=== PATIENT | female | born 1960 | race Caucasian/White ===

== ENCOUNTER 2017-06-11 10:39 | Emergency (ER) | payer SELFPAY ==
[~2017-06-11] VITALS: Ht 160 cm; Wt 74.8 kg
[~2017-06-11 10:39] MED LIST: ALEVE220 M1 PO; ANAPROX DS550 MG PO; ATIVAN0.5 MG PO; CIPRO500 MG PO; CYCLOBENZAPRINE5 MG PO; DAYPRO600 M1 PO; FLAGYL500 MG PO; FLEXERIL10 MG PO; GUAIFENESIN600 MG PO; HYDROCODONE BIT1 T11 PO; LOMOTIL 0.025 M1 TA1 PO; MEDROL DOSEPAK4 MG PO; MOTRIN800 MG PO; NAPROSYN500 MG PO; NKHM; NORCO 325 MG-51 TAB PO; Orphenadrine C100 MG PO; PARAFON FORTE500 MG PO; PHENERGAN W/ DE30 ML PO; PREDNICOT10 MG PO; PREDNISONE50 MG PO; ROBAXIN750 MG PO; TRAMADOL HCL50 MG PO; VICODIN 500 MG-1 TAB PO; ZITHROMAX Z PA250 MG PO; ZOFRAN ODT4 MG SL; ZOFRAN4 MG PO
[2017-06-11 10:53] VITALS: BP 146/72
== END 2017-06-11 13:04 | disposition home or self-care (01) ==
LOC: ED 10:39
DX: S63.632A Sprain of interphalangeal joint of right middle finger, initial encounter (principal); F17.200 Nicotine dependence, unspecified, uncomplicated; F12.10 Cannabis abuse, uncomplicated; J44.9 Chronic obstructive pulmonary disease, unspecified; Z88.0 Allergy status to penicillin; Z88.5 Allergy status to narcotic agent; Z79.899 Other long term (current) drug therapy; Z90.710 Acquired absence of both cervix and uterus; Z90.49 Acquired absence of other specified parts of digestive tract; X58.XXXA Exposure to other specified factors, initial encounter; Y93.89 Activity, other specified; Y92.89 Other specified places as the place of occurrence of the external cause; Y99.9 Unspecified external cause status

== ENCOUNTER 2017-06-30 12:25 | Emergency (ER) | payer SELFPAY ==
[~2017-06-30] VITALS: Ht 167.6 cm; Wt 68.0 kg
[2017-06-30 12:29] VITALS: BP 137/82
[2017-06-30] MEDS ORDERED: PREDNISONE10 MG PO ×2 (12:40→14:01)
[2017-06-30] MEDS ORDERED: CLARITIN10 MG PO (12:40)
[2017-06-30] MEDS ORDERED: FLONASE ALLERG9.9 ML NAS (12:40)
[2017-06-30] MEDS ORDERED: ROBITUSSIN DM 105 ML PO (12:40)
[2017-06-30] MEDS ORDERED: TESSALON PERLE100 M1 PO (12:45)
== END 2017-06-30 14:09 | disposition home or self-care (01) ==
LOC: ED 12:25
DX: J44.1 Chronic obstructive pulmonary disease with (acute) exacerbation (principal); I10 Essential (primary) hypertension; F17.200 Nicotine dependence, unspecified, uncomplicated; Z88.5 Allergy status to narcotic agent; Z90.722 Acquired absence of ovaries, bilateral; Z90.49 Acquired absence of other specified parts of digestive tract; Z90.710 Acquired absence of both cervix and uterus; Z88.0 Allergy status to penicillin

== ENCOUNTER 2017-07-03 11:03 | Inpatient (IN) | payer SELFPAY ==
[~2017-07-03] VITALS: Ht 167.6 cm; Wt 73.2 kg
--- NOTE | ~2017-07-03 | PR ---
[place], [place] PROGRESS NOTE NAME: JULIANNE HERNANDEZ UNIT #: [id number] ROOM: 401 DOCTOR: KRISTEN SALAS MD,MIKEY BIRTHDATE: [birth year] DOS: 07/12/2017 SUBJECTIVE: The patient was independently seen and examined today with [id number] encounter. Physical examination performed. History was confirmed. The labs were reviewed. Assessment and management for this patient was personally made. She has been doing well at this time from the pulmonary standpoint without any symptoms of cough, wheezing, chest pain or shortness of breath acutely. OBJECTIVE: VITAL SIGNS: Normal temperature, respiratory rate 18, heart rate 73, blood pressure 98/56 recorded. Pulse oxygen saturation on room air 97% saturation. HEENT: Examination shows no acute change. NECK: Supple. CARDIOVASCULAR: S1, S2 audible. LUNGS: Without any wheeze or crackles. ABDOMEN: Soft, nontender. IMPRESSION: The patient was currently noted with findings of resolution of the acute hypoxic respiratory failure. The patient with exacerbation of COPD and other problems progressively. She could be considered for home discharge whenever is necessary from pulmonary standpoint to outpatient followup. The patient was suggested post-discharge. Abstinence of the tobacco use was recommended. MIKEY PETERSON MD CM:PNTRANS [phone] MIKEY SALAS MD 07/12/17 1025 interface
--- NOTE | ~2017-07-03 | PR ---
[place], [place] PROGRESS NOTE NAME: JULIANNE HERNANDEZ UNIT #: [id number] ROOM: 409 DOCTOR: MIKEY IZQUIERDO MD BIRTHDATE: [birth year] DOS: 07/13/2017 ADDENDUM SUBJECTIVE: The patient was independently seen and examined [id number]-jatr encounter. Physical examination performed. All the labs were reviewed. Assessment and management of the patient, which was done today was personally made. The note which was done by the medical director occupational health was approved. The patient has been currently managed for the anemia noted with hematoma, which was discovered with a CT scan of the abdomen and pelvis involving the rectus muscle in the retroperitoneal area. From the Pulmonary standpoint, the patient remained asymptomatic with symptoms of chest pain, coughing and sputum expectoration. PHYSICAL EXAMINATION: VITAL SIGNS: The patient reviewed was noted essentially normal at the present time. The pulse oxygen saturation on room air was noted 94% saturation. CHEST: Auscultation of the chest was noted. LUNGS: Clear without any wheezing or crackles. ABDOMEN: Soft, nontender. LABORATORY DATA: BMP, CO2 of 34, otherwise normal BMP noted. CBC showed WBC count 20.8, hemoglobin 7.6, hematocrit 24.3, platelet count was normal. IMPRESSION: 1. The patient with retroperitoneal hematoma. The patient was noted at this time with abnormal stress testing. 2. Resolving acute exacerbation of chronic obstructive pulmonary disease progressively with resolved acute hypoxic and hypercapnic respiratory failure. PLAN OF TREATMENT: No changes from the pulmonary standpoint. Continuation of the current plan and management as in progress for the retroperitoneal hematoma and continuation of other therapies. [place], [place] PROGRESS NOTE NAME: JULIANNE HERNANDEZ UNIT #: [id number] ROOM: 409 DOCTOR: MIKEY IZQUIERDO MD BIRTHDATE: [birth year] MIKEY PETERSON MD CM:PNTRANS [phone] MIKEY SALAS MD 07/13/17 1257 interface
--- NOTE | ~2017-07-03 | PR ---
[place], [place] PROGRESS NOTE NAME: JULIANNE HERNANDEZ [facility] #: [id number] UNIT #: [id number] ROOM: 401 DOCTOR: VANESSA WALTON MD BIRTHDATE: [birth year] DOS: 07/09/2017 SUBJECTIVE: The patient was seen at her bedside today, 07/09/2017, for followup of her chest pain, mildly elevated troponin and abnormal echocardiogram, which demonstrated mid and distal anterior wall and anterior septum hypokinesis. The patient feels dramatically better than when I saw her 3 days ago. She did have considerable abdominal pain and bruising over the weekend. She was evaluated by General Surgery who felt that she had a rectus sheath hematoma. He recommended withholding anticoagulation and antiplatelet agents and then applying conservative care. The patient states her pain is much better today, although she still has a tender area in her left lower quadrant. She states her breathing is a lot better. She denies any chest pain today. PHYSICAL EXAMINATION: VITAL SIGNS: Today, her pulse is 98 and regular, blood pressure is 112/51. She is afebrile. NECK: Supple. She has no jugular distention. Carotids are full. I heard no bruits. LUNGS: Respirations are unlabored. Her chest is clear to auscultation and percussion. She has no presacral edema or chest wall tenderness. HEART: Has a regular rhythm. She has a fourth heart sound, but no third heart sound. There is no murmur. The PMI is not displaced. ABDOMEN: Soft. She has a large ecchymotic area involving both right and left lower quadrants in the midline. ASSESSMENT AND PLAN: She does seem to be doing better from a cardiopulmonary standpoint. I will be planning on doing a pharmacologic myocardial perfusion study in the next 24 hours. If that looks good, then I think that she could be discharged to home after that. She asked me if she could go back to work or should she go on short term disability. She has 3 issues, her cardiac issues, pulmonary issues and the rectus sheath hematoma. I think that all 3 speciality groups will need to sign off on her before she returns to work. From a cardiac standpoint, we will have a better idea of her prognosis after her stress test. For now, we will continue her current management. I thank the hospitalist physicians for asking our advice regarding her care. [place], [place] PROGRESS NOTE NAME: JULIANNE HERNANDEZ UNIT #: [id number] ROOM: 401 DOCTOR: VANESSA WALTON MD BIRTHDATE: [birth year] VANESSA WALTON MD CM:PNTRANS [id number] VANESSA WALTON MD 07/09/17 1346 interface
--- NOTE | ~2017-07-03 | PR ---
[place], [place] PROGRESS NOTE [id number] UN[facility] #: [id number] ROOM: 401 DOCTOR: KRISTEN SALAS MD,MIKEY BIRTHDATE: [birth year] DOS: 07/08/2017 SUBJECTIVE: She has been complaining of some nonspecific pain in the right upper quadrant, respiratory nicole doing well with continued improvement and reduction of respiratory symptom. Denies symptoms of chest pain. OBJECTIVE: VITAL SIGNS: For the patient which has been recorded showed normal temperature, respiratory rate 18, heart rate of 86, blood pressure 146/78. The pulse oxygen saturation recorded on 2 liters nasal cannula 96% saturation. HEENT: No new change. NECK: Supple. CARDIOVASCULAR: S1, S2 audible. LUNGS: For this patient was noted without any wheezing or crackles. ABDOMEN: Noted soft. Bowel sounds are present. LABORATORY DATA: The patient has an x-ray of the KUB. KUB activity was done this morning by the primary care attending for assessment of abdominal pain, was described no bowel obstruction localizing ____ bowel loop for other abnormalities. Question of gallbladder calculi, the patient was suggested. Consider ultrasound of the right upper quadrant. IMPRESSION: Resolving acute exacerbation of chronic obstructive pulmonary disease, right upper quadrant abdominal pain, etiology currently being assessed by the primary care attending. PLAN OF TREATMENT: No changes in the therapy at this time. Continue current treatment plan and management per usual care, other supportive plan of treatment and therapies. MIKEY PETERSON MD CM:PNTRANS [phone] MIKEY SALAS MD 07/09/17 0524 interface
--- NOTE | ~2017-07-03 | PR ---
[place], [place] PROGRESS NOTE NAME: JULIANNE HERNANDEZ UNIT #: [id number] ROOM: 401 DOCTOR: MIKEY IZQUIERDO MD BIRTHDATE: [birth year] DOS: 07/09/2017 SUBJECTIVE: She has been noted resolution of abdominal pain, sitting comfortably on the bed without any distress. Respiratory symptoms continue to resolve progressively. OBJECTIVE: VITAL SIGNS: Blood pressure 112/51 this morning, respiratory rate 20, heart rate 98 with a normal temperature recorded. Pulse oxygen saturation noted on 2 liters nasal canula 94% saturation. HEENT: Examination shows no acute change. NECK: Supple. CARDIOVASCULAR: S1, S2 is audible. LUNGS: Noted without any wheezing or crackles. ABDOMEN: Soft, nontender. EXTREMITIES: Show no edema. LABORATORY DATA: CBC was done this morning shows a WBC count elevated 24.6, hemoglobin 8.4, hematocrit 25.7, platelet count 220,000. The differentials were noted with findings of 4%, myelocyte 3%, metamyelocytes 1%, atypical lymphocytes. The overall neutrophils were noted as normal. The BMP done this morning was normal. The patient had a CT scan of the abdomen and pelvis that was completed yesterday and was ordered by the primary care attending, described as left rectus abdominis and pelvic hematoma with advanced mass effect on the bladder wall. Small amount of right perihepatic fluid. The patient described the question of mild hemoperitoneum. Small pericardial effusion. IMPRESSION: The patient will be currently noted abdominal pain, etiology is unclear, but from the pulmonary standpoint, she has been noted gradual reduction, improvement and resolution of the acute hypoxic respiratory failure with exacerbation of chronic obstructive pulmonary disease. PLAN OF MANAGEMENT: The patient will be continued on the bronchodilators with oxygen supplementation. Solu-Medrol has already been given as 40 mg b.i.d., which will be decreased to once a day dosing. Current abdominal assessment per surgeon as well should be requested. [place], [place] PROGRESS NOTE NAME: JULIANNE HERNANDEZ UNIT #: [id number] ROOM: 401 DOCTOR: MIKEY IZQUIERDO MD BIRTHDATE: [birth year] MIKEY PETERSON MD CM:MARY [phone] MIKEY SALAS MD 07/09/17 2249 interface
--- NOTE | ~2017-07-03 | PR ---
[place], [place] PROGRESS NOTE [id number] #: [id number] ROOM: 409 DOCTOR: JALEN GAITAN MD BIRTHDATE: [birth year] DOS: SUBJECTIVE: The patient is sitting up in bed, does not appear in distress. Denies any cardiac complaints. OBJECTIVE: VITAL SIGNS: Blood pressure 100/48, heart rate 66, respiratory rate of 14, temperature 97.5. NECK: Good upstroke. No bruit. HEART: S1, S2 with no rub. LUNGS: Clear to auscultation. ABDOMEN: Soft, nontender, present bowel sounds. LOWER EXTREMITIES: No edema. LABORATORY DATA: White count 24,000, hemoglobin 9.5. ASSESSMENT AND PLAN: 1. Current presentation with shortness of breath and respiratory failure with elevated troponin. Subsequent stress test showing large fixed defect along with periinfarct ischemia. The patient was scheduled for cardiac catheterization, but her rectus sheath hematoma precludes current plans. The patient appears to be doing relatively well. Denies any specific cardiac complaint. The patient's vital signs preclude further titration of her medication. She will need to be discharged home on enteric-coated aspirin 81 mg and can be followed up in [address] scan on the hematoma. There is already a planned cardiac catheterization with Dr. Harris on July 27 should patient's bleeding status improves. The patient completely cautioned to call for any recurrent chest pain at any time. Early followup in our clinic within 2-4 weeks as an outpatient with Dr. Way. JALEN GAITAN MD CM:PNTRANS [phone] JALEN GAITAN MD 07/14/17 1524 interface
--- NOTE | ~2017-07-03 | PR ---
[place], [place] PROGRESS NOTE NAME: JULIANNE HERNANDEZ UNIT #: [id number] ROOM: 409 DOCTOR: KRISTEN SALAS MD,MIKEY BIRTHDATE: [birth year] DOS: 07/14/2017 SUBJECTIVE: She has been noted comfortable from the respiratory standpoint with minimal cough, but there are no symptoms of chest pain or hemoptysis. Denies any sputum expectoration. OBJECTIVE: VITAL SIGNS: Normal temperature, respiratory rate 18, heart rate 66, blood pressure 100/48. Pulse oxygen saturation recorded on room air 97% saturation. HEENT: No new change. NECK: Supple. CARDIOVASCULAR: S1, S2 audible. LUNGS: Noted without any wheezing or crackles. ABDOMEN: Soft, nontender. LABORATORY DATA: CBC: WBC count 24.3, hemoglobin 9.5, hematocrit 28.6, platelet count 291,000. IMPRESSION: Stable respiratory status with retroperitoneal hematoma status post blood transfusion, resolving acute hypoxic respiratory failure, exacerbation of chronic obstructive pulmonary disease. PLAN OF TREATMENT: No change in the plan or therapy at this time. Continue the patient on current therapy previously in progress without any changes, all supportive care and plan. MIKEY PETERSON MD CM:PNTRANS [phone] MIKEY SALAS MD 07/15/17 0150 interface
--- NOTE | ~2017-07-03 | PR ---
[place], [place] PROGRESS NOTE NAME: [id number] UNIT #: [id number] ROOM: 401 DOCTOR: KRISTEN SALAS MD,MIKEY BIRTHDATE: [birth year] DOS: 07/11/2017 SUBJECTIVE: She underwent cardiac stress test that has been noted with possibility of ischemia was suspected. She was planned for the cardiac catheterization to be done in the next day or 2 at [facility]. OBJECTIVE: VITAL SIGNS: For the patient which has been recorded shows normal temperature, respiratory rate 18, heart rate 77, blood pressure 150 to 96 over 66. HEENT: Showed no new change. NECK: Supple. CARDIOVASCULAR: S1, S2 audible. LUNGS: Noted without any wheezing or crackles at this time. Breath sounds noted mildly decreased bilaterally. ABDOMEN: Soft, nontender. EXTREMITIES: Showed no edema. IMPRESSION: The patient with resolving acute respiratory failure with exacerbation of chronic obstructive pulmonary disease and acute coronary artery disease was also noted requiring further assessment with cardiac catheterization. PLAN OF TREATMENT: No changes in the plan of therapy from the pulmonary standpoint for this patient except further reducing the dose of Solu-Medrol 20 mg daily for 3 days and then discontinue completely. Other supportive plan of management and care plan. MIKEY PETERSON MD CM:PNTRANS [phone] MIKEY SALAS MD 07/11/17 1106 interface
--- NOTE | ~2017-07-03 | PR ---
[place], [place] PROGRESS NOTE NAME: JULIANNE HERNANDEZ UNIT #: [id number] ROOM: 401 DOCTOR: KRISTEN SALAS MD,MIKEY BIRTHDATE: [birth year] DOS: 07/06/2017 PULMONARY PROGRESS NOTE SUBJECTIVE: She has been noted comfortable at this time, reduction of respiratory symptoms in last 24 hours with current medical management. Used the BiPAP for some time this morning, using oxygen supplementation with the nasal cannula. OBJECTIVE: VITAL SIGNS: For the patient, which has been recorded show a normal temperature, respiratory rate 22, heart rate 72, blood pressure 134/68. Pulse oxygen saturation was noted as 95% on 3 liters nasal cannula. HEENT: Examination showed no acute change. NECK: Supple. CARDIOVASCULAR: S1, S2 audible. LUNGS: Noted with mild expiratory wheezing, no crackles. ABDOMEN: Soft, nontender. LABORATORY DATA: CBC: WBC count 21,000. Culture of the sputum noted as predominant normal fina, final culture results pending. BMP noted as normal. IMPRESSION: The patient who has been currently noted with progressive and gradual resolution of the acute on chronic hypoxic and hypercapnic respiratory failure; acute bronchitis and exacerbation of chronic obstructive pulmonary disease; leukocytosis, most likely induced by the corticosteroids. PLAN OF TREATMENT: Reduction of the corticosteroids. Transfer the patient from the intensive care unit to medical floor. Switching the patient's antibiotic intravenously to oral use as well. Ambulation as tolerated. Usual care. All other supportive therapy, plan and management and treatment. Continue medical management of cough with Mucinex, flutter valve and other medical management. MIKEY PETERSON MD CM:PNTRANS [phone] MIKEY SALAS MD 07/06/172026 interface
--- NOTE | ~2017-07-03 | PR ---
[place], [place] PROGRESS NOTE NAME: JULIANNE HERNANDEZ UNIT #: [id number] ROOM: 409 DOCTOR: JUAN FRANCISCO MAGANA DO BIRTHDATE: [birth year] DOS: 07/12/2017 ADDENDUM SUBJECTIVE: The patient was evaluated and states she is feeling better and excited about the possibility of going home. She did have a stress test during her stay and she was planned to have a cardiac catheterization on July 27 due to cardiology wanting to make sure there is no recurrence of her hematoma or bleeding prior to catheterization. Respiratory nicole, she denies any cough, shortness of breath, chest pain, pleuritic pain, fevers, nausea, vomiting or any other symptoms. OBJECTIVE: VITAL SIGNS: Temperature is 98.1, pulse is 73, respiratory rate 18, blood pressure 98/56 and pulse ox is 97% on room air. HEENT: No lesions. No ulcerations. No drainage. No masses. NECK: Trachea is midline. CARDIOVASCULAR: S1, S2 audible. LUNGS: No wheezing, no crackles, no rhonchi at this time, somewhat decreased breath sounds bilaterally. ABDOMEN: Soft and nontender. EXTREMITIES: No edema, no erythema. IMPRESSION: Chronic obstructive pulmonary disease exacerbation, continues to resolve. PLAN: The patient can be discharged at discretion of primary care team, but from my ____ standpoint, she is to go home and follow up with cardiology and pulmonology and PCP as directed. Please attach this dictation to Dr. Peterson's progress note. JUAN FRANCISCO MAGANA DO [place], [place] PROGRESS NOTE NAME: JULIANNE HERNANDEZ UNIT #: [id number] ROOM: 409 DOCTOR: JUAN FRANCISCO MAGANA DO BIRTHDATE: [birth year] MIKEY PETERSON MD CM:PNTRANS [phone] JUAN FRANCISCO MAGANA DO 07/13/17 0845 interface
--- NOTE | ~2017-07-03 | PR ---
[place], [place] PROGRESS NOTE NAME: JULIANNE HERNANDEZ [facility] #: [id number] UNIT #: [id number] ROOM: [facility] DOCTOR: KRISTEN SALAS MD,MIKEY BIRTHDATE: [birth year] DOS: 07/05/2017 SUBJECTIVE: She has been noted comfortable at this time. The cough has been noted currently without any sputum expectoration. Denies symptoms of chest pain or hemoptysis. The patient denies any symptoms of edema or pain of the lower extremities. OBJECTIVE: VITAL SIGNS: For the patient which were recorded for the patient showed the temperature of the patient noted as normal. The respiratory rate of the patient recorded as 21-14. Heart rate of 88, blood pressure 130/62-120/60. The pulse oxygen saturation of the patient recorded on 40% oxygen 97% saturation. HEENT: No acute change. NECK: Supple. CARDIOVASCULAR: S1, S2 audible. LUNGS: Exam of the lungs were noted with bilaterally decreased breath sounds with expiratory wheezing which are noted decreased from previous examination. ABDOMEN: Soft, nontender, bowel sounds present. CENTRAL NERVOUS SYSTEM: No focal deficit. LABORATORY DATA: The patient's CBC today: WBC count 18.8 with 85% segmented neutrophils, remaining CBC normal. BMP of the patient was noted with glucose of 163, BUN and creatinine was normal. The phosphorus 1.9. Chest x-ray of the patient that was done for the patient this morning was personally reviewed and shows changes of severe emphysema. The patient noted with hyperinflation of the lungs. IMPRESSION: 1. The patient has been currently treated in the hospital for further medical management of severe acute hypercapnic and hypoxic respiratory failure, currently responding to treatment, use of the BiPAP. 2. History of chronic nicotine abuse. There was no evidence of pneumonia. Acute bronchitis for this was noted. PLAN OF MANAGEMENT: Continue the BiPAP for the patient as ordered at nighttime and during the day, the patient has been getting intravenous Solu-Medrol with bronchodilators. The dose of Solu-Medrol will be decreased today. Continued abstinence from tobacco use. Supportive therapy, plan of management, other care, plan of treatment. The patient could be transferred from the intensive care unit to medical floor for further continued medical management. No change in antibiotics will be necessary. Additional treatment changes for the patient will be made based on the progression of the illness. The Solu-Medrol has been decreased from 60 mg q. 8h to 40 mg q.8h. [place], [place] PROGRESS NOTE NAME: JULIANNE HERNANDEZ UNIT #: [id number] ROOM: [facility] DOCTOR: KRISTEN SALAS MD,MIKEY BIRTHDATE: [birth year] MIKEY PETERSON MD CM:PNTRANS [phone] MIKEY SALAS MD 07/06/17 0054 interface
--- NOTE | ~2017-07-03 | PR ---
[place], [place] PROGRESS NOTE NAME: [id number] UNIT #: [id number] ROOM: 401 DOCTOR: KRISTEN SALAS MD,MIKEY BIRTHDATE: [birth year] DOS: 07/07/2017 SUBJECTIVE: The patient has been showing reduction and improvement in the respiratory symptoms, oxygen requirement has been decreased, currently treated on the telemetry floor from and transferred from the intensive care unit yesterday. She denies symptoms of hemoptysis. OBJECTIVE: VITAL SIGNS: Normal temperature, respirations 18, heart rate 76, blood pressure 136/80. Pulse oxygen saturation recorded on 3 liters nasal canula 99% saturation. HEENT: No new change. NECK: Supple. CARDIOVASCULAR: S1, S2 audible. LUNGS: Noted with moderate decreased breath sounds, mild expiratory wheezing, no crackles. ABDOMEN: Soft, nontender. LABORATORY DATA: CBC: WBC count 15.6, hemoglobin 11.5, hematocrit 35.5, platelet count 240,000. Culture of the sputum for patient no bacterial growth, normal fina recorded from the . IMPRESSION: Progressive and gradual resolution of the acute respiratory failure with exacerbation of chronic obstructive pulmonary disease and tracheobronchitis, progressive improvement. PLAN OF TREATMENT: Ambulation, the patient was encouraged. Possible discharge of the patient from the pulmonary standpoint might be considered for tomorrow. In the meantime, continue current dose of steroids. No changes need to be made. MIKEY PETERSON MD CM:PNTRANS [phone] MIKEY SALAS MD 07/07/171944 interface
--- NOTE | ~2017-07-03 | PR ---
[place], [place] PROGRESS NOTE NAME: JULIANNE HERNANDEZ UNIT #: [id number] ROOM: [facility] DOCTOR: VANESSA WALTON MD BIRTHDATE: [birth year] DOS: SUBJECTIVE: The patient was seen at her bedside in the intensive care unit today for followup of her dyspnea and elevated troponin levels. The patient is breathing more easily, although she is still working to breathe. She states that she still has tightness in her chest, but she states that she is "tight everywhere." She had a nonproductive cough. PHYSICAL EXAMINATION: VITAL SIGNS: Today, her pulse is 100 and regular, blood pressure is 102/84. NECK: Supple. She has no jugular distention. Carotids are full. LUNGS: Respirations are unlabored at rest. She has markedly decreased breath sounds bilaterally but no wheezes or rales. There is no presacral edema. HEART: Has a regular rhythm with an S4 gallop. Heart tones are distant. ABDOMEN: Benign. EXTREMITIES: Showed no edema. LABORATORY DATA: She did have an echocardiogram today. It shows that left ventricular function is mildly impaired and that she does have wall motion abnormality involving the distal septum and apex. Most likely, she does therefore have significant coronary artery disease in addition to her pulmonary processes. IMPRESSION: 1. Acute exacerbation of chronic lung disease. 2. Probable coronary artery disease. 3. Abnormal echocardiogram demonstrating hypokinesis in the mid and distal anterior wall and anterior septum. Ejection fraction is 45-50% with grade 2 diastolic relaxation abnormalities. PLAN: The patient will continue to receive aggressive pulmonary therapies. Once she has stabilized from a pulmonary standpoint, we will do a risk stratifying stress test in order to determine how aggressively we should be managing her cardiac problems going forward. The patient told me today that she will never smoke again and this is a big step toward improving her health long-term. [place], [place] PROGRESS NOTE NAME: JULIANNE HERNANDEZ UNIT #: [id number] ROOM: [facility] DOCTOR: VANESSA WALTON MD BIRTHDATE: [birth year] VANESSA WALTON MD CM:PNTRANS [id number] VANESSA WALTON MD 07/06/174 interface
--- NOTE | ~2017-07-03 | PR ---
[place], [place] PROGRESS NOTE NAME: [id number] UNIT #: [id number] ROOM: 401 DOCTOR: VANESSA WALTON MD BIRTHDATE: [birth year] DOS: HISTORY OF PRESENT ILLNESS: The patient was seen in the Cardiology Department prior to her stress test. She states that she still is breathing well, but she is in considerable pain today. She denies chest pain or excessive dyspnea at this time. PHYSICAL EXAMINATION: VITAL SIGNS: Today, her pulse is 90 and regular, blood pressure is 110/90. She is afebrile. She weighs 73.2 kilograms. NECK: Supple. She has no jugular venous distention. CHEST: Clear. HEART: Has a regular rhythm with an S4 gallop. ABDOMEN: Soft. She does have a large ecchymotic area on the lower abdomen. EXTREMITIES: Showed no edema. IMPRESSION: 1. Acute exacerbation of chronic lung disease. 2. Atypical chest discomfort. 3. Elevated troponin with abnormal echo demonstrating apical wall motion abnormalities. 4. Rectus sheath hematoma. 5. Ongoing tobacco abuse. PLAN: We will proceed with a pharmacologic stress test. I have reviewed the records from General Surgery, Dr. Grimaldo. As of yesterday, he was saying that we needed to withhold her anticoagulants 72 more hours and then they could be resumed if she is stable. For now, we will proceed with a pharmacologic stress test and further recommendations made about her coronary artery disease status and prognosis based on the results of the stress test. I thank the hospitalist physicians for asking our advice regarding her care. VANESSA WALTON MD CM:PNTRANS [id number] VANESSA WALTON MD 07/10/17 1459 interface
--- NOTE | ~2017-07-03 | CON ---
[place], [place] REPORT OF CONSULTATION NAME[id number] UNIT #: [id number] [facility]: [facility] DOCTOR: MIKEY IZQUIERDO MD BIRTHDATE: [birth year] DOS: 07/04/2017 PULMONARY CONSULTATION CONSULTATION REQUESTED BY: Hospitalist Services. Dr. Yanique Cisneros. REASON FOR CONSULTATION: To assess the patient for acute respiratory failure. HISTORY OF PRESENT ILLNESS: A 57-year-old white female who has been admitted to the hospital on 07/03/2017. The patient presented to the Emergency Room as she has noted with increased symptoms of shortness of breath, which has been associated with cough. The cough has been noted intermittently with moderate amount of mywvexwet-ys-lzcttwdp sputum expectoration. The symptoms of wheezing was also noted. She was seen in the Emergency Room on the of this month for the similar symptoms, diagnosed with exacerbation of COPD, given oral antibiotics. The patient tapering prednisone, Tessalon Perles, Claritin, and other medications. The patient has not been noted with improvement in the respiratory symptoms. The patient denies any symptoms of chest pain. The symptoms have been noted significantly worsened for the past 24 hours prior to the hospitalization. She denies symptoms of chest trauma. Denies any chest pain or hemoptysis. The wheezing was also noted significantly. REVIEW OF SYSTEMS: CONSTITUTIONAL: Per patient, she does have symptoms of fatigue and tiredness. Denies any chills, but complained of a possibility of fever at home. EYES: Denied any tried, redness, discharge, or redness. EAR, NOSE, THROAT: No sore throat, hoarseness, otalgia, postnasal drainage or epistaxis. CARDIOVASCULAR: Denies anginal pain, edema or pain of the lower extremities. GASTROINTESTINAL: Dysphagia, nausea, vomiting, diarrhea, abdominal pain, hematemesis, melena, or hematochezia. SKIN: Denies any lesions or rashes. MUSCULOSKELETAL: No acute joint pain, redness, or tenderness. CENTRAL NERVOUS SYSTEM: Denies dizziness, headache, diplopia or syncopal episodes. Remaining systems were reviewed with the patient, they were noted all negative. The patient has been admitted in this hospital. The patient at this time in the Intensive Care Unit. She has been ordered the BiPAP for the medical management of respiratory failure, which has been used by the patient alternating with a Venturi mask from admission and continued in the rest of the consultation. The past medical record review for the patient noted with hospitalization in July 2016. At that time, the patient was managed for acute exacerbation of chronic obstructive pulmonary disease and acute bronchitis. She was also known with history of nicotine dependence. PAST MEDICAL HISTORY: Noted with, 1. History of centrilobular emphysema. 2. COPD. [place], [place] REPORT OF CONSULTATION NAME: JULIANNE HERNANDEZ UNIT #: [id number] ROOM: [facility] DOCTOR: KRISTEN SALAS MD,[facility] BIRTHDATE: 60 3. History of cancer of the cervix. 4. History of nicotine dependence. 3. History of marijuana use. SOCIAL HISTORY: The patient is . She lives at her own home. She has 2 children. Smoking noted since the age of [age] years old. She has been noted smoking of 2 packs of cigarettes per day. Denied any history of alcohol use or illicit drug use. FAMILY HISTORY: Father at 70 years with complication of colon cancer. Mother at 50 years with complication related to liver cirrhosis. PAST SURGICAL HISTORY: Noted. 1. Complete hysterectomy. 2. Cholecystectomy. 3. Cardiac catheterization without any acute intervention necessary. MEDICATIONS: For the patient, which has been recorded on the patient's medication reconciliation from home were noted as a use of Flonase, Tessalon Perles, loratadine, and tapering prednisone; all prescribed during the last ER visit. PHYSICAL EXAMINATION: GENERAL: A 57-year-old female who has been noted mild tachypnea, using the oxygen supplementation Venturi mask VITAL SIGNS: Height of 5 feet 6 inches, weight of 161 pounds, BMI 26. This morning in Intensive Care Unit, the temperature of the patient noted as normal since admission. Respiratory rate range between 23-14, heart rate of 84 to 112, with sinus tachycardia, blood pressure 134/86-109/77. The pulse oxygen saturation recorded on with the 50% Venturi mask 97% saturation, previously with the use of the BiPAP 40% to 98% saturation on room air, earlier was 89% saturation. HEENT: Examination shows head was atraumatic. Eyes nonicterus. NECK: Supple. Oral mucosa was dry. CARDIOVASCULAR: S1, S2 audible. LUNGS: General reduction of breath sound, diffuse expiratory wheezing with basilar crackles in the right lower lung. ABDOMEN: Soft, nontender. EXTREMITIES: Noted without any edema. SKIN: No lesions or rashes. MUSCULOSKELETAL: No acute deformities. CENTRAL NERVOUS SYSTEM: Cranial nerves 2-12 intact. No focal deficits. LABORATORY DATA: PCR for influenza A and B, nasal washing on the in the Emergency Room noted negative. CMP of the patient that were done this morning shows a BUN and creatinine were normal, glucose 121, potassium 3.3, otherwise normal. CBC of the patient on 07/03/2017, WBC count 20.2, hemoglobin 15.7, hematocrit 47.7, and platelet count was normal. Arterial blood gas pH of 7.30, pCO2 of 52, pO2 of 119, 100% oxygen supplementation. Arterial blood gas of the patient that were done on the BiPAP, 40% oxygen, pH of 7.35, pCO2 46, pO2 122 [place], [place] REPORT OF CONSULTATION NAME: JULIANNE HERNANDEZ UNIT #: [id number] ROOM: [facility] DOCTOR: KRISTEN SALAS MD,[facility] BIRTHDATE: 60 after 3 hours later. The blood gases were done yesterday. BMP on admission was repeated again noted potassium 3.4. ABG this morning, the patient's pH of 7.35, pCO2 of 47, pO2 84 with a 50% oxygen. CMP this morning noted normal. BUN, creatinine, and potassium noted as normal. CBC this morning, WBC count 17.6. Hemoglobin, hematocrit and platelet count were normal. Review of the radiology data: One view chest x-ray of the patient that were done in the emergency room on 07/03/2017 shows changes of COPD, hyperinflation, and emphysema. IMPRESSION: 1. The patient who has been currently admitted to the hospital. The patient noted with severe acute hypoxic respiratory failure with hypercapnia as a result of acute exacerbation of chronic obstructive pulmonary disease related to the acute bacterial bronchitis. There was no evidence of pneumonia noted with the current chest x-ray 1 view: 2. History of chronic nicotine dependence, heavy nicotine abuse and the patient has not been noted any use of regular respiratory medications. Other medical illnesses as reported mild hyperkalemia for this patient most likely medication induced, seemed to be resolved with supplementation of the potassium. PLAN OF MANAGEMENT: The patient has been started on bronchodilator and will be given. Continue rather at this time. The BiPAP will be continued. The Solu-Medrol has been continued at this time 60 mg q. 8 hours without any changes need to be done. Continue with antibiotics. The patient's medical management of acute bronchitis. The antibiotics as Levaquin has been continued. Bronchodilators every 4 hours. Tobacco cessation for this patient would be advised. Nicotine replacement patches for this patient. The patient would like to use them to overcome any nicotine withdrawal. Other supportive therapy, plan of management care. Decreased the oxygen supplementation based on the improvement oxygen saturation, obtain a PA and lateral chest x-ray tomorrow morning to exclude any interval development of pneumonia with area of atelectasis. Other plan of management and care. Additional treatment changes need to be made based on progression of the illness. Also ordered the sputum for Gram stain and culture as well. Usual medical management, other therapy. Steroids dose will be decreased further adjustment in medication be done based on the progression of the illness. Thanks for allowing me to participate in the care of this patient. MIKEY PETERSON MD CM:CONSTR:REPORT OF CONSULTATION 1338 07/05/17 0618 interface
--- NOTE | ~2017-07-03 | PR ---
[place], [place] PROGRESS NOTE NAME: JULIANNE HERNANDEZ UNIT #: [id number] ROOM: 409 DOCTOR: JUAN FRANCISCO MAGANA DO BIRTHDATE: [birth year] DOS: 07/13/2017 SUBJECTIVE: The patient is denying any complaints. Denies any shortness of breath. She is awake, alert, responsive, has no nausea or vomiting and has had no diarrhea or chest pain. Denies fevers or chills. OBJECTIVE: GENERAL: The patient does not appear to be in any acute distress. VITAL SIGNS: Temperature is 97.7, pulse rate 74, respiratory rate 18, blood pressure is 102/44 and heart rate 97% on room air. HEENT: Shows no acute changes. NECK: Supple. CARDIOVASCULAR: S1, S2 are audible. LUNGS: Without any wheezes or crackles. ABDOMEN: Soft, nontender. IMPRESSION AND PLAN: Her acute hypoxic respiratory failure seems to be improving. The patient has had further improvement of her chronic obstructive pulmonary disease exacerbation. She could be considered for discharge at discretion of primary care and the business operations analyst. She is to continue to follow up with Cardiology for her catheterization and with Dr. Peterson for her chronic obstructive pulmonary disease and chronic respiratory failure. The patient has kept overnight due to concerns of her hemoglobin falling. Please see the plan of care for the primary care team and the Cardiology team in regards to cardiovascular treatment. JUAN FRANCISCO MAGANA DO MIKEY PETERSON MD CM:PNTRANS [id number] JUAN FRANCISCO MAGANA DO 07/13/17 1157 interface
--- NOTE | ~2017-07-03 | PR ---
[place], [place] PROGRESS NOTE NAME: JULIANNE HERNANDEZ [facility] #: [id number] UNIT #: [id number] ROOM: 401 DOCTOR: VANESSA WALTON MD BIRTHDATE: [birth year] DOS: SUBJECTIVE: The patient was seen at her bedside today for followup of her atherosclerotic heart disease. She tells me that she had a restless night, but mostly because of abdominal discomfort. She denies any trouble breathing and denies any chest pain. PHYSICAL EXAMINATION: VITAL SIGNS: Today, her pulse is 73 and regular, blood pressure is 98/56. She was afebrile. She weighed 73.2 kg and had a body mass index of 26.1. NECK: Supple. She had no jugular distention. LUNGS: Her respirations were unlabored. Her chest was clear to auscultation and percussion. There were no wheezes or rales. She had no presacral edema or chest wall tenderness. HEART: Had a regular rhythm with an S4 gallop. She had no S3 or murmurs. ABDOMEN: Soft and normoactive. She does have a large ecchymosis over both lower quadrants, extending on to her left flank. The area is somewhat tender to touch. EXTREMITIES: Showed no edema. LABORATORY DATA: Her monitor shows she is remaining in sinus rhythm. IMPRESSION: 1. Admission with acute exacerbation of lung disease, improving. 2. Elevated cardiac biomarkers, consistent with non-ST elevation myocardial infarction. 3. Abnormal echocardiogram, demonstrating anterior wall motion abnormality. 4. Abnormal stress test, demonstrating an anterior wall myocardial infarction with moisés-infarction ischemia. In addition, she does have transient left ventricular cavity dilation post-stress, consistent with multivessel coronary artery disease. 5. Rectus sheath hematoma with extension into the retroperitoneum. PLAN: As noted yesterday, the patient has high risk for future cardiac events and a strong indication for cardiac catheterization, but she has significant risk for complications from the catheterization given her recent rectus sheath hemorrhage and retroperitoneal hemorrhage. We are therefore delaying catheterization and treating her medically. She can restart antiplatelet therapy as of tomorrow per her general surgeon, Dr. Grimaldo. I would put her on an aspirin only and withhold Plavix on the assumption that she may require cardiac surgery. We will treat her medically for the next [address] of the abdomen should be done about a week from now as an outpatient. She is on the schedule for catheterization on 07/27/2017 at 7:30 in the morning. I thank the hospitalist group for asking our advice regarding her care. [place], [place] PROGRESS NOTE NAME: JULIANNE HERNANDEZ UNIT #: [id number] ROOM: [facility] DOCTOR: VANESSA WALTON MD BIRTHDATE: [birth year] VANESSA WALTON MD CM:PNTRANS 4 6 VANESSA WALTON MD 07/12/1735 interface
--- NOTE | ~2017-07-03 | PR ---
[place], [place] PROGRESS NOTE NAME[id number] UNIT #: [id number] ROOM: 401 DOCTOR: KRISTEN SALAS MD,MIKEY BIRTHDATE: [birth year] DOS: 07/10/2017 SUBJECTIVE: She was scheduled for the stress test to be done today. She denies symptoms of chest pain. Denies symptoms of hemoptysis. The coughing and shortness of breath continued to resolve previously. OBJECTIVE: VITAL SIGNS: For the patient which has been recorded shows a normal temperature, respiratory rate 18, heart rate of 90, blood pressure 110/90. Pulse oxygen saturation on room air was 94% saturation. HEENT: Showed no new change. NECK: Supple. CARDIOVASCULAR: S1, S2 is audible. LUNGS: Clear. ABDOMEN: Soft. Moderate obesity. Bowel sound present. LABORATORY DATA: CBC: WBC count was elevated at 24.6, hemoglobin 8.4, hematocrit 25.7, platelet count was normal. BMP was noted as normal. IMPRESSION: 1. Leukocytosis, etiology unclear, may be related to corticosteroids. There were no signs of active sepsis noted with current physical examination and clinical assessment. 2. Chronic obesity. PLAN OF TREATMENT: The patient does have diarrhea, certainly stool for C. diff toxin could be sent. Otherwise, no changes in the medical management will be necessary. Dose of Solu-Medrol currently noted as 40 mg daily. The patient was planned for cardiac stress test to be done today. MIKEY PETERSON MD CM:PNTRANS [id number] MIKEY SALAS MD 07/10/17 1457 interface
[~2017-07-03 11:03] MED LIST changes: +CLARITIN10 MG PO; +FLONASE ALLERG9.9 ML NAS; +PREDNISONE10 MG PO; +ROBITUSSIN DM 105 ML PO; +TESSALON PERLE100 M1 PO
[2017-07-03 11:12] VITALS: BP 134/86
[2017-07-03 11:29] LABS: HEMATOCRIT 47.7 % (37.0-47.0); HEMOGLOBIN 15.7 g/dl (12.0-16.0); MEAN CELL VOLUME 93.9 fl (81.0-99.0); MEAN CORPUSCULAR HGB 30.9 pg (27.0-31.0); MEAN CORPUSCULAR HGB CONC 32.9 g/dl (33.0-37.0); MEAN PLATELET VOLUME 11.3 fl (9.6-12.3); PLATELET COUNT AUTOMATED 266 10*3/uL (130-400); RED BLOOD COUNT 5.08 10*6/uL (4.10-5.10); RED CELL DISTRI WIDTH 12.9 % (0-14.5); WHITE BLOOD COUNT 20.2 10*3/uL (4.8-10.8)
[2017-07-03 11:37] LABS: ACT PARTIAL THROMBO TIME 25.2 SECONDS (20.8-31.5)
[2017-07-03 11:46] LABS: ALBUMIN 3.6 gm/dl (3.1-4.5); ALKALINE PHOSPHATASE 159 U/L (45-117); BUN 9 mg/dl (7-24); CHLORIDE 97 mmol/L (98-107); CREATININE 0.96 mg/dL (0.55-1.02); POTASSIUM 3.3 mmol/L (3.5-5.1); SGOT/AST 15 IU/L (3-35); SGPT/ALT 19 U/L (12-78); SODIUM 136 mmol/L (136-145); TOTAL PROTEIN 8.2 gm/dL (6.4-8.2)
[2017-07-03 11:47] LABS: TROPONIN I < 0.015 ng/ml (<0.045)
[2017-07-03 11:48] LABS: PLATELET SUFFICIENCY NORMAL (NORMAL); TOTAL CELLS COUNTED 100 #CELLS
[2017-07-03 12:06] VITALS: BP 134/64
--- NOTE | 2017-07-03 12:49 | NUR ---
PT IS RESTING,OCCAISONAL CONGESTED SOUNDING COUGH IS NOTED. IV FLUID AND LEVAQUIN ARE INFUSING. PT WILL BE ADMITTED,REPORT TO BE CALLED. COLETTE RODRIGES
[2017-07-03 12:54] VITALS: BP 129/67
[2017-07-03 13:25] VITALS: BP 148/78
--- NOTE | 2017-07-03 13:25 | NUR ---
A 57, admitted to , under the services of BHARATI Hurley DO with a diagnosis of CHEST PAIN, SEPSIS AND PNEUMONITIS. Chief complaint is CHEST PAIN. Patient arrived via bed from ER. Monitor applied. Initial assessment completed. Vital signs taken and recorded. BHARATI HURLEY DO notified of admission to the unit. Orders received. See assessment for past medical history, medications and allergies. Patient and/or family oriented to unit. [facility] visitation policy reviewed. Clothing/patient valuable form completed. CHUCK SCHMITT
[2017-07-03] MEDS ORDERED: FLONASE ALLERG9.9 ML NAS (14:02)
--- NOTE | 2017-07-03 14:03 | NUR ---
MED REC UPDATED BY CALLING [facility] AND VERIFYING WITH PATIENT.
--- NOTE | 2017-07-03 15:30 | NUR ---
ENTERED ROOM TO GIVE PATIENT HER MEDS. PT SAT UP AND STARTED GASPING AND SAYING SHE CAN'T BREATHE. SHE TOOK OFF HER OXYGEN AND SAID SHE CAN'T WEAR IT. I ATTEMPTED TO PUT IT BACK ON HER AND SHE RIPPED IT OFF AGAIN. AT THAT POINT HER LIPS APPEARED TO START TURNING BLUE AND I CALLED A RAPID RESPONSE. PULSE OX WAS 80 ON RA A NONREBREATHER WAS PLACED ON HER AND IT CAME UP TO 95% HR WAS 160'S. PATIENT TRANSFERRED TO ICU AND REPORT WAS GIVEN TO SARITHA.
--- NOTE | 2017-07-03 15:40 | NUR ---
PATIENT RECEIVED FROM 4E TO BED 3. PATIENT ON 100% NON-REBREATHER. POX 99%. RESPIRATORY AT BEDSIDE. ABG OBTAINED. PATIENT PLACED ON BIPAP / ON 40% FIO2. SINUS TACH PER CM-RATE LOW 100'S. I&E WHEEZING NOTED. BLOOD PRESSURE 142/92. WILL CONTINUE TO MONITOR.
[2017-07-03 15:50] VITALS: BP 142/92
[2017-07-03 15:58] LABS: ABG BASE EXCESS -1.5 mmol/L (-2.0-2.0); ABG HCO3 25.2 mmol/l (22-26); ABG O2 SATURATION 99.8 % (95-97); ARTERIAL BLOOD GAS PCO2 52.6 mmHg (35-45); ARTERIAL BLOOD GAS PH 7.301 (7.35-7.45)
[2017-07-03 16:10] LABS: HEMATOCRIT 42.2 % (37.0-47.0); HEMOGLOBIN 13.7 g/dl (12.0-16.0); MEAN CELL VOLUME 95.9 fl (81.0-99.0); MEAN CORPUSCULAR HGB 31.1 pg (27.0-31.0); MEAN CORPUSCULAR HGB CONC 32.5 g/dl (33.0-37.0); MEAN PLATELET VOLUME 11.2 fl (9.6-12.3); PLATELET COUNT AUTOMATED 223 10*3/uL (130-400); RED CELL DISTRI WIDTH 12.9 % (0-14.5); WHITE BLOOD COUNT 17.4 10*3/uL (4.8-10.8)
--- NOTE | 2017-07-03 16:25 | NUR ---
NOTIFIED OF NEW CONSULT ORDER. ORDER RECEIVED TO REPEAT ABG AT 1800.
[2017-07-03 16:32] LABS: TOTAL CELLS COUNTED 100 #CELLS
[2017-07-03 16:33] LABS: PLATELET SUFFICIENCY NORMAL (NORMAL)
[2017-07-03 16:41] LABS: BUN 8 mg/dl (7-24); CHLORIDE 104 mmol/L (98-107); CREATININE 0.58 mg/dL (0.55-1.02); POTASSIUM 3.4 mmol/L (3.5-5.1); SODIUM 138 mmol/L (136-145)
[2017-07-03 18:48] LABS: ABG BASE EXCESS 0.3 mmol/L (-2.0-2.0); ABG HCO3 25.7 mmol/l (22-26); ABG O2 SATURATION 98.6 % (95-97); ARTERIAL BLOOD GAS PCO2 46.8 mmHg (35-45); ARTERIAL BLOOD GAS PH 7.359 (7.35-7.45)
--- NOTE | 2017-07-03 19:01 | NUR ---
CALLED WITH ABG RESULTS. NEW ORDERS RECEIVED FOR BIPAP CHANGES.
[2017-07-03 20:00] VITALS: BP 133/85
--- NOTE | 2017-07-03 20:36 | NUR ---
CONSULT CALLED TO DOCTOR JOHNSON ANSWERING SERVICE VASHTI IS ADVANCED REGISTERED NURSE SHE SEND SHE WOULD SEND THE MESSAGE.
--- NOTE | 2017-07-03 20:40 | NUR ---
PATIENT OFF BIPAP ON 3 LITERS NC SAT 95% CURRENTLY WILL CONTINUE TO MONITOR.
[2017-07-03 22:28] LABS: ABG HCO3 25.6 mmol/l (22-26); ABG O2 SATURATION 98.2 % (95-97); ARTERIAL BLOOD GAS PCO2 51.4 mmHg (35-45); ARTERIAL BLOOD GAS PH 7.314 (7.35-7.45)
--- NOTE | 2017-07-03 22:31 | NUR ---
DOCTOR SARAH CALLED AFTER I CALLED ANSWERING SERVICE ABOUT [employer] [employer] TROPONIN ASKED FOR EKG'S TO BE FAXED TO HIM WHICH IS DONE. AND SAID HE WOULD PUT IN NEW ORDRES AND GO FROM THERE.
--- NOTE | 2017-07-03 22:38 | NUR ---
PATIENT COUGHING FOR OVER AN HOUR CALLED DOCTOR GLADYS AYON TO THE FLOOR TO SEE PATIENT GASES WERE DRAWN DUE TO COUGHING AND PATIENT IS DROWSY PATIENT WILL OPEN HER EYES WHEN YOU CALL HER NAME BUT QUICKLY NODS BACK OFF.
--- NOTE | 2017-07-03 22:56 | NUR ---
CALLED DOCTOR SMITH WITH PATIENT D DIMER RESULTS ORDERS FOR TROPONIN WITH MORNING LABS AND KEEP PATIENT ON HIGHER DOSE OF LOVENOX. HE DID STATE THAT HE RECIEVED PATIENTS EKG AND NOT REALLY ANY CHANGE FROM THE ONE LAST YEAR.
[2017-07-04] VITALS: BP 106/59
--- NOTE | 2017-07-04 00:24 | NUR ---
EVRY TIME RESPIRATORY APPLIED BIPAP TO PATIENT PATIENT STARTS HAVING COUGHING FIT AND PULLS MASK OFF PATIENT IT COUGHING UP GREEN/YELLOW THICK MUCUS. PATIET SUCTIONS SELF WITH NIXON AND IS WEARING 50% VENTURI MASK. PATIENTS PULSE OX IS CURRENTLY 97% ON THE VENTURI. PATIENT IS SWEATING FAN PLACED IN PATIENTS ROOM FOR COMFORT.
[2017-07-04 04:00] VITALS: BP 109/77
--- NOTE | 2017-07-04 05:35 | NUR ---
PATIENT HAS BEEN AWAKE AND COUGHING SINCE AROUND 0400.
[2017-07-04 05:53] LABS: ALBUMIN 2.7 gm/dl (3.1-4.5); ALKALINE PHOSPHATASE 128 U/L (45-117); BUN 8 mg/dl (7-24); CHLORIDE 105 mmol/L (98-107); CHOLESTEROL 141 mg/dL (<200); CREATININE 0.71 mg/dL (0.55-1.02); HDL CHOLESTEROL 50 mg/dl (40-60); LDL CHOLESTEROL 59 mg/dL (9-159); PHOSPHOROUS 2.2 mg/dL (2.5-4.9); SGOT/AST 15 IU/L (3-35); SGPT/ALT 17 U/L (12-78); SODIUM 140 mmol/L (136-145); TOTAL PROTEIN 6.7 gm/dL (6.4-8.2); TRIGLYCERIDES 160 mg/dl (<150); VLDL CHOLESTEROL 32 mg/dL (6-40)
[2017-07-04 05:57] LABS: BASO % 0.2 % (0.0-1.0); HEMOGLOBIN 13.2 g/dl (12.0-16.0); LYMPH # 1.7 10*3/uL (1.3-4.4); LYMPH % 9.8 % (27.0-41.0); MEAN CORPUSCULAR HGB 30.9 pg (27.0-31.0); MEAN CORPUSCULAR HGB CONC 32.2 g/dl (33.0-37.0); MEAN PLATELET VOLUME 11.7 fl (9.6-12.3); MONO # 0.3 10*3/uL (0.1-1.0); MONO % 1.8 % (3.0-9.0); NEUT # 15.3 10*3/uL (2.3-7.9); NEUT % 87.2 % (47.0-73.0); PLATELET COUNT AUTOMATED 239 10*3/uL (130-400); RED BLOOD COUNT 4.27 10*6/uL (4.10-5.10); RED CELL DISTRI WIDTH 12.8 % (0-14.5); WHITE BLOOD COUNT 17.6 10*3/uL (4.8-10.8)
--- NOTE | 2017-07-04 06:14 | NUR ---
PATIENT DOES QUITS COUGHING WHEN YOU WALK INTO THE ROOM. AND PATIENT HAS BEEN ON THE [JORGE FOR A FEW AND CONTINUES NOT TO COUGH.
[2017-07-04 06:20] LABS: ABG BASE EXCESS 0.5 mmol/L (-2.0-2.0); ABG O2 SATURATION 96.5 % (95-97); ARTERIAL BLOOD GAS PCO2 47.2 mmHg (35-45); ARTERIAL BLOOD GAS PH 7.359 (7.35-7.45); ARTERIAL BLOOD GAS PO2 84.1 mmHg (80-90)
--- NOTE | 2017-07-04 06:28 | NUR ---
PATIENT SITTING UP TALKING ON THE PHONE. PATIENT SHOWS NO SIGNS OF RESP DISTRESS AT THIS TIME.
--- NOTE | 2017-07-04 06:48 | NUR ---
INFORMED DOCTOR SARAH OF PATIENT TROPONIN THIS MORNING OF 0.880 HE SAID OK THATS BETTER. NO NEW ORDERS AT THIS TIME.
[2017-07-04 07:15] LABS: VITAMIN D, 25-HYDROXY 8.3 ng/mL (30-100)
[2017-07-04 07:57] VITALS: BP 109/70
--- NOTE | 2017-07-04 08:30 | NUR ---
Supervisor Drawing in to talk to patient. Patient states lives at HOME with A ROOM MATE. There are 3 steps in the home. Physician: NO PCP [facility]acy: [facility] Home health services: NONE Patient's level of ADLs: INDEPENDENT Patient has working utilities: YES DME: NONE Follow-up physician's appointment after d/c: WILL BE MADE PRIOR TO DC Does patient want to access PORTAL?: Discharge plan HOME. RUEL COLEY
--- NOTE | 2017-07-04 10:33 | NUR ---
Dr. Brunilda tsai [facility].
[2017-07-04 12:00] VITALS: BP 107/70
--- NOTE | 2017-07-04 12:44 | NUR ---
Pt. loudly requests that all medical discussions be with dtr.
--- NOTE | 2017-07-04 14:38 | NUR ---
Requested antianxiety . Dr. Molina was notified and orders were recieved.
[2017-07-04 16:00] VITALS: BP 118/67
--- NOTE | 2017-07-04 16:08 | NUR ---
Antianxiety was given . Pt. reportsminimalrelief,states is still jittery.
--- NOTE | 2017-07-04 19:47 | NUR ---
PT C/O A VERY DRY, "HACKY" COUGH NOW. DENIES SPUTUM PRODUCTION AT PRESENT. MUCINEX DUE AT 2200. DR. CROWELL CALLED - WILL PUT IN AN ORDER FOR SOMETHING FOR COUGH. PT INCONTINENT OF VERY LARGE AMOUNT URINE. ADULT DIAPER CHANGED AND GERI CARE DONE. PULSE OX 96% ON 2L 02 VIA NC. IV FLUIDS CONT. PT IS VERY RAY. STATES " I FEEL MUCH BETTER TODAY. I AM BREATHING MUCH BETTER." WILL CONT TO MONITOR. WILL HAVE BIPAP APPLIED AT HS.
--- NOTE | 2017-07-04 19:57 | NUR ---
BATH OFFERED - PT REFUSED AT PRESENT.
[2017-07-04 20:00] VITALS: BP 107/50
--- NOTE | 2017-07-04 20:40 | NUR ---
2024 TESSALON PERLES 2 PO GIVEN FOR COUGH. WILL MONITOR.
--- NOTE | 2017-07-04 21:18 | NUR ---
TYELNOL 2 PO FOR C/O'S PAIN FROM COUGHING AND RESTORIL FOR SLEEP. WILL MONITOR. COUGHING HAS LESSENSED AFTER EARLIER MARTY BRYAN.
--- NOTE | 2017-07-04 22:12 | NUR ---
EARLIER MEDS EFFECTIVE. RESTING IN BED WITH EYES CLOSED. APPEARS TO BE SLEEPING.
[2017-07-05] VITALS: BP 108/49
--- NOTE | 2017-07-05 | NUR ---
PT IS COUGHING A LOT. PT WILL NOT TOLERATE BIPAP. NURSE AWARE. WILL LET ME KNOW IF ANYTHING CHANGES.
--- NOTE | 2017-07-05 00:16 | NUR ---
RESTING IN BED WITH EYES CLOSED. REMAINS SLEEPING WITHOUT DISTRESS.
[2017-07-05 04:00] VITALS: BP 120/60
[2017-07-05 04:40] LABS: HEMATOCRIT 37.4 % (37.0-47.0); HEMOGLOBIN 12.1 g/dl (12.0-16.0); MEAN CELL VOLUME 96.1 fl (81.0-99.0); MEAN CORPUSCULAR HGB 31.1 pg (27.0-31.0); MEAN CORPUSCULAR HGB CONC 32.4 g/dl (33.0-37.0); MEAN PLATELET VOLUME 11.4 fl (9.6-12.3); PLATELET COUNT AUTOMATED 230 10*3/uL (130-400); RED BLOOD COUNT 3.89 10*6/uL (4.10-5.10); RED CELL DISTRI WIDTH 12.8 % (0-14.5); WHITE BLOOD COUNT 18.8 10*3/uL (4.8-10.8)
[2017-07-05 05:00] LABS: ATYPICAL LYMPHS 1 % (0-0); PLATELET SUFFICIENCY NORMAL (NORMAL); TOTAL CELLS COUNTED 100 #CELLS
[2017-07-05 05:09] LABS: BUN 12 mg/dl (7-24); CHLORIDE 106 mmol/L (98-107); CREATININE 0.71 mg/dL (0.55-1.02); FREE T4 1.07 ng/dl (0.76-1.46); PHOSPHOROUS 1.9 mg/dL (2.5-4.9); POTASSIUM 3.7 mmol/L (3.5-5.1); SODIUM 141 mmol/L (136-145)
--- NOTE | 2017-07-05 06:15 | NUR ---
0600 UP TO BSC WITH 1 ASSIST TO VOID. WEAK. RAY. ALSO INCONTINENT LARGE AMOUNT URINE IN ADULT BRIEF. 0610 TESSALON PERLS FOR COUGH AND VISTARIL FOR ANXIETY PER REQUEST. WILL MONITOR. DRY HACKING COUGH RETURNS. IV FLUIDS CONT. 02 APPLIED VIA VENTURI MASK AT 40% PER PT REQUEST. PULSE OX 100% AFTER THIS. RESTING IN BED WITH HOB ELEVATED. CALL LIGHT IN REACH. ADULT DIAPER REAPPLIED PER PT REQUEST. CONDITION GUARDED.
--- NOTE | 2017-07-05 06:34 | NUR ---
EARLIER MEDS APPEAR EFFECTIVE. RESTING IN BED WITH EYES CLOSED.
[2017-07-05 08:00] VITALS: BP 130/62
--- NOTE | 2017-07-05 08:37 | NUR ---
PT REFUSED TO GO DOWN TO RADIOLOGY FOR 2 VIEW X-RAY AT THIS TIME. STATES SHE JUST DOESNT FEEL LIKE SHE CAN DO IT. STATED SHE WILL LET US KNOW WHEN SHE IS READY.
[2017-07-05 12:00] VITALS: BP 127/63
--- NOTE | 2017-07-05 12:00 | NUR ---
PT MEDICATED WITH VISTARIL PO FOR ANXIETY AT HER REQUEST.
[2017-07-05 16:00] VITALS: BP 102/84
--- NOTE | 2017-07-05 18:27 | NUR ---
DR WALTON IN TO SEE PT.
[2017-07-05 20:00] VITALS: BP 132/61
--- NOTE | 2017-07-05 20:12 | NUR ---
1999 UP TO BS WITH 1 ASSIST TO VOID. RAY. INCONTINENT OF URINE. ADULT BRIEF CHANGED. C/O COUGH, WHICH IS PRODUCTIVE TODAY. JAMA AT BEDSIDE. IV FLUIDS CONT. PULSE OX 95% ON 3L 02 VIA NC.VISTARIL PO FOR ANXIETY AND TESSALON PERLS FOR COUGH. WILL MONITOR. 2009 BACK TO BED. HOB ELEVATED. SIDE RAILS UP X'S 2. CALL LIGHT IN REACH.
--- NOTE | 2017-07-05 21:28 | NUR ---
EARLIER MEDS APPEAR EFFECTIVE.RESTORIL PO FOR SLEEP. WILL MONITOR.
--- NOTE | 2017-07-05 21:54 | NUR ---
EARLIER RESTORIL EFFECITIVE. RESTING IN BED WITH EYES CLOSED.
[2017-07-06] VITALS: BP 142/52
--- NOTE | 2017-07-06 02:04 | NUR ---
0000 -0200 RESTING IN BED WITH EYES CLOSED. REMAINS SLEEPING WITHOUT DISTRESS.
[2017-07-06 04:00] VITALS: BP 130/50
[2017-07-06 04:45] LABS: HEMATOCRIT 37.1 % (37.0-47.0); HEMOGLOBIN 11.8 g/dl (12.0-16.0); MEAN CELL VOLUME 97.6 fl (81.0-99.0); MEAN CORPUSCULAR HGB 31.1 pg (27.0-31.0); MEAN CORPUSCULAR HGB CONC 31.8 g/dl (33.0-37.0); PLATELET COUNT AUTOMATED 263 10*3/uL (130-400); RED CELL DISTRI WIDTH 13.2 % (0-14.5); WHITE BLOOD COUNT 21.4 10*3/uL (4.8-10.8)
[2017-07-06 05:00] LABS: BUN 10 mg/dl (7-24); CHLORIDE 102 mmol/L (98-107); POTASSIUM 3.7 mmol/L (3.5-5.1); SODIUM 141 mmol/L (136-145)
[2017-07-06 05:17] LABS: PLATELET SUFFICIENCY NORMAL (NORMAL); TOTAL CELLS COUNTED 100 #CELLS
--- NOTE | 2017-07-06 06:07 | NUR ---
SLEPT WELL THIS SHIFT. 02 INTACT. NO DISTRESS NOTED. IV FLUIDS CONT. CONDITION GUARDED.
--- NOTE | 2017-07-06 07:24 | NUR ---
ON ASSESSMENT PATIENT IS ALERT AND ORIENTED. ASSISTED TO BSC TO VOID. DYSPNEIC WITH COUGH WITH MINIMAL EXERTION. SPUTUM YELLOW/WHITE. PT ALTERNATES BETWEEN NASAL CANNULA AND VENTURI MASK. WHEEZE/RHOCHI. SAYS SHE'S FEELING "MUCH BETTER" THAN ADMISSION. IV FLUIDS CONTINUE.
--- NOTE | 2017-07-06 07:29 | NUR ---
Shift chart check completed.24 HR chart check completed.
--- NOTE | 2017-07-06 07:54 | NUR ---
TYLENOL FOR HEADACHE "FROM COUGHING". VISTARIL FOR ANXIETY.
[2017-07-06 08:00] VITALS: BP 134/68
--- NOTE | 2017-07-06 09:42 | NUR ---
SHEILA GEORGE, KRISTEN AND ISABELLE HAVE ALL VISITED. PATIENT NOW TELEMETRY PATIENT.
--- NOTE | 2017-07-06 09:56 | NUR ---
LESS COUGH AND ANXIETY SINCE EARLIER MEDS.
--- NOTE | 2017-07-06 11:44 | NUR ---
SLEPT SOME THIS MORNING. UP TO [facility] [place] TO VOID, ALSO HAS STRESS INCONTINENCE IN BRIEF. NOW UP IN RECLINER CHAIR. PREPARING FOR TRANSFER TO [facility]. SHE DECLINES LUNCH AT THIS TIME.
[2017-07-06 11:49] VITALS: BP 135/61
--- NOTE | 2017-07-06 12:56 | NUR ---
TRANSFERRED IN STABLE CONDITION TO [facility].
--- NOTE | 2017-07-06 13:24 | NUR ---
PT MEDICATED WITH PRN VISTARIL FOR C/O INCREASED ANXIETY. PT YELLING OUT AND ACTING INAPPROPRIATELY WITH STAFF.
[2017-07-06 16:00] VITALS: BP 133/66
--- NOTE | 2017-07-06 16:45 | NUR ---
ESCOBAR, DIRECTOR OF GRANTS TO THE FLOOR TO SPEAK WITH PATIENT AFTER PATIENT CONTINUES TO CURSE AT STAFF.
--- NOTE | 2017-07-06 19:44 | NUR ---
MEDICATED WITH VISTARIL PER ORDER AND REQUEST.
[2017-07-06 20:00] VITALS: BP 140/72
--- NOTE | 2017-07-06 21:42 | NUR ---
MEDICATED WITH PRN TESELON PEARLS AND RESTORIL PER REQUEST AND ORDERS.
[2017-07-07] VITALS: BP 121/67
--- NOTE | 2017-07-07 00:15 | NUR ---
PEARLS AND RESTORIL EFFECTIVE.
--- NOTE | 2017-07-07 01:00 | NUR ---
pt refused to wear bipap
[2017-07-07 06:22] LABS: HEMATOCRIT 35.5 % (37.0-47.0); HEMOGLOBIN 11.5 g/dl (12.0-16.0); MEAN CELL VOLUME 95.2 fl (81.0-99.0); MEAN CORPUSCULAR HGB 30.8 pg (27.0-31.0); MEAN CORPUSCULAR HGB CONC 32.4 g/dl (33.0-37.0); MEAN PLATELET VOLUME 10.8 fl (9.6-12.3); PLATELET COUNT AUTOMATED 240 10*3/uL (130-400); RED BLOOD COUNT 3.73 10*6/uL (4.10-5.10); WHITE BLOOD COUNT 15.6 10*3/uL (4.8-10.8)
--- NOTE | 2017-07-07 06:37 | NUR ---
MEDICATED WITH PRN TYLENOL AND VISTARIL.
[2017-07-07 06:47] LABS: BUN 9 mg/dl (7-24); CHLORIDE 101 mmol/L (98-107); CREATININE 0.67 mg/dL (0.55-1.02); POTASSIUM 3.2 mmol/L (3.5-5.1); SODIUM 143 mmol/L (136-145)
[2017-07-07 07:02] LABS: TOTAL CELLS COUNTED 100 #CELLS
[2017-07-07 07:03] LABS: PLATELET SUFFICIENCY NORMAL (NORMAL); TOXIC GRANULATION MODERATE
[2017-07-07 08:00] VITALS: BP 136/80
--- NOTE | 2017-07-07 08:00 | NUR ---
RESTING WITH NO COMPLAINTS.
--- NOTE | 2017-07-07 10:00 | NUR ---
AM MEDS TAKEN.
--- NOTE | 2017-07-07 11:01 | NUR ---
MEDICATED WITH MOM FOR CONSTIPATION.
[2017-07-07 12:00] VITALS: BP 128/76
--- NOTE | 2017-07-07 15:24 | NUR ---
PATIENT MEDICATED WITH TYLENOL 2 PO FOR HEADACHE SHE RATES AN 9 ON THE PAIN SCALE. MEDICATED WITH VISTARIL FOR ANXIETY.
[2017-07-07 16:00] VITALS: BP 150/72
--- NOTE | 2017-07-07 18:19 | NUR ---
NO FURTHER COMPLAINTS.
[2017-07-07 20:00] VITALS: BP 138/72
--- NOTE | 2017-07-07 20:00 | NUR ---
RESTING IN BED. 02 INTACT AT 2LPM VIA NASAL CANNULA. LUNGS DIMINISHED WITH AN OCCASIONAL COUGH NOTED. PULSE OX 97% ON 2LPM VIA NASAL CANNULA. NO DISTRESS NOTED. CALL LIGHT WITHIN REACH.
--- NOTE | 2017-07-07 21:21 | NUR ---
MEDICATED WITH VISTARIL FOR ANXIETY & RESTORIL FOR C/O INSOMNIA.
--- NOTE | 2017-07-07 21:25 | NUR ---
MEDICATED WITH TYLENOL FOR C/O GENERALIZED DISCOMFORT.
--- NOTE | 2017-07-07 21:26 | NUR ---
PT REFUSING BIPAP.
[2017-07-08] VITALS: BP 153/79
--- NOTE | 2017-07-08 01:00 | NUR ---
RESTING IN BED WITH EYES CLOSED; MEDICATIONS GIVEN EARLIER APPARENTLY EFFECTIVE.
--- NOTE | 2017-07-08 03:18 | NUR ---
MEDICATED WITH TORADOL FOR C/O LEFT LOWER ABDOMINAL PAIN.
--- NOTE | 2017-07-08 05:45 | NUR ---
PT. VERY RUDE TO STAFF & SWEARING. ASKED PATIENT IF SHE WOULD LIKE TO SPEAK TO THE NURSING SWINE NUTRITIONIST. PATIENT DECLINED.
--- NOTE | 2017-07-08 06:00 | NUR ---
PT. STATES THAT TORADOL GIVEN EARLIER EFFECTIVE FOR RELIEF OF PAIN.
[2017-07-08 06:03] LABS: HEMATOCRIT 32.3 % (37.0-47.0); HEMOGLOBIN 10.3 g/dl (12.0-16.0); MEAN CELL VOLUME 93.4 fl (81.0-99.0); MEAN CORPUSCULAR HGB 29.8 pg (27.0-31.0); MEAN CORPUSCULAR HGB CONC 31.9 g/dl (33.0-37.0); MEAN PLATELET VOLUME 11.1 fl (9.6-12.3); NUCLEATED RED BLOOD CELL 0.1 % (0.0-0.0); PLATELET COUNT AUTOMATED 243 10*3/uL (130-400); RED BLOOD COUNT 3.46 10*6/uL (4.10-5.10); WHITE BLOOD COUNT 17.5 10*3/uL (4.8-10.8)
[2017-07-08 06:29] LABS: ALBUMIN 2.6 gm/dl (3.1-4.5); BUN 8 mg/dl (7-24); CHLORIDE 102 mmol/L (98-107); CREATININE 0.52 mg/dL (0.55-1.02); POTASSIUM 3.4 mmol/L (3.5-5.1); SGOT/AST 18 IU/L (3-35); SGPT/ALT 34 U/L (12-78); SODIUM 142 mmol/L (136-145)
[2017-07-08 06:30] LABS: ALKALINE PHOSPHATASE 66 U/L (45-117); TOTAL PROTEIN 5.4 gm/dL (6.4-8.2)
[2017-07-08 07:11] LABS: PLATELET SUFFICIENCY NORMAL (NORMAL); TOTAL CELLS COUNTED 100 #CELLS; TOXIC GRANULATION MODERATE
[2017-07-08 07:30] VITALS: BP 153/93
--- NOTE | 2017-07-08 07:30 | NUR ---
PATIENT COMPLAINING OF L GROIN PAIN. LEG WARM TO TOUCH, GOOD PEDAL PULSE L FOOT PALPATED. DR. DEL VALLE NOTIFIED.
--- NOTE | 2017-07-08 07:40 | NUR ---
DR. DEL VALLE IN TO SEE PATIENT.
--- NOTE | 2017-07-08 07:58 | NUR ---
PT C/O LEFT LEG/GROIN AREA PAIN, ASKED TO RATE PAIN 0-10, PT STATES ITS A 20. MEDICATED WITH MORPHINE IV PER PRN ORDER, SEE EMAR. CALL LIGHT IN REACH.
[2017-07-08 08:00] VITALS: BP 150/92
--- NOTE | 2017-07-08 08:10 | NUR ---
TO MARY FOR KUB.
--- NOTE | 2017-07-08 08:21 | NUR ---
RETURNED FROM [employer].
--- NOTE | 2017-07-08 10:00 | NUR ---
AM MEDS TAKEN. NO MOANING OR CRYING OUT IN PAIN AT PRESENT.
--- NOTE | 2017-07-08 10:45 | NUR ---
ASSISTED UP TO [facility].
--- NOTE | 2017-07-08 11:13 | NUR ---
PT. OFFERED TOWELS AND WASHCLOTHS TO GET WASHED UP THIS MORNING. PT. STATED SHE WASNT GOING TO DO SH*T TODAY. CONTINUES TO YELL OUT WITH CURSE WORDS.
--- NOTE | 2017-07-08 11:45 | NUR ---
PATIENT APPEARS TO BE SLEEPING.
[2017-07-08 12:00] VITALS: BP 146/78
--- NOTE | 2017-07-08 12:05 | NUR ---
TO CT VIA WHEELCHAIR.
--- NOTE | 2017-07-08 12:49 | NUR ---
RETURNED FROM CT. MEDICATED WITH MORPHINE FOR LEFT SIDE PAIN SHE RATES A NINE ON THE PAIN SCALE.
--- NOTE | 2017-07-08 14:40 | NUR ---
DR. POOLE NOTIFIED OF CONSULT.
--- NOTE | 2017-07-08 15:00 | NUR ---
DR. OPOLE IN TO SEE PATIENT.
[2017-07-08 16:00] VITALS: BP 104/70
--- NOTE | 2017-07-08 16:55 | NUR ---
MEDICATED WITH MORPHINE IV FOR LEFT LOWER QUAD PAIN SHE RATES A 9 ON THE PAIN SCALE.
--- NOTE | 2017-07-08 18:18 | NUR ---
NO COMPLAINTS AT PRESENT.
[2017-07-08 20:00] VITALS: BP 100/63
[2017-07-08 20:55] LABS: BILIRUBIN NEGATIVE (NEGATIVE); BLOOD NEGATIVE (NEGATIVE); CLARITY CLEAR (CLEAR); COLOR YELLOW (YELLOW); GLUCOSE NEGATIVE (NEGATIVE); KETONE NEGATIVE (NEGATIVE); LEUKO ESTERASE NEGATIVE (NEGATIVE); NITRITE NEGATIVE (NEGATIVE); UROBILINOGEN 0.2 E.U./dl (0.2-1.0)
[2017-07-08 21:01] LABS: BACTERIA TRACE
--- NOTE | 2017-07-08 22:00 | NUR ---
PT STATES THAT PRN MORPHINE WAS EFFECTIVE FOR PAIN RELIEF. RESTING QUIETLY IN BED AT THIS TIME. PLEASANT AND COOPERATIVE WITH STAFF.
[2017-07-09] VITALS: BP 112/73
--- NOTE | 2017-07-09 03:30 | NUR ---
24 HR chart check completed.
--- NOTE | 2017-07-09 04:00 | NUR ---
PT RESTING QUIETLY IN BED AT THIS TIME. NO FURTHER C/O VOICED.
[2017-07-09 06:46] LABS: BUN 12 mg/dl (7-24); CHLORIDE 103 mmol/L (98-107); CREATININE 0.65 mg/dL (0.55-1.02); POTASSIUM 4.2 mmol/L (3.5-5.1); SODIUM 140 mmol/L (136-145)
[2017-07-09 06:55] LABS: HEMATOCRIT 25.7 % (37.0-47.0); HEMOGLOBIN 8.4 g/dl (12.0-16.0); MEAN CELL VOLUME 95.2 fl (81.0-99.0); MEAN CORPUSCULAR HGB 31.1 pg (27.0-31.0); MEAN CORPUSCULAR HGB CONC 32.7 g/dl (33.0-37.0); MEAN PLATELET VOLUME 11.3 fl (9.6-12.3); NUCLEATED RED BLOOD CELL 0.2 % (0.0-0.0); PLATELET COUNT AUTOMATED 220 10*3/uL (130-400); RED CELL DISTRI WIDTH 13.2 % (0-14.5); WHITE BLOOD COUNT 24.6 10*3/uL (4.8-10.8)
[2017-07-09 07:58] LABS: ATYPICAL LYMPHS 1 % (0-0); PLATELET SUFFICIENCY NORMAL (NORMAL); TOTAL CELLS COUNTED 100 #CELLS; TOXIC GRANULATION MODERATE
[2017-07-09 08:00] VITALS: BP 112/51
--- NOTE | 2017-07-09 10:48 | NUR ---
MORPHINE EFFECTIVE PER PT.
[2017-07-09 12:00] VITALS: BP 117/55
--- NOTE | 2017-07-09 12:12 | NUR ---
MORPHINE GIVEN FOR PAIN.
--- NOTE | 2017-07-09 13:10 | NUR ---
PRN IV MORPHINE WAS EFFECTIVE, PER PATIENT.
[2017-07-09 16:00] VITALS: BP 117/58
--- NOTE | 2017-07-09 17:05 | NUR ---
MORPHINE IV GIVEN. FOR ABDOMINAL PAIN PT RATES 7.
--- NOTE | 2017-07-09 18:46 | NUR ---
PRN IV MORPHINE WAS EFFECTIVE, PER PATIENT.
--- NOTE | 2017-07-09 19:20 | NUR ---
PT AWAKE IN BED. CONT TO C/O LEFT GROIN PAIN. PT ADVISED THAT SHE WAS PREVIOUSLY MEDICATED WITH MORPHINE AT 1700 AND IS NOT DUE FOR PAIN MED AT THIS TIME. PT UNDERSTANDABLE. ALL NEEDS MET AT THIS TIME.
[2017-07-09 20:00] VITALS: BP 100/59
--- NOTE | 2017-07-09 22:00 | NUR ---
PHARMACY NOTIFIED OF PT MEDS NOT IN [facility] PROFILE. PHARMACIST TO RETURN CALL.
--- NOTE | 2017-07-09 23:00 | NUR ---
PT STATES THAT MORPHINE WAS EFFECTIVE FOR PAIN RELIEF.
[2017-07-10] VITALS: BP 112/69
--- NOTE | 2017-07-10 03:58 | NUR ---
24 HR chart check completed.
[2017-07-10 08:00] VITALS: BP 110/90
[2017-07-10 08:52] LABS: HEMATOCRIT 25.2 % (37.0-47.0); HEMOGLOBIN 8.2 g/dl (12.0-16.0); MEAN CELL VOLUME 94.7 fl (81.0-99.0); MEAN CORPUSCULAR HGB 30.8 pg (27.0-31.0); MEAN CORPUSCULAR HGB CONC 32.5 g/dl (33.0-37.0); MEAN PLATELET VOLUME 10.6 fl (9.6-12.3); NUCLEATED RED BLOOD CELL 0.1 10*3/uL (0.0-0.0); NUCLEATED RED BLOOD CELL 0.2 % (0.0-0.0); PLATELET COUNT AUTOMATED 202 10*3/uL (130-400); RED BLOOD COUNT 2.66 10*6/uL (4.10-5.10); RED CELL DISTRI WIDTH 13.5 % (0-14.5); WHITE BLOOD COUNT 27.5 10*3/uL (4.8-10.8)
--- NOTE | 2017-07-10 10:14 | NUR ---
PATIENT TO STRESS TEST BY WHEELCHAIR.
[2017-07-10 10:31] LABS: PLATELET SUFFICIENCY NORMAL (NORMAL); POLYCHROMASIA SLIGHT; TOTAL CELLS COUNTED 100 #CELLS; TOXIC GRANULATION MODERATE
--- NOTE | 2017-07-10 11:15 | NUR ---
INFORMED CONSENT OBTAINED FOR LEXISCAN NUCLEAR STRESS TEST. RESTING EKG NSR WITH A RESTING HR OF 98 WITH BP OF 124/72. LUNGS DIMINISHED BILATERALLY WITH SPO2 OF 97% ON ROOM AIR. PT HAS C/O CONSTANT LOWER ABDOMINAL DISCOMFORT. PT COMPLETED A 1:00 LEXISCAN PROTOCOL RECEIVING LEXISCAN 0.4 MG IV OVER 10 SECONDS. HAD NO CHEST PAIN OR ANY EKG CHANGES. HAS C/O NAUSEA THAT SUBSIDED IN RECOVERY AND HAS CONTINUOUS ABDOMINAL DISCOMFORT. HAD A PEAK HR OF 118 WITH BP OF 152/64. LAST RECOVERY HR OF 110 WITH BP OF 128/72. AFTER STRESS TEST PT RETURNED TO NURSING UNIT AND REPORT GIVEN THAT PT MAY EAT AND RECEIVE PAIN MEDICATIONS. PT WILL RETURN IN APPROXIMATELY AN HOUR FOR STRESS IMAGING.
[2017-07-10 12:00] VITALS: BP 133/72
--- NOTE | 2017-07-10 13:15 | NUR ---
PATIENT BACK FROM STRESS TEST, RESUMING MEDS AND DIET.
--- NOTE | 2017-07-10 13:42 | NUR ---
MEDICATED WITH PRN PO NORCO FOR LOWER LEFT ABDOMINAL/GROIN PAIN.
--- NOTE | 2017-07-10 14:13 | NUR ---
PRN PO NORCO EFFECTIVE, PER PATIENT.
[2017-07-10 16:00] VITALS: BP 90/51
--- NOTE | 2017-07-10 16:24 | NUR ---
NORCO INEFFECTIVE, MORPHINE GIVEN PER PT REQUEST.
[2017-07-10 20:00] VITALS: BP 126/58
--- NOTE | 2017-07-10 22:00 | NUR ---
PT STATES THAT PRN NORCO WAS EFFECTIVE FOR PAIN RELIEF. C/O DYSURIA. URINE HAS NO FOUL ODOR AND COLOR IS CLEAR LIGHT YELLOW. WILL CONT. TO MONITOR. PT OFFERED AND ACCEPTED CRANBERRY JUICE.
[2017-07-11] VITALS: BP 97/66
--- NOTE | 2017-07-11 00:49 | NUR ---
24 HR chart check completed.
--- NOTE | 2017-07-11 01:48 | NUR ---
pt given prn norco for pain.
--- NOTE | 2017-07-11 06:41 | NUR ---
PT AWAKE IN BED TALKING TO DAUGHTER ON PHONE. MEDICATED WITH PRN NORCO PER PT REQUEST.
[2017-07-11 08:00] VITALS: BP 100/50
--- NOTE | 2017-07-11 08:00 | NUR ---
SITTING UP IN BED EATING BREAKFAST. O C/O NO DISTRESS NOTED. LOWER ABDOMINAL AND PELVIC AREA ECCHYMOTIC. DENIES PAIN AT THIS TIME. WILL CONTINUE TO MONITOR.
[2017-07-11 12:00] VITALS: BP 102/55
--- NOTE | 2017-07-11 12:16 | NUR ---
MEDICATED PO NORCO FOR C/O PAIN. RATES PAIN 6/10
--- NOTE | 2017-07-11 13:30 | NUR ---
NO FURTHER C/O OFFERED.
[2017-07-11 16:00] VITALS: BP 113/55; BP 138/58
--- NOTE | 2017-07-11 16:00 | NUR ---
RESTING QUIETLY IN BED. DR WALTON VISITED AND DISCUSSED PLAN OF CARE WITH PT. HEART CATH IS SCEDULULED FOR 07/27 AT [facility]. WILL CONTINUE TO MONITOR.
--- NOTE | 2017-07-11 16:13 | NUR ---
MEDICATED PO VISTARIL FOR C/O ANXIETY.
--- NOTE | 2017-07-11 17:46 | NUR ---
MEDICATED PO NORCO FOR C/O PAIN.
--- NOTE | 2017-07-11 19:46 | NUR ---
RN REVIEWED LABS AND ORDERS
[2017-07-11 20:00] VITALS: BP 103/47
[2017-07-11 23:14] VITALS: BP 112/66
--- NOTE | 2017-07-11 23:20 | NUR ---
PT COMPLAINS OF ABD PAIN 04/19. MEDICATED WITH GOOD EFFECT SEE EMAR.
[2017-07-12 08:00] VITALS: BP 98/56
--- NOTE | 2017-07-12 08:00 | NUR ---
RESTING QUIETLY NO C/O NO DISTRESS NOTED. ABDOMEN AND PELVIC AREA REMAIN ECCHYMOTIC. PT STATES HAVING A LITTLE DISCOMFORT BUT NOT BAD PREVIOUSLY. WILL CONTINUE TO MONITOR. SEE SHIFT ASSESSMENT.
--- NOTE | 2017-07-12 10:57 | NUR ---
PT MOVED DUE ROOM 509 DUE TO PROBLEM WITH SAMPLER RADIOACTIVE WASTE LINE IN ROOM 401.
[2017-07-12 12:00] VITALS: BP 109/57
[2017-07-12 12:06] LABS: HEMATOCRIT 24.1 % (37.0-47.0); HEMOGLOBIN 7.7 g/dl (12.0-16.0); MEAN CELL VOLUME 96.4 fl (81.0-99.0); MEAN CORPUSCULAR HGB 30.8 pg (27.0-31.0); MEAN PLATELET VOLUME 10.3 fl (9.6-12.3); NUCLEATED RED BLOOD CELL 0.1 % (0.0-0.0); PLATELET COUNT AUTOMATED 249 10*3/uL (130-400); RED CELL DISTRI WIDTH 13.8 % (0-14.5); WHITE BLOOD COUNT 23.6 10*3/uL (4.8-10.8)
[2017-07-12 12:15] LABS: ACT PARTIAL THROMBO TIME 21.9 SECONDS (20.8-31.5)
[2017-07-12 12:36] LABS: PLATELET SUFFICIENCY NORMAL (NORMAL); POLYCHROMASIA SLIGHT; TOTAL CELLS COUNTED 100 #CELLS; TOXIC GRANULATION MODERATE
--- NOTE | 2017-07-12 14:26 | NUR ---
DR SALINAS CALLED PER PT REQUEST TO SEE IF SHE WAS GOING TO BE DISCHARGED TODAY. PER DR SALINAS THEY WANT PT TO STAY FOR ONE MORE DAY TO SEE IF HEMAGLOBIN STABLELIZES. INFORMED PT, PT VERY UPSET AND STATES I AM LEAVING TODAY, I CAN'T STAY HERE ANOTHER DAY. DR SALINAS NOTIFIED.
--- NOTE | 2017-07-12 14:35 | NUR ---
MEDICATED PO VISTRIL FOR C/O ANXIETY.
--- NOTE | 2017-07-12 15:18 | NUR ---
PA WENT TO ROOM TO TAKE VS AND RESPITORY IN ROOM TO DO AERESOL TREATMENT. PT BECAME IRRATE AND KICK BOTH OUT OF ROOM. REFUSES BOTH. STATES THAT IS WHY I SHUT MY DOOR SO NO ONE BOTHERS ME.
[2017-07-12 16:00] VITALS: BP 99/57
[2017-07-12 17:01] VITALS: BP 99/57
--- NOTE | 2017-07-12 19:59 | NUR ---
RN REVIEWED LAB RESULTS AND ORDERS
[2017-07-12 20:00] VITALS: BP 111/79
--- NOTE | 2017-07-12 21:19 | NUR ---
PT IV ACCESS BECAME DISLODGED. RN REMOVED DRESSING AND IV FROM [facility] AND INSERTED 22 GA TO LEFT HAND AFTER A FAILED ATTEMPT TO LAC. IV FLUSHED WITHOUT DIFFICULTY WITH BRISK BLOOD RETURN PT TOLERATED PROCEDURE WELL
--- NOTE | 2017-07-12 23:15 | NUR ---
PT REQUEST A Decisyon SUCTION TO USE.
[2017-07-13] VITALS (10 sets, daily range): BP systolic 94–106; BP diastolic 44–65
--- NOTE | 2017-07-13 00:30 | NUR ---
PT COMPLAINS OF INSOMNIA. MEDICATED SEE EMAR.
--- NOTE | 2017-07-13 01:03 | NUR ---
COMPLAINS OF BACK PAIN 04/19. MEDICATED WITH GOOD EFFECT SEE EMAR
[2017-07-13 06:33] LABS: HEMATOCRIT 24.3 % (37.0-47.0); HEMOGLOBIN 7.6 g/dl (12.0-16.0); MEAN CELL VOLUME 97.2 fl (81.0-99.0); MEAN CORPUSCULAR HGB 30.4 pg (27.0-31.0); MEAN CORPUSCULAR HGB CONC 31.3 g/dl (33.0-37.0); MEAN PLATELET VOLUME 11.4 fl (9.6-12.3); NUCLEATED RED BLOOD CELL 0.2 % (0.0-0.0); PLATELET COUNT AUTOMATED 272 10*3/uL (130-400); RED CELL DISTRI WIDTH 13.8 % (0-14.5); WHITE BLOOD COUNT 20.8 10*3/uL (4.8-10.8)
[2017-07-13 06:56] LABS: TOTAL CELLS COUNTED 100 #CELLS
[2017-07-13 06:57] LABS: PLATELET SUFFICIENCY NORMAL (NORMAL)
[2017-07-13 06:58] LABS: BUN 24 mg/dl (7-24); CHLORIDE 99 mmol/L (98-107); CREATININE 0.77 mg/dL (0.55-1.02); POTASSIUM 4.2 mmol/L (3.5-5.1); SODIUM 139 mmol/L (136-145)
[2017-07-13 13:34] LABS: HEMATOCRIT 25.9 % (37.0-47.0); HEMOGLOBIN 8.4 g/dl (12.0-16.0)
--- NOTE | 2017-07-13 14:23 | NUR ---
PT GIVEN NORCO FOR PAIN RATED 8/10
--- NOTE | 2017-07-13 17:01 | NUR ---
INITIATED BLOOD TRANSFUSION
--- NOTE | 2017-07-13 20:00 | NUR ---
LAB RESULTS AND ORDERS REVIEWED
--- NOTE | 2017-07-13 20:25 | NUR ---
PT TRANSFUSION COMPLETE AT 2024. PT TOLERATED TANSFUSION WELL. NO REACTION NOTED AT THIS TIME. SEE DOCUMENTATION.
[2017-07-13 22:27] LABS: HEMATOCRIT 30.1 % (37.0-47.0); HEMOGLOBIN 9.8 g/dl (12.0-16.0); MEAN CORPUSCULAR HGB 30.2 pg (27.0-31.0); MEAN CORPUSCULAR HGB CONC 32.6 g/dl (33.0-37.0); MEAN PLATELET VOLUME 10.8 fl (9.6-12.3); NUCLEATED RED BLOOD CELL 0.1 % (0.0-0.0); PLATELET COUNT AUTOMATED 300 10*3/uL (130-400); RED BLOOD COUNT 3.24 10*6/uL (4.10-5.10); RED CELL DISTRI WIDTH 14.6 % (0-14.5); WHITE BLOOD COUNT 24.6 10*3/uL (4.8-10.8)
[2017-07-13 22:29] LABS: MEAN CELL VOLUME 92.9 fl (81.0-99.0)
[2017-07-13 23:06] LABS: PLATELET SUFFICIENCY NORMAL (NORMAL); TOTAL CELLS COUNTED 100 #CELLS
[2017-07-13 23:07] LABS: POLYCHROMASIA SLIGHT
--- NOTE | 2017-07-13 23:20 | NUR ---
PT COMPLAINS OF INSOMNIA. MEDICATED WITH GOOD EFFECT. SEE EMAR.
--- NOTE | 2017-07-13 23:20 | NUR ---
PT COMPLAINS OF ABD PAIN 04/19. MEDICATED WITH GOOD EFFECT. SEE EMAR.
[2017-07-14] VITALS: BP 108/63
--- NOTE | 2017-07-14 03:30 | NUR ---
PT COMPLAINS OF ABD PAIN 8/10 AND ANXIETY. MEDICATED WITH GOOD EFFECT. SEE EMAR
[2017-07-14 06:05] LABS: HEMATOCRIT 28.6 % (37.0-47.0); HEMOGLOBIN 9.5 g/dl (12.0-16.0); MEAN CELL VOLUME 92.6 fl (81.0-99.0); MEAN CORPUSCULAR HGB 30.7 pg (27.0-31.0); MEAN CORPUSCULAR HGB CONC 33.2 g/dl (33.0-37.0); MEAN PLATELET VOLUME 10.9 fl (9.6-12.3); NUCLEATED RED BLOOD CELL 0.1 % (0.0-0.0); PLATELET COUNT AUTOMATED 291 10*3/uL (130-400); RED BLOOD COUNT 3.09 10*6/uL (4.10-5.10); WHITE BLOOD COUNT 24.3 10*3/uL (4.8-10.8)
[2017-07-14 06:36] LABS: TOTAL CELLS COUNTED 100 #CELLS
[2017-07-14 06:37] LABS: PLATELET SUFFICIENCY NORMAL (NORMAL); POLYCHROMASIA SLIGHT; TOXIC GRANULATION MODERATE
[2017-07-14 08:00] VITALS: BP 100/48
--- NOTE | 2017-07-14 11:58 | NUR ---
VISTARIL GIVEN FOR C/O ANXIETY. WILL MONITOR.
[2017-07-14 12:00] VITALS: BP 99/61
[2017-07-14] MEDS ORDERED: HYDROXYZINE PAM25 M1 PO (12:45)
[2017-07-14] MEDS ORDERED: ATORVASTATIN CA80 M1 PO (12:45)
[2017-07-14] MEDS ORDERED: VITAMIN D22000 UNIT PO (12:45)
[2017-07-14] MEDS ORDERED: FEROSUL325 MG PO (12:45)
[2017-07-14] MEDS ORDERED: METOPROLOL SUCC25 M2 PO (12:45)
[2017-07-14] MEDS ORDERED: IMDUR SA30 MG PO (12:45)
[2017-07-14] MEDS ORDERED: DOXYCYCLINE100 M3 PO (12:45)
--- NOTE | 2017-07-14 13:25 | NUR ---
[facility] Discharge instructions reviewed with patient/family. Patient receptive and verbalizes understanding. Follow-up care arranged. Written instructions given to patient/family. TORSTEN AYON
== END 2017-07-14 13:06 | disposition home or self-care (01) | DRG 871 ==
LOC: ED 11:03 → EDHOLD 12:48 → 4E 12:48 → ICCU 12:48 → 4E 12:54 → ICCU 15:37 → 4E 07-06 12:04
PROVIDERS: Family Medicine; Hospitalist; Internal Medicine; Internal Medicine Cardiovascular Disease; Internal Medicine Critical Care Medicine; Internal Medicine Nephrology; Student in an Organized Health Care Education/Training Program; ADMIT Internal Medicine
PROC: 5A09357 Assistance with Respiratory Ventilation, Less than 24 Consecutive Hours, Continuous Positive Airway Pressure (ICD-10-PCS; 2017-07-03)
PROC: 5A09357 Assistance with Respiratory Ventilation, Less than 24 Consecutive Hours, Continuous Positive Airway Pressure (ICD-10-PCS; 2017-07-05)
PROC: 30233N1 Transfusion of Nonautologous Red Blood Cells into Peripheral Vein, Percutaneous Approach (ICD-10-PCS; principal; 2017-07-13)
DX: A41.9 Sepsis, unspecified organism (principal); J18.9 Pneumonia, unspecified organism; I21.09 ST elevation (STEMI) myocardial infarction involving other coronary artery of anterior wall; J96.21 Acute and chronic respiratory failure with hypoxia; K66.1 Hemoperitoneum; J96.22 Acute and chronic respiratory failure with hypercapnia; J44.0 Chronic obstructive pulmonary disease with (acute) lower respiratory infection; J44.1 Chronic obstructive pulmonary disease with (acute) exacerbation; E66.9 Obesity, unspecified; I25.10 Atherosclerotic heart disease of native coronary artery without angina pectoris; J20.9 Acute bronchitis, unspecified; E87.8 Other disorders of electrolyte and fluid balance, not elsewhere classified; R73.9 Hyperglycemia, unspecified; E83.41 Hypermagnesemia; E87.6 Hypokalemia; F17.210 Nicotine dependence, cigarettes, uncomplicated; Z71.6 Tobacco abuse counseling; Z88.0 Allergy status to penicillin; Z88.6 Allergy status to analgesic agent; Z90.49 Acquired absence of other specified parts of digestive tract; Z90.710 Acquired absence of both cervix and uterus; Z90.722 Acquired absence of ovaries, bilateral; Z90.79 Acquired absence of other genital organ(s); Z80.0 Family history of malignant neoplasm of digestive organs; Z68.26 Body mass index [BMI] 26.0-26.9, adult

== ENCOUNTER 2017-07-16 13:55 | Inpatient (IN) | payer SELFPAY ==
[~2017-07-16] VITALS: Ht 167.6 cm; Wt 70.4 kg
[2017-07-16] VITALS (7 sets, daily range): BP systolic 115–134; BP diastolic 55–80
[2017-07-16 14:46] LABS: HEMATOCRIT 36.1 % (37.0-47.0); HEMOGLOBIN 11.9 g/dl (12.0-16.0); MEAN CELL VOLUME 93.5 fl (81.0-99.0); MEAN CORPUSCULAR HGB 30.8 pg (27.0-31.0); MEAN PLATELET VOLUME 10.2 fl (9.6-12.3); PLATELET COUNT AUTOMATED 384 10*3/uL (130-400); RED BLOOD COUNT 3.86 10*6/uL (4.10-5.10); RED CELL DISTRI WIDTH 14.5 % (0-14.5); WHITE BLOOD COUNT 22.1 10*3/uL (4.8-10.8)
[2017-07-16 15:01] LABS: ACT PARTIAL THROMBO TIME 22.3 SECONDS (20.8-31.5)
[2017-07-16 15:03] LABS: ALBUMIN 3.6 gm/dl (3.1-4.5); BUN 26 mg/dl (7-24); CHLORIDE 100 mmol/L (98-107); CREATININE 0.92 mg/dL (0.55-1.02); POTASSIUM 3.8 mmol/L (3.5-5.1); SGOT/AST 21 IU/L (3-35); SGPT/ALT 33 U/L (12-78); SODIUM 138 mmol/L (136-145); TOTAL PROTEIN 7.4 gm/dL (6.4-8.2)
[2017-07-16 15:06] LABS: ALKALINE PHOSPHATASE 90 U/L (45-117)
[2017-07-16 15:07] LABS: TROPONIN I < 0.015 ng/ml (<0.045)
[2017-07-16 15:08] LABS: ATYPICAL LYMPHS 2 % (0-0); BASOPHILS 1 % (0-1); TOTAL CELLS COUNTED 100 #CELLS
[2017-07-16 15:09] LABS: POLYCHROMASIA SLIGHT; TOXIC GRANULATION SLIGHT
[2017-07-16 15:10] LABS: PLATELET SUFFICIENCY NORMAL (NORMAL)
[2017-07-16 15:25] LABS: BILIRUBIN NEGATIVE (NEGATIVE); BLOOD 2+ (NEGATIVE); CLARITY CLEAR (CLEAR); COLOR YELLOW (YELLOW); GLUCOSE NEGATIVE (NEGATIVE); KETONE NEGATIVE (NEGATIVE); LEUKO ESTERASE NEGATIVE (NEGATIVE); NITRITE NEGATIVE (NEGATIVE); SPECIFIC GRAVITY 1.025 (1.005-1.030); UROBILINOGEN 0.2 E.U./dl (0.2-1.0)
[2017-07-16 15:39] LABS: BACTERIA 1+
--- NOTE | 2017-07-16 16:43 | NUR ---
ADMISSION CANCELLED, TRANSFER PENDING TO [facility]. WE ARE AWAITING A RETURN CALL FROM [facility] TRANSFER LINE FOR ACCEPTANCE THERE. NO CHANGE IN PT CONDITION.
--- NOTE | 2017-07-16 17:06 | NUR ---
CHEST CT NOW RETURNS. DR KING INDICATES HE MAY SWITCH BACK TO HAVING PT BE ADMITTED HERE INSTEAD OF TRANSFERRING. DECISION PENDING. PT UP INDEPENDENTLY TO RESTROOM. VITALS STABLE.
--- NOTE | 2017-07-16 17:28 | NUR ---
ROOM ASSIGNED TO 525/2. AWAITING OPPORTUNITY TO PROVIDE NURSE REPORT.
--- NOTE | 2017-07-16 18:26 | NUR ---
DR WALTON NOTIFIED OF CONSULT AND RETURNED CALL.
--- NOTE | 2017-07-16 18:41 | NUR ---
Time: 1800 A 57 year old female admitted to 5E under services of ROMAINE BROWNING DO. Pt. arrived via stretcher from ER. Chief complaint:dizziness, anemia, sinus tachycardia, leukocytosis and weakness. Patient awake, alert and oriented, ambulaory. . TAARH FERGUSON
--- NOTE | 2017-07-16 20:29 | NUR ---
PATIENT RESTING IN BED AT THIS TIME. REQUESTING SLEEPING PILL TONIGHT. WILL MONITOR. BED IN LOWEST POSTIION, CALL LIGHT IN REACH
--- NOTE | 2017-07-16 23:57 | NUR ---
24 HR chart check completed.
[2017-07-17] VITALS: BP 119/82
--- NOTE | 2017-07-17 01:03 | NUR ---
PATIENT RESTING IN BED WITH NO S/S OF DISTRESS. RESPS EASY AND REGULAR. BED IN LOWEST POSITOIN, CALL LIGHT IN REACH
--- NOTE | 2017-07-17 02:46 | NUR ---
PATIENT RESTING IN BED WITH NO S/S OF DISTRESS. BED IN LOWEST POSITION, CALL LIGHT IN REACH
--- NOTE | 2017-07-17 05:18 | NUR ---
MED REC UPDATED WITH PATIENT AND LIST.
[2017-07-17 06:39] LABS: HEMATOCRIT 33.7 % (37.0-47.0); HEMOGLOBIN 10.8 g/dl (12.0-16.0); MEAN CELL VOLUME 93.9 fl (81.0-99.0); MEAN CORPUSCULAR HGB 30.1 pg (27.0-31.0); MEAN PLATELET VOLUME 10.7 fl (9.6-12.3); PLATELET COUNT AUTOMATED 392 10*3/uL (130-400); RED BLOOD COUNT 3.59 10*6/uL (4.10-5.10); RED CELL DISTRI WIDTH 14.3 % (0-14.5); WHITE BLOOD COUNT 19.8 10*3/uL (4.8-10.8)
[2017-07-17 07:12] LABS: POLYCHROMASIA SLIGHT; TOTAL CELLS COUNTED 100 #CELLS
[2017-07-17 07:13] LABS: PLATELET SUFFICIENCY NORMAL (NORMAL)
--- NOTE | 2017-07-17 07:50 | NUR ---
Shift chart check completed.
[2017-07-17 08:00] VITALS: BP 124/82
--- NOTE | 2017-07-17 08:00 | NUR ---
Engineering Assistant in to talk to patient. Patient states lives at HOME with A ROOM MATE. There are 3 steps in the home. Physician: DR DEL VALLE [facility] Pharmacy: [facility] Home health services: NONE Patient's level of ADLs: INDEPENDENT Patient has working utilities: YES DME: NONE Follow-up physician's appointment after d/c: WILL BE MADE PRIOR TO DC Does patient want to access PORTAL?: Discharge plan HOME. RUEL COLEY PT'S DAUGHTER HAS STARTED PROCESS FOR MEDICAID
[2017-07-17 09:48] LABS: BUN 18 mg/dl (7-24); CHLORIDE 100 mmol/L (98-107); CREATININE 0.86 mg/dL (0.55-1.02); PHOSPHOROUS 3.9 mg/dL (2.5-4.9); POTASSIUM 3.8 mmol/L (3.5-5.1); SODIUM 137 mmol/L (136-145)
--- NOTE | 2017-07-17 10:44 | NUR ---
notified dr. mckenzie that prednison on patients home medicaion list needed clarified
[2017-07-17 12:00] VITALS: BP 113/56
[2017-07-17 16:00] VITALS: BP 104/67
--- NOTE | 2017-07-17 16:44 | NUR ---
PT COMPLAINS OF HEADACHE, TYLENOL GIVEN. SEE MAR. WILL MONITOR FOR EFFECTIVNENESS
--- NOTE | 2017-07-17 17:45 | NUR ---
Discharge instructions reviewed with patient. Patient receptive and verbalizes understanding. Follow-up care understand. Written instructions given to patient. returned pt medicaions from pharmacy. tele removed. iv removed, dressing applied. pt understands discharge instructions. no questions at this time. BRITTNI LAZCANO
== END 2017-07-17 17:45 | disposition home or self-care (01) | DRG 302 ==
LOC: ED 13:55 → EDHOLD 16:08 → ED 16:08 → 5E 17:27 → EDHOLD 17:27 → 5E 17:30
PROVIDERS: Emergency Medicine; ADMIT Internal Medicine
DX: I25.119 Atherosclerotic heart disease of native coronary artery with unspecified angina pectoris (principal); J18.9 Pneumonia, unspecified organism; G93.41 Metabolic encephalopathy; K66.1 Hemoperitoneum; E43 Unspecified severe protein-calorie malnutrition; J44.0 Chronic obstructive pulmonary disease with (acute) lower respiratory infection; K21.9 Gastro-esophageal reflux disease without esophagitis; F41.9 Anxiety disorder, unspecified; D64.9 Anemia, unspecified; R07.89 Other chest pain; F17.210 Nicotine dependence, cigarettes, uncomplicated; J44.9 Chronic obstructive pulmonary disease, unspecified; R91.1 Solitary pulmonary nodule; R07.9 Chest pain, unspecified; S30.1XXS Contusion of abdominal wall, sequela; Z85.41 Personal history of malignant neoplasm of cervix uteri; Z71.6 Tobacco abuse counseling; I25.2 Old myocardial infarction; Z68.25 Body mass index [BMI] 25.0-25.9, adult

== ENCOUNTER → 2017-07-16 | Outpatient (CLI) | payer SELFPAY ==
[~2017-07-16] MED LIST changes: +ATORVASTATIN CA80 M1 PO; +DOXYCYCLINE100 M3 PO; +FEROSUL325 MG PO; +HYDROXYZINE PAM25 M1 PO; +IMDUR SA30 MG PO; +METOPROLOL SUCC25 M2 PO; +VITAMIN D22000 UNIT PO
[2017-07-16 13:48] LABS: HEMATOCRIT 38.8 % (37.0-47.0); HEMOGLOBIN 12.8 g/dl (12.0-16.0)
== END | disposition home or self-care (01) ==
LOC: RESCLI 11:10 → LAB 11:10
PROVIDERS: Internal Medicine
DX: S36.62XA Contusion of rectum, initial encounter (principal); X58.XXXA Exposure to other specified factors, initial encounter; Y93.89 Activity, other specified; Y92.89 Other specified places as the place of occurrence of the external cause; Y99.8 Other external cause status

== ENCOUNTER → 2017-07-18 | Outpatient (CLI) | payer SELFPAY | END | disposition home or self-care (01) | LOC: CT 03:55 | DX: S36.62XA Contusion of rectum, initial encounter (principal); Z90.710 Acquired absence of both cervix and uterus; X58.XXXA Exposure to other specified factors, initial encounter ==

== ENCOUNTER 2017-09-24 13:27 | Inpatient (IN) | payer OTHER ==
[~2017-09-24] VITALS: Ht 167.6 cm; Wt 71.9 kg
--- NOTE | ~2017-09-24 | CON ---
[place], [place] REPORT OF CONSULTATION NAME: JULIANNE HERNANDEZ UNIT #: [id number] ROOM: [facility] DOCTOR: KRISTEN SALAS MD,MIKEY BIRTHDATE: [birth year] DOS: 09/26/2017 The patient asked the consultation to be assessed with transfer prior to my assessment. MIKEY PETERSON MD CM:CONSTR:REPORT OF CONSULTATION [id number] 09/27/17 1634 interface
--- NOTE | ~2017-09-24 | PR ---
[place], [place] PROGRESS NOTE NAME: JULIANNE HERNANDEZ UNIT #: [id number] ROOM: [facility] DOCTOR: RUBEN MATIAS DO BIRTHDATE: [birth year] DOS: Rapid response and intubation note. Angy traylor was initially called for a patient that was in the CAT scanner. When we arrived, the patient had appropriate pulses and circulation. The patient was satting in the low 60s, tube was advanced, bagging was restarted, sats came up to the mid to low 90s. There was obvious abdominal distention. Decision was made to move her to the ER for reintubation. Respiratory therapist states that these tube may have slid out and may have been re-inserted inappropriately. The patient was moved into [facility]. The patient did vomit once. There was vomit in the intubation tube, tube was removed. The patient was bagged, sats came up to the low 90s. Intubation was performed using 20 of etomidate 7.5 ET tube under GlideScope. Fogging was seen in the tube. Breath sounds are heard bilaterally. No sounds over the epigastrium. Sats improved to the upper 90s. Chest x-ray confirmed tube placement. RUBEN MATIAS DO CM:PNBRENDON [id number] RUBEN MATIAS DO [id number]/25/[id number] interface
[2017-09-24 13:30] VITALS: BP 120/85
[2017-09-24 14:11] LABS: BASO # 0.1 10*3/uL (0.0-0.1); BASO % 0.9 % (0.0-1.0); EOS # 0.2 10*3/uL (0.0-0.4); EOS % 2.9 % (1.0-4.0); HEMATOCRIT 45.1 % (37.0-47.0); HEMOGLOBIN 14.7 g/dl (12.0-16.0); LYMPH # 1.9 10*3/uL (1.3-4.4); LYMPH % 27.6 % (27.0-41.0); MEAN CELL VOLUME 90.4 fl (81.0-99.0); MEAN CORPUSCULAR HGB 29.5 pg (27.0-31.0); MEAN CORPUSCULAR HGB CONC 32.6 g/dl (33.0-37.0); MEAN PLATELET VOLUME 11.1 fl (9.6-12.3); MONO # 0.8 10*3/uL (0.1-1.0); MONO % 11.3 % (3.0-9.0); NEUT # 3.9 10*3/uL (2.3-7.9); PLATELET COUNT AUTOMATED 214 10*3/uL (130-400); RED BLOOD COUNT 4.99 10*6/uL (4.10-5.10); RED CELL DISTRI WIDTH 13.8 % (0-14.5); WHITE BLOOD COUNT 6.9 10*3/uL (4.8-10.8)
[2017-09-24 14:20] VITALS: BP 117/71
[2017-09-24 14:20] LABS: ACT PARTIAL THROMBO TIME 28.5 SECONDS (20.8-31.5)
[2017-09-24 14:33] LABS: ALBUMIN 3.6 gm/dl (3.1-4.5); ALKALINE PHOSPHATASE 121 U/L (45-117); BUN 7 mg/dl (7-24); CHLORIDE 106 mmol/L (98-107); CREATININE 0.77 mg/dL (0.55-1.02); POTASSIUM 3.4 mmol/L (3.5-5.1); SGOT/AST 19 IU/L (3-35); SGPT/ALT 22 U/L (12-78); SODIUM 139 mmol/L (136-145); TOTAL PROTEIN 7.5 gm/dL (6.4-8.2)
[2017-09-24 14:34] LABS: TROPONIN I < 0.015 ng/ml (<0.045)
[2017-09-24 15:20] VITALS: BP 167/112
[2017-09-24 16:35] VITALS: BP 109/92
[2017-09-24 16:41] VITALS: BP 109/71
[2017-09-24 20:45] VITALS: BP 131/66
[2017-09-25] VITALS (9 sets, daily range): BP systolic 129–173; BP diastolic 58–93
[2017-09-25 08:13] LABS: HEMOGLOBIN 14.8 g/dl (12.0-16.0); LYMPH % 15.3 % (27.0-41.0); MEAN CELL VOLUME 90.2 fl (81.0-99.0); MEAN CORPUSCULAR HGB CONC 32.2 g/dl (33.0-37.0); MEAN PLATELET VOLUME 11.1 fl (9.6-12.3); MONO # 0.2 10*3/uL (0.1-1.0); MONO % 2.4 % (3.0-9.0); NEUT % 80.8 % (47.0-73.0); PLATELET COUNT AUTOMATED 227 10*3/uL (130-400); RED CELL DISTRI WIDTH 13.4 % (0-14.5); WHITE BLOOD COUNT 6.2 10*3/uL (4.8-10.8)
[2017-09-25 08:25] LABS: ALBUMIN 3.8 gm/dl (3.1-4.5); BUN 9 mg/dl (7-24); CHLORIDE 104 mmol/L (98-107); POTASSIUM 4.2 mmol/L (3.5-5.1); SGOT/AST 19 IU/L (3-35); SGPT/ALT 28 U/L (12-78); SODIUM 137 mmol/L (136-145)
[2017-09-25 08:34] LABS: ALKALINE PHOSPHATASE 123 U/L (45-117); CHOLESTEROL 191 mg/dL (<200); CREATININE 0.74 mg/dL (0.55-1.02); FREE T4 0.92 ng/dl (0.76-1.46); HDL CHOLESTEROL 58 mg/dl (40-60); LDL CHOLESTEROL 109 mg/dL (9-159); PHOSPHOROUS 2.2 mg/dL (2.5-4.9); THYROID STIM HORMONE (HS) 0.434 uIU/ml (0.358-4.75); TOTAL PROTEIN 8.3 gm/dL (6.4-8.2); TRIGLYCERIDES 119 mg/dl (<150); VLDL CHOLESTEROL 24 mg/dL (6-40)
[2017-09-25 08:51] LABS: ACT PARTIAL THROMBO TIME 27.1 SECONDS (20.8-31.5)
[2017-09-25 09:13] LABS: VITAMIN D, 25-HYDROXY 12.4 ng/mL (30-100)
[2017-09-25 17:45] LABS: ABG BASE EXCESS -4.4 mmol/L (-2.0-2.0); ABG O2 SATURATION 91.1 % (95-97); ARTERIAL BLOOD GAS PCO2 56.4 mmHg (35-45); ARTERIAL BLOOD GAS PH 7.246 (7.35-7.45); ARTERIAL BLOOD GAS PO2 66.8 mmHg (80-90)
[2017-09-25 19:22] LABS: ABG BASE EXCESS -2.9 mmol/L (-2.0-2.0); ABG HCO3 25.1 mmol/l (22-26); ABG O2 SATURATION 97.7 % (95-97); ARTERIAL BLOOD GAS PCO2 58.9 mmHg (35-45); ARTERIAL BLOOD GAS PH 7.253 (7.35-7.45)
[2017-09-26] VITALS: BP 140/86
== END 2017-09-26 01:37 | disposition short-term general hospital (02) | DRG 208 ==
LOC: ED 13:27 → 5E 15:35 → EDHOLD 15:35 → 5E 15:57 → ICCU 09-25 17:41
PROVIDERS: Family Medicine; Student in an Organized Health Care Education/Training Program
PROC: 0BH18EZ Insertion of Endotracheal Airway into Trachea, Via Natural or Artificial Opening Endoscopic (ICD-10-PCS; principal; 2017-09-25)
PROC: 5A1935Z Respiratory Ventilation, Less than 24 Consecutive Hours (ICD-10-PCS; 2017-09-25)
PROC: 5A09357 Assistance with Respiratory Ventilation, Less than 24 Consecutive Hours, Continuous Positive Airway Pressure (ICD-10-PCS; 2017-09-25)
PROC: 0BH18EZ Insertion of Endotracheal Airway into Trachea, Via Natural or Artificial Opening Endoscopic (ICD-10-PCS; 2017-09-25)
DX: J96.01 Acute respiratory failure with hypoxia (principal); J18.9 Pneumonia, unspecified organism; J44.0 Chronic obstructive pulmonary disease with (acute) lower respiratory infection; J44.1 Chronic obstructive pulmonary disease with (acute) exacerbation; R73.9 Hyperglycemia, unspecified; F17.210 Nicotine dependence, cigarettes, uncomplicated; F12.90 Cannabis use, unspecified, uncomplicated; J30.2 Other seasonal allergic rhinitis; E55.9 Vitamin D deficiency, unspecified; R00.0 Tachycardia, unspecified; E87.6 Hypokalemia; I25.118 Atherosclerotic heart disease of native coronary artery with other forms of angina pectoris; Z88.5 Allergy status to narcotic agent; Z71.6 Tobacco abuse counseling; Z88.0 Allergy status to penicillin; Z90.49 Acquired absence of other specified parts of digestive tract; Z90.710 Acquired absence of both cervix and uterus; Z80.0 Family history of malignant neoplasm of digestive organs; Z83.79 Family history of other diseases of the digestive system; Z82.49 Family history of ischemic heart disease and other diseases of the circulatory system; Z83.6 Family history of other diseases of the respiratory system; Z90.79 Acquired absence of other genital organ(s); Z90.722 Acquired absence of ovaries, bilateral; Z85.41 Personal history of malignant neoplasm of cervix uteri; Z79.899 Other long term (current) drug therapy

== ENCOUNTER 2017-10-09 17:26 | Inpatient (IN) | payer OTHER ==
[~2017-10-09] VITALS: Ht 167.6 cm; Wt 65.5 kg
[2017-10-09] VITALS (9 sets, daily range): BP systolic 75–103; BP diastolic 34–52
--- NOTE | ~2017-10-09 | O ---
[place], [place] OPERATIVE NOTE NAME: JULIANNE HERNANDEZ UNIT #: [id number] ROOM: 501 DOCTOR: WILL MATHUR MD BIRTHDATE: [birth year] DOS: 10/12/2017 INDICATION FOR PROCEDURE: A 57-year-old patient who has presented with chief complaint of tiredness, has had drop in hemoglobin and hematocrit as low as hemoglobin of 6.5 and hematocrit of 17 status post multiple transfusions and stabilization. The patient has received multi-transfusion and today's H and H has improved to 8.7 and 27. Her white blood cell is 284. Her lactic acid was normal. CT scan of the abdomen and pelvis had been reviewed and hematoma along the left pelvic side wall, although significantly decreased from the prior studies. Small foci of intraluminal air within the bladder is known. PAST MEDICAL HISTORY: COPD, coronary artery disease, non-STEMI, and seasonal allergy. PAST SURGICAL HISTORY: Salpingo-oophorectomy, cholecystectomy, and hysterectomy. SOCIAL HISTORY: Marijuana user, smoker. FAMILY HISTORY: Noncontributory. ALLERGIES: PENICILLIN AND CODEINE. HOME MEDICATIONS: Medication list at home reviewed including metoprolol as well as nicotine. PROCEDURE: Today's procedure part of investigation is panendoscopy and colonoscopy. PREMEDICATION: Versed and Diprivan. SCOPE: Olympus forward-viewing gastroscope Q10 video. REPORT: After putting the patient in left lateral position and application of lubricant to the scope, the scope was introduced. Thereafter, under direct visualization, advanced through the length of esophagus without difficulty. Esophagus free of ulceration, lesion. Gastric pouch was entered. Mild gastritis seen. Duodenal bulb, second and third part within normal limits. The patient extubated and tolerated the procedure well. Antral biopsy obtained for H. pylori. IMPRESSION: Mild gastritis, status post biopsy since we do not have gross findings regarding contribution to such a degree of anemia, we are going to proceed with colonoscopy. COLONOSCOPY: REPORT: After putting the patient in left lateral position, the patient underwent anemia workup. [place], [place] OPERATIVE NOTE NAME: JULIANNE HERNANDEZ UNIT #: [id number] ROOM: [facility] DOCTOR: WILL MATHUR MD BIRTHDATE: [birth year] PROCEDURE: Today's procedure part of investigation is colonoscopy and polypectomy. PREMEDICATION: Versed and Diprivan. SCOPE: Olympus forward-viewing colonoscope 10L video. REPORT: After putting the patient in left lateral position and application of lubricant to rectal pouch and digital examination, a scope was introduced. Thereafter, under direct visualization, advanced through the length of colon without difficulty. Mild diverticulosis of sigmoid colon was identified and photographed. Sessile polypoid lesion approximately 6 mm at proximal sigmoid colon with snare was polypectomized. Base of cecum explored. No other pathology identified. Air was suctioned out. The patient was extubated, tolerated the procedure well. IMPRESSION: Diverticulosis of the sigmoid colon, colonic polyp, status post snare polypectomy from sigmoid anatomy proximally. PLAN AND DISCUSSION: I am not convinced if she has been bleeding from her GI tract. This patient has had hematoma of flank and most likely the blood has been scraped and compartmentalized and that is where the source of anemia is. At the present time, this is the etiology in this admission; however, it is worthwhile to have followup on her H and H and things that we are going to study on her is going to be in plan and discussion. We are going to have B12, folate and iron levels studied. We are going to assure that we have a reticulocyte count in this admission on her and in future followup, so we have a reference for correction of the pathology. WILL MATHUR MD CM:OPRECORD:OPERATIVE NOTE [id number] WILL MATHUR MD 10/12/17 185 interface
[~2017-10-09 17:26] MED LIST changes: -NICODERM CQ1 EACH TD; -PROTONIX40 MG PO; -VITAMIN D-32000 UNIT PO
[2017-10-09] MEDS ORDERED: METOPROLOL SUCC25 M2 PO (17:44)
[2017-10-09] MEDS ORDERED: NICODERM CQ1 EACH TD (17:45)
[2017-10-09 18:34] LABS: BASO % 0.2 % (0.0-1.0); EOS # 0.3 10*3/uL (0.0-0.4); EOS % 1.8 % (1.0-4.0); HEMATOCRIT 19.2 % (37.0-47.0); HEMOGLOBIN 6.2 g/dl (12.0-16.0); LYMPH # 4.3 10*3/uL (1.3-4.4); MEAN CELL VOLUME 94.1 fl (81.0-99.0); MEAN CORPUSCULAR HGB 30.4 pg (27.0-31.0); MEAN CORPUSCULAR HGB CONC 32.3 g/dl (33.0-37.0); MONO # 1.3 10*3/uL (0.1-1.0); MONO % 7.7 % (3.0-9.0); NEUT # 10.3 10*3/uL (2.3-7.9); NEUT % 62.9 % (47.0-73.0); NUCLEATED RED BLOOD CELL 0.1 % (0.0-0.0); PLATELET COUNT AUTOMATED 301 10*3/uL (130-400); RED BLOOD COUNT 2.04 10*6/uL (4.10-5.10); WHITE BLOOD COUNT 16.4 10*3/uL (4.8-10.8)
[2017-10-09 18:45] LABS: BILIRUBIN NEGATIVE (NEGATIVE); BLOOD TRACE-INTACT (NEGATIVE); CLARITY SL CLOUDY (CLEAR); COLOR YELLOW (YELLOW); GLUCOSE NEGATIVE (NEGATIVE); KETONE NEGATIVE (NEGATIVE); LEUKO ESTERASE NEGATIVE (NEGATIVE); NITRITE NEGATIVE (NEGATIVE); PH 5.5 (5.0-9.0); SPECIFIC GRAVITY >= 1.030 (1.005-1.030); UROBILINOGEN 0.2 E.U./dl (0.2-1.0)
[2017-10-09 18:49] LABS: ALBUMIN 2.8 gm/dl (3.1-4.5); ALKALINE PHOSPHATASE 74 U/L (45-117); BUN 10 mg/dl (7-24); CHLORIDE 102 mmol/L (98-107); CREATININE 0.78 mg/dL (0.55-1.02); LIPASE 334 U/L (73-393); POTASSIUM 3.3 mmol/L (3.5-5.1); SGOT/AST 13 IU/L (3-35); SGPT/ALT 20 U/L (12-78); SODIUM 139 mmol/L (136-145); TOTAL PROTEIN 6.2 gm/dL (6.4-8.2)
[2017-10-09 18:55] LABS: TROPONIN I < 0.015 ng/ml (<0.045)
[2017-10-09 18:58] LABS: BACTERIA 3+; EPITHELIAL CELLS TNTC; MUCOUS 1+
[2017-10-09 19:06] LABS: ACT PARTIAL THROMBO TIME 24.7 SECONDS (20.8-31.5)
[2017-10-10] VITALS (13 sets, daily range): BP systolic 80–108; BP diastolic 45–67
[2017-10-10 01:13] LABS: BASO % 0.1 % (0.0-1.0); EOS # 0.3 10*3/uL (0.0-0.4); EOS % 2.2 % (1.0-4.0); HEMATOCRIT 22.5 % (37.0-47.0); HEMOGLOBIN 7.3 g/dl (12.0-16.0); LYMPH # 4.2 10*3/uL (1.3-4.4); LYMPH % 27.4 % (27.0-41.0); MEAN CELL VOLUME 91.1 fl (81.0-99.0); MEAN CORPUSCULAR HGB 29.6 pg (27.0-31.0); MEAN CORPUSCULAR HGB CONC 32.4 g/dl (33.0-37.0); MEAN PLATELET VOLUME 10.8 fl (9.6-12.3); MONO # 1.2 10*3/uL (0.1-1.0); MONO % 7.9 % (3.0-9.0); NEUT # 9.3 10*3/uL (2.3-7.9); NEUT % 61.3 % (47.0-73.0); NUCLEATED RED BLOOD CELL 0.1 % (0.0-0.0); PLATELET COUNT AUTOMATED 272 10*3/uL (130-400); RED BLOOD COUNT 2.47 10*6/uL (4.10-5.10); RED CELL DISTRI WIDTH 15.1 % (0-14.5); WHITE BLOOD COUNT 15.2 10*3/uL (4.8-10.8)
[2017-10-10 04:11] LABS: BILIRUBIN NEGATIVE (NEGATIVE); BLOOD TRACE-INTACT (NEGATIVE); CLARITY CLEAR (CLEAR); COLOR YELLOW (YELLOW); GLUCOSE NEGATIVE (NEGATIVE); KETONE NEGATIVE (NEGATIVE); LEUKO ESTERASE NEGATIVE (NEGATIVE); NITRITE NEGATIVE (NEGATIVE); PH 5.5 (5.0-9.0); UROBILINOGEN 0.2 E.U./dl (0.2-1.0)
[2017-10-10 04:24] LABS: BACTERIA 1+
[2017-10-10 07:02] LABS: BASO % 0.2 % (0.0-1.0); EOS # 0.3 10*3/uL (0.0-0.4); EOS % 2.6 % (1.0-4.0); HEMATOCRIT 20.6 % (37.0-47.0); HEMOGLOBIN 6.7 g/dl (12.0-16.0); LYMPH # 2.9 10*3/uL (1.3-4.4); LYMPH % 24.4 % (27.0-41.0); MEAN CELL VOLUME 90.4 fl (81.0-99.0); MEAN CORPUSCULAR HGB 29.4 pg (27.0-31.0); MEAN CORPUSCULAR HGB CONC 32.5 g/dl (33.0-37.0); MEAN PLATELET VOLUME 11.1 fl (9.6-12.3); MONO # 1.1 10*3/uL (0.1-1.0); MONO % 8.9 % (3.0-9.0); NEUT # 7.4 10*3/uL (2.3-7.9); NEUT % 63.2 % (47.0-73.0); PLATELET COUNT AUTOMATED 250 10*3/uL (130-400); RED BLOOD COUNT 2.28 10*6/uL (4.10-5.10); RED CELL DISTRI WIDTH 15.2 % (0-14.5); WHITE BLOOD COUNT 11.7 10*3/uL (4.8-10.8)
[2017-10-10 07:31] LABS: ALBUMIN 2.4 gm/dl (3.1-4.5); BUN 11 mg/dl (7-24); CHLORIDE 106 mmol/L (98-107); POTASSIUM 3.4 mmol/L (3.5-5.1); SODIUM 142 mmol/L (136-145)
[2017-10-10 07:41] LABS: ALKALINE PHOSPHATASE 66 U/L (45-117); CHOLESTEROL 91 mg/dL (<200); CREATININE 0.54 mg/dL (0.55-1.02); HDL CHOLESTEROL 34 mg/dl (40-60); LDL CHOLESTEROL 23 mg/dL (9-159); PHOSPHOROUS 3.6 mg/dL (2.5-4.9); SGOT/AST 11 IU/L (3-35); SGPT/ALT 16 U/L (12-78); TOTAL PROTEIN 5.4 gm/dL (6.4-8.2); TRIGLYCERIDES 169 mg/dl (<150); VLDL CHOLESTEROL 34 mg/dL (6-40)
[2017-10-10 10:14] LABS: VITAMIN D, 25-HYDROXY 12.7 ng/mL (30-100)
[2017-10-11] VITALS: BP 106/58
[2017-10-11 06:28] LABS: BUN 9 mg/dl (7-24); CHLORIDE 105 mmol/L (98-107); POTASSIUM 3.7 mmol/L (3.5-5.1); SODIUM 140 mmol/L (136-145)
[2017-10-11 06:37] LABS: BASO % 0.2 % (0.0-1.0); EOS # 0.3 10*3/uL (0.0-0.4); EOS % 2.8 % (1.0-4.0); HEMOGLOBIN 8.7 g/dl (12.0-16.0); LYMPH # 2.8 10*3/uL (1.3-4.4); LYMPH % 26.2 % (27.0-41.0); MEAN CELL VOLUME 91.6 fl (81.0-99.0); MEAN CORPUSCULAR HGB 29.3 pg (27.0-31.0); MEAN PLATELET VOLUME 11.6 fl (9.6-12.3); MONO # 1.2 10*3/uL (0.1-1.0); MONO % 10.9 % (3.0-9.0); NEUT # 6.3 10*3/uL (2.3-7.9); NEUT % 59.2 % (47.0-73.0); PLATELET COUNT AUTOMATED 284 10*3/uL (130-400); RED BLOOD COUNT 2.97 10*6/uL (4.10-5.10); WHITE BLOOD COUNT 10.6 10*3/uL (4.8-10.8)
[2017-10-11 06:58] LABS: HEMATOCRIT 27.2 % (37.0-47.0)
[2017-10-11 07:45] VITALS: BP 104/52
[2017-10-11 08:40] VITALS: BP 98/56
[2017-10-11 12:33] VITALS: BP 98/54
[2017-10-11 16:00] VITALS: BP 105/49
[2017-10-11 20:00] VITALS: BP 117/63
[2017-10-12] VITALS (7 sets, daily range): BP systolic 89–111; BP diastolic 43–64
[2017-10-12 06:20] LABS: BASO % 0.4 % (0.0-1.0); EOS # 0.3 10*3/uL (0.0-0.4); EOS % 2.8 % (1.0-4.0); HEMATOCRIT 27.9 % (37.0-47.0); LYMPH % 29.1 % (27.0-41.0); MEAN CELL VOLUME 91.5 fl (81.0-99.0); MEAN CORPUSCULAR HGB 29.5 pg (27.0-31.0); MEAN CORPUSCULAR HGB CONC 32.3 g/dl (33.0-37.0); MONO # 0.8 10*3/uL (0.1-1.0); MONO % 8.2 % (3.0-9.0); NEUT # 6.1 10*3/uL (2.3-7.9); NEUT % 59.1 % (47.0-73.0); PLATELET COUNT AUTOMATED 307 10*3/uL (130-400); RED BLOOD COUNT 3.05 10*6/uL (4.10-5.10); RED CELL DISTRI WIDTH 14.3 % (0-14.5); WHITE BLOOD COUNT 10.3 10*3/uL (4.8-10.8)
[2017-10-12] MEDS ORDERED: VITAMIN D-32000 UNIT PO (16:26)
[2017-10-12] MEDS ORDERED: PROTONIX40 MG PO (16:26)
== END 2017-10-12 17:05 | disposition home or self-care (01) | DRG 314 ==
LOC: ED 17:26 → EDHOLD 21:09 → 5E 21:09
PROVIDERS: Family Medicine; Hospitalist; Internal Medicine; Nurse Practitioner Family
PROC: 30233N1 Transfusion of Nonautologous Red Blood Cells into Peripheral Vein, Percutaneous Approach (ICD-10-PCS; 2017-10-09)
PROC: 0DB68ZX Excision of Stomach, Via Natural or Artificial Opening Endoscopic, Diagnostic (ICD-10-PCS; principal; 2017-10-12)
PROC: 0DBN8ZZ Excision of Sigmoid Colon, Via Natural or Artificial Opening Endoscopic (ICD-10-PCS; 2017-10-12)
DX: I95.9 Hypotension, unspecified (principal); E43 Unspecified severe protein-calorie malnutrition; K66.1 Hemoperitoneum; D64.9 Anemia, unspecified; E87.6 Hypokalemia; M79.81 Nontraumatic hematoma of soft tissue; J41.8 Mixed simple and mucopurulent chronic bronchitis; I25.10 Atherosclerotic heart disease of native coronary artery without angina pectoris; K29.70 Gastritis, unspecified, without bleeding; K57.30 Diverticulosis of large intestine without perforation or abscess without bleeding; K63.5 Polyp of colon; H40.9 Unspecified glaucoma; Z90.49 Acquired absence of other specified parts of digestive tract; Z90.710 Acquired absence of both cervix and uterus; I25.2 Old myocardial infarction; Z90.722 Acquired absence of ovaries, bilateral; Z71.6 Tobacco abuse counseling; Z88.5 Allergy status to narcotic agent; Z88.0 Allergy status to penicillin; Z80.0 Family history of malignant neoplasm of digestive organs; Z83.1 Family history of other infectious and parasitic diseases; Z85.41 Personal history of malignant neoplasm of cervix uteri; Z86.73 Personal history of transient ischemic attack (TIA), and cerebral infarction without residual deficits; Z68.25 Body mass index [BMI] 25.0-25.9, adult

== ENCOUNTER → 2017-10-09 | Outpatient (CLI) | payer OTHER ==
[~2017-10-09] MED LIST changes: +NICODERM CQ1 EACH TD; +PROTONIX40 MG PO; +VITAMIN D-32000 UNIT PO
[2017-10-09 15:02] LABS: BASO % 0.3 % (0.0-1.0); EOS # 0.3 10*3/uL (0.0-0.4); HEMATOCRIT 20.2 % (37.0-47.0); HEMOGLOBIN 6.5 g/dl (12.0-16.0); LYMPH # 3.9 10*3/uL (1.3-4.4); LYMPH % 25.5 % (27.0-41.0); MEAN CELL VOLUME 92.7 fl (81.0-99.0); MEAN CORPUSCULAR HGB 29.8 pg (27.0-31.0); MEAN CORPUSCULAR HGB CONC 32.2 g/dl (33.0-37.0); MEAN PLATELET VOLUME 10.7 fl (9.6-12.3); MONO # 1.2 10*3/uL (0.1-1.0); NEUT # 9.6 10*3/uL (2.3-7.9); NEUT % 62.9 % (47.0-73.0); NUCLEATED RED BLOOD CELL 0.1 % (0.0-0.0); PLATELET COUNT AUTOMATED 323 10*3/uL (130-400); RED BLOOD COUNT 2.18 10*6/uL (4.10-5.10); RED CELL DISTRI WIDTH 15.2 % (0-14.5); WHITE BLOOD COUNT 15.2 10*3/uL (4.8-10.8)
== END | disposition home or self-care (01) ==
LOC: LAB 14:39
PROVIDERS: Internal Medicine Cardiovascular Disease
DX: I49.9 Cardiac arrhythmia, unspecified (principal)

== ENCOUNTER → 2017-10-23 | Outpatient (CLI) | payer SELFPAY ==
[~2017-10-23] MED LIST changes: +NICODERM CQ1 EACH TD; +PROTONIX40 MG PO; +VITAMIN D-32000 UNIT PO
== END | disposition home or self-care (01) ==
LOC: RESCLI 03:16
DX: I10 Essential (primary) hypertension (principal); F41.9 Anxiety disorder, unspecified; F17.200 Nicotine dependence, unspecified, uncomplicated; R51 Headache; E55.9 Vitamin D deficiency, unspecified; S30.1XXD Contusion of abdominal wall, subsequent encounter; I25.10 Atherosclerotic heart disease of native coronary artery without angina pectoris; H40.10X0 Unspecified open-angle glaucoma, stage unspecified; R91.1 Solitary pulmonary nodule; I25.2 Old myocardial infarction; J44.9 Chronic obstructive pulmonary disease, unspecified; E44.0 Moderate protein-calorie malnutrition; X58.XXXD Exposure to other specified factors, subsequent encounter

== ENCOUNTER → 2017-11-20 | Outpatient (CLI) | payer OTHER | END | disposition home or self-care (01) | LOC: RESCLI 02:53 | DX: I10 Essential (primary) hypertension (principal); E44.0 Moderate protein-calorie malnutrition; F41.9 Anxiety disorder, unspecified; F17.200 Nicotine dependence, unspecified, uncomplicated; R51 Headache; E55.9 Vitamin D deficiency, unspecified; I25.10 Atherosclerotic heart disease of native coronary artery without angina pectoris; H40.10X0 Unspecified open-angle glaucoma, stage unspecified; R91.1 Solitary pulmonary nodule; I25.2 Old myocardial infarction; J44.9 Chronic obstructive pulmonary disease, unspecified; N30.00 Acute cystitis without hematuria ==

== ENCOUNTER → 2018-01-04 | Outpatient (CLI) | payer OTHER ==
[2018-01-04 11:30] LABS: BILIRUBIN NEGATIVE (NEGATIVE); BLOOD 1+ (NEGATIVE); CLARITY SL CLOUDY (CLEAR); COLOR YELLOW (YELLOW); GLUCOSE NEGATIVE (NEGATIVE); KETONE NEGATIVE (NEGATIVE); LEUKO ESTERASE NEGATIVE (NEGATIVE); NITRITE NEGATIVE (NEGATIVE); PH 5.5 (5.0-9.0); SPECIFIC GRAVITY 1.025 (1.005-1.030); UROBILINOGEN 0.2 E.U./dl (0.2-1.0)
[2018-01-04 11:31] LABS: BASO # 0.1 10*3/uL (0.0-0.1); BASO % 1.6 % (0.0-1.0); EOS # 0.4 10*3/uL (0.0-0.4); EOS % 4.4 % (1.0-4.0); HEMATOCRIT 47.1 % (37.0-47.0); HEMOGLOBIN 15.1 g/dl (12.0-16.0); LYMPH # 3.9 10*3/uL (1.3-4.4); LYMPH % 45.7 % (27.0-41.0); MEAN CELL VOLUME 89.4 fl (81.0-99.0); MEAN CORPUSCULAR HGB 28.7 pg (27.0-31.0); MEAN CORPUSCULAR HGB CONC 32.1 g/dl (33.0-37.0); MONO # 0.7 10*3/uL (0.1-1.0); MONO % 8.2 % (3.0-9.0); NEUT # 3.4 10*3/uL (2.3-7.9); PLATELET COUNT AUTOMATED 262 10*3/uL (130-400); RED BLOOD COUNT 5.27 10*6/uL (4.10-5.10); RED CELL DISTRI WIDTH 13.1 % (0-14.5); WHITE BLOOD COUNT 8.6 10*3/uL (4.8-10.8)
[2018-01-04 11:43] LABS: BACTERIA 1+
[2018-01-04 11:55] LABS: ALBUMIN 3.9 gm/dl (3.1-4.5); ALKALINE PHOSPHATASE 126 U/L (45-117); BUN 16 mg/dl (7-24); CHLORIDE 103 mmol/L (98-107); CREATININE 0.89 mg/dL (0.55-1.02); POTASSIUM 4.1 mmol/L (3.5-5.1); SGOT/AST 14 IU/L (3-35); SGPT/ALT 17 U/L (12-78); SODIUM 138 mmol/L (136-145)
[2018-01-04 13:55] LABS: VITAMIN D, 25-HYDROXY 27.4 ng/mL (30-100)
== END | disposition home or self-care (01) ==
LOC: LAB 10:26
PROVIDERS: Internal Medicine
DX: I10 Essential (primary) hypertension (principal); M30.0 Polyarteritis nodosa

== ENCOUNTER 2018-01-19 11:06 | Inpatient (IN) | payer OTHER ==
[~2018-01-19] VITALS: Ht 167.6 cm; Wt 79.4 kg
[2018-01-19 11:08] VITALS: BP 170/98
[2018-01-19 11:36] LABS: BASO # 0.2 10*3/uL (0.0-0.1); BASO % 1.5 % (0.0-1.0); EOS # 0.6 10*3/uL (0.0-0.4); EOS % 5.6 % (1.0-4.0); HEMATOCRIT 45.1 % (37.0-47.0); HEMOGLOBIN 14.7 g/dl (12.0-16.0); LYMPH % 29.3 % (27.0-41.0); MEAN CELL VOLUME 87.9 fl (81.0-99.0); MEAN CORPUSCULAR HGB 28.7 pg (27.0-31.0); MEAN CORPUSCULAR HGB CONC 32.6 g/dl (33.0-37.0); MEAN PLATELET VOLUME 9.8 fl (9.6-12.3); MONO # 0.6 10*3/uL (0.1-1.0); MONO % 5.8 % (3.0-9.0); NEUT # 5.9 10*3/uL (2.3-7.9); NEUT % 57.6 % (47.0-73.0); PLATELET COUNT AUTOMATED 242 10*3/uL (130-400); RED BLOOD COUNT 5.13 10*6/uL (4.10-5.10); WHITE BLOOD COUNT 10.2 10*3/uL (4.8-10.8)
[2018-01-19 11:47] LABS: BUN 13 mg/dl (7-24); CHLORIDE 102 mmol/L (98-107); CREATININE 0.89 mg/dL (0.55-1.02); POTASSIUM 4.2 mmol/L (3.5-5.1); SODIUM 139 mmol/L (136-145)
[2018-01-19 12:28] LABS: ALBUMIN 3.9 gm/dl (3.1-4.5); ALKALINE PHOSPHATASE 123 U/L (45-117); BILIRUBIN, DIRECT 0.1 mg/dL (0.0-0.2); SGOT/AST 12 IU/L (3-35); SGPT/ALT 15 U/L (12-78); TOTAL PROTEIN 7.9 gm/dL (6.4-8.2); TROPONIN I < 0.015 ng/ml (<0.045)
[2018-01-19] MEDS ORDERED: SPIRIVA18 MCG PO (14:51)
[2018-01-19] MEDS ORDERED: HEARTBURN RELIE20 MG PO (14:52)
[2018-01-19] MEDS ORDERED: GOOD NEIGHBOR P10 M1 PO (14:53)
[2018-01-19] MEDS ORDERED: FERROUSAL325 MG PO (14:53)
[2018-01-19] MEDS ORDERED: METOPROLOL SUCC50 M1 PO (14:54)
[2018-01-19] MEDS ORDERED: HYDROXYZINE PAM25 M1 PO (14:54)
[2018-01-19] MEDS ORDERED: DUONEB 3 MG/3 ML3 M1 INH (14:55)
[2018-01-19 15:05] VITALS: BP 160/84
[2018-01-19 16:54] VITALS: BP 153/78
[2018-01-19 20:00] VITALS: BP 136/80
[2018-01-20] VITALS: BP 152/83
[2018-01-20 06:19] LABS: BASO % 0.1 % (0.0-1.0); HEMATOCRIT 44.9 % (37.0-47.0); HEMOGLOBIN 14.5 g/dl (12.0-16.0); LYMPH # 1.8 10*3/uL (1.3-4.4); LYMPH % 13.8 % (27.0-41.0); MEAN CELL VOLUME 88.2 fl (81.0-99.0); MEAN CORPUSCULAR HGB 28.5 pg (27.0-31.0); MEAN CORPUSCULAR HGB CONC 32.3 g/dl (33.0-37.0); MEAN PLATELET VOLUME 10.8 fl (9.6-12.3); MONO # 0.3 10*3/uL (0.1-1.0); MONO % 2.2 % (3.0-9.0); NEUT # 10.7 10*3/uL (2.3-7.9); PLATELET COUNT AUTOMATED 267 10*3/uL (130-400); RED BLOOD COUNT 5.09 10*6/uL (4.10-5.10); RED CELL DISTRI WIDTH 13.3 % (0-14.5); WHITE BLOOD COUNT 12.9 10*3/uL (4.8-10.8)
[2018-01-20 06:49] LABS: BUN 17 mg/dl (7-24); CHLORIDE 103 mmol/L (98-107); CREATININE 0.95 mg/dL (0.55-1.02); PHOSPHOROUS 3.3 mg/dL (2.5-4.9); SODIUM 138 mmol/L (136-145)
[2018-01-20 08:00] VITALS: BP 146/78
[2018-01-20 12:00] VITALS: BP 118/80
[2018-01-20 16:00] VITALS: BP 157/79
[2018-01-20 20:00] VITALS: BP 143/68
[2018-01-21] VITALS: BP 141/77
[2018-01-21 07:34] LABS: BASO % 0.1 % (0.0-1.0); HEMATOCRIT 42.6 % (37.0-47.0); HEMOGLOBIN 13.5 g/dl (12.0-16.0); LYMPH # 1.9 10*3/uL (1.3-4.4); LYMPH % 8.9 % (27.0-41.0); MEAN CELL VOLUME 90.3 fl (81.0-99.0); MEAN CORPUSCULAR HGB 28.6 pg (27.0-31.0); MEAN CORPUSCULAR HGB CONC 31.7 g/dl (33.0-37.0); MEAN PLATELET VOLUME 10.7 fl (9.6-12.3); MONO # 0.9 10*3/uL (0.1-1.0); MONO % 4.3 % (3.0-9.0); NEUT # 17.8 10*3/uL (2.3-7.9); NEUT % 85.7 % (47.0-73.0); PLATELET COUNT AUTOMATED 263 10*3/uL (130-400); RED BLOOD COUNT 4.72 10*6/uL (4.10-5.10); RED CELL DISTRI WIDTH 13.5 % (0-14.5); WHITE BLOOD COUNT 20.8 10*3/uL (4.8-10.8)
[2018-01-21 07:50] LABS: ALBUMIN 3.9 gm/dl (3.1-4.5); ALKALINE PHOSPHATASE 93 U/L (45-117); BUN 20 mg/dl (7-24); CHLORIDE 100 mmol/L (98-107); CREATININE 0.82 mg/dL (0.55-1.02); POTASSIUM 4.4 mmol/L (3.5-5.1); SGOT/AST 10 IU/L (3-35); SGPT/ALT 16 U/L (12-78); SODIUM 138 mmol/L (136-145); TOTAL PROTEIN 7.7 gm/dL (6.4-8.2)
[2018-01-21 08:00] VITALS: BP 131/60
[2018-01-21 12:00] VITALS: BP 139/70
[2018-01-21] MEDS ORDERED: NEBULIZER NEB (14:40)
[2018-01-21 16:00] VITALS: BP 148/84
[2018-01-21 20:00] VITALS: BP 147/80
[2018-01-22] VITALS: BP 147/73
[2018-01-22 08:00] VITALS: BP 136/66
[2018-01-22] MEDS ORDERED: ALBUTEROL S5 MG/1 ML INH (11:19)
[2018-01-22] MEDS ORDERED: LEVAQUIN500 M2 PO (11:19)
[2018-01-22] MEDS ORDERED: PREDNISONE10 MG PO (11:19)
[2018-01-22 12:00] VITALS: BP 139/89
== END 2018-01-22 12:20 | disposition home or self-care (01) | DRG 189 ==
LOC: ED 11:06 → 5E 13:58 → EDHOLD 13:58 → 5E 14:31
PROVIDERS: Emergency Medicine; Student in an Organized Health Care Education/Training Program
DX: J96.01 Acute respiratory failure with hypoxia (principal); I50.42 Chronic combined systolic (congestive) and diastolic (congestive) heart failure; J44.1 Chronic obstructive pulmonary disease with (acute) exacerbation; E55.9 Vitamin D deficiency, unspecified; I25.10 Atherosclerotic heart disease of native coronary artery without angina pectoris; F12.10 Cannabis abuse, uncomplicated; H40.9 Unspecified glaucoma; R73.9 Hyperglycemia, unspecified; J30.2 Other seasonal allergic rhinitis; K21.9 Gastro-esophageal reflux disease without esophagitis; E78.5 Hyperlipidemia, unspecified; I25.2 Old myocardial infarction; Z90.49 Acquired absence of other specified parts of digestive tract; Z90.710 Acquired absence of both cervix and uterus; Z85.41 Personal history of malignant neoplasm of cervix uteri; Z87.19 Personal history of other diseases of the digestive system; Z72.0 Tobacco use; Z71.6 Tobacco abuse counseling; Z80.0 Family history of malignant neoplasm of digestive organs; Z84.89 Family history of other specified conditions; Z88.0 Allergy status to penicillin; Z88.8 Allergy status to other drugs, medicaments and biological substances; Z79.899 Other long term (current) drug therapy; Z82.49 Family history of ischemic heart disease and other diseases of the circulatory system

== ENCOUNTER → 2018-01-29 | Outpatient (CLI) | payer OTHER ==
[~2018-01-29] MED LIST changes: +ALBUTEROL S5 MG/1 ML INH; +DUONEB 3 MG/3 ML3 M1 INH; +FERROUSAL325 MG PO; +GOOD NEIGHBOR P10 M1 PO; +HEARTBURN RELIE20 MG PO; +LEVAQUIN500 M2 PO; +METOPROLOL SUCC50 M1 PO; +NEBULIZER NEB; +SPIRIVA18 MCG PO
== END | disposition home or self-care (01) ==
LOC: RESCLI 01:23
DX: I10 Essential (primary) hypertension (principal); M54.5 Low back pain; Z90.49 Acquired absence of other specified parts of digestive tract; Z88.0 Allergy status to penicillin; Z72.0 Tobacco use; Z71.6 Tobacco abuse counseling

== ENCOUNTER 2018-02-19 09:38 | Inpatient (IN) | payer OTHER ==
[~2018-02-19] VITALS: Ht 167.6 cm; Wt 75.7 kg
--- NOTE | ~2018-02-19 | CON ---
[place], [place] REPORT OF CONSULTATION NAME: JULIANNE HERNANDEZ UNIT #: [id number] ROOM: [facility] DOCTOR: KRISTEN SALAS MD,MIKEY BIRTHDATE: [birth year] DOS: 02/20/2018 PULMONARY CONSULTATION, EVALUATION, AND MANAGEMENT REASON FOR CONSULTATION: For assessment of COPD exacerbation. HISTORY OF PRESENT ILLNESS: A 57-year-old white female with known history of chronic obstructive pulmonary disease. The patient has been admitted in the hospital in 01/2018. The patient remains in the hospital from 01/19/2018 until 01/22/2018, treated for acute exacerbation of COPD, discharged home on tapering prednisone and the antibiotics. The patient was seen for followup visit at resident clinic and was noted with increased shortness of breath. Shortness of breath has been ongoing for the patient progressively and not resolving. She does have symptoms of chest congestion and cough. The patient denies symptoms of hemoptysis. The wheezing was also reported intermittently. The patient denies any symptoms of pleuritic pain. REVIEW OF SYSTEMS: Remaining systems were reviewed. They were noted all negative. PAST MEDICAL HISTORY: 1. Known history of chronic obstructive pulmonary disease. 2. History of cervical cancer. 3. Coronary artery disease. 4. Pulmonary nodule. 5. Allergic rhinitis. 6. Tobacco dependence. 7. Vitamin D deficiency. 8. Diverticulosis. PAST SURGICAL HISTORY: 1. Complete hysterectomy. 2. Cardiac catheterization. 3. Cholecystectomy. 4. Complete hysterectomy. SOCIAL HISTORY: The patient lives at home. She was noted to be a heavy tobacco use patient from teenager, 2 packs of cigarettes per day, stating she only smoking 2-3 cigarettes a day at this time. Denies history of alcohol use or any illicit drugs. FAMILY HISTORY: The patient's father from complication of liver cirrhosis and history of tuberculosis. Mother 69 years old with a history of colon cancer. MEDICATIONS: Medications from home were listed for the patient on admission as use of albuterol sulfate via nebulizer, aspirin, vitamin D, Pepcid, iron sulfate, hydroxyzine, loratadine, metoprolol succinate, Nicoderm CQ patches, Protonix, and Spiriva. [place], [place] REPORT OF CONSULTATION NAME: CUATEGERRADOJULIANNE UNIT #: [id number] ROOM: [facility] DOCTOR: KRISTEN SALAS MD,MIKEY BIRTHDATE: [birth year] DRUG ALLERGIES: 1. PENICILLIN. 2. CODEINE PHOSPHATE. PHYSICAL EXAMINATION: GENERAL: A 57-year-old female who has been currently noted to be awake and alert without acute distress. Height of 5 feet 6 inches, weight 267 pounds, BMI 26.9. VITAL SIGNS: Noted normal temperature since admission, respiratory rate range between 26-20, heart rate of 117-84, blood pressure 147/84-138/82. Pulse oxygen saturation noted on 3.5 liter nasal cannula was 95% saturation. HEENT: Examination shows head was atraumatic. Eyes nonicterus. NECK: Supple. CARDIOVASCULAR: S1, S2 audible. LUNGS: Noted with moderate reduction in the breath sounds bilaterally. Expiratory wheezing. There were no crackles. ABDOMEN: Soft and nontender. EXTREMITIES: Without any acute edema. MUSCULOSKELETAL: Without acute deformities. SKIN: Visible skin, no lesions or rashes. CENTRAL NERVOUS SYSTEM: Cranial nerves 2-12 were intact. No focal deficit. LABORATORY DATA: For this consultation: CBC for the patient that was done on 02/19/2018 for the patient. Eosinophils 5.8%. Normal WBC count. Hemoglobin and hematocrit were normal. BMP is 12 patient. Glucose 130. BUN normal, creatinine was normal. The arterial blood gas, pH of 7.42, pCO2 of 35, pO2 of 70 on 3.5 liters nasal cannula. CBC on 02/20/2018, WBC count 14.6. Remaining CBC was normal. CMP is 613, glucose 167, BUN normal, creatinine 1.13. Remaining LFTs were normal. Two-view chest x-ray of the patient was noted with changes of hyperinflation without any acute pulmonary infiltration. IMPRESSION: 1. The patient who has history of still noted low-grade nicotine abuse. The patient is admitted to the hospital with recurrence of acute exacerbation of chronic obstructive pulmonary disease and possibility of acute bronchitis. 2. Eosinophilia noted, possibility of eosinophilic disorder such as bronchial asthma would be very likely. The patient has not been assessed in the office in the past. PLAN OF MANAGEMENT: The patient is currently getting the bronchodilators and oxygen supplementation and corticosteroids. The wheezing was still noted as moderately at this time. The steroids for the patient would be a continued every 8 hours for the patient at 40 mg. Bronchodilators will be continued every 4 hours. Oxygen supplementation if necessary to maintain a pulse ox saturation 92% or greater. Complete abstinence of tobacco use was recommended for this patient. Other plan of management and care plan to be continued. Additional treatment changes will be recommended based on progression of the illness. Sputum for Gram stain culture was ordered. Thanks for allowing me to participate in the care of this patient. [place], [place] REPORT OF CONSULTATION NAME: JULIANNE HERNANDEZ UNIT #: [id number] ROOM: [facility] DOCTOR: MIKEY IZQUIERDO MD BIRTHDATE: [birth year] MIKEY PETERSON MD CM:CONSTR:REPORT OF CONSULTATION 1210 02/20/18 1559 interface
--- NOTE | ~2018-02-19 | PR ---
[place], [place] PROGRESS NOTE NAME: [facility]DEZ [id number] UNIT #: [id number] ROOM: 515 DOCTOR: KRISTEN SALAS MD,MIKEY BIRTHDATE: [birth year] DOS: 02/21/2018 PULMONARY PROGRESS NOTE SUBJECTIVE: She has been ambulating with reduction of the respiratory symptoms noted. Denies symptoms of chest pain, coughing or sputum expectoration. The patient denies symptoms of hemoptysis. OBJECTIVE: VITAL SIGNS: For the patient which were recorded shows a normal temperature, respiratory rate 18, heart rate 83, blood pressure 103/60. The pulse ox saturation on room air was 95% saturation. HEENT: Head was atraumatic, eyes nonicterus. NECK: Supple. CARDIOVASCULAR: S1, S2 audible. LUNGS: Without any wheeze or crackles. The breaths are noted [id number] diminished bilaterally. ABDOMEN: Soft, nontender. EXTREMITIES: Without any acute edema. LABORATORY DATA: CBC: WBC count 23.8, otherwise normal CBC. CMP of the patient, glucose 154, BUN 19, creatinine 1.04, remaining CMP normal. IMPRESSION: The patient with significant improvement noted with acute exacerbation of chronic obstructive pulmonary disease, acute bronchitis, and leukocytosis induced by the corticosteroids, not consistent with clinical assessment, consistent with severe infection. PLAN OF MANAGEMENT: Consider home discharge on tapering prednisone, antibiotic and followup CBC to be done for the patient possibly in the next few days to reassess. Continuation of other therapy, plan of management, and care plan. MIKEY PETERSON MD CM:PNTRANS [id number] MIKEY SALAS MD 02/21/18 1037 interface
[2018-02-19 09:41] VITALS: BP 128/79
[2018-02-19 10:09] LABS: BASO # 0.1 10*3/uL (0.0-0.1); BASO % 1.3 % (0.0-1.0); EOS # 0.6 10*3/uL (0.0-0.4); EOS % 5.8 % (1.0-4.0); HEMATOCRIT 46.7 % (37.0-47.0); HEMOGLOBIN 15.2 g/dl (12.0-16.0); LYMPH % 39.8 % (27.0-41.0); MEAN CELL VOLUME 87.8 fl (81.0-99.0); MEAN CORPUSCULAR HGB 28.6 pg (27.0-31.0); MEAN CORPUSCULAR HGB CONC 32.5 g/dl (33.0-37.0); MEAN PLATELET VOLUME 10.8 fl (9.6-12.3); MONO # 0.8 10*3/uL (0.1-1.0); MONO % 7.5 % (3.0-9.0); NEUT # 4.5 10*3/uL (2.3-7.9); NEUT % 45.3 % (47.0-73.0); PLATELET COUNT AUTOMATED 264 10*3/uL (130-400); RED BLOOD COUNT 5.32 10*6/uL (4.10-5.10); RED CELL DISTRI WIDTH 12.9 % (0-14.5); WHITE BLOOD COUNT 9.9 10*3/uL (4.8-10.8)
[2018-02-19 10:16] VITALS: BP 147/84
[2018-02-19 10:22] LABS: BUN 15 mg/dl (7-24); CHLORIDE 104 mmol/L (98-107); CREATININE 1.01 mg/dL (0.55-1.02); POTASSIUM 3.9 mmol/L (3.5-5.1); SODIUM 138 mmol/L (136-145)
[2018-02-19 11:11] VITALS: BP 134/72
[2018-02-19] MEDS ORDERED: ASPIRIN81 MG PO (14:59)
[2018-02-19 15:59] LABS: ABG BASE EXCESS -0.6 mmol/L (-2.0-2.0); ABG HCO3 22.8 mmol/l (22-26); ABG O2 SATURATION 95.6 % (95-97); ARTERIAL BLOOD GAS PCO2 35.4 mmHg (35-45); ARTERIAL BLOOD GAS PH 7.425 (7.35-7.45); ARTERIAL BLOOD GAS PO2 73.2 mmHg (80-90)
[2018-02-19 16:00] VITALS: BP 115/71
[2018-02-19 20:11] VITALS: BP 133/76
[2018-02-20] VITALS: BP 138/82
[2018-02-20 07:00] LABS: BASO % 0.1 % (0.0-1.0); HEMATOCRIT 43.6 % (37.0-47.0); HEMOGLOBIN 14.1 g/dl (12.0-16.0); LYMPH # 1.9 10*3/uL (1.3-4.4); LYMPH % 12.9 % (27.0-41.0); MEAN CELL VOLUME 88.3 fl (81.0-99.0); MEAN CORPUSCULAR HGB 28.5 pg (27.0-31.0); MEAN CORPUSCULAR HGB CONC 32.3 g/dl (33.0-37.0); MONO # 0.3 10*3/uL (0.1-1.0); MONO % 2.4 % (3.0-9.0); NEUT # 12.1 10*3/uL (2.3-7.9); NEUT % 83.7 % (47.0-73.0); PLATELET COUNT AUTOMATED 261 10*3/uL (130-400); RED BLOOD COUNT 4.94 10*6/uL (4.10-5.10); RED CELL DISTRI WIDTH 13.1 % (0-14.5); WHITE BLOOD COUNT 14.4 10*3/uL (4.8-10.8)
[2018-02-20 07:21] LABS: ALBUMIN 3.9 gm/dl (3.1-4.5); ALKALINE PHOSPHATASE 113 U/L (45-117); BUN 16 mg/dl (7-24); CHLORIDE 102 mmol/L (98-107); CHOLESTEROL 278 mg/dL (<200); CREATININE 1.13 mg/dL (0.55-1.02); FREE T4 0.88 ng/dl (0.76-1.46); HDL CHOLESTEROL 57 mg/dl (40-60); LDL CHOLESTEROL 188 mg/dL (9-159); SGOT/AST 10 IU/L (3-35); SGPT/ALT 22 U/L (12-78); SODIUM 137 mmol/L (136-145); TOTAL PROTEIN 7.9 gm/dL (6.4-8.2); TRIGLYCERIDES 163 mg/dl (<150); VLDL CHOLESTEROL 33 mg/dL (6-40)
[2018-02-20 07:26] LABS: THYROID STIM HORMONE (HS) 0.293 uIU/ml (0.358-4.75)
[2018-02-20 07:52] LABS: VITAMIN D, 25-HYDROXY 29.7 ng/mL (30-100)
[2018-02-20 08:00] VITALS: BP 114/63
[2018-02-20 12:00] VITALS: BP 127/66
[2018-02-20 16:00] VITALS: BP 109/66
[2018-02-20 20:00] VITALS: BP 136/69
[2018-02-21] VITALS: BP 144/69
[2018-02-21 07:07] LABS: HEMATOCRIT 41.2 % (37.0-47.0); HEMOGLOBIN 13.1 g/dl (12.0-16.0); MEAN CELL VOLUME 90.7 fl (81.0-99.0); MEAN CORPUSCULAR HGB 28.9 pg (27.0-31.0); MEAN CORPUSCULAR HGB CONC 31.8 g/dl (33.0-37.0); MEAN PLATELET VOLUME 11.1 fl (9.6-12.3); PLATELET COUNT AUTOMATED 258 10*3/uL (130-400); RED BLOOD COUNT 4.54 10*6/uL (4.10-5.10); RED CELL DISTRI WIDTH 13.4 % (0-14.5); WHITE BLOOD COUNT 23.8 10*3/uL (4.8-10.8)
[2018-02-21 07:22] LABS: ALBUMIN 3.7 gm/dl (3.1-4.5); ALKALINE PHOSPHATASE 93 U/L (45-117); BUN 19 mg/dl (7-24); CHLORIDE 102 mmol/L (98-107); CREATININE 1.04 mg/dL (0.55-1.02); POTASSIUM 4.1 mmol/L (3.5-5.1); SGOT/AST 14 IU/L (3-35); SGPT/ALT 24 U/L (12-78); SODIUM 137 mmol/L (136-145); TOTAL PROTEIN 7.2 gm/dL (6.4-8.2)
[2018-02-21 07:31] LABS: PLATELET SUFFICIENCY NORMAL (NORMAL); TOTAL CELLS COUNTED 100 #CELLS
[2018-02-21 08:00] VITALS: BP 103/60
[2018-02-21] MEDS ORDERED: LEVOFLOXACIN500 MG PO (11:48)
[2018-02-21] MEDS ORDERED: PREDNISONE10 MG PO (11:49)
[2018-02-21] MEDS ORDERED: DUONEB 3 MG/3 ML3 M1 NEB (11:59)
[2018-02-21] MEDS ORDERED: NICORETTE GUM4 MG PO (11:59)
[2018-02-21 12:00] VITALS: BP 133/87
== END 2018-02-21 12:49 | disposition home or self-care (01) | DRG 190 ==
LOC: ED 09:38 → EDHOLD 13:29 → 5E 13:29
PROVIDERS: Emergency Medicine; Internal Medicine; Registered Nurse
DX: J44.1 Chronic obstructive pulmonary disease with (acute) exacerbation (principal); N17.0 Acute kidney failure with tubular necrosis; R65.10 Systemic inflammatory response syndrome (SIRS) of non-infectious origin without acute organ dysfunction; R00.0 Tachycardia, unspecified; F12.10 Cannabis abuse, uncomplicated; E55.9 Vitamin D deficiency, unspecified; I10 Essential (primary) hypertension; K21.9 Gastro-esophageal reflux disease without esophagitis; I25.10 Atherosclerotic heart disease of native coronary artery without angina pectoris; H40.9 Unspecified glaucoma; K57.90 Diverticulosis of intestine, part unspecified, without perforation or abscess without bleeding; F17.210 Nicotine dependence, cigarettes, uncomplicated; M94.0 Chondrocostal junction syndrome [Tietze]; J20.9 Acute bronchitis, unspecified; J44.0 Chronic obstructive pulmonary disease with (acute) lower respiratory infection; T38.0X5A Adverse effect of glucocorticoids and synthetic analogues, initial encounter; R73.03 Prediabetes; D72.1 Eosinophilia; Z88.6 Allergy status to analgesic agent; Z88.0 Allergy status to penicillin; Z79.899 Other long term (current) drug therapy; Z85.41 Personal history of malignant neoplasm of cervix uteri; I25.2 Old myocardial infarction; Z90.710 Acquired absence of both cervix and uterus; Z90.49 Acquired absence of other specified parts of digestive tract; Z80.0 Family history of malignant neoplasm of digestive organs; Z83.6 Family history of other diseases of the respiratory system; Z84.89 Family history of other specified conditions; Z82.49 Family history of ischemic heart disease and other diseases of the circulatory system; Z79.82 Long term (current) use of aspirin; Z71.6 Tobacco abuse counseling; Y92.89 Other specified places as the place of occurrence of the external cause

== ENCOUNTER → 2018-02-25 | Outpatient (CLI) | payer OTHER ==
[~2018-02-25] MED LIST changes: +ASPIRIN81 MG PO; +DUONEB 3 MG/3 ML3 M1 NEB; +LEVOFLOXACIN500 MG PO; +NICORETTE GUM4 MG PO
[2018-02-25 12:12] LABS: HEMATOCRIT 43.8 % (37.0-47.0); HEMOGLOBIN 14.2 g/dl (12.0-16.0); MEAN CELL VOLUME 87.3 fl (81.0-99.0); MEAN CORPUSCULAR HGB 28.3 pg (27.0-31.0); MEAN CORPUSCULAR HGB CONC 32.4 g/dl (33.0-37.0); MEAN PLATELET VOLUME 10.8 fl (9.6-12.3); PLATELET COUNT AUTOMATED 290 10*3/uL (130-400); RED BLOOD COUNT 5.02 10*6/uL (4.10-5.10); RED CELL DISTRI WIDTH 13.2 % (0-14.5); WHITE BLOOD COUNT 16.1 10*3/uL (4.8-10.8)
[2018-02-25 12:35] LABS: TOTAL CELLS COUNTED 100 #CELLS
[2018-02-25 12:36] LABS: PLATELET SUFFICIENCY NORMAL (NORMAL)
== END | disposition home or self-care (01) ==
LOC: LAB 11:42
PROVIDERS: Registered Nurse
DX: D72.829 Elevated white blood cell count, unspecified (principal)

== ENCOUNTER 2018-02-27 11:14 | Inpatient (IN) | payer OTHER ==
[~2018-02-27] VITALS: Ht 167.6 cm; Wt 78.0 kg
--- NOTE | ~2018-02-27 | PR ---
[place], [place] PROGRESS NOTE NAME: JULIANNE HERNANDEZ UNIT #: [id number] ROOM: 510 DOCTOR: KRISTEN SALAS MD,MIKEY BIRTHDATE: [birth year] DOS: 03/03/2018 PULMONARY PROGRESS NOTE SUBJECTIVE: She is noted with severe congestion of the chest, nonproductive cough with intermittent wheezing. She has been transferred to telemetry floor yesterday from Intensive Care Unit. The patient has not been noted with symptoms of chest pain or hemoptysis. Denies symptoms of nausea or vomiting. Denies symptoms of abdominal pain, hematemesis, melena, or hematochezia. Denies symptoms of headache or diplopia. General weakness and fatigue was reported. OBJECTIVE: VITAL SIGNS: Which were recorded showed temperature noted normal, respiratory rate 20, heart rate 90, blood pressure 138/72. The pulse ox saturation on 3 liters nasal cannula 97% saturation this morning. HEENT: Examination shows head was atraumatic. Eyes nonicterus. NECK: Supple. CARDIOVASCULAR: S1, S2 is audible. LUNGS: Noted with moderate degree breath sounds, expiratory wheezing bilaterally. There were no crackles. ABDOMEN: Soft, flat, nontender. Bowel sounds present. EXTREMITIES: Without acute edema. VISIBLE SKIN: No lesions or rashes. CENTRAL NERVOUS SYSTEM: Cranial nerves 2-12 intact. MUSCULOSKELETAL: Without any acute deformities. LABORATORY DATA: CMP today: BUN 28, creatinine is normal, CO2 of 34. CBC that was done this morning: WBC count 14.4, hemoglobin and hematocrit normal, and 75% segmented neutrophils, 18% lymphocytes, 2% monocytes, 2% metamyelocytes, and 3% myelocytes were also noted. IMPRESSION: 1. The patient with left shift noted on current CBC with ongoing acute exacerbation of severe chronic obstructive pulmonary disease. 2. Persistent symptoms of nonproductive cough, which has not been improving. 3. History of nicotine dependence and possible use of illicit drugs including marijuana and cocaine. PLAN OF MANAGEMENT: She was planned for bronchoscopy to be done tomorrow morning. Continuation of current dose of bronchodilators with oxygen supplementation. Continue nicotine replacement patches. Solu-Medrol will be continued, same dose 40 mg b.i.d. No change in antibiotic will be needed. Any additional change in treatment will be ordered after the bronchoscopy. [place], [place] PROGRESS NOTE NAME: JULIANNE HERNANDEZ UNIT #: [id number] ROOM: 510 DOCTOR: MIKEY IZQUIERDO MD BIRTHDATE: [birth year] MIKEY PETERSON MD CM:MARY [id number] MIKEY SALAS MD 03/03/18 1358 interface
--- NOTE | ~2018-02-27 | PR ---
[place], [place] PROGRESS NOTE NAME: JULIANNE HERNANDEZ UNIT #: [id number] ROOM: 510 DOCTOR: KRISTEN SALAS MD,MIKEY BIRTHDATE: [birth year] DOS: 03/06/2018 SUBJECTIVE: The patient noted comfortable without any acute distress. She still noted dyspnea with exertion, not at rest. Used the BiPAP last night. Using oxygen supplementation this morning. OBJECTIVE: VITAL SIGNS: Normal temperature, respiratory rate 20, heart rate 76, blood pressure 140/70 to 142/72. Pulse ox saturation on 1-1/2 liters nasal cannula 96% saturation. HEENT: Neck examination noted without any acute abnormal finding. Neck was supple. CARDIOVASCULAR: S1, S2 is audible. LUNGS: The patient was noted without any wheezing or crackles. ABDOMEN: Soft, nontender. EXTREMITIES: The patient was noted without any acute deformities. LABORATORY DATA: The culture of the bronchial washing was noted as normal fina from the 03/04/2018. IMPRESSION: 1. The patient with severe debility, still persisted with symptomatic shortness of breath. The patient with mild exertion. 2. Resolving acute exacerbation of chronic obstructive pulmonary disease, slowly. 3. Resolving acute tracheobronchitis. PLAN OF MANAGEMENT: Continuation of bronchodilators, oxygen supplementation. Keep the same dose of Solu-Medrol at the present time. The patient truly will benefit from assessment and possible placement in nursing home facility as well. Additional treatment changes to be done for the patient based on the progression of the illness. MIKEY PETERSON MD CM:PNTRANS [id number] MIKEY SALAS MD 05/07/18 0807 interface
--- NOTE | ~2018-02-27 | PR ---
[place], [place] PROGRESS NOTE NAME: JULIANNE HERNANDEZ UNIT #: [id number] ROOM: 510 DOCTOR: MIKEY IZQUIERDO MD BIRTHDATE: [birth year] DOS: 03/04/2018 SUBJECTIVE: The patient noted comfortable at this time without any distress, still noted symptoms of shortness breath with coughing and wheezing. The cough remains severe and nonproductive. She has been using the BiPAP at nighttime and other times intermittently. She has been using the oxygen supplementation nasal cannula. Denies any symptoms of chest pain. Denies any smoking of cigarettes. Denies abdominal pain, nausea, vomiting, diarrhea, abdominal pain, hematemesis, melena, or hematochezia. Remaining systems were reviewed, they were noted all negative. OBJECTIVE: VITAL SIGNS: For the patient, which have been recorded shows normal temperature, respiratory rate 24, heart rate of 98, blood pressure 149/86 and 145/88. Pulse oxygen saturation on 4 liters nasal cannula 97% saturation. HEENT: Head was atraumatic. Eyes nonicterus. NECK: Supple. CARDIOVASCULAR: S1, S2 audible. LUNGS: Noted bilateral reduction in breath sounds bilaterally with expiratory wheezing. There were no crackles. ABDOMEN: Soft, nontender. Bowel sounds present. EXTREMITIES: The patient noted without any acute edema. MUSCULOSKELETAL: Noted without any deformities. SKIN: Noted without lesions or rashes. LABORATORY DATA: CBC today: WBC count noted elevated at 19.7, hemoglobin and hematocrit normal. Platelet count normal. CMP this morning, BUN 27, creatinine is normal, glucose 141. CO2 36. IMPRESSION: 1. The patient with ongoing severe exacerbation of chronic obstructive pulmonary disease. 2. Ycfgr-pi-[id number] hypercapnic and hypoxic respiratory failure. 3. Leukocytosis. 4. Acute exacerbation of chronic obstructive pulmonary disease. PLAN OF TREATMENT: Continuation of the current plan of management. The patient is on bronchodilators, oxygen supplementation, and corticosteroids. Proceed with the bronchoscopy. Any changes in treatment if necessary patient will be done after the bronchoscopy. Other supportive therapy, plan of management. [place], [place] PROGRESS NOTE NAME: JULIANNE HERNANDEZ UNIT #: [id number] ROOM: 510 DOCTOR: MIKEY IZQUIERDO MD BIRTHDATE: [birth year] MIKEY PETERSON MD CM:MARY [phone] MIKEY SALAS MD 03/05/18 0044 interface
--- NOTE | ~2018-02-27 | EKG ---
[place], [place] ELECTROCARDIOGRAM REPORT NAME: JULIANNE HERNANDEZ UNIT #: [id number] ROOM: [place] [address] DOCTOR: KRISTEN SALAS MD,MIKEY BIRTHDATE: [birth year] DOS: 02/27/2018 ELECTROCARDIOGRAM Electrocardiogram done 02/27/2018 at 12:08 a.m. Normal sinus rhythm noted. Heart rate 88 beats per minute. Normal electrocardiogram. MIKEY PETERSON MD CM:EKGRPT:ELECTROCARDIOGRAM REPORT 1426 1446 MIKEY SALAS MD
--- NOTE | ~2018-02-27 | PROC NOTE ---
[place], [place] PROCEDURE NOTE NAME: JULIANNE HERNANDEZ UNIT #: [id number] ROOM: 510 DOCTOR: KRISTEN SALAS MD,MIKEY BIRTHDATE: [birth year] DOS: 03/04/2018 BRONCHOSCOPY NOTE PREOPERATIVE DIAGNOSES: The patient with persistent severe cough, wheezing and shortness of breath, on maximum medical therapy. POSTOPERATIVE DIAGNOSES: Removal of multiple plugs of mucus from the endobronchial tree bilaterally with finding of acute tracheobronchitis noted. PROCEDURE DESCRIPTION: Informed consent obtained from the patient. The patient was brought to the OR and placed in supine position. Conscious sedation administered by the Anesthesia Department. After achieving proper sedation, airway introduced into the mouth. Bronchoscope was advanced through the airway into laryngeal area. Epiglottis and vocal cords were seen. Bronchoscope advanced through the vocal cords into tracheal lumen. Tracheal lumen was noted with a small to moderate amount of thick mucus secretion mixed with purulent secretion suctioned out to the argelia level. The right upper, right middle, right lower, left upper, lingula, lower lobe bronchi were all examined. The endobronchial secretion and mucus impaction cleared from the endobronchial tree bilaterally without any difficulty. Postoperative finding will be discussed with the patient in the recovery room. She was noted with some respiratory distress and wheezing and coughing. She was given additional treatment of DuoNeb and Solu-Medrol 60 mg IV 1 dose. The BiPAP will be placed for this patient after that. No other change in treatment otherwise will be necessary. MIKEY PETERSON MD CM:PROCNOTE:PROCEDURE NOTE 1026 0045 MIKEY SALAS MD
--- NOTE | ~2018-02-27 | PR ---
[place], [place] PROGRESS NOTE NAME: [id number] UNIT #: [id number] ROOM: 510 DOCTOR: KRISTEN SALAS MDMIKEY BIRTHDATE: [birth year] DOS: 03/01/2018 SUBJECTIVE: The patient was admitted to the hospital on 02/27/2018. The patient reported increased respiratory symptoms, has been treated for acute exacerbation of COPD and acute bronchitis. This morning the patient noted significant severe respiratory distress with change in mental status as well. She has not been noted any symptoms of hemoptysis. The patient has been noted with severe shortness of breath as well and also noted with difficulty oxygenation. She was transferred to Intensive Care Unit. The patient was noted without any hypertension. The patient was noted essentially hypertensive response to the patient's tachycardia and significant tachypnea because of that. She was started on the BiPAP setting of 12/6 initially by the medical staff. The settings of the BiPAP change after review of the arterial blood gas at 220/10. The patient was noted comfortable after a few minutes. She was also given 1 dose of Solu-Medrol 125 mg, breathing treatment was also administered. OBJECTIVE: VITAL SIGNS: For the patient shows the temperature noted normal, respiratory rate 24-17, heart rate 109, at the time of the distress. Blood pressure 191/94. Later the patient's blood pressure noted 162/103. Pulse oxygen saturation of the patient noted on 6 liter nasal cannula was 94% saturation with the BiPAP 50% oxygen was 98% saturation. HEENT: Head was atraumatic. Eyes nonicterus. NECK: Supple. CARDIOVASCULAR: S1, S2 audible. LUNGS: The patient was noted with general reduction in breath sound, diffuse expiratory wheezing with decreased air entry. ABDOMEN: Soft, flat, nontender. Bowel sounds present. EXTREMITIES: No acute edema. MUSCULOSKELETAL: No deformity. SKIN: Visible skin, no lesions or rashes. CENTRAL NERVOUS SYSTEM: Changes in mental status. LABORATORY DATA: The patient's arterial blood gas, pH of 7.28, pCO2 of 67, pO2 of 66 on 6 L nasal cannula earlier. The chest x-ray was also done yesterday does not show any acute abnormalities. IMPRESSION: 1. The patient who had been currently noted with severe acute respiratory distress. The patient was found to have the tobacco cigarettes in her room. The patient may be smoking cigarettes. Possibility of illicit drug use cannot be excluded. 2. Mental status, multifactorial. 3. Acute exacerbation of chronic obstructive pulmonary disease. The patient in respiratory distress. 4. Tachycardia. The patient had uncontrolled hypertension related to the current respiratory distress. 5. The patient with acute bronchitis as well. 6. History of recent hospitalization as well, which has been treated. There was no evidence of pneumonia. [place], [place] PROGRESS NOTE NAME: JULIANNE HERNANDEZ UNIT #: [id number] ROOM: 510 DOCTOR: KRISTEN SALAS MD,MIKEY BIRTHDATE: [birth year] PLAN OF MANAGEMENT: Continue Solu-Medrol, bronchodilators, and oxygen supplementation. Obtain the lab for this patient as well as a portable chest x-ray. Order the urine drug screen for the patient as well based on progression of the illness, DVT prophylaxis. Continue nicotine placement patches. Other supportive therapy, plan of management. The patient and care to be changed for this patient based on progression of illness. If the patient does poorly with the BiPAP certainly she will require the intubation and mechanical ventilation at that time. At this time, the patient is just to be monitored in the Intensive Care Unit for the patient just for the use of the BiPAP for the next few hours. The arterial blood gases will be done. The patient was stabilized, the patient's respiratory status in a couple of hours to assess the response to the treatment with use of the BiPAP. Nicotine replacement patches for the patient as well. Other additional treatment changes to be made for this patient based on the progression of the illness. Usual care with other treatment. The patient to be continued as previously. Supportive therapy, plan of management and care plan. Close monitoring of the patient would be continued. Avoid use of the benzodiazepine for this patient as well. Additional treatment changes to be done for the patient based on the progression of the illness. Total time pulmonary and critical evaluation and management is 38 minutes. MIKEY PETERSON MD CM:PNTRANS [id number] MIKEY SALAS MD 03/04/18 0927 interface
--- NOTE | ~2018-02-27 | PR ---
[place], [place] PROGRESS NOTE NAME: JULIANNE HERNANDEZ UNIT #: [id number] ROOM: 510 DOCTOR: KRISTEN SALAS MD,MIKEY BIRTHDATE: [birth year] DOS: 03/07/2018 SUBJECTIVE: The patient noted comfortable at this time without acute distress. She has not been noted any symptoms of chest pain, coughing or shortness of breath. She stated she has ambulated yesterday in the medel couple of times. Did not require the oxygen supplementation. OBJECTIVE: VITAL SIGNS: For the patient which has been recorded showed normal temperature, respiratory rate of 20, heart rate 80, blood pressure 148/82 this morning. Pulse ox saturation on room air was noted as 92% saturation. HEENT: Examination shows head was atraumatic. Eyes nonicterus. NECK: Supple. CARDIOVASCULAR: S1, S2 audible. LUNGS: The patient was noted without any wheeze or crackle at the present time. ABDOMEN: Soft, nontender. EXTREMITIES: Without any acute edema. IMPRESSION: Progressive resolution of the patient for the severe acute hypercapnic hypoxic respiratory failure, exacerbation of chronic obstructive pulmonary disease. PLAN OF MANAGEMENT: No changes in the plan of care for the patient except the plan for discharge could be made for this patient. Other supportive therapy, plan of management. Continue the patient with usual care, other supportive plan of management and treatments. MIKEY PETERSON MD CM:PNTRANS [id number] MIKEY SALAS MD 03/07/18 1331 interface
--- NOTE | ~2018-02-27 | EKG ---
[place], [place] ELECTROCARDIOGRAM REPORT NAME: JULIANNE HERNANDEZ UNIT #: [id number] ROOM: [place] [address] DOCTOR: KRISTEN SALAS MD,MIKEY BIRTHDATE: [birth year] DOS: 03/02/2018 The electrocardiogram done for patient on 02/27/2018 at 12:35 a.m. Normal sinus rhythm noted. Heart rate 86 beats per minute. MIKEY PETERSON MD CM:EKGRPT:ELECTROCARDIOGRAM REPORT 1425 1434 MIKEY SALAS MD
--- NOTE | ~2018-02-27 | PR ---
[place], [place] PROGRESS NOTE NAME: [id number] UNIT #: [id number] ROOM: 510 DOCTOR: KRISTEN SALAS MD,MIKEY BIRTHDATE: [birth year] DOS: 03/02/2018 PULMONARY PROGRESS NOTE SUBJECTIVE: The patient has been noted comfortable at this time, resting in the Intensive Care Unit noted marked improvement and resolution of the respiratory distress. The patient has not been noted symptoms of chest pain, hemoptysis, shortness of breath is improving. Remains adherent with the BiPAP use continuously that has been ordered. Arterial blood gas this morning shows resolution of the acute reduction in the pH. The patient denies any symptoms of hemoptysis. Denies symptoms of abdominal pain, nausea, vomiting. Denies any pain of the lower extremity, dizziness or headache at this time. OBJECTIVE: VITAL SIGNS: For the patient, which has been recorded showed normal temperature, respirations 16, heart rate 67, blood pressure 127/83. Pulse ox saturation 40% oxygen 99% saturation. HEENT: Examination shows head was atraumatic. Eyes nonicterus. NECK: Supple. CARDIOVASCULAR: S1, S2 audible. LUNGS: The patient was noted without any wheeze or crackles at the present time. Breaths are noted generally diminished bilaterally. ABDOMEN: Soft without any tenderness. Bowel sounds present. EXTREMITIES: The patient noted without any acute edema, clubbing, cyanosis. CENTRAL NERVOUS SYSTEM: Cranial nerves 2-12 intact. MUSCULOSKELETAL: Noted without any acute deformities. NEURO: Mental status noted normal mental status today. LABORATORY DATA: The patient's arterial blood gas today, pH of 7.40, pCO2 of 55, pO2 of 110. The CBC of the patient, WBC count today 16.5. Remaining CBC normal. The CMP this morning, glucose 137. The CO2 of 35. The chest x-ray of the patient that was done this morning was also reviewed, does not show any acute pulmonary infiltration. The urine drug screen that was done yesterday noted positive for THC and cocaine. IMPRESSION: 1. The patient with illicit drug use, use of marijuana and cocaine. 2. Acute on chronic severe hypercapnic hypoxic respiratory failure, currently improving. 3. Acute tracheobronchitis. 4. History of nicotine dependence as well. PLAN OF TREATMENT: The patient will be continued on current dose of corticosteroids, bronchodilators, oxygen supplementation, nicotine replacement patches. The dose of Solu-Medrol will remain the same 40 mg Solu-Medrol b.i.d. The patient could be transferred from the Intensive Care Unit to the other regular floor. A detailed discussion was done with the patient about the illicit drug use, smoking and adverse effects to the body, lungs and others. [place], [place] PROGRESS NOTE NAME: JULIANNE HERNANDEZ UNIT #: [id number] ROOM: [facility] DOCTOR: KRISTEN SALAS MD,MIKEY BIRTHDATE: [birth year] MIKEY PETERSON MD CM:MARY [phone] MIKEY SALAS MD 03/02/18 2252 interface
--- NOTE | ~2018-02-27 | CON ---
[place], [place] REPORT OF CONSULTATION NAME: JULIANNE HERNANDEZ UNIT #: [id number] ROOM: 503 DOCTOR: KRISTEN SALAS MDMIKEY BIRTHDATE: [birth year] DOS: 02/28/2018 REASON FOR CONSULTATION: To assess the patient for COPD. HISTORY OF PRESENT ILLNESS: This is a 57-year-old white female with history of COPD and past tobacco use. She has been admitted to the hospital recently and discharged home on 02/21/2018. She went home on tapering dose of prednisone and the antibiotics and to continue on other home medications. The patient presented back to the hospital on 02/27/2018 with symptoms of having increased shortness of breath occurring from humidity. She has been experiencing increased shortness of breath with that which occurs later and rest. She was noted with symptoms of wheezing as well. Cough is noted only mild without any sputum expectoration. The patient denies symptoms of chest pain. She stated she has been taking the breathing treatments to help her shortness of breath, but it was not working. REVIEW OF SYSTEMS: CONSTITUTIONAL: Fatigue and tiredness noted without any symptoms of fever or chills. EYES: Denies burning, redness, or tenderness. EARS, NOSE, THROAT SYMPTOMS: Denies sore throat, hoarseness, otalgia. CARDIOVASCULAR: No anginal pain, edema, pain in the lower extremities. GASTROINTESTINAL: Dysphagia, nausea, vomiting, diarrhea, abdominal pain, hematemesis, melena, or hematochezia. SKIN: Denies abnormal lesions or rashes. MUSCULOSKELETAL: The patient denies any symptoms of joint pain, redness, or tenderness. CENTRAL NERVOUS SYSTEM: Denies any symptoms of headache or diplopia. Noted symptoms of dizziness, lightheadedness upon standing, which is currently resolved. PAST MEDICAL HISTORY: 1. The patient was noted with COPD. 2. Cervical cancer. 3. Coronary artery disease. 4. Pulmonary nodule. 5. Allergic rhinitis. 6. Nicotine dependent. 7. Vitamin D deficiency and diverticulosis. PAST SURGICAL HISTORY: 1. Complete hysterectomy. 2. Cardiac catheterization. 3. Acute cholecystectomy. 4. Complete hysterectomy. SOCIAL HISTORY: The patient lives in her own home. She has been noted tobacco use, started at teenage, 2 packs of cigarettes per day and stated that she has not smoked any cigarette for the past few days since discharge from the hospital. Denies history of alcohol use or illicit drugs. [place], [place] REPORT OF CONSULTATION NAME: JULIANNE HERNANDEZ UNIT #: [id number] ROOM: [facility] DOCTOR: MIKEY IZQUIERDO MD BIRTHDATE: [birth year] FAMILY HISTORY: Father from complication related to liver cirrhosis and tuberculosis. Mother at 69 years of colon cancer. MEDICATIONS: The current medications administered were noted use of famotidine, aspirin, metoprolol succinate, ferrous sulfate, loratadine, vitamin D, Lovenox, Protonix, ipratropium bromide, nicotine gum, hydroxyzine, Solu-Medrol 40 mg b.i.d., DuoNeb q.4 hours, Rocephin and Zithromax and other p.r.n. medications administration. Home medications for the patient, which were noted related to the pulmonary disease were noted use of Spiriva and the nebulized bronchodilators. DRUG ALLERGIES: Noted allergy to CODEINE, PHOSPHATE, AND PENICILLINS. PHYSICAL EXAMINATION: GENERAL: A 57-year-old female who has been noted awake, alert, without distress. VITAL SIGNS: Height of 5 feet 6 inches, weight 172 pounds, BMI 27. Vital signs noted normal temperature, respiratory rate 18-20, heart rate of 77-80, blood pressure 122/65 to 124/69. Pulse oxygen saturation was noted 94% at the present time on 2 L nasal canula. The room air on admission was noted 97% saturation of oxygen. HEENT: Examination shows head was atraumatic. Eyes nonicterus. NECK: Supple. CARDIOVASCULAR: S1, S2 audible. LUNGS: The patient was noted without any crackles. Decreased breath sounds are noted in the lungs bilaterally. Expiratory wheezing was present. ABDOMEN: Soft, nontender. EXTREMITIES: Without any edema. SKIN: No lesions or rashes. MUSCULOSKELETAL: No deformities. CENTRAL NERVOUS SYSTEM: Cranial nerves 2-12 intact. No focal deficit. LABORATORY DATA: CBC that was done this morning, WBC count 16.8, remaining CBC normal. BMP of 621, BUN 13, creatinine was normal. Lactic acid elevated from 4.2 to 3.5. The troponins were noted as normal. The chest x-ray that was done, 2-view on 02/27/2018 were noted changes of COPD without any acute pulmonary infiltrates. IMPRESSION: 1. The patient will be currently admitted to the hospital with recurrence of acute exacerbation of chronic obstructive pulmonary disease and was taken the tapering prednisone and other medication with exacerbation occurring most likely to the environmental factor exposure to a lot of humidity and elevation in temperature, but possibly inadequate. Air condition access at home. 2. History of nicotine use, the patient previously denying any tobacco use at the present time. There was no evidence of acute pneumonia. PLAN OF TREATMENT: Continue current plan of management. The patient uses bronchodilators, intravenous steroids and the current antibiotics. No changes [place], [place] REPORT OF CONSULTATION NAME: JULIANNE HERNANDEZ UNIT #: [id number] ROOM: [facility] DOCTOR: KRISTEN SALAS MD,MIKEY BIRTHDATE: [birth year] immediately in the treatment will be necessary. Monitor respiratory status closely. Other supportive therapy, plan of management to be continued as well. Usual treatment, other therapies and plan of care. In addition, treatment changes recommendations would be made based on the further assessment. MIKEY PETERSON MD CM:CONSTR:REPORT OF CONSULTATION 1202 02/28/18 1522 interface
--- NOTE | ~2018-02-27 | PR ---
[place], [place] PROGRESS NOTE NAME: JULIANNE HERNANDEZ UNIT #: [id number] ROOM: 510 DOCTOR: KRISTEN SALAS MD,MIKEY BIRTHDATE: [birth year] DOS: 03/05/2018 SUBJECTIVE: She has been noted significant reduction, improvement in the coughing as well as reduction in shortness breath and wheezing less than 12% with the bronchoscopy. This morning, sitting on the bed with improvement in the overall respiratory status. Denies symptoms of chest pain. The coughing has improved significantly. OBJECTIVE: VITAL SIGNS: Normal temperature, respiratory rate 18, heart rate 83, blood pressure 134/69. Pulse oxygen saturation of the patient 2 liters nasal cannula 94% saturation. HEENT: Head was atraumatic. Eyes nonicterus. NECK: Supple. CARDIOVASCULAR: S1, S2 is audible. LUNGS: The patient was noted without any crackles. The expiratory wheezing was noted mild at this time with significant improvement in air entry yesterday. ABDOMEN: Soft, flat, nontender, bowel sounds present. EXTREMITIES: Without acute edema. LABORATORY DATA: CBC this morning, WBC count 19.5, otherwise normal CBC. The BMP noted normal BUN and creatinine. IMPRESSION: The patient who has been currently noted with progressive and gradual resolution of the acute hypercapnic hypoxic respiratory failure, exacerbation of chronic obstructive pulmonary disease, significant reduction and improvement noted upon post-bronchoscopy. The cultures of the bronchial washing noted as normal fina. PLAN OF TREATMENT: No changes in the plan of care at this time. Continue the patient with current therapy, plan of management, other care. Usual treatment, other supportive plan of therapy and care. MIKEY PETERSON MD CM:PNTRANS [id number] MIKEY SALAS MD 05/07/18 0806 interface
[2018-02-27 11:14] VITALS: BP 123/74
[2018-02-27 12:28] VITALS: BP 104/57
[2018-02-27 12:36] LABS: HEMATOCRIT 40.4 % (37.0-47.0); HEMOGLOBIN 12.8 g/dl (12.0-16.0); MEAN CELL VOLUME 89.2 fl (81.0-99.0); MEAN CORPUSCULAR HGB 28.3 pg (27.0-31.0); MEAN CORPUSCULAR HGB CONC 31.7 g/dl (33.0-37.0); MEAN PLATELET VOLUME 10.6 fl (9.6-12.3); PLATELET COUNT AUTOMATED 253 10*3/uL (130-400); RED BLOOD COUNT 4.53 10*6/uL (4.10-5.10); WHITE BLOOD COUNT 15.7 10*3/uL (4.8-10.8)
[2018-02-27 12:57] LABS: BASOPHILS 1 % (0-1); PLATELET SUFFICIENCY NORMAL (NORMAL); TOTAL CELLS COUNTED 100 #CELLS
[2018-02-27 13:05] LABS: ALBUMIN 3.4 gm/dl (3.1-4.5); ALKALINE PHOSPHATASE 83 U/L (45-117); BUN 23 mg/dl (7-24); CHLORIDE 101 mmol/L (98-107); CREATININE 1.02 mg/dL (0.55-1.02); POTASSIUM 3.6 mmol/L (3.5-5.1); SGOT/AST 16 IU/L (3-35); SGPT/ALT 21 U/L (12-78); SODIUM 139 mmol/L (136-145); TOTAL PROTEIN 6.9 gm/dL (6.4-8.2)
[2018-02-27 13:18] LABS: TROPONIN I < 0.015 ng/ml (<0.045)
[2018-02-27 13:48] LABS: BILIRUBIN NEGATIVE (NEGATIVE); BLOOD TRACE-LYSED (NEGATIVE); CLARITY CLEAR (CLEAR); COLOR YELLOW (YELLOW); GLUCOSE NEGATIVE (NEGATIVE); KETONE NEGATIVE (NEGATIVE); LEUKO ESTERASE NEGATIVE (NEGATIVE); NITRITE NEGATIVE (NEGATIVE); UROBILINOGEN 0.2 E.U./dl (0.2-1.0)
[2018-02-27 14:01] VITALS: BP 112/68
[2018-02-27 14:20] LABS: BACTERIA TRACE
[2018-02-27 20:00] VITALS: BP 131/71
[2018-02-28] VITALS: BP 122/65
[2018-02-28 07:01] LABS: HEMATOCRIT 41.9 % (37.0-47.0); MEAN CELL VOLUME 91.3 fl (81.0-99.0); MEAN CORPUSCULAR HGB 28.3 pg (27.0-31.0); MEAN PLATELET VOLUME 10.9 fl (9.6-12.3); PLATELET COUNT AUTOMATED 270 10*3/uL (130-400); RED BLOOD COUNT 4.59 10*6/uL (4.10-5.10); WHITE BLOOD COUNT 16.8 10*3/uL (4.8-10.8)
[2018-02-28 07:12] LABS: CHLORIDE 102 mmol/L (98-107); CREATININE 0.92 mg/dL (0.55-1.02); PHOSPHOROUS 3.3 mg/dL (2.5-4.9); SODIUM 141 mmol/L (136-145)
[2018-02-28 07:15] LABS: BUN 13 mg/dl (7-24)
[2018-02-28 08:00] VITALS: BP 124/63
[2018-02-28 08:16] LABS: PLATELET SUFFICIENCY NORMAL (NORMAL); TOTAL CELLS COUNTED 100 #CELLS; TOXIC GRANULATION SLIGHT
[2018-02-28 12:00] VITALS: BP 138/82
[2018-02-28 16:00] VITALS: BP 178/88
[2018-02-28 20:00] VITALS: BP 176/90
[2018-03-01] VITALS: BP 122/84; BP 162/100
[2018-03-01 08:00] VITALS: BP 155/86; BP 191/94
[2018-03-01 08:37] LABS: ABG BASE EXCESS 2.8 mmol/L (-2.0-2.0); ABG HCO3 31.4 mmol/l (22-26); ABG O2 SATURATION 92.3 % (95-97); ARTERIAL BLOOD GAS PCO2 67.2 mmHg (35-45); ARTERIAL BLOOD GAS PH 7.288 (7.35-7.45); ARTERIAL BLOOD GAS PO2 66.1 mmHg (80-90)
[2018-03-01 08:45] VITALS: BP 162/103
[2018-03-01 10:52] VITALS: BP 117/72
[2018-03-01 12:07] LABS: ABG BASE EXCESS 3.2 mmol/L (-2.0-2.0); ABG HCO3 31.2 mmol/l (22-26); ABG O2 SATURATION 98.6 % (95-97); ARTERIAL BLOOD GAS PCO2 63.3 mmHg (35-45); ARTERIAL BLOOD GAS PH 7.309 (7.35-7.45)
[2018-03-01 12:55] LABS: URINE AMPHETAMINES < 1000 (1000ng/ml); URINE BARBITURATES < 200 (200ng/ml); URINE BENZODIAZEPINES < 200 (200ng/ml); URINE CANNABINOIDS (THC) > 50 (50ng/ml); URINE COCAINE > 300 (300ng/ml); URINE METHADONE < 300 (300ng/ml); URINE OPIATES < 300 (300ng/ml)
[2018-03-01 12:58] LABS: URINE PHENCYCLIDINE < 25 (25ng/ml)
[2018-03-01 13:37] LABS: HEMATOCRIT 43.7 % (37.0-47.0); HEMOGLOBIN 13.7 g/dl (12.0-16.0); MEAN CORPUSCULAR HGB 28.8 pg (27.0-31.0); MEAN CORPUSCULAR HGB CONC 31.4 g/dl (33.0-37.0); MEAN PLATELET VOLUME 10.3 fl (9.6-12.3); PLATELET COUNT AUTOMATED 268 10*3/uL (130-400); RED BLOOD COUNT 4.75 10*6/uL (4.10-5.10); RED CELL DISTRI WIDTH 14.1 % (0-14.5); WHITE BLOOD COUNT 23.5 10*3/uL (4.8-10.8)
[2018-03-01 13:54] LABS: TOTAL CELLS COUNTED 100 #CELLS
[2018-03-01 13:55] LABS: PLATELET SUFFICIENCY NORMAL (NORMAL)
[2018-03-01 14:06] LABS: ALBUMIN 3.7 gm/dl (3.1-4.5); ALKALINE PHOSPHATASE 84 U/L (45-117); BUN 21 mg/dl (7-24); CHLORIDE 100 mmol/L (98-107); CREATININE 0.98 mg/dL (0.55-1.02); POTASSIUM 4.2 mmol/L (3.5-5.1); SGOT/AST 11 IU/L (3-35); SGPT/ALT 22 U/L (12-78); SODIUM 140 mmol/L (136-145); TOTAL PROTEIN 7.7 gm/dL (6.4-8.2)
[2018-03-01 16:05] VITALS: BP 147/84
[2018-03-01 20:00] VITALS: BP 130/88
[2018-03-02] VITALS (7 sets, daily range): BP systolic 120–139; BP diastolic 76–89
[2018-03-02 06:06] LABS: HEMOGLOBIN 13.2 g/dl (12.0-16.0); MEAN CELL VOLUME 92.5 fl (81.0-99.0); MEAN CORPUSCULAR HGB 28.4 pg (27.0-31.0); MEAN CORPUSCULAR HGB CONC 30.7 g/dl (33.0-37.0); MEAN PLATELET VOLUME 10.7 fl (9.6-12.3); PLATELET COUNT AUTOMATED 232 10*3/uL (130-400); RED BLOOD COUNT 4.65 10*6/uL (4.10-5.10); RED CELL DISTRI WIDTH 14.2 % (0-14.5); WHITE BLOOD COUNT 16.5 10*3/uL (4.8-10.8)
[2018-03-02 06:12] LABS: ALBUMIN 3.2 gm/dl (3.1-4.5); ALKALINE PHOSPHATASE 69 U/L (45-117); BUN 21 mg/dl (7-24); CHLORIDE 99 mmol/L (98-107); CREATININE 0.83 mg/dL (0.55-1.02); SGOT/AST 11 IU/L (3-35); SGPT/ALT 16 U/L (12-78); SODIUM 137 mmol/L (136-145); TOTAL PROTEIN 6.6 gm/dL (6.4-8.2)
[2018-03-02 07:15] LABS: PLATELET SUFFICIENCY NORMAL (NORMAL); TOTAL CELLS COUNTED 100 #CELLS
[2018-03-02 08:18] LABS: ABG BASE EXCESS 8.1 mmol/L (-2.0-2.0); ABG HCO3 34.4 mmol/l (22-26); ABG O2 SATURATION 98.4 % (95-97); ARTERIAL BLOOD GAS PCO2 55.4 mmHg (35-45); ARTERIAL BLOOD GAS PH 7.407 (7.35-7.45)
[2018-03-02 17:24] LABS: HEMATOCRIT 46.5 % (37.0-47.0); HEMOGLOBIN 14.8 g/dl (12.0-16.0); MEAN CORPUSCULAR HGB CONC 31.8 g/dl (33.0-37.0); MEAN PLATELET VOLUME 10.5 fl (9.6-12.3); PLATELET COUNT AUTOMATED 266 10*3/uL (130-400); RED BLOOD COUNT 5.11 10*6/uL (4.10-5.10); RED CELL DISTRI WIDTH 13.9 % (0-14.5); WHITE BLOOD COUNT 18.1 10*3/uL (4.8-10.8)
[2018-03-02 17:35] LABS: ALBUMIN 3.4 gm/dl (3.1-4.5); ALKALINE PHOSPHATASE 81 U/L (45-117); BUN 28 mg/dl (7-24); CHLORIDE 98 mmol/L (98-107); CREATININE 1.09 mg/dL (0.55-1.02); POTASSIUM 4.2 mmol/L (3.5-5.1); SGOT/AST 17 IU/L (3-35); SGPT/ALT 25 U/L (12-78); SODIUM 139 mmol/L (136-145); TOTAL PROTEIN 7.5 gm/dL (6.4-8.2)
[2018-03-02 17:38] LABS: ACT PARTIAL THROMBO TIME 21.7 SECONDS (20.8-31.5)
[2018-03-02 17:44] LABS: TROPONIN I < 0.015 ng/ml (<0.045)
[2018-03-02 18:02] LABS: TOTAL CELLS COUNTED 100 #CELLS; TOXIC GRANULATION SLIGHT
[2018-03-02 18:03] LABS: PLATELET SUFFICIENCY NORMAL (NORMAL); POLYCHROMASIA SLIGHT
[2018-03-03] VITALS: BP 135/66
[2018-03-03 06:14] LABS: HEMOGLOBIN 13.5 g/dl (12.0-16.0); MEAN CELL VOLUME 90.5 fl (81.0-99.0); MEAN CORPUSCULAR HGB 28.4 pg (27.0-31.0); MEAN CORPUSCULAR HGB CONC 31.4 g/dl (33.0-37.0); MEAN PLATELET VOLUME 10.6 fl (9.6-12.3); PLATELET COUNT AUTOMATED 228 10*3/uL (130-400); RED BLOOD COUNT 4.75 10*6/uL (4.10-5.10); RED CELL DISTRI WIDTH 13.9 % (0-14.5); WHITE BLOOD COUNT 14.4 10*3/uL (4.8-10.8)
[2018-03-03 06:38] LABS: ALBUMIN 3.4 gm/dl (3.1-4.5); BUN 28 mg/dl (7-24); CHLORIDE 99 mmol/L (98-107); CREATININE 0.78 mg/dL (0.55-1.02); PHOSPHOROUS 3.4 mg/dL (2.5-4.9); POTASSIUM 4.1 mmol/L (3.5-5.1); SGOT/AST 10 IU/L (3-35); SGPT/ALT 20 U/L (12-78); SODIUM 140 mmol/L (136-145)
[2018-03-03 06:39] LABS: ALKALINE PHOSPHATASE 71 U/L (45-117)
[2018-03-03 07:05] LABS: PLATELET SUFFICIENCY NORMAL (NORMAL); TOTAL CELLS COUNTED 100 #CELLS
[2018-03-03 08:00] VITALS: BP 138/72
[2018-03-03 12:00] VITALS: BP 122/68
[2018-03-03 16:00] VITALS: BP 127/76
[2018-03-03 20:00] VITALS: BP 143/83
[2018-03-04] VITALS (10 sets, daily range): BP systolic 126–156; BP diastolic 63–100
[2018-03-04 07:32] LABS: HEMATOCRIT 44.3 % (37.0-47.0); MEAN CELL VOLUME 91.2 fl (81.0-99.0); MEAN CORPUSCULAR HGB 28.8 pg (27.0-31.0); MEAN CORPUSCULAR HGB CONC 31.6 g/dl (33.0-37.0); MEAN PLATELET VOLUME 10.3 fl (9.6-12.3); PLATELET COUNT AUTOMATED 242 10*3/uL (130-400); RED BLOOD COUNT 4.86 10*6/uL (4.10-5.10); RED CELL DISTRI WIDTH 13.9 % (0-14.5); WHITE BLOOD COUNT 19.7 10*3/uL (4.8-10.8)
[2018-03-04 07:42] LABS: ALBUMIN 3.5 gm/dl (3.1-4.5); ALKALINE PHOSPHATASE 68 U/L (45-117); BUN 27 mg/dl (7-24); CHLORIDE 99 mmol/L (98-107); CREATININE 0.88 mg/dL (0.55-1.02); POTASSIUM 4.4 mmol/L (3.5-5.1); SGOT/AST 9 IU/L (3-35); SGPT/ALT 19 U/L (12-78); SODIUM 140 mmol/L (136-145); TOTAL PROTEIN 7.2 gm/dL (6.4-8.2)
[2018-03-04 08:03] LABS: TOTAL CELLS COUNTED 100 #CELLS
[2018-03-04 08:04] LABS: PLATELET SUFFICIENCY NORMAL (NORMAL)
[2018-03-05] VITALS: BP 143/76
[2018-03-05 07:30] LABS: HEMATOCRIT 41.9 % (37.0-47.0); HEMOGLOBIN 13.4 g/dl (12.0-16.0); MEAN CORPUSCULAR HGB 28.5 pg (27.0-31.0); MEAN PLATELET VOLUME 10.6 fl (9.6-12.3); PLATELET COUNT AUTOMATED 236 10*3/uL (130-400); RED BLOOD COUNT 4.71 10*6/uL (4.10-5.10); RED CELL DISTRI WIDTH 13.7 % (0-14.5); WHITE BLOOD COUNT 19.5 10*3/uL (4.8-10.8)
[2018-03-05 07:50] LABS: BUN 24 mg/dl (7-24); CHLORIDE 98 mmol/L (98-107); CREATININE 0.81 mg/dL (0.55-1.02); PHOSPHOROUS 3.3 mg/dL (2.5-4.9); POTASSIUM 4.3 mmol/L (3.5-5.1); SODIUM 137 mmol/L (136-145)
[2018-03-05 08:00] VITALS: BP 134/69
[2018-03-05 08:03] LABS: PLATELET SUFFICIENCY NORMAL (NORMAL); TOTAL CELLS COUNTED 100 #CELLS
[2018-03-05 12:00] VITALS: BP 141/62
[2018-03-05 16:00] VITALS: BP 134/81
[2018-03-05 17:04] LABS: ACID FAST SPEC PROCESSING Concentration (.)
[2018-03-05 19:55] VITALS: BP 156/88
[2018-03-06] VITALS: BP 149/67
[2018-03-06 08:33] VITALS: BP 143/72
[2018-03-06 12:00] VITALS: BP 148/70
[2018-03-06 16:00] VITALS: BP 146/77
[2018-03-06 20:00] VITALS: BP 146/80
[2018-03-07] VITALS: BP 120/48
[2018-03-07 08:00] VITALS: BP 148/82
[2018-03-07 12:00] VITALS: BP 145/80
[2018-03-07] MEDS ORDERED: PREDNISONE10 MG PO (12:18)
[2018-04-18 12:05] LABS: ACID FAST CULTURE Negative (.)
== END 2018-03-07 13:26 | disposition home health service (06) | DRG 871 ==
LOC: ED 11:14 → 5E 13:57 → ICCU 13:57 → EDHOLD 13:57 → 5E 14:23 → ICCU 03-01 08:43 → 5E 03-02 18:08
PROVIDERS: Emergency Medicine; Family Medicine; Internal Medicine; Internal Medicine Critical Care Medicine; Registered Nurse
PROC: 5A09357 Assistance with Respiratory Ventilation, Less than 24 Consecutive Hours, Continuous Positive Airway Pressure (ICD-10-PCS; 2018-03-01)
PROC: 5A09357 Assistance with Respiratory Ventilation, Less than 24 Consecutive Hours, Continuous Positive Airway Pressure (ICD-10-PCS; 2018-03-02)
PROC: 0BC98ZZ Extirpation of Matter from Lingula Bronchus, Via Natural or Artificial Opening Endoscopic (ICD-10-PCS; principal; 2018-03-04)
PROC: 0BC48ZZ Extirpation of Matter from Right Upper Lobe Bronchus, Via Natural or Artificial Opening Endoscopic (ICD-10-PCS; 2018-03-04)
PROC: 0BC88ZZ Extirpation of Matter from Left Upper Lobe Bronchus, Via Natural or Artificial Opening Endoscopic (ICD-10-PCS; 2018-03-04)
PROC: 0BC58ZZ Extirpation of Matter from Right Middle Lobe Bronchus, Via Natural or Artificial Opening Endoscopic (ICD-10-PCS; 2018-03-04)
PROC: 0BC38ZZ Extirpation of Matter from Right Main Bronchus, Via Natural or Artificial Opening Endoscopic (ICD-10-PCS; 2018-03-04)
PROC: 0BC78ZZ Extirpation of Matter from Left Main Bronchus, Via Natural or Artificial Opening Endoscopic (ICD-10-PCS; 2018-03-04)
PROC: 0BC68ZZ Extirpation of Matter from Right Lower Lobe Bronchus, Via Natural or Artificial Opening Endoscopic (ICD-10-PCS; 2018-03-04)
PROC: 0BCB8ZZ Extirpation of Matter from Left Lower Lobe Bronchus, Via Natural or Artificial Opening Endoscopic (ICD-10-PCS; 2018-03-04)
PROC: 0BC18ZZ Extirpation of Matter from Trachea, Via Natural or Artificial Opening Endoscopic (ICD-10-PCS; 2018-03-04)
DX: A41.9 Sepsis, unspecified organism (principal); J18.9 Pneumonia, unspecified organism; J96.21 Acute and chronic respiratory failure with hypoxia; J96.22 Acute and chronic respiratory failure with hypercapnia; T17.590A Other foreign object in bronchus causing asphyxiation, initial encounter; J44.1 Chronic obstructive pulmonary disease with (acute) exacerbation; J44.0 Chronic obstructive pulmonary disease with (acute) lower respiratory infection; R65.20 Severe sepsis without septic shock; J30.2 Other seasonal allergic rhinitis; E55.9 Vitamin D deficiency, unspecified; I25.10 Atherosclerotic heart disease of native coronary artery without angina pectoris; Z71.6 Tobacco abuse counseling; F12.10 Cannabis abuse, uncomplicated; F17.210 Nicotine dependence, cigarettes, uncomplicated; R73.9 Hyperglycemia, unspecified; K21.9 Gastro-esophageal reflux disease without esophagitis; I10 Essential (primary) hypertension; R73.03 Prediabetes; H40.9 Unspecified glaucoma; J20.9 Acute bronchitis, unspecified; F14.10 Cocaine abuse, uncomplicated; X58.XXXA Exposure to other specified factors, initial encounter; Z88.0 Allergy status to penicillin; Z88.5 Allergy status to narcotic agent; Z79.84 Long term (current) use of oral hypoglycemic drugs; Z79.899 Other long term (current) drug therapy; I25.2 Old myocardial infarction; Z85.41 Personal history of malignant neoplasm of cervix uteri; Z90.722 Acquired absence of ovaries, bilateral; Z90.710 Acquired absence of both cervix and uterus; Z90.49 Acquired absence of other specified parts of digestive tract; Z82.49 Family history of ischemic heart disease and other diseases of the circulatory system; Z83.6 Family history of other diseases of the respiratory system; Z80.0 Family history of malignant neoplasm of digestive organs; Y93.89 Activity, other specified; Y92.89 Other specified places as the place of occurrence of the external cause; Y99.8 Other external cause status

== ENCOUNTER 2018-03-10 10:11 | Inpatient (IN) | payer OTHER ==
[~2018-03-10] VITALS: Ht 170.2 cm; Wt 75.3 kg
[2018-03-10 10:11] VITALS: BP 132/108
[2018-03-10 10:33] LABS: HEMATOCRIT 46.1 % (37.0-47.0); HEMOGLOBIN 14.9 g/dl (12.0-16.0); MEAN CELL VOLUME 88.3 fl (81.0-99.0); MEAN CORPUSCULAR HGB 28.5 pg (27.0-31.0); MEAN CORPUSCULAR HGB CONC 32.3 g/dl (33.0-37.0); MEAN PLATELET VOLUME 10.6 fl (9.6-12.3); PLATELET COUNT AUTOMATED 262 10*3/uL (130-400); RED BLOOD COUNT 5.22 10*6/uL (4.10-5.10); RED CELL DISTRI WIDTH 13.7 % (0-14.5); WHITE BLOOD COUNT 23.7 10*3/uL (4.8-10.8)
[2018-03-10 10:46] LABS: ACT PARTIAL THROMBO TIME 20.4 SECONDS (20.8-31.5); INTERNATIONAL NORM RATIO 0.9 (2.0-3.5)
[2018-03-10 10:52] LABS: TOTAL CELLS COUNTED 100 #CELLS
[2018-03-10 10:53] LABS: PLATELET SUFFICIENCY NORMAL (NORMAL); TOXIC GRANULATION MODERATE
[2018-03-10 10:56] LABS: ALBUMIN 3.5 gm/dl (3.1-4.5); ALKALINE PHOSPHATASE 72 U/L (45-117); BUN 34 mg/dl (7-24); CHLORIDE 99 mmol/L (98-107); CREATININE 1.12 mg/dL (0.55-1.02); POTASSIUM 4.7 mmol/L (3.5-5.1); SGOT/AST 18 IU/L (3-35); SGPT/ALT 38 U/L (12-78); SODIUM 138 mmol/L (136-145); TOTAL PROTEIN 6.9 gm/dL (6.4-8.2)
[2018-03-10 10:58] LABS: TROPONIN I < 0.015 ng/ml (<0.045)
[2018-03-10 11:06] VITALS: BP 128/74
[2018-03-10 11:25] VITALS: BP 131/90
[2018-03-10 11:49] VITALS: BP 131/90
[2018-03-10 13:05] LABS: URINE AMPHETAMINES < 1000 (1000ng/ml); URINE BARBITURATES < 200 (200ng/ml); URINE BENZODIAZEPINES < 200 (200ng/ml); URINE CANNABINOIDS (THC) > 50 (50ng/ml); URINE COCAINE > 300 (300ng/ml); URINE METHADONE < 300 (300ng/ml); URINE OPIATES < 300 (300ng/ml); URINE PHENCYCLIDINE < 25 (25ng/ml)
[2018-03-10 15:57] VITALS: BP 146/73
== END 2018-03-10 18:44 | disposition home health service (06) | DRG 682 ==
LOC: ED 10:11 → EDHOLD 10:36 → 5E 10:52
PROVIDERS: Emergency Medicine; Internal Medicine
DX: N17.0 Acute kidney failure with tubular necrosis (principal); J18.9 Pneumonia, unspecified organism; I24.9 Acute ischemic heart disease, unspecified; E83.41 Hypermagnesemia; J44.9 Chronic obstructive pulmonary disease, unspecified; K21.9 Gastro-esophageal reflux disease without esophagitis; F41.9 Anxiety disorder, unspecified; R07.89 Other chest pain; F17.210 Nicotine dependence, cigarettes, uncomplicated; H40.9 Unspecified glaucoma; I10 Essential (primary) hypertension; K57.90 Diverticulosis of intestine, part unspecified, without perforation or abscess without bleeding; R73.9 Hyperglycemia, unspecified; R00.0 Tachycardia, unspecified; F14.10 Cocaine abuse, uncomplicated; D72.825 Bandemia; F12.10 Cannabis abuse, uncomplicated; I25.119 Atherosclerotic heart disease of native coronary artery with unspecified angina pectoris; I25.2 Old myocardial infarction; Z88.0 Allergy status to penicillin; Z88.6 Allergy status to analgesic agent; Z79.899 Other long term (current) drug therapy; Z79.82 Long term (current) use of aspirin; Z85.41 Personal history of malignant neoplasm of cervix uteri; Z87.01 Personal history of pneumonia (recurrent); Z90.710 Acquired absence of both cervix and uterus; Z90.49 Acquired absence of other specified parts of digestive tract; Z82.49 Family history of ischemic heart disease and other diseases of the circulatory system; Z80.8 Family history of malignant neoplasm of other organs or systems; Z83.6 Family history of other diseases of the respiratory system; Z80.0 Family history of malignant neoplasm of digestive organs; Z84.89 Family history of other specified conditions

== ENCOUNTER → 2018-03-21 | Outpatient (CLI) | payer OTHER | END | disposition home or self-care (01) | LOC: RESCLI 01:41 | DX: Z00.01 Encounter for general adult medical examination with abnormal findings (principal); J44.9 Chronic obstructive pulmonary disease, unspecified; M54.5 Low back pain; G89.29 Other chronic pain; Z88.0 Allergy status to penicillin; Z88.8 Allergy status to other drugs, medicaments and biological substances; F17.210 Nicotine dependence, cigarettes, uncomplicated ==

== ENCOUNTER → 2018-03-25 | Outpatient (CLI) | payer OTHER | END | disposition home or self-care (01) | LOC: RAD 11:34 | DX: Z00.01 Encounter for general adult medical examination with abnormal findings (principal); M54.5 Low back pain ==

== ENCOUNTER → 2018-04-02 | Outpatient (CLI) | payer OTHER ==
[2018-04-02 09:15] LABS: BASO # 0.1 10*3/uL (0.0-0.1); BASO % 0.7 % (0.0-1.0); EOS # 0.1 10*3/uL (0.0-0.4); EOS % 1.3 % (1.0-4.0); HEMOGLOBIN 12.2 g/dl (12.0-16.0); LYMPH # 4.7 10*3/uL (1.3-4.4); LYMPH % 46.6 % (27.0-41.0); MEAN CELL VOLUME 92.4 fl (81.0-99.0); MEAN CORPUSCULAR HGB 28.9 pg (27.0-31.0); MEAN CORPUSCULAR HGB CONC 31.3 g/dl (33.0-37.0); MEAN PLATELET VOLUME 10.1 fl (9.6-12.3); MONO # 0.7 10*3/uL (0.1-1.0); MONO % 6.8 % (3.0-9.0); NEUT # 4.4 10*3/uL (2.3-7.9); NEUT % 43.6 % (47.0-73.0); PLATELET COUNT AUTOMATED 289 10*3/uL (130-400); RED BLOOD COUNT 4.22 10*6/uL (4.10-5.10); RED CELL DISTRI WIDTH 14.5 % (0-14.5)
[2018-04-02 09:38] LABS: ALBUMIN 3.3 gm/dl (3.1-4.5); ALKALINE PHOSPHATASE 86 U/L (45-117); BUN 16 mg/dl (7-24); CHLORIDE 106 mmol/L (98-107); CHOLESTEROL 278 mg/dL (<200); CREATININE 0.92 mg/dL (0.55-1.02); HDL CHOLESTEROL 47 mg/dl (40-60); POTASSIUM 4.1 mmol/L (3.5-5.1); SGOT/AST 10 IU/L (3-35); SGPT/ALT 24 U/L (12-78); SODIUM 141 mmol/L (136-145); TRIGLYCERIDES 466 mg/dl (<150)
[2018-04-02 10:32] LABS: VITAMIN D, 25-HYDROXY 17.2 ng/mL (30-100)
== END | disposition home or self-care (01) ==
LOC: LAB 02:58
PROVIDERS: Internal Medicine
DX: Z00.01 Encounter for general adult medical examination with abnormal findings (principal); M54.5 Low back pain; Z88.0 Allergy status to penicillin; Z88.8 Allergy status to other drugs, medicaments and biological substances; Z87.891 Personal history of nicotine dependence

== ENCOUNTER → 2018-04-18 | Outpatient (CLI) | payer OTHER | END | disposition home or self-care (01) | LOC: RESCLI 04:31 | DX: I10 Essential (primary) hypertension (principal); I25.10 Atherosclerotic heart disease of native coronary artery without angina pectoris; E78.2 Mixed hyperlipidemia; J44.9 Chronic obstructive pulmonary disease, unspecified; N63.0 Unspecified lump in unspecified breast; J30.9 Allergic rhinitis, unspecified; F41.9 Anxiety disorder, unspecified; E55.9 Vitamin D deficiency, unspecified; F19.90 Other psychoactive substance use, unspecified, uncomplicated; M85.851 Other specified disorders of bone density and structure, right thigh; M54.5 Low back pain; G89.29 Other chronic pain; R73.03 Prediabetes; Z72.0 Tobacco use; Z90.710 Acquired absence of both cervix and uterus; Z90.49 Acquired absence of other specified parts of digestive tract; Z88.0 Allergy status to penicillin ==

== ENCOUNTER 2018-05-16 12:55 | Emergency (ER) | payer OTHER ==
[~2018-05-16] VITALS: Ht 167.6 cm; Wt 77.1 kg
[2018-05-16] MEDS ORDERED: VIBRAMYCIN100 MG PO (15:24)
[2018-05-16] MEDS ORDERED: PREDNISONE20 M1 PO (15:24)
[2018-05-16 15:44] VITALS: BP 131/77
== END 2018-05-16 15:40 | disposition home or self-care (01) ==
LOC: ED 12:55
DX: J44.1 Chronic obstructive pulmonary disease with (acute) exacerbation (principal); K21.9 Gastro-esophageal reflux disease without esophagitis; I10 Essential (primary) hypertension; F17.200 Nicotine dependence, unspecified, uncomplicated; Z88.0 Allergy status to penicillin; Z88.6 Allergy status to analgesic agent; Z79.899 Other long term (current) drug therapy; Z79.82 Long term (current) use of aspirin

== ENCOUNTER → 2018-05-22 | Outpatient (CLI) | payer OTHER ==
[~2018-05-22] MED LIST changes: +PREDNISONE20 M1 PO; +VIBRAMYCIN100 MG PO
== END | disposition home or self-care (01) ==
LOC: RESCLI 04:15
DX: J44.9 Chronic obstructive pulmonary disease, unspecified (principal); R73.03 Prediabetes; E78.2 Mixed hyperlipidemia; J30.9 Allergic rhinitis, unspecified; F41.9 Anxiety disorder, unspecified; E55.9 Vitamin D deficiency, unspecified; I10 Essential (primary) hypertension; M54.5 Low back pain; G89.29 Other chronic pain; I25.10 Atherosclerotic heart disease of native coronary artery without angina pectoris; Z79.899 Other long term (current) drug therapy; Z72.0 Tobacco use

== ENCOUNTER 2018-06-30 16:00 | Emergency (ER) | payer OTHER ==
[~2018-06-30] VITALS: Ht 167.6 cm; Wt 79.4 kg
[2018-06-30 16:00] VITALS: BP 154/75
[2018-06-30] MEDS ORDERED: ANAPROX DS550 MG PO (17:12)
== END 2018-06-30 17:52 | disposition home or self-care (01) ==
LOC: ED 16:00
DX: M76.71 Peroneal tendinitis, right leg (principal); F17.210 Nicotine dependence, cigarettes, uncomplicated; Z88.0 Allergy status to penicillin; Z88.6 Allergy status to analgesic agent; Z79.899 Other long term (current) drug therapy; Z79.82 Long term (current) use of aspirin

== ENCOUNTER → 2018-07-08 | Outpatient (CLI) | payer OTHER | END | disposition home or self-care (01) | LOC: LAB 11:29 | DX: R73.03 Prediabetes (principal) ==

== ENCOUNTER → 2018-07-09 | Outpatient (CLI) | payer OTHER | END | disposition home or self-care (01) | LOC: RESCLI 01:15 | DX: Z23 Encounter for immunization (principal); J44.9 Chronic obstructive pulmonary disease, unspecified; R73.03 Prediabetes; E78.2 Mixed hyperlipidemia; J30.9 Allergic rhinitis, unspecified; F41.9 Anxiety disorder, unspecified; E55.9 Vitamin D deficiency, unspecified; I10 Essential (primary) hypertension; M54.5 Low back pain; G89.29 Other chronic pain; I25.10 Atherosclerotic heart disease of native coronary artery without angina pectoris; E66.3 Overweight; G47.00 Insomnia, unspecified; K21.0 Gastro-esophageal reflux disease with esophagitis; F17.200 Nicotine dependence, unspecified, uncomplicated; Z71.6 Tobacco abuse counseling; Z79.899 Other long term (current) drug therapy; Z88.0 Allergy status to penicillin ==

== ENCOUNTER → 2018-10-31 | Outpatient (CLI) | payer OTHER ==
[~2018-10-31] MED LIST changes: +AVPAK AZITHROM250 MG PO; +INDOMETHACIN25 M1 PO; +MELATONIN 5 MG; +SEPTDS PO; +VENTOLIN 02.5 MG/3 M INH
== END | disposition home or self-care (01) ==
LOC: MAMMO 09:30
DX: R92.8 Other abnormal and inconclusive findings on diagnostic imaging of breast (principal)

== ENCOUNTER 2018-12-20 01:06 | Inpatient (IN) | payer OTHER ==
[~2018-12-20] VITALS: Ht 167.6 cm; Wt 89.1 kg
--- NOTE | ~2018-12-20 | PR ---
[place], [place] PROGRESS NOTE NAME: JULIANNE HERNANDEZ UNIT #: [id number] ROOM: 530 DOCTOR: MIKEY IZQUIERDO MD BIRTHDATE: [birth year] DOS: 12/23/2018 PULMONARY PROGRESS NOTE SUBJECTIVE: She was noted comfortable at this time, resting in the bed without any distress. Shortness of breath, coughing and other symptoms have been gradually subsiding. There were no symptoms of fever or chills stated by the patient. OBJECTIVE: VITAL SIGNS: Normal temperature, respiratory rate 18, heart rate 74, blood pressure 150/75. The pulse oxygen saturation on room air 91% saturation. HEENT: Moderate obesity. Head was atraumatic. Eyes nonicterus. NECK: Supple. CARDIOVASCULAR: S1, S2 audible. LUNGS: Mild decreased breath sounds noted in the lungs bilaterally with occasional wheezing. There were no crackles. ABDOMEN: Soft, nontender. Bowel sounds present. EXTREMITIES: No new change. LABORATORY DATA: CBC today: WBC count 16.1, remaining CBC normal. CMP of the patient this morning, normal BUN and creatinine. Sputum Gram stain of the patient many white blood cells, moderate epithelial cells, moderate cocci in pairs and chains and clusters. IMPRESSION: 1. Resolving acute exacerbation of chronic obstructive pulmonary disease, acute tracheobronchitis gradually and progressively. 2. History of moderate obesity as well. PLAN OF TREATMENT: Discharge planning could be started on discharge for the patient based on further improvement of respiratory status. Upon discharge outpatient followup was suggested in the office in about 2 weeks. [place], [place] PROGRESS NOTE NAME: JULIANNE HERNANDEZ UNIT #: [id number] ROOM: [facility] DOCTOR: MIKEY IZQUIERDO MD BIRTHDATE: [birth year] MIKEY PETERSON MD CM:PNTRANS [phone] MIKEY SALAS MD 12/23/18 1710 interface
--- NOTE | ~2018-12-20 | CON ---
[place], [place] REPORT OF CONSULTATION NAME: JULIANNE HERNANDEZ UNIT #: [id number] ROOM: 530 DOCTOR: MIKEY IZQUIERDO MD BIRTHDATE: [birth year] DOS: 12/21/2018 PULMONARY CONSULTATION, EVALUATION AND MANAGEMENT CONSULTATION REQUESTED BY: Hospitalist service. REASON FOR CONSULTATION: For assessment of acute exacerbation of COPD. HISTORY OF PRESENT ILLNESS: This is a 58-year-old white female patient who has been known to me from the past. The patient has been admitted to the hospital yesterday. She has been admitted in this hospital. Last time I assessed the patient was in 02/2018. She has a bronchoscopy done during this admission medical management and severe acute exacerbation of chronic obstructive pulmonary disease and acute tracheobronchitis. The patient came into the hospital admitted to the hospital on 12/20/2018 with having symptoms of progressive increased shortness of breath. She has been recently admitted to the hospital and discharge on 12/18/2018 after medical management of acute exacerbation of COPD, presented back with worsening respiratory symptoms while she was using prednisone and azithromycin. She was complaining of symptoms of chest tightness. She was also noted oxygen desaturation as well. Denies symptoms of headache or diplopia. Reported no chest pain or hemoptysis. REVIEW OF SYSTEMS: CONSTITUTIONAL: Fatigue, tiredness reported. Denies symptoms of fever or chills. EYES: Denies burning, redness, or tenderness. EARS, NOSE, THROAT SYMPTOMS: Denies sore throat, hoarseness, otalgia, postnasal drainage or epistaxis. CARDIOVASCULAR: Denies angina pain, edema, or pain of lower extremity. GASTROINTESTINAL: Denies dysphagia, nausea, vomiting, diarrhea, abdominal pain, hematemesis, melena, or hematochezia. SKIN: Denies abnormal lesions or rashes. MUSCULOSKELETAL SYMPTOMS: Denies any symptoms of joint pain, redness, or tenderness. CENTRAL NERVOUS SYSTEM: Denies dizziness, headache, diplopia, or syncopal episode. Remaining systems were reviewed, they were noted all negative. PAST MEDICAL HISTORY: 1. History of COPD. 2. History of nicotine abuse. 3. History of cervical cancer. 4. Coronary artery disease. 5. Pulmonary nodule. 6. Allergic rhinitis. 7. Vitamin D deficiency. 8. Diverticulosis. PAST SURGICAL HISTORY: [place], [place] REPORT OF CONSULTATION NAME: JULIANNE HERNANDEZ UNIT #: [id number] ROOM: 530 DOCTOR: KRISTEN SALAS MD,MIKEY BIRTHDATE: [birth year] 1. Complete hysterectomy. 2. Cardiac catheterization. 3. Cholecystectomy. SOCIAL HISTORY: The patient lives at home. She has been noted tobacco use since teenager, 2 packs of cigarettes per day. Currently stating that she has been smoking few cigarettes a day. No history of alcohol use or illicit drugs. FAMILY HISTORY: The patient's father of complication of liver cirrhosis and tuberculosis. Mother at 63 years old with complication of colon cancer. CURRENT MEDICATIONS: Administered use of metoprolol tartrate, loratadine, vitamin D, aspirin, Lovenox for DVT prophylaxis, Protonix, indomethacin, Mucinex, Atarax p.r.n. use, Solu-Medrol 40 mg q. 8 hours, levofloxacin and DuoNeb. DRUG ALLERGIES: NOTED ALLERGY TO: 1. PENICILLIN. 2. CODEINE. PHYSICAL EXAMINATION: GENERAL: A 58-year-old female who has been currently sitting on the bed this morning without acute severe distress. Height of 5 feet 6 inches, weight of 196 pounds, BMI 31. VITAL SIGNS: Normal temperature, respiratory rate of 18-22, heart rate of 61-68, blood pressure 130/80-164/82. The pulse oxygen saturation recorded on 2 liter nasal cannula was 94% saturation. HEENT: Head was atraumatic. Eyes nonicterus. NECK: Supple. CARDIOVASCULAR: S1, S2 is audible. LUNGS: Decreased breath sounds with expiratory wheezing, no crackles. ABDOMEN: Soft, nontender, moderate obesity. Bowel sounds present. EXTREMITIES: Without acute edema. MUSCULOSKELETAL: Without any acute deformities. CENTRAL NERVOUS SYSTEM: Intact. LABORATORY DATA: CBC on 12/20/2018, WBC count 12.3, hemoglobin and hematocrit normal, platelet counts were normal. Lactic acid 2.8 with variably elevated later on. CMP that was done yesterday, BUN normal, creatinine normal, glucose 122. The influenza A and B, nasal washing antigen in the Emergency Room were negative. Arterial blood gas, 2 of them done yesterday, which were noted as a mixed venous arterial blood gases. The third arterial blood gas, pH of 7.40, pCO2 of 37, pO2 66 were noted with more accurate blood gas. CBC that was done on 12/21/2017, WBC count 15.9, hemoglobin and hematocrit normal, platelet count normal. BMP that was done as a normal BUN and creatinine. The chest x-ray, 1 view, which was done does not show an acute pulmonary filtration. Hyperinflation and COPD changes were noted. [place], [place] REPORT OF CONSULTATION NAME: JULIANNE HERNANDEZ UNIT #: [id number] ROOM: [facility] DOCTOR: KRISTEN SALAS MD,MIKEY BIRTHDATE: [birth year] IMPRESSION: 1. History of chronic nicotine abuse. The patient currently admitted to the hospital with recurrent acute exacerbation of chronic obstructive pulmonary disease. 2. Evidence of acute bronchitis. There was no evidence of acute pneumonia. 3. There has been a consideration of acute respiratory failure with hypoxia secondary to acute exacerbation of chronic obstructive pulmonary disease. PLAN OF TREATMENT: Continue current dose of Solu-Medrol, bronchodilators and oxygen supplementation as in progress. Nicotine replacement patches could be used for the as needed. Other therapy, plan of management and care plan of treatment. Discontinue the DuoNeb switched to the albuterol sulfate for the medical management of acute exacerbation of COPD. Other additional treatment changes will be made based on progression of the illness. Pulmicort Respules will be started. Thanks for allowing me to participate in the care of this patient. MIKEY PETERSON MD CM:CONSTR:REPORT OF CONSULTATION 1623 12/22/18 0305 interface
--- NOTE | ~2018-12-20 | PR ---
[place], [place] PROGRESS NOTE NAME: JULIANNE HERNANDEZ UNIT #: [id number] ROOM: 530 DOCTOR: KRISTEN SALAS MD,MIKEY BIRTHDATE: [birth year] DOS: 12/22/2018 SUBJECTIVE: The patient stated reduction in symptoms of shortness of breath, coughing and wheezing, lasting with current medical management. Denies symptoms of chest pain or hemoptysis. Denies symptoms of sputum expectoration this morning. Overall improvement in the respiratory symptom reported by the patient. OBJECTIVE: VITAL SIGNS: This morning, normal temperature, respiratory rate 20, heart rate 64, blood pressure 164/75. Pulse oxygen saturation on 2 liters nasal cannula 94% saturation recorded. HEENT: Examination shows head was atraumatic. Eyes nonicterus. NECK: Supple. CARDIOVASCULAR: S1 and S2 audible. LUNGS: Moderate decreased breath sounds without crackles or wheezing, decreased from previous examination. ABDOMEN: Soft, nontender. EXTREMITIES: No acute change. LABORATORY DATA: Blood cultures, no bacterial growth. The BMP this morning with a normal BUN and creatinine. Glucose 157, mildly elevated. IMPRESSION: 1. Resolving acute exacerbation of chronic obstructive pulmonary disease. 2. Acute tracheobronchitis in the last 24 hours of management. PLAN OF TREATMENT: No changes in the plan of care with the bronchodilators, oxygen supplementation, Pulmicort Respules and steroids. Possible consideration of home discharge in the morning depends on further improvement in the respiratory symptoms could be considered. MIKEY PETERSON MD CM:PNTRANS [phone] MIKEY SALAS MD 12/22/18 1644 interface
--- NOTE | ~2018-12-20 | EKG ---
[place], [place] ELECTROCARDIOGRAM REPORT NAME: JULIANNE HERNANDEZ UNIT #: [id number] ROOM: 530 DOCTOR: PREM DRAFT REPORT BIRTHDATE: [birth year] [facility] Test Date: 2018-12-20 Test Time: 12:23:14 Pat Name: JULIANNE HERNANDEZ Department: Room: [facility] 1 Gender: F [employer] Developer: : 1960 Requested By: BEKA GRAHAM Order Number: [id number] Reading MD: Jag Oleary Measurements Intervals [place] Rate: 68 P: 66 HI: 158 QRS: 83 QRSD: 82 T: 76 QT: 437 QTc: 465 Interpretive Statements Sinus rhythm Baseline wander in lead(s) V2,V5,V6 Compared to ECG 12/16/2018 19:03:33 No significant changes Electronically Signed On 12-20-2018 11:10:08 PDT by Jag Oleary CM:EKGRPT:ELECTROCARDIOGRAM REPORT 1223 1110 BEKA OROZCO DRAFT REPORT BEKA GRAHAM DO
[~2018-12-20 01:06] MED LIST changes: -SEPTDS PO
--- NOTE | 2018-12-20 10:11 | NUR ---
ATTEMPTED TO AMBULATE PT. FOR O2 ASSESSMENT. PT. WAS ONLY ABLE TO WALK APPRX. 25 FEET AND THEN NEEDED TO RETURN TO ROOM. PULSE OX ON R/A AT REST 93%. PT SOB WITH LABORED BREATHING. PULSE OX DECREASING TO 90 WITHIN 10 FEET, THEN DECREASING TO 88 ON R/A. PT. PLACED ON 2L, O2 INCREASING TO 92%, RETURNED TO ROOM ON 2LM , SAT 93%,ON 2L. PT. SITTING IN CHAIR WITH O2 ON AT 2L, SAT 94%, RESPIRATION IS IMPROVING WITH O2. DR. SALINAS AND DR. LEDBETTER NOTIFID. PT. TO BE ADMITTED, AEROSO TX GIVEN.
--- NOTE | 2018-12-20 11:00 | NUR ---
A 58, admitted to , under the services of ROMAINE Loera DO with a diagnosis of COPD EXACERBATION. Chief complaint is SOB. Patient arrived via OTHER from OP/ADMIT. Monitor applied. Initial assessment completed. Vital signs taken and recorded. ROMAINE LOERA DO notified of admission to the unit. Orders received. See assessment for past medical history, medications and allergies. Patient and/or family oriented to unit. [facility] visitation policy reviewed. Clothing/patient valuable form completed. HUSEYIN TIJERINA
[2018-12-20 11:40] LABS: BASO # 0.1 10*3/uL (0.0-0.1); BASO % 0.5 % (0.0-1.0); EOS % 0.1 % (1.0-4.0); HEMATOCRIT 44.9 % (37.0-47.0); HEMOGLOBIN 14.4 g/dl (12.0-16.0); LYMPH # 2.5 10*3/uL (1.3-4.4); LYMPH % 20.6 % (27.0-41.0); MEAN CELL VOLUME 86.8 fl (81.0-99.0); MEAN CORPUSCULAR HGB 27.9 pg (27.0-31.0); MEAN CORPUSCULAR HGB CONC 32.1 g/dl (33.0-37.0); MEAN PLATELET VOLUME 10.9 fl (9.6-12.3); MONO # 0.6 10*3/uL (0.1-1.0); MONO % 4.5 % (3.0-9.0); NEUT # 8.8 10*3/uL (2.3-7.9); NEUT % 71.9 % (47.0-73.0); PLATELET COUNT AUTOMATED 261 10*3/uL (130-400); RED BLOOD COUNT 5.17 10*6/uL (4.10-5.10); RED CELL DISTRI WIDTH 13.2 % (0-14.5); WHITE BLOOD COUNT 12.3 10*3/uL (4.8-10.8)
[2018-12-20 11:50] VITALS: BP 162/94
[2018-12-20 12:02] LABS: ALBUMIN 3.4 gm/dl (3.1-4.5); ALKALINE PHOSPHATASE 141 U/L (45-117); BUN 22 mg/dl (7-24); CHLORIDE 102 mmol/L (98-107); CREATININE 0.97 mg/dL (0.55-1.02); SGOT/AST 13 IU/L (3-35); SGPT/ALT 23 U/L (12-78); SODIUM 139 mmol/L (136-145); TOTAL PROTEIN 7.7 gm/dL (6.4-8.2)
[2018-12-20 15:28] LABS: ABG HCO3 8.5 mmol/l (22-26); ABG O2 SATURATION 64.3 % (95-97); ARTERIAL BLOOD GAS PH 7.289 (7.35-7.45)
[2018-12-20 15:30] LABS: ABG BASE EXCESS -17.3 mmol/L (-2.0-2.0); ARTERIAL BLOOD GAS PO2 38.4 mmHg (80-90)
--- NOTE | 2018-12-20 15:35 | NUR ---
MADE AWARE OF ABG. NEW ORDER FOR REPEAT ABG. BAM MICHAEL MADE AWARE.
--- NOTE | 2018-12-20 15:39 | NUR ---
BP 140/100 MANUAL. NOTIFIED. SAID TO MONITOR.
[2018-12-20 16:00] VITALS: BP 140/100
[2018-12-20 16:12] LABS: ABG HCO3 7.3 mmol/l (22-26); ABG O2 SATURATION 83.8 % (95-97); ARTERIAL BLOOD GAS PH 7.386 (7.35-7.45); ARTERIAL BLOOD GAS PO2 45.5 mmHg (80-90)
[2018-12-20 16:13] LABS: ABG BASE EXCESS -17.6 mmol/L (-2.0-2.0); ARTERIAL BLOOD GAS PCO2 12.4 mmHg (35-45)
[2018-12-20 17:20] LABS: ABG BASE EXCESS -1.2 mmol/L (-2.0-2.0); ABG HCO3 22.9 mmol/l (22-26); ABG O2 SATURATION 93.7 % (95-97); ARTERIAL BLOOD GAS PCO2 37.5 mmHg (35-45); ARTERIAL BLOOD GAS PH 7.401 (7.35-7.45); ARTERIAL BLOOD GAS PO2 66.7 mmHg (80-90)
--- NOTE | 2018-12-20 17:30 | NUR ---
ABG RESULTS CALLED TO DR. PETERSON.
--- NOTE | 2018-12-20 19:45 | NUR ---
NOTIFIED OF PATIENT'S BP 164/90 MANUALLY. DISCUSSED HOME MED METOPROLOL DUE TOMORROW AT 10 AM. PATIENT STATES SHE ALREADY TOOK HER DOSE FOR TODAY 12/20/18
[2018-12-20 20:00] VITALS: BP 164/90
--- NOTE | 2018-12-20 20:30 | NUR ---
CALLED REQUESTING A REPEAT MANUAL BLOOD PRESSURE AND TO CALL WITH RESULTS.
[2018-12-20 20:40] VITALS: BP 152/84
--- NOTE | 2018-12-20 20:40 | NUR ---
NOTIFIED OF REPEAT MANUAL BLOOD PRESSURE 152/84. NO NEW ORDERS RECEIVED.
[2018-12-21] VITALS: BP 155/81
--- NOTE | 2018-12-21 03:46 | NUR ---
PATIENT CURRENTLY OFF BIPAP, DOES NOT WANT TO GO BACK ON. 92% ON 2 L/M NC.
[2018-12-21 06:38] LABS: BUN 21 mg/dl (7-24); CHLORIDE 103 mmol/L (98-107); CREATININE 1.06 mg/dL (0.55-1.02); POTASSIUM 4.1 mmol/L (3.5-5.1); SODIUM 139 mmol/L (136-145)
[2018-12-21 06:48] LABS: HEMATOCRIT 41.3 % (37.0-47.0); MEAN CORPUSCULAR HGB 28.4 pg (27.0-31.0); MEAN CORPUSCULAR HGB CONC 31.5 g/dl (33.0-37.0); MEAN PLATELET VOLUME 11.4 fl (9.6-12.3); PLATELET COUNT AUTOMATED 247 10*3/uL (130-400); RED BLOOD COUNT 4.58 10*6/uL (4.10-5.10); RED CELL DISTRI WIDTH 13.2 % (0-14.5); WHITE BLOOD COUNT 15.9 10*3/uL (4.8-10.8)
[2018-12-21 06:53] LABS: MEAN CELL VOLUME 90.2 fl (81.0-99.0)
[2018-12-21 07:14] LABS: PLATELET SUFFICIENCY NORMAL (NORMAL); TOTAL CELLS COUNTED 100 #CELLS
[2018-12-21 08:00] VITALS: BP 164/82
--- NOTE | 2018-12-21 08:25 | NUR ---
PT DOES NOT WANT ON BIPAP AT THIS TIME.
[2018-12-21 12:00] VITALS: BP 159/78
[2018-12-21 16:00] VITALS: BP 152/76
--- NOTE | 2018-12-21 19:30 | NUR ---
BEDSIDE REPORT RECIEVED FROM DAY SHIFT RN. PT IS RESTING IN BED AT THIS TIME AND DENIES ANY PAIN OR DISCOMFORT. RESPIRATIONS ARE EASY AND NONLABORED ON 2.5 L NC. SHE DENIES ANY SHORTNESS OF BREATH AT REST. SHE ALSO STATED SHE IS FEELING MUCH BETTER. PT DENIES ANY NEEDS AT THIS TIME. WILL CONTINUE TO MONITOR.
[2018-12-21 20:00] VITALS: BP 153/70
[2018-12-22] VITALS: BP 140/86
--- NOTE | 2018-12-22 04:30 | NUR ---
PT IS ASLEEP IN BED AT THIS TIME WITH NO OBVIOUS SIGNS OF PAIN OR DISCOMFORT. RESPIRATIONS ARE EASY AND NONLABORED. BED IS LOCKED AND IN THE LOWEST POSITION. WILL CONTINUE TO MONITOR.
[2018-12-22 06:35] LABS: BUN 20 mg/dl (7-24); CHLORIDE 102 mmol/L (98-107); CREATININE 0.79 mg/dL (0.55-1.02); POTASSIUM 3.9 mmol/L (3.5-5.1); SODIUM 138 mmol/L (136-145)
[2018-12-22 08:00] VITALS: BP 164/75
--- NOTE | 2018-12-22 09:30 | NUR ---
PT SAT WA 94% ON 2L/M. PT DOES NOT HAVE O2 AT HOME. PT OFF O2. PT WALKED TO [employer], BACK TO ROOM SAT TAKEN SHORTLY AFTER PT BACK IN BED. SAT IS 89-90%. PLACED PT BACK ON 2L/M O2.
--- NOTE | 2018-12-22 11:21 | NUR ---
PHYSICAL THERAPY PATIENT SEEN IN ROOM TODAY AND SCREENED BY PT AND FOUND TO BE UP AD LIZBETH WITHOUT AD AND (I) WITH ALL MOBILITY AND THEREFORE NO PT SERVICES INDICATED THANK YOU FOR REFERRAL GILES SMILEY PT
[2018-12-22 12:00] VITALS: BP 153/83
--- NOTE | 2018-12-22 13:19 | NUR ---
C/O ANXIETY AND REQUESTS VISTARIL. GIVEN AT THIS TIME. WILL CONT TO MONITOR. CALL LIGHT IN REACH.
--- NOTE | 2018-12-22 14:19 | NUR ---
SANJAY PAT AT THIS TIME. WILL CONT TO MONITOR. CALL LIGHT IN REACH.
[2018-12-22 16:00] VITALS: BP 173/80
--- NOTE | 2018-12-22 19:39 | NUR ---
BEDSIDE REPORT RECIEVED FROM DAY SHIFT RN. PT IS RESTING IN BED AT THIS TIME AND DENIES ANY PAIN OR DISCOMFORT. RESPIRATIONS ARE EASY AND NONLABORED ON 2L NC. SHE DENIES ANY SOB AT REST. FAMILY IS AT THE BEDSIDE. PT DENIES ANY NEEDS AT THIS TIME. WILL CONTINUE TO MONITOR.
[2018-12-22 20:00] VITALS: BP 164/74
[2018-12-23] VITALS: BP 147/71
--- NOTE | 2018-12-23 03:43 | NUR ---
PRN ORDER FOR VISTARIL RECIEVED FOR C/O ANXIETY. WILL MONITOR FOR EFFECTIVENESS.
[2018-12-23 06:27] LABS: HEMATOCRIT 38.1 % (37.0-47.0); HEMOGLOBIN 12.4 g/dl (12.0-16.0); MEAN CELL VOLUME 88.2 fl (81.0-99.0); MEAN CORPUSCULAR HGB 28.7 pg (27.0-31.0); MEAN CORPUSCULAR HGB CONC 32.5 g/dl (33.0-37.0); MEAN PLATELET VOLUME 11.3 fl (9.6-12.3); PLATELET COUNT AUTOMATED 239 10*3/uL (130-400); RED BLOOD COUNT 4.32 10*6/uL (4.10-5.10); RED CELL DISTRI WIDTH 13.2 % (0-14.5); WHITE BLOOD COUNT 16.2 10*3/uL (4.8-10.8)
[2018-12-23 06:58] LABS: ALBUMIN 3.2 gm/dl (3.1-4.5); ALKALINE PHOSPHATASE 97 U/L (45-117); BUN 24 mg/dl (7-24); CHLORIDE 100 mmol/L (98-107); POTASSIUM 4.3 mmol/L (3.5-5.1); SGOT/AST 8 IU/L (3-35); SGPT/ALT 20 U/L (12-78); SODIUM 138 mmol/L (136-145); TOTAL PROTEIN 6.6 gm/dL (6.4-8.2)
[2018-12-23 07:22] LABS: PLATELET SUFFICIENCY NORMAL (NORMAL); TOTAL CELLS COUNTED 100 #CELLS
[2018-12-23 08:00] VITALS: BP 135/71
[2018-12-23 12:00] VITALS: BP 150/75
--- NOTE | 2018-12-23 12:02 | NUR ---
patient tested for the use of home oxygen. at rest on room air- spo2:89-90%, heart rate:76, respiratory rate:20, blood pressure:178/71. during ambulation- 2 l nasal [id number]% at rest. 3 l nasal cannula at rest-92% during ambulation- 3l nasal cannula-89/90% 4l nasal cannula:91/93% and was able to maintain at least 92% during the entire ambulation on 4 liter nasal cannula. suggesting 2 liters during rest, and 4 liters for ambulations. patient does qaulify.
--- NOTE | 2018-12-23 12:54 | NUR ---
Composition Floor Setter in to talk to patient. Patient states lives at HOME with ROOM MATE. There are NO steps in the home. Physician: [facility]acy: [facility] [place] [facility] services: NONE Patient's level of ADLs: INDEPENDENT Patient has working utilities: YES DME: NEBULIZER Follow-up physician's appointment after d/c: NO Does patient want to access PORTAL?: NO Discharge plan PT LIVES AT HOME AND PLANS TO RETURN HOME ON DISCHARGE. DENIES NEEDS AT HOME. HAS A NEBULIZER AND DID QUALIFY FOR HOME O2 WHICH IS BEING SET UP BY RESPITORY. WILL CONTINUE TO FOLLOW. STATES SHE WILL HAVE A RIDE HOME ON DISCHARGE. . DANIEL POOL
[2018-12-23] MEDS ORDERED: LEVOFLOXACIN500 MG PO (13:51)
--- NOTE | 2018-12-23 15:10 | NUR ---
PATIENT DISCHARGED TO HOME. WAITING ON HOME O2 BEFORE PATIENT CAN GO HOME.
[2018-12-23 16:00] VITALS: BP 173/78
--- NOTE | 2018-12-23 18:50 | NUR ---
[facility] HERE PATIENT DISCHARGED TO HOME.
[2018-12-30] MEDS ORDERED: SEPTDS PO (16:55)
== END 2018-12-23 18:50 | disposition home or self-care (01) | DRG 871 ==
LOC: RESCLI 01:06 → 5E 10:48 → RESCLI 13:52 → 5E 12-21 12:38
PROVIDERS: Internal Medicine; Internal Medicine Critical Care Medicine; Registered Nurse; Student in an Organized Health Care Education/Training Program; ADMIT Internal Medicine
DX: A41.9 Sepsis, unspecified organism (principal); J96.21 Acute and chronic respiratory failure with hypoxia; J44.1 Chronic obstructive pulmonary disease with (acute) exacerbation; E87.2 Acidosis; E44.1 Mild protein-calorie malnutrition; J44.0 Chronic obstructive pulmonary disease with (acute) lower respiratory infection; F17.210 Nicotine dependence, cigarettes, uncomplicated; E55.9 Vitamin D deficiency, unspecified; J20.9 Acute bronchitis, unspecified; K57.90 Diverticulosis of intestine, part unspecified, without perforation or abscess without bleeding; I25.10 Atherosclerotic heart disease of native coronary artery without angina pectoris; E66.9 Obesity, unspecified; H40.9 Unspecified glaucoma; K21.9 Gastro-esophageal reflux disease without esophagitis; I10 Essential (primary) hypertension; Z71.6 Tobacco abuse counseling; Z85.41 Personal history of malignant neoplasm of cervix uteri; I25.2 Old myocardial infarction; Z90.49 Acquired absence of other specified parts of digestive tract; Z90.710 Acquired absence of both cervix and uterus; Z90.79 Acquired absence of other genital organ(s); Z90.722 Acquired absence of ovaries, bilateral; Z86.010 Personal history of colon polyps; Z88.0 Allergy status to penicillin; Z88.6 Allergy status to analgesic agent; Z79.899 Other long term (current) drug therapy; Z80.0 Family history of malignant neoplasm of digestive organs

== ENCOUNTER → 2019-02-25 | Outpatient (CLI) | payer OTHER ==
[~2019-02-25] MED LIST changes: +SEPTDS PO
== END | disposition home or self-care (01) ==
LOC: RESCLI 00:10
DX: Z09 Encounter for follow-up examination after completed treatment for conditions other than malignant neoplasm (principal); J44.9 Chronic obstructive pulmonary disease, unspecified; R73.03 Prediabetes; E78.2 Mixed hyperlipidemia; J30.9 Allergic rhinitis, unspecified; F41.9 Anxiety disorder, unspecified; E55.9 Vitamin D deficiency, unspecified; I10 Essential (primary) hypertension; M54.5 Low back pain; I25.10 Atherosclerotic heart disease of native coronary artery without angina pectoris; G47.00 Insomnia, unspecified; K21.0 Gastro-esophageal reflux disease with esophagitis; R92.8 Other abnormal and inconclusive findings on diagnostic imaging of breast; R10.9 Unspecified abdominal pain; H26.9 Unspecified cataract; E66.9 Obesity, unspecified; Z71.6 Tobacco abuse counseling; Z72.0 Tobacco use; Z79.899 Other long term (current) drug therapy

== ENCOUNTER → 2019-05-20 | Outpatient (CLI) | payer OTHER ==
[~2019-05-20] MED LIST changes: +LIPITOR20 MG PO; +LISINOPRIL5 MG PO; +NEBULIZER DEVI; +VISTARIL25 MG PO; +ZITHROMAX250 MG PO
== END | disposition home or self-care (01) ==
LOC: RESCLI 00:11
DX: J44.9 Chronic obstructive pulmonary disease, unspecified (principal); R73.03 Prediabetes; E78.2 Mixed hyperlipidemia; J30.9 Allergic rhinitis, unspecified; F41.9 Anxiety disorder, unspecified; E55.9 Vitamin D deficiency, unspecified; I10 Essential (primary) hypertension; M54.5 Low back pain; G89.29 Other chronic pain; I25.10 Atherosclerotic heart disease of native coronary artery without angina pectoris; G47.00 Insomnia, unspecified; K21.0 Gastro-esophageal reflux disease with esophagitis; R92.8 Other abnormal and inconclusive findings on diagnostic imaging of breast; H26.9 Unspecified cataract; E66.9 Obesity, unspecified; Z68.34 Body mass index [BMI] 34.0-34.9, adult; Z79.899 Other long term (current) drug therapy

== ENCOUNTER 2019-05-26 10:13 | Emergency (ER) | payer OTHER ==
[~2019-05-26] VITALS: Ht 167.6 cm; Wt 95.3 kg
[~2019-05-26 10:13] MED LIST changes: -LIPITOR20 MG PO; -LISINOPRIL5 MG PO; -NEBULIZER DEVI; -VISTARIL25 MG PO; -ZITHROMAX250 MG PO
[2019-05-26 10:15] VITALS: BP 135/71
[2019-05-26] MEDS ORDERED: ZITHROMAX250 MG PO (12:28)
[2019-07-30] MEDS ORDERED: VISTARIL25 MG PO (07:06)
== END 2019-05-26 12:42 | disposition home or self-care (01) ==
LOC: ED 10:13
DX: J40 Bronchitis, not specified as acute or chronic (principal); J02.9 Acute pharyngitis, unspecified; J44.9 Chronic obstructive pulmonary disease, unspecified; I25.10 Atherosclerotic heart disease of native coronary artery without angina pectoris; K21.9 Gastro-esophageal reflux disease without esophagitis; I10 Essential (primary) hypertension; E66.9 Obesity, unspecified; F17.210 Nicotine dependence, cigarettes, uncomplicated; F12.90 Cannabis use, unspecified, uncomplicated; F14.90 Cocaine use, unspecified, uncomplicated; Z90.49 Acquired absence of other specified parts of digestive tract; Z90.710 Acquired absence of both cervix and uterus; Z68.39 Body mass index [BMI] 39.0-39.9, adult; Z79.82 Long term (current) use of aspirin; Z79.899 Other long term (current) drug therapy; Z88.0 Allergy status to penicillin; Z88.5 Allergy status to narcotic agent

== ENCOUNTER 2019-06-05 04:55 | Inpatient (IN) | payer OTHER ==
[2019-06-05] VITALS (8 sets, daily range): BP systolic 112–168; BP diastolic 60–85
[~2019-06-05] VITALS: Ht 167.6 cm; Wt 97.2 kg
--- NOTE | ~2019-06-05 | PR ---
[place], [place] PROGRESS NOTE NAME: JULIANNE HERNANDEZ UNIT #: [id number] ROOM: 518 DOCTOR: KRISTEN SALAS MD,MIKEY BIRTHDATE: [birth year] DOS: 06/09/2019 SUBJECTIVE: The patient noted comfortable, resting in the bed this morning of assessment, has not reported any symptoms of chest pain. Bronchoscopy done yesterday with reduction of the respiratory symptoms noted, resolution was noted moderate not completely. However, the shortness of breath and wheezing has been decreased. Complaining of fatigue. OBJECTIVE: VITAL SIGNS: The patient has been recorded showed the temperature noted normal, respiratory rate of 20, heart rate 72, blood pressure 156/82, pulse ox saturation on 4 liters nasal cannula 96% saturation recorded. HEENT: Chronic obesity. Head was atraumatic. Eyes nonicterus. NECK: Supple. CARDIOVASCULAR: S1, S2 audible. LUNGS: Without any wheezing or crackles at this time. Breath sounds are noted mild to moderately diminish bilaterally. ABDOMEN: Soft and obese. EXTREMITIES: No changes. LABORATORY DATA: Culture of the endotracheal aspirate bronchial washing, normal fina. Gram stain with many white blood cells, few epithelial cells, few gram-positive cocci in pairs and clusters, rare budding yeast. IMPRESSION: Improvement and reduction in respiratory symptom noted for acute exacerbation of chronic obstructive pulmonary disease, assessed with bronchoscopy yesterday with reduction in respiratory symptom. PLAN OF MANAGEMENT: Continue the steroids, bronchodilators, and oxygen supplementation. Possible discharge home tomorrow morning could be considered. MIKEY PETERSON MD CM:PNTRANS [id number] MIKEY SALAS MD 06/10/19 0106 interface
--- NOTE | ~2019-06-05 | EKG ---
[place], [place] ELECTROCARDIOGRAM REPORT NAME: JULIANNE HERNANDEZ UNIT #: [id number] ROOM: 518 DOCTOR: PREM DRAFT REPORT BIRTHDATE: [birth year] [facility] Test Date: 2019-06-05 Test Time: 10:48:41 Pat Name: JULIANNE HERNANDEZ Department: Room: 518 1 Gender: F Fiscal Technician: : 1960 Requested By: AURELIA ZARAGOZA Order Number: [id number] Reading MD: Anayeli Stover MD Measurements Intervals [place] Rate: 93 P: 52 MS: 165 QRS: 82 QRSD: 85 T: 72 QT: 400 QTc: 498 Interpretive Statements Sinus rhythm Borderline prolonged QT interval Compared to ECG 12/20/2018 12:23:14 No significant changes Electronically Signed On 06-05-2019 14:46:20 PDT by Anayeli Stover MD CM:EKGRPT:ELECTROCARDIOGRAM REPORT [id number] 1446 AURELIA OROZCO DRAFT REPORT AURELIA ZARAGOZA DO
--- NOTE | ~2019-06-05 | CON ---
[place], [place] REPORT OF CONSULTATION NAME: JULIANNE HERNANDEZ UNIT #: [id number] ROOM: 518 DOCTOR: MIKEY IZQUIERDO MD BIRTHDATE: [birth year] DOS: 06/06/2019 PULMONARY CONSULTATION REASON FOR CONSULTATION: Assessment of the acute exacerbation of chronic obstructive pulmonary disease symptoms. HISTORY OF PRESENT ILLNESS: This is a 59-year-old female with past history of chronic obstructive pulmonary disease. The patient had recently stopped smoking cigarettes. She stated that she had developed acute respiratory symptoms for the last few days. Her symptoms noted worsened, gradually and progressively. She was needing more oxygen supplementation at home as well to improve her shortness of breath, but it did not improve. She was also taking breathing treatments. The patient reported some pain, which described nonspecific in the chest. The cough has been noted mildly with a small amount of sputum expectoration. Wheezing was noted with chest tightness. The patient has been admitted to the hospital for further medical management. REVIEW OF SYSTEMS: CONSTITUTIONAL: Reported symptoms of fatigue. There were symptoms of fever and chills as stated. EYES: Denies any burning, redness, or tenderness. EARS, NOSE, THROAT, EAR, NOSE, THROAT SYMPTOMS: The patient was complaining of sore throat recently. The patient has stated that she has a strep throat and pharyngitis. CARDIOVASCULAR: No palpitation, edema or pain of the lower extremities. GASTROINTESTINAL: Noted with diarrhea for the last couple of days without any symptoms of hematochezia, melena, abdominal pain, hematemesis, nausea or vomiting. GENITOURINARY SYMPTOMS: No dysuria, suprapubic pain, or hematuria. MUSCULOSKELETAL: No acute joint pain, redness, or tenderness. SKIN: No lesions or rashes. CENTRAL NERVOUS SYSTEM: Denies dizziness, headache, diplopia, syncopal episodes. Remaining systems were reviewed, they were noted all negative PAST MEDICAL HISTORY: The patient is known with history of: 1. COPD. 2. Chronic hypoxic respiratory failure. 3. Cervical cancer treated previously with hysterectomy. 4. Coronary artery disease. 5. Pulmonary nodule. 6. Allergic rhinitis. 7. Vitamin D deficiency. 8. Diverticulosis. PAST SURGICAL HISTORY: Reported as complete hysterectomy, cardiac catheterization, and cholecystectomy. [place], [place] REPORT OF CONSULTATION NAME: JULIANNE HERNANDEZ UNIT #: [id number] ROOM: 518 DOCTOR: MIKEY IZQUIERDO MD BIRTHDATE: [birth year] SOCIAL HISTORY: Stated by the patient as smoking cigarettes since a teenager, 2 packs of cigarettes a day. Stated, she is not smoking cigarettes since 02/2019. The patient lives at home. Denies history of illicit drug use. Denies any alcohol use. FAMILY HISTORY: The patient's father with complication of liver cirrhosis and tuberculosis. Mother 69-year-old colon cancer history. ACTIVE CURRENT MEDICATIONS: Administered this hospitalization reviewed as use of Lipitor, loratadine, vitamin D, Protonix, aspirin, metoprolol succinate, indomethacin, nicotine lozenges, hydroxyzine, Solu-Medrol 40 mg q. 8 hours, Lovenox for DVT prophylaxis, Levaquin and DuoNeb. DRUG ALLERGIES: 1. PENICILLIN. 2. CODEINE. PHYSICAL EXAMINATION: GENERAL: This is a 59-year-old female who has been currently sitting comfortably in the bed without any distress. Height of 5 feet 6 inches, weight of 214 pounds, BMI 34. VITAL SIGNS: Normal temperature since hospitalization in the last 24 hours from yesterday. Respiratory rate range between 18-22, heart rate 92-101 and blood pressure 155/82-131/76. Pulse oxygen saturation recorded as 93% saturation on 3 liters nasal cannula. HEENT: Examination shows head was atraumatic. Eyes nonicterus. NECK: Supple. CARDIOVASCULAR: S1, S2 audible. LUNGS: Noted decreased breath sounds with moderate diffuse expiratory wheezing in the lungs bilaterally. ABDOMEN: Soft, nontender. Bowel sounds present. EXTREMITIES: Without acute edema. MUSCULOSKELETAL: The patient was noted without any acute deformities. CENTRAL NERVOUS SYSTEM: The patient's cranial nerves 2-12 intact. LABORATORY DATA: CMP that was done 06/06/2019, BUN 14, creatinine 1.14, glucose 177. CBC that was done on 06/06/2019 WBC count 12.6, hemoglobin 11.2, platelet count 334,000. IMPRESSION: 1. The patient who has been currently noted with ongoing acute exacerbation of chronic obstructive pulmonary disease, which is noted recurrent with acute bronchitis. 2. The patient with symptoms of diarrhea, may be viral in origin related to the diverticulosis. 3. The patient with mild anemia of chronic disease. 4. History of previous heavy nicotine abuse, stated not smoking cigarettes since 02/2019. 5. Moderate obesity. [place], [place] REPORT OF CONSULTATION NAME: JULIANNE HERNANDEZ UNIT #: [id number] ROOM: 518 DOCTOR: MIKEY IZQUIERDO MD BIRTHDATE: [birth year] PLAN OF MANAGEMENT: Continue bronchodilators, oxygen supplementation, antibiotics, and corticosteroids. Continuation of other therapy, plan of management, care plan treatment, other care. Usual care, other supportive plan of treatment. Additional treatment changes will be recommended and made based on progression of the illness or any new changes occurred during this hospitalization. Steroids will be gradually decreased based on improvement in symptoms. Today, the dose will remain the same. MIKEY PETERSON MD CM:CONSTR:REPORT OF CONSULTATION 1311 06/07/19 0106 interface
--- NOTE | ~2019-06-05 | PR ---
[place], [place] PROGRESS NOTE NAME: JULIANNE HERNANDEZ UNIT #: [id number] ROOM: 518 DOCTOR: MIKEY IZQUIERDO MD BIRTHDATE: [birth year] DOS: 06/10/2019 SUBJECTIVE: The patient was complaining of distention and bloating in the abdomen with pain. The patient denies symptoms of fever or chills. She was complaining of shortness of breath, which is increased today. Coughing and wheezing has been resolving gradually and progressively. OBJECTIVE: GENERAL: The patient has been noted comfortable at this time without any acute distress. VITAL SIGNS: Normal temperature, respiratory rate 18, heart rate 79, blood pressure 160/78. Pulse oxygen saturation on 4 liters nasal cannula 93% saturation recorded. HEENT: Examination shows head was atraumatic. Eyes nonicterus. NECK: Supple. CARDIOVASCULAR: S1, S2 is audible. LUNGS: Noted without any wheeze or crackles at the present time. ABDOMEN: Noted with mild distention. Bowel sounds present. Some tenderness in the central portion of the abdomen was noted. LABORATORY DATA: CBC: WBC count 12.5, hemoglobin recorded as 11.2 with normal platelet count. The creatinine 1.04. IMPRESSION: 1. The patient with resolving acute exacerbation of chronic obstructive pulmonary disease, acute tracheobronchitis. 2. Abdominal pain may be related to constipation other etiologies, being investigated by the primary care physician. The culture of the bronchial washing was noted as a growth of yeast. PLAN OF MANAGEMENT: No changes in the plan of care at this time. Continue to maximize the medical management including abdominal problem, resolution of the abdominal distention should result improvement in the shortness of breath. [place], [place] PROGRESS NOTE NAME: JULIANNE HERNANDEZ UNIT #: [id number] ROOM: 518 DOCTOR: MIKEY IZQUIERDO MD BIRTHDATE: [birth year] MIKEY PETERSON MD CM:PNTRANS [id number] MIKEY SALAS MD 06/10/19 1552 interface
--- NOTE | ~2019-06-05 | PR ---
[place], [place] PROGRESS NOTE NAME: JULIANNE HERNANDEZ UNIT #: [id number] ROOM: 518 DOCTOR: KRISTEN SALAS MD,MIKEY BIRTHDATE: [birth year] DOS: 06/12/2019 SUBJECTIVE: She has reported reduction in symptoms of shortness of breath today, abdominal bloating were noted, decreased using antacids. Denies symptoms of chest pain. Denies symptoms of sputum expectoration, mild cough was noted. Wheezing was resolving. OBJECTIVE: VITAL SIGNS: This morning, she was sitting on the bed this morning of assessment, normal temperature, respiratory rate 20, heart rate 92, blood pressure 130/74 recorded by the nursing staff, pulse oxygen saturation on nasal cannula 4 liters, 94% saturation. HEENT: Chronic obesity. Head was atraumatic. Eyes nonicterus. NECK: Supple. CARDIOVASCULAR: S1, S2 audible. LUNGS: Occasional wheezing, no crackles. Improvement in air entry continued. ABDOMEN: Soft, nontender with obesity. Bowel sounds present. EXTREMITIES: No acute change. IMPRESSION: Progressive and gradual resolution of acute exacerbation of chronic obstructive pulmonary disease noted, abdominal problem bloating, other which has been investigated and treated by the primary care team. PLAN OF MANAGEMENT: No changes in the plan of management, pulmonary standpoint. Continue current therapy as in progress. MIKEY PETERSON MD CM:PNTRANS [id number] MIKEY SALAS MD 06/12/19 1446 interface
--- NOTE | ~2019-06-05 | PR ---
[place], [place] PROGRESS NOTE NAME: JULIANNE HERNANDEZ UNIT #: [id number] ROOM: 518 DOCTOR: MIKEY IZQUIERDO MD BIRTHDATE: [birth year] DOS: 06/08/2019 SUBJECTIVE: The patient was noted comfortable at this time. The patient is resting, was still noted with symptoms of cough or, wheezing at the present time. She has not reported any symptoms of fever or chills. Denies symptoms of headache or diplopia. Cough remains severe, nonproductive. The remaining systems were reviewed, they were noted all negative. The patient remains n.p.o. past midnight for bronchoscopy, planned to be done today. OBJECTIVE: VITAL SIGNS: Normal temperature, respiratory rate 20, heart rate 78, blood pressure 145/77 recorded. Pulse oxygen saturation on 4 L nasal cannula 98% saturation recorded. HEENT: Examination shows head was atraumatic. Eyes nonicterus. NECK: Supple. CARDIOVASCULAR: S1, S2 audible. LUNGS: Reduction in the breath sounds, expiratory wheezing without any crackles. ABDOMEN: Soft, nontender. Bowel sounds present. EXTREMITIES: The patient noted without any acute edema. MUSCULOSKELETAL: Without any acute deformities. CENTRAL NERVOUS SYSTEM: Intact. IMPRESSION: 1. The patient with a stable chronic hypoxic respiratory failure. 2. Persistent acute exacerbation of chronic obstructive pulmonary disease, nonproductive cough, rule out mucus impaction. 3. History of obesity. 4. Previous history of nicotine dependence. PLAN OF MANAGEMENT: No change in plan of care at this time. Proceed with fibrobronchoscopy as planned today. Modification treatment if necessary will be done after bronchoscopy. Otherwise, previous plan of management will be continued at this time. [place], [place] PROGRESS NOTE NAME: JULIANNE HERNANDEZ UNIT #: [id number] ROOM: 518 DOCTOR: MIKEY IZQUIERDO MD BIRTHDATE: [birth year] MIKEY PETERSON MD CM:PNTRANS [id number] [id number] MIKEY SALAS MD 06/08/19 7026 interface
--- NOTE | ~2019-06-05 | PR ---
[place], [place] PROGRESS NOTE NAME: JULIANNE HERNANDEZ UNIT #: [id number] ROOM: 518 DOCTOR: MIKEY IZQUIERDO MD BIRTHDATE: [birth year] DOS: 06/11/2019 SUBJECTIVE: She was still complaining of symptoms of shortness of breath or wheezing at times, mild cough, abdominal distention and pain reported, which has been currently investigated by the primary care team. Denies symptoms of fever or chills. Denies symptoms of chest pain. OBJECTIVE: VITAL SIGNS: Normal temperature, respiratory rate of 20, heart rate of 89, blood pressure 170/82. The pulse oxygen saturation recorded as 92% saturation on 4 liters nasal cannula. HEENT: Examination shows head was atraumatic. Eyes nonicterus. NECK: Supple. CARDIOVASCULAR: S1, S2 is audible. LUNGS: Noted without any crackles, mild expiratory wheezing noted. ABDOMEN: Noted moderate distention. Bowel sounds present. EXTREMITIES: Without any acute edema. MUSCULOSKELETAL: Without any acute deformities. DIAGNOSTIC DATA: The patient had a CT scan of the chest that was done as well and was noted with a 5 x 10 mm nodule noted in the right lower lobe as well. IMPRESSION: 1. The patient with resolving acute exacerbation of chronic obstructive pulmonary disease. 2. Ongoing abdominal problem with the pain and other reasons. 3. Solitary nodule noted in the right lower lobe at this time, significance unknown, will be further investigated as an outpatient. PLAN OF CARE: Continuation of the current plan of management from the pulmonary standpoint. Continue to manage the abdominal problem. No change in the treatment will be necessary. Solitary pulmonary nodule assessment as an outpatient. Other therapy, plan of management, care plan of treatment. [place], [place] PROGRESS NOTE NAME: JULIANNE HERNANDEZ UNIT #: [id number] ROOM: 518 DOCTOR: MIKEY IZQUIERDO MD BIRTHDATE: [birth year] MIKEY PETERSON MD CM:PNTRANS 1329 1402 MIKEY SALAS MD 06/11/19 1402 interface
--- NOTE | ~2019-06-05 | EKG ---
[place], [place] ELECTROCARDIOGRAM REPORT NAME: JULIANNE HERNANDEZ UNIT #: [id number] ROOM: 518 DOCTOR: PREM DRAFT REPORT BIRTHDATE: [birth year] [facility] Test Date: 2019-06-05 Test Time: 07:59:39 Pat Name: JULIANNE HERNANDEZ Department: Room: 518 Gender: F Telephoto Engineer: : 1960 Requested By: AURELIA ZARAGOZA Order Number: [id number] Reading MD: Anayeli Stover MD Measurements Intervals [place] Rate: 91 P: 74 NC: 167 QRS: 79 QRSD: 80 T: 70 QT: 397 QTc: 489 Interpretive Statements Sinus rhythm Borderline prolonged QT interval Baseline wander in lead(s) V6 Compared to ECG 12/20/2018 12:23:14 No significant changes Electronically Signed On 06-05-2019 14:46:16 PDT by Anayeli Stover MD CM:EKGRPT:ELECTROCARDIOGRAM REPORT 0759 1446 AURELIA OROZCO DRAFT REPORT AURELIA ZARAGOZA DO
--- NOTE | ~2019-06-05 | PROC NOTE ---
[place], [place] PROCEDURE NOTE NAME: JULIANNE HERNANDEZ UNIT #: [id number] ROOM: 518 DOCTOR: KRISTEN SALAS MD,MIKEY BIRTHDATE: [birth year] DOS: 06/08/2019 BRONCHOSCOPY NOTE PREOPERATIVE DIAGNOSIS: Persistent nonresolving cough without any sputum expectoration. POSTOPERATIVE DIAGNOSES: Removal of large multiple plugs and mucus from the bilateral endobronchial subsegments. No endobronchial obstructive lesions. There were no obstructive lesions. PROCEDURE DESCRIPTION: Informed consent obtained with the patient. The patient brought to the OR and placed in supine position. Conscious sedation administered by the Anesthesia Department. After that, airway introduced into the mouth. Bronchoscope advanced to airway into laryngeal area. Epiglottis and vocal cords were seen. Vocal cords moving symmetrically with movements. Bronchoscope advanced vocal cords into the tracheal lumen. The tracheal lumen was identified with a significant amount of thick mucus secretion suctioned out to the argelia level. Right upper, right middle, right lower, left upper, lingula, lower lobe bronchi all examined. Moderate amount of thick mucus plugs noted in endobronchial subsegment, which were suctioned out with the help of normal saline wash, sent for culture. Procedure well tolerated by the patient without any complications. Postoperative findings will be discussed with the patient once recovered the effects of acute sedation. MIKEY PETERSON MD CM:PROCNOTE:PROCEDURE NOTE 1403 1626 MIKEY SALAS MD
--- NOTE | ~2019-06-05 | PR ---
[place], [place] PROGRESS NOTE NAME: JULIANNE HERNANDEZ UNIT #: [id number] ROOM: 518 DOCTOR: MIKEY IZQUIERDO MD BIRTHDATE: [birth year] DOS: 06/07/2019 SUBJECTIVE: She was reporting persistent severe nonproductive cough, shortness of breath with exertion and intermittent wheezing. Continued corticosteroids, bronchodilators and the antibiotics with only partial improvement stated by the patient. There were no symptoms of chest pain, but chest tightness was noted intermittently. Denies symptoms of fever or chills. Denies symptoms of hemoptysis. The remaining systems reviewed were noted negative. OBJECTIVE: VITAL SIGNS: Normal temperature at noon, respiratory rate 20, heart rate 72, blood pressure 150/69. Pulse oxygen saturation on 4 liters nasal cannula 96% saturation. HEENT: Head was atraumatic. Eyes nonicterus. NECK: Supple. CARDIOVASCULAR: S1, S2 is audible. LUNGS: Noted with decreased breath sounds in the lungs bilaterally with mild expiratory wheezing. There were no crackles. ABDOMEN: Soft and obese. EXTREMITIES: The patient without any acute edema. MUSCULOSKELETAL: Without any acute deformities. CENTRAL NERVOUS SYSTEM: Intact. LABORATORY DATA: The blood culture from the patient 06/05/2019 showed no bacterial growth. Final cultures are pending. BMP this morning, glucose 161, mildly elevated, otherwise remaining electrolytes, BUN and creatinine were normal. CBC: WBC count 18.3, hemoglobin 10.8, hematocrit 20, platelet count 225,000. IMPRESSION: 1. Persistent respiratory symptoms, nonproductive cough, wheezing, acute exacerbation of chronic obstructive pulmonary disease. 2. Hyperglycemia related to corticosteroids, which is noted mild. PLAN OF MANAGEMENT: No changes in the plan of care at this time would be necessary. All other treatment as in progress will be continued. Usual care, other supportive plan of therapy. She was planned to have a bronchoscopy done for the patient to help improve the patient's current secretion clearance because of severe nonproductive cough. Other additional treatment changes will be made based on the progression of the illness. [place], [place] PROGRESS NOTE NAME: JULIANNE HERNANDEZ UNIT #: [id number] ROOM: 518 DOCTOR: MIKEY IZQUIERDO MD BIRTHDATE: [birth year] MIKEY PETERSON MD CM:MARY 1455 14 MIKEY SALAS MD 06/07/19 2011 interface
--- NOTE | ~2019-06-05 | EKG ---
[place], [place] ELECTROCARDIOGRAM REPORT NAME: JULIANNE HERNANDEZ UNIT #: [id number] ROOM: 518 DOCTOR: PREM DRAFT REPORT BIRTHDATE: [birth year] [facility] Test Date: 2019-06-05 Test Time: 05:01:56 Pat Name: JULIANNE HERNANDEZ Department: Room: 518 Gender: F Loan Auditor: : 1960 Requested By: AURELIA ZARAGOZA Order Number: [id number] Reading MD: Anayeli Stover MD Measurements Intervals [place] Rate: 87 P: 67 NM: 171 QRS: 81 QRSD: 86 T: 73 QT: 408 QTc: 491 Interpretive Statements Sinus rhythm Borderline prolonged QT interval Baseline wander in lead(s) V5 Compared to ECG 12/20/2018 12:23:14 No significant changes Electronically Signed On 06-05-2019 14:46:09 PDT by Anayeli Stover MD CM:EKGRPT:ELECTROCARDIOGRAM REPORT 0501 1446 AURELIA OROZCO DRAFT REPORT AURELIA ZARAGOZA DO
[~2019-06-05 04:55] MED LIST changes: +ZITHROMAX250 MG PO
[2019-06-05 05:18] LABS: BASO # 0.1 10*3/uL (0.0-0.1); EOS # 0.2 10*3/uL (0.0-0.4); EOS % 2.3 % (1.0-4.0); HEMATOCRIT 38.4 % (37.0-47.0); HEMOGLOBIN 12.1 g/dl (12.0-16.0); LYMPH # 1.6 10*3/uL (1.3-4.4); LYMPH % 20.5 % (27.0-41.0); MEAN CELL VOLUME 92.1 fl (81.0-99.0); MEAN CORPUSCULAR HGB CONC 31.5 g/dl (33.0-37.0); MEAN PLATELET VOLUME 10.5 fl (9.6-12.3); MONO # 0.8 10*3/uL (0.1-1.0); MONO % 10.1 % (3.0-9.0); NEUT # 5.2 10*3/uL (2.3-7.9); NEUT % 65.3 % (47.0-73.0); PLATELET COUNT AUTOMATED 215 10*3/uL (130-400); RED BLOOD COUNT 4.17 10*6/uL (4.10-5.10); RED CELL DISTRI WIDTH 13.4 % (0-14.5); WHITE BLOOD COUNT 7.9 10*3/uL (4.8-10.8)
[2019-06-05 05:32] LABS: ACT PARTIAL THROMBO TIME 25.9 SECONDS (20.0-32.1)
[2019-06-05 05:35] LABS: ALBUMIN 3.6 gm/dl (3.1-4.5); ALKALINE PHOSPHATASE 146 U/L (45-117); BUN 13 mg/dl (7-24); CHLORIDE 102 mmol/L (98-107); CREATININE 0.98 mg/dL (0.55-1.02); POTASSIUM 3.7 mmol/L (3.5-5.1); SGOT/AST 10 IU/L (3-35); SGPT/ALT 18 U/L (12-78); SODIUM 140 mmol/L (136-145); TOTAL PROTEIN 7.5 gm/dL (6.4-8.2)
[2019-06-05 05:42] LABS: TROPONIN I < 0.015 ng/ml (<0.045)
[2019-06-05] MEDS ORDERED: LIPITOR20 MG PO (08:09)
[2019-06-06] VITALS: BP 160/76
[2019-06-06 06:16] LABS: BASO % 0.2 % (0.0-1.0); HEMATOCRIT 36.1 % (37.0-47.0); HEMOGLOBIN 11.2 g/dl (12.0-16.0); LYMPH # 1.2 10*3/uL (1.3-4.4); LYMPH % 9.8 % (27.0-41.0); MEAN CELL VOLUME 92.1 fl (81.0-99.0); MEAN CORPUSCULAR HGB 28.6 pg (27.0-31.0); MEAN PLATELET VOLUME 11.3 fl (9.6-12.3); MONO # 0.4 10*3/uL (0.1-1.0); MONO % 3.2 % (3.0-9.0); NEUT # 10.7 10*3/uL (2.3-7.9); NEUT % 84.6 % (47.0-73.0); PLATELET COUNT AUTOMATED 234 10*3/uL (130-400); RED BLOOD COUNT 3.92 10*6/uL (4.10-5.10); RED CELL DISTRI WIDTH 13.8 % (0-14.5); WHITE BLOOD COUNT 12.6 10*3/uL (4.8-10.8)
[2019-06-06 06:47] LABS: ALBUMIN 3.4 gm/dl (3.1-4.5); POTASSIUM 3.9 mmol/L (3.5-5.1)
[2019-06-06 06:50] LABS: CREATININE 1.14 mg/dL (0.55-1.02); TOTAL PROTEIN 7.4 gm/dL (6.4-8.2)
[2019-06-06 12:00] VITALS: BP 155/82
[2019-06-06 16:00] VITALS: BP 141/61
[2019-06-06 20:00] VITALS: BP 153/81
[2019-06-07] VITALS: BP 123/58
[2019-06-07 06:19] LABS: BASO % 0.1 % (0.0-1.0); HEMATOCRIT 34.7 % (37.0-47.0); HEMOGLOBIN 10.8 g/dl (12.0-16.0); LYMPH # 1.3 10*3/uL (1.3-4.4); MEAN CORPUSCULAR HGB 28.6 pg (27.0-31.0); MEAN CORPUSCULAR HGB CONC 31.1 g/dl (33.0-37.0); MEAN PLATELET VOLUME 11.3 fl (9.6-12.3); MONO # 0.5 10*3/uL (0.1-1.0); MONO % 2.8 % (3.0-9.0); NEUT # 16.3 10*3/uL (2.3-7.9); NEUT % 88.7 % (47.0-73.0); PLATELET COUNT AUTOMATED 225 10*3/uL (130-400); RED BLOOD COUNT 3.77 10*6/uL (4.10-5.10); WHITE BLOOD COUNT 18.3 10*3/uL (4.8-10.8)
[2019-06-07 06:53] LABS: BUN 20 mg/dl (7-24); CHLORIDE 104 mmol/L (98-107); CREATININE 0.81 mg/dL (0.55-1.02); SODIUM 140 mmol/L (136-145)
[2019-06-07 08:00] VITALS: BP 148/64
[2019-06-07] MEDS ORDERED: NEBULIZER DEVI (11:46)
[2019-06-07 12:00] VITALS: BP 150/69
[2019-06-07 16:00] VITALS: BP 161/83
[2019-06-07 20:00] VITALS: BP 161/72
[2019-06-08] VITALS (10 sets, daily range): BP systolic 131–191; BP diastolic 72–98
[2019-06-09] VITALS: BP 167/81
[2019-06-09 08:00] VITALS: BP 156/82
[2019-06-09 12:00] VITALS: BP 168/83
[2019-06-09 16:00] VITALS: BP 143/74
[2019-06-09 20:00] VITALS: BP 157/85
[2019-06-10] VITALS: BP 165/68
[2019-06-10 07:11] LABS: HEMATOCRIT 35.8 % (37.0-47.0); HEMOGLOBIN 11.2 g/dl (12.0-16.0); MEAN CELL VOLUME 89.7 fl (81.0-99.0); MEAN CORPUSCULAR HGB 28.1 pg (27.0-31.0); MEAN CORPUSCULAR HGB CONC 31.3 g/dl (33.0-37.0); MEAN PLATELET VOLUME 11.6 fl (9.6-12.3); PLATELET COUNT AUTOMATED 211 10*3/uL (130-400); RED BLOOD COUNT 3.99 10*6/uL (4.10-5.10); RED CELL DISTRI WIDTH 13.2 % (0-14.5); WHITE BLOOD COUNT 12.5 10*3/uL (4.8-10.8)
[2019-06-10 07:36] LABS: CREATININE 1.04 mg/dL (0.55-1.02)
[2019-06-10 08:00] VITALS: BP 160/78; BP 192/98
[2019-06-10 08:10] LABS: PLATELET SUFFICIENCY NORMAL (NORMAL); TOTAL CELLS COUNTED 100 #CELLS
[2019-06-10 15:06] LABS: ACID FAST SPEC PROCESSING Concentration (.)
[2019-06-10 16:00] VITALS: BP 177/85
[2019-06-10 20:00] VITALS: BP 150/80
[2019-06-11] VITALS: BP 174/93
[2019-06-11 06:53] LABS: HEMATOCRIT 37.8 % (37.0-47.0); HEMOGLOBIN 11.9 g/dl (12.0-16.0); MEAN CELL VOLUME 90.6 fl (81.0-99.0); MEAN CORPUSCULAR HGB 28.5 pg (27.0-31.0); MEAN CORPUSCULAR HGB CONC 31.5 g/dl (33.0-37.0); MEAN PLATELET VOLUME 11.6 fl (9.6-12.3); PLATELET COUNT AUTOMATED 227 10*3/uL (130-400); RED BLOOD COUNT 4.17 10*6/uL (4.10-5.10); RED CELL DISTRI WIDTH 13.4 % (0-14.5); WHITE BLOOD COUNT 14.4 10*3/uL (4.8-10.8)
[2019-06-11 07:27] LABS: BUN 22 mg/dl (7-24); CHLORIDE 97 mmol/L (98-107); POTASSIUM 3.6 mmol/L (3.5-5.1); SODIUM 138 mmol/L (136-145)
[2019-06-11 07:30] LABS: CREATININE 0.88 mg/dL (0.55-1.02)
[2019-06-11 07:37] LABS: PLATELET SUFFICIENCY NORMAL (NORMAL); TOTAL CELLS COUNTED 100 #CELLS
[2019-06-11 08:00] VITALS: BP 178/82
[2019-06-11 12:00] VITALS: BP 159/75
[2019-06-11 16:00] VITALS: BP 160/78; BP 186/90
[2019-06-11 20:00] VITALS: BP 168/87
[2019-06-12] VITALS: BP 159/88
[2019-06-12 08:00] VITALS: BP 130/74
[2019-06-12 10:19] VITALS: BP 174/76
[2019-06-12] MEDS ORDERED: DOXYCYCLINE100 M3 PO (11:54)
[2019-06-12] MEDS ORDERED: LISINOPRIL5 MG PO (11:54)
[2019-06-12] MEDS ORDERED: PREDNISONE10 MG PO (11:54)
[2019-06-12 12:00] VITALS: BP 168/88
[2019-07-10 17:08] LABS: ACID FAST CULTURE Positive (.); M AVIUM COMPLEX Positive (.); M GORDONAE Not Indicated (.); M KANSASII Not Indicated (.); M TUBERCULOSIS COMPLEX Negative (.)
== END 2019-06-12 13:57 | disposition home or self-care (01) | DRG 720 ==
LOC: ED 04:55 → EDHOLD 06:32 → 5E 06:32
PROVIDERS: Emergency Medicine; Family Medicine; Internal Medicine Critical Care Medicine; Student in an Organized Health Care Education/Training Program; ADMIT Internal Medicine
PROC: 0BC98ZZ Extirpation of Matter from Lingula Bronchus, Via Natural or Artificial Opening Endoscopic (ICD-10-PCS; principal; 2019-06-08)
PROC: 0BC48ZZ Extirpation of Matter from Right Upper Lobe Bronchus, Via Natural or Artificial Opening Endoscopic (ICD-10-PCS; 2019-06-08)
PROC: 0BC88ZZ Extirpation of Matter from Left Upper Lobe Bronchus, Via Natural or Artificial Opening Endoscopic (ICD-10-PCS; 2019-06-08)
PROC: 0BC58ZZ Extirpation of Matter from Right Middle Lobe Bronchus, Via Natural or Artificial Opening Endoscopic (ICD-10-PCS; 2019-06-08)
PROC: 0BC38ZZ Extirpation of Matter from Right Main Bronchus, Via Natural or Artificial Opening Endoscopic (ICD-10-PCS; 2019-06-08)
PROC: 0BC78ZZ Extirpation of Matter from Left Main Bronchus, Via Natural or Artificial Opening Endoscopic (ICD-10-PCS; 2019-06-08)
PROC: 0BC68ZZ Extirpation of Matter from Right Lower Lobe Bronchus, Via Natural or Artificial Opening Endoscopic (ICD-10-PCS; 2019-06-08)
PROC: 0BCB8ZZ Extirpation of Matter from Left Lower Lobe Bronchus, Via Natural or Artificial Opening Endoscopic (ICD-10-PCS; 2019-06-08)
PROC: 0BC18ZZ Extirpation of Matter from Trachea, Via Natural or Artificial Opening Endoscopic (ICD-10-PCS; 2019-06-08)
DX: A41.9 Sepsis, unspecified organism (principal); J18.9 Pneumonia, unspecified organism; J44.1 Chronic obstructive pulmonary disease with (acute) exacerbation; J44.0 Chronic obstructive pulmonary disease with (acute) lower respiratory infection; R73.9 Hyperglycemia, unspecified; I25.10 Atherosclerotic heart disease of native coronary artery without angina pectoris; N18.3 Chronic kidney disease, stage 3 (moderate); E66.9 Obesity, unspecified; J96.11 Chronic respiratory failure with hypoxia; K21.9 Gastro-esophageal reflux disease without esophagitis; K57.90 Diverticulosis of intestine, part unspecified, without perforation or abscess without bleeding; F17.210 Nicotine dependence, cigarettes, uncomplicated; E04.2 Nontoxic multinodular goiter; I12.9 Hypertensive chronic kidney disease with stage 1 through stage 4 chronic kidney disease, or unspecified chronic kidney disease; Z88.5 Allergy status to narcotic agent; Z88.0 Allergy status to penicillin; I25.2 Old myocardial infarction; Z90.49 Acquired absence of other specified parts of digestive tract; Z90.710 Acquired absence of both cervix and uterus; Z82.49 Family history of ischemic heart disease and other diseases of the circulatory system; Z80.9 Family history of malignant neoplasm, unspecified; Z79.82 Long term (current) use of aspirin; Z79.899 Other long term (current) drug therapy; Z68.36 Body mass index [BMI] 36.0-36.9, adult

== ENCOUNTER → 2019-06-24 | Outpatient (CLI) | payer OTHER ==
[~2019-06-24] MED LIST changes: +LIPITOR20 MG PO; +LISINOPRIL5 MG PO; +NEBULIZER DEVI; +VISTARIL25 MG PO
== END | disposition home or self-care (01) ==
LOC: RESCLI 00:50
DX: J44.9 Chronic obstructive pulmonary disease, unspecified (principal); R73.03 Prediabetes; E78.2 Mixed hyperlipidemia; J30.9 Allergic rhinitis, unspecified; F41.9 Anxiety disorder, unspecified; E55.9 Vitamin D deficiency, unspecified; I10 Essential (primary) hypertension; M54.5 Low back pain; G89.29 Other chronic pain; I25.10 Atherosclerotic heart disease of native coronary artery without angina pectoris; G47.00 Insomnia, unspecified; K21.0 Gastro-esophageal reflux disease with esophagitis; R92.8 Other abnormal and inconclusive findings on diagnostic imaging of breast; H26.9 Unspecified cataract; E66.9 Obesity, unspecified; E04.1 Nontoxic single thyroid nodule; R91.1 Solitary pulmonary nodule; R13.12 Dysphagia, oropharyngeal phase; Z68.34 Body mass index [BMI] 34.0-34.9, adult; Z79.899 Other long term (current) drug therapy

== ENCOUNTER → 2019-07-30 | Outpatient (CLI) | payer OTHER ==
--- NOTE | ~2019-07-30 | ST ---
[place], [place] EXERCISE STRESS TEST REPORT NAME: JULIANNE HERNANDEZ UNIT #: [id number] ROOM: DOCTOR: AUSTIN REA MD BIRTHDATE: [birth year] DOS: PHARMACOLOGICAL NUCLEAR STRESS TEST REASON FOR TESTING: Chest pain, atypical. Baseline EKG, normal sinus rhythm, normal EKG. PROCEDURE: The patient received a rapid infusion of regadenoson 0.4 mg, followed by saline flush. Prior to the procedure, informed consent was obtained. The patient experienced nausea and dyspnea symptoms. There were no EKG changes. There was an appropriate heart rate response to the infusion. Isotope was injected 40 seconds later. IMPRESSION: Well tolerated pharmacological stress test. Please see the separate imaging report for further details of the stress test results. Austin Rea MD CM:STRESS:EXERCISE STRESS TEST REPORT 6 6 AUSTIN REA MD
== END | disposition home or self-care (01) ==
LOC: CARD 00:53
DX: R07.2 Precordial pain (principal); R53.81 Other malaise

== ENCOUNTER → 2019-09-04 | Outpatient (CLI) | payer OTHER | END | disposition home or self-care (01) | LOC: RESCLI 00:40 | DX: J44.9 Chronic obstructive pulmonary disease, unspecified (principal); E78.2 Mixed hyperlipidemia; J30.9 Allergic rhinitis, unspecified; F41.9 Anxiety disorder, unspecified; E55.9 Vitamin D deficiency, unspecified; I10 Essential (primary) hypertension; M54.5 Low back pain; G89.29 Other chronic pain; I25.10 Atherosclerotic heart disease of native coronary artery without angina pectoris; G47.00 Insomnia, unspecified; K21.0 Gastro-esophageal reflux disease with esophagitis; R92.8 Other abnormal and inconclusive findings on diagnostic imaging of breast; H26.9 Unspecified cataract; E66.9 Obesity, unspecified; J44.1 Chronic obstructive pulmonary disease with (acute) exacerbation; F17.200 Nicotine dependence, unspecified, uncomplicated; E04.1 Nontoxic single thyroid nodule; R91.1 Solitary pulmonary nodule; R13.12 Dysphagia, oropharyngeal phase; R73.03 Prediabetes; Z79.899 Other long term (current) drug therapy; Z90.49 Acquired absence of other specified parts of digestive tract; Z90.710 Acquired absence of both cervix and uterus ==

== ENCOUNTER → 2019-09-08 | Outpatient (CLI) | payer OTHER ==
--- NOTE | 2019-09-08 09:46 | NUR ---
SPEECH PATHOLOGY Outpatient MBS completed as per orders. Patient reported swelling in her throat and feeling of globus when swallowing which has been occurring for the past few months. She reported medical history significant for two thyroid nodules, a spot on her right lung and spot on her right breast, as well as HTN, COPD and heart problems. Patient underwent CT scan of neck/soft tissue 05/26/19 which stated that airway appeared patent, no opague foreign body and epiglottis appeared normal. Patient receives a regular diet and thin liquid and reported no decrease in appetite or weight loss. She was assessed with applesauce mixed with barium, barium coated bread and cookie and thin liquid by cup and straw. Results revealed oral and pharyngeal swallowing skills WNL across all consistencies. Recommend she remain on a regular diet and thin liquid. Patient may benefit from consult with ENT due to her symptoms. Results and gilberto. were shared with patient and she verbalized understanding. Dictated report to follow. Thank you for this referral. VOLODYMYR RUSH [employer] ACTIVITIES AIDE
== END | disposition home or self-care (01) ==
LOC: MAMMO 08:20 → RAD/SH 08:20 → MAMMO 09:00
DX: R13.12 Dysphagia, oropharyngeal phase (principal); R92.8 Other abnormal and inconclusive findings on diagnostic imaging of breast

== ENCOUNTER 2019-11-26 14:25 | Emergency (ER) | payer OTHER ==
[2019-11-26 14:31] VITALS: BP 133/94
[2019-11-26] MEDS ORDERED: NORCO 5-325 TA1 EACH PO (15:34)
[2019-11-26] MEDS ORDERED: ULTRAM50 MG PO (16:43)
== END 2019-11-26 16:00 | disposition home or self-care (01) ==
LOC: ED 14:25
DX: M54.16 Radiculopathy, lumbar region (principal); J44.9 Chronic obstructive pulmonary disease, unspecified; K21.9 Gastro-esophageal reflux disease without esophagitis; I25.2 Old myocardial infarction; I10 Essential (primary) hypertension; Z88.0 Allergy status to penicillin; Z88.8 Allergy status to other drugs, medicaments and biological substances; Z79.899 Other long term (current) drug therapy; Z79.82 Long term (current) use of aspirin; Z90.49 Acquired absence of other specified parts of digestive tract; Z90.710 Acquired absence of both cervix and uterus; Z87.891 Personal history of nicotine dependence

== ENCOUNTER 2020-03-03 14:49 | Inpatient (IN) | payer MEDICARE, MEDICAID ==
[~2020-03-03] VITALS: Ht 167.6 cm; Wt 101.3 kg
[~2020-03-03 14:49] MED LIST changes: +NORCO 5-325 TA1 EACH PO; +ULTRAM50 MG PO
[2020-03-03 14:55] VITALS: BP 125/65
[2020-03-03 15:20] LABS: BASO # 0.1 10*3/uL (0.0-0.1); BASO % 0.7 % (0.0-1.0); EOS # 0.3 10*3/uL (0.0-0.4); EOS % 2.4 % (1.0-4.0); HEMATOCRIT 38.6 % (37.0-47.0); LYMPH # 2.9 10*3/uL (1.3-4.4); LYMPH % 27.2 % (27.0-41.0); MEAN CELL VOLUME 87.5 fl (81.0-99.0); MEAN CORPUSCULAR HGB 27.7 pg (27.0-31.0); MEAN CORPUSCULAR HGB CONC 31.6 g/dl (33.0-37.0); MEAN PLATELET VOLUME 10.5 fl (9.6-12.3); MONO # 0.6 10*3/uL (0.1-1.0); MONO % 6.1 % (3.0-9.0); NEUT # 6.7 10*3/uL (2.3-7.9); NEUT % 63.1 % (47.0-73.0); PLATELET COUNT AUTOMATED 267 10*3/uL (130-400); RED BLOOD COUNT 4.41 10*6/uL (4.10-5.10); RED CELL DISTRI WIDTH 13.9 % (0-14.5); WHITE BLOOD COUNT 10.6 10*3/uL (4.8-10.8)
[2020-03-03 15:43] LABS: ALBUMIN 3.6 gm/dl (3.1-4.5); ALKALINE PHOSPHATASE 186 U/L (45-117); BUN 13 mg/dl (7-24); CHLORIDE 104 mmol/L (98-107); POTASSIUM 3.6 mmol/L (3.5-5.1); SGOT/AST 20 IU/L (3-35); SGPT/ALT 42 U/L (12-78); SODIUM 140 mmol/L (136-145); TOTAL PROTEIN 7.7 gm/dL (6.4-8.2)
[2020-03-03 16:00] VITALS: BP 129/67
[2020-03-03 17:00] VITALS: BP 131/77
[2020-03-03 18:00] VITALS: BP 127/72
--- NOTE | 2020-03-03 18:34 | NUR ---
MSTime: 183 A 59 year old FEMALE admitted to under services of BHARATI HURLEY DO, Pt. arrived via bed from ER. Chief complaint: CROW SHEARER
[2020-03-03 18:38] VITALS: BP 132/69
--- NOTE | 2020-03-03 18:42 | NUR ---
IV BOLUS INITIATED PER ORDER.
[2020-03-03] MEDS ORDERED: MELATONIN10 M4 PO (18:45)
[2020-03-03] MEDS ORDERED: ALLEGRA ALLERG180 M2 PO (18:46)
[2020-03-03] MEDS ORDERED: SYMB160 INH (18:49)
--- NOTE | 2020-03-03 18:49 | NUR ---
NOTIFIED OF CONSULT.
--- NOTE | 2020-03-03 18:50 | NUR ---
MED REC UPDATED PER POLICY.
--- NOTE | 2020-03-03 19:10 | NUR ---
24 HR CHART CHECK COMPLETE.
--- NOTE | 2020-03-03 19:30 | NUR ---
PT SITTING UP IN BED EATING AT THIS TIME. NO S/S OF DISTRESS NOTED. PT UTILIZING 2L NC AT THIS TIME. RESPS ARE EASY AND NONLABORED. VITALS WNL. BED LOW, CALL LIGHT WITHIN REACH. WILL CONTINUE TO MONITOR.
[2020-03-03 20:00] VITALS: BP 167/86
--- NOTE | 2020-03-03 22:28 | NUR ---
PT MEDICATED WITH PRN RESTORIL FOR C/O INSOMNIA. WILL MONITOR FOR EFFECTIVENESS.
--- NOTE | 2020-03-03 23:30 | NUR ---
PT ASLEEP IN BED AT THIS TIME. PRN RESTORIL EFFECTIVE.
[2020-03-04] VITALS: BP 131/69
--- NOTE | 2020-03-04 04:06 | NUR ---
PT MEDICATED WITH PRN VISTARIL FOR C/O ANXIETY. WILL MONITOR FOR EFFECTIVENESS.
--- NOTE | 2020-03-04 04:50 | NUR ---
PT REPORTS RELIEF OF ANXIETY AT THIS TIME. PRN VISTARIL EFFECTIVE.
[2020-03-04 06:16] LABS: BASO % 0.2 % (0.0-1.0); HEMATOCRIT 35.8 % (37.0-47.0); LYMPH # 1.2 10*3/uL (1.3-4.4); LYMPH % 9.7 % (27.0-41.0); MEAN CELL VOLUME 86.7 fl (81.0-99.0); MEAN CORPUSCULAR HGB 27.4 pg (27.0-31.0); MEAN CORPUSCULAR HGB CONC 31.6 g/dl (33.0-37.0); MEAN PLATELET VOLUME 11.6 fl (9.6-12.3); MONO # 0.2 10*3/uL (0.1-1.0); MONO % 1.2 % (3.0-9.0); NEUT # 10.7 10*3/uL (2.3-7.9); NEUT % 87.5 % (47.0-73.0); PLATELET COUNT AUTOMATED 280 10*3/uL (130-400); RED BLOOD COUNT 4.13 10*6/uL (4.10-5.10); RED CELL DISTRI WIDTH 14.1 % (0-14.5); WHITE BLOOD COUNT 12.2 10*3/uL (4.8-10.8)
[2020-03-04 06:32] LABS: ALBUMIN 3.2 gm/dl (3.1-4.5); CREATININE 1.2 mg/dL (0.55-1.02); POTASSIUM 4.1 mmol/L (3.5-5.1); TOTAL PROTEIN 7.3 gm/dL (6.4-8.2)
[2020-03-04 07:52] VITALS: BP 142/84
--- NOTE | 2020-03-04 07:52 | NUR ---
TOOK OVER CARE OF PT. PT SITTING UP IN BED.ALERT ORIENTED AND PLEASANT. NO S/S OF DISTRESS NOTED. MANUAL BP OBTAINED AND PT EDUCATED ON MEDS THAT SHE WILL RECEIVE WHILE ADMITTED. RESPIRATIONS UNLABORED ON 2L NC. ASSESSMENT COMPLETE, SCHEDULED MEDS GIVEN. CALL LIGHT IN REACH.
--- NOTE | 2020-03-04 08:30 | NUR ---
Mushroom Picker in to talk to patient. Patient states lives at home with a roommate. There are 1-2 steps in the home. Physician: clinic [facility]acy[facility] Home health services: none Patient's level of ADLs: INDEPENDENT Patient has working utilities: yes DME: O2 @ 4L during the day, 2L at HS, portable O2 tanks, nebulizer, O2 supplier [employer] Follow-up physician's appointment after d/c: will be made by the hospitalist nurse director upon discharge Does patient want to access PORTAL?: no Discharge plan discussed with patient. She lives at home with a roommate. She is independent in her ADLs and ambulation. Discussed home health care and she denies any home needs at this time. When medically stable she will be discharged to home. She states her roommate will provide transportation on discharge. NOLA VIDAL
--- NOTE | 2020-03-04 09:00 | NUR ---
AM MEDS GIVEN AT THIS TIME. NO COMPLAINTS ARE VOICED BY PT AT THIS TIME. VITALS WNL. RESPIRATIONS EASY AND UNLABORED ON 2L NC. WILL CONTINUE TO MONITOR. CALL LIGHT IN REACH.
[2020-03-04 12:00] VITALS: BP 144/78
--- NOTE | 2020-03-04 14:39 | NUR ---
PT GIVEN VISTARIL 25 MG PO AT THIS TIME FOR COMPLAINTS OF RESTLESSNESS/ANXIETY. WILL MONITOR FOR EFFECTIVENESS. CALL LIGHT IN REACH.
--- NOTE | 2020-03-04 15:39 | NUR ---
VISTARIL EFFECTIVE PER PT.
[2020-03-04 16:00] VITALS: BP 130/81
--- NOTE | 2020-03-04 19:09 | NUR ---
24 hr chart check complete.
[2020-03-04 20:00] VITALS: BP 118/78; BP 160/76
--- NOTE | 2020-03-04 20:37 | NUR ---
PT MEDICATED WITH PRN VISTARIL FOR C/O ANXIETY. WILL MONITOR FOR EFFECTIVENESS.
--- NOTE | 2020-03-04 21:20 | NUR ---
PT REPORTS RELIEF FROM ANXIETY. PRN VISTARIL EFFECTIVE.
--- NOTE | 2020-03-04 22:09 | NUR ---
PT MEDICATED WITH PRN RESTORIL FOR C/O INSOMNIA. WILL MONITOR FOR EFFECTIVENESS.
[2020-03-05] VITALS: BP 157/77
[2020-03-05 08:00] VITALS: BP 137/67
--- NOTE | 2020-03-05 08:30 | NUR ---
Sword Swallower in to see patient. No new needs or request at this time. She denies any home needs. When medically stable she will be discharged to home.
--- NOTE | 2020-03-05 09:18 | NUR ---
PT GIVEN VISTARIL 25MG AT THIS TIME FOR C/O ANXIETY S/S. WILL MONITOR FOR EFFECTIVENESS. PT SITTING UP IN BED. CALL LIGHT IN REACH.
--- NOTE | 2020-03-05 10:18 | NUR ---
PT STATES THAT VISTARIL IS EFFECTIVE AT THIS TIME.
[2020-03-05 12:00] VITALS: BP 138/73
[2020-03-05 16:00] VITALS: BP 144/82
[2020-03-05 20:00] VITALS: BP 152/73
--- NOTE | 2020-03-05 20:02 | NUR ---
MEDICATED WITH VISTARIL FOR C/O ANXIETY.
--- NOTE | 2020-03-05 21:00 | NUR ---
STATES VISTARIL EFFECTIVE.
--- NOTE | 2020-03-05 21:39 | NUR ---
MEDICATED WITH RESTORIL FOR C/O INSOMNIA.
--- NOTE | 2020-03-05 22:30 | NUR ---
RESTING IN BED WITH EYES CLOSED; RESTORIL APPARENTLY EFFECTIVE.
[2020-03-06] VITALS: BP 155/74
--- NOTE | 2020-03-06 02:00 | NUR ---
RESTING IN BED WITH EYES CLOSED; CALL LIGHT WITHIN REACH.
--- NOTE | 2020-03-06 05:05 | NUR ---
HEP LOCK BLOODY AT SITE & IS OCCLUDED; WILL START NEW IV.
--- NOTE | 2020-03-06 05:10 | NUR ---
IV started left forearm with #22 protective cath after 1 attempts. Site prepped with Chloroprep. Sterile dressing applied. Patient tolerated procedure well. IV infusing at cc/hr. MONSE GALLAGHER
--- NOTE | 2020-03-06 05:16 | NUR ---
MEDICATED WITH VISTARIL FOR C/O ANXIETY.
--- NOTE | 2020-03-06 06:10 | NUR ---
VOICES NO C/O ANXIETY AT THIS TIME; VISTARIL GIVEN EARLIER APPARENTLY EFFECTIVE. CALL LIGHT REMAINS WITHIN REACH.
[2020-03-06 08:00] VITALS: BP 142/77
[2020-03-06] MEDS ORDERED: MUCUS RELIEF600 MG PO (08:49)
[2020-03-06] MEDS ORDERED: LEVAQUIN500 M2 PO (08:49)
[2020-03-06] MEDS ORDERED: PREDNISONE10 MG PO (08:49)
--- NOTE | 2020-03-06 11:30 | NUR ---
Discharge instructions reviewed with patient/family. Patient receptive and verbalizes understanding. Follow-up care arranged. Written instructions given to patient/family. YUAN PEREZ
--- NOTE | 2020-03-06 11:35 | NUR ---
PT STATES THAT SHE WILL NOTIFY THIS NURSE WHEN HER RIDE IS HERE AND WILL BE TAKEN DOWN BY W/C TO ED PARKING LOT.
--- NOTE | 2020-03-06 12:25 | NUR ---
PT LEAVES FLOOR AT THIS TIME VIA W/C WITH PATIENT ATTENDANT.
--- NOTE | 2020-03-06 15:05 | NUR ---
Assessment completed at 03/06/2020 at 11:45am. Patient expressed complaints of SOB and expressed no complaints of pain. She expressed having difficulty with expectorating mucous. She was admitted with COPD exacerbation. Her skin was an appropriate color and temperature and her scleras were clear. She stated that there was a small bruise on R arm from a previous antecubital IV. The IV site in her L wrist was free of redness and edema. Her vitals include: 96.4 F temporal, regular shallow respirations 20, HR 74, and O2 91% on 2L via nasal cannula. She had diminished breath sounds bilaterally. There was no pedal edema bilaterally. Her toes were pink and there were no visible wounds. The patient was prepared and educated for discharge with her nurse. Her at home medication regimine and O2 use were explained and the patient was given a physical copy of COPD education: she verbalized understanding. The pharmacy was contacted and filled her prescriptions for at home use. Patient verbally expressed an understanding for at home care, and she stated that she has a roommate and family nearby that can provide her with at home care if needed. The IV in her L wrist was removed, and a pressure dressing was applied- patient tollerated well. Patient had breathing treatment with RT and tollerated it well. Patient was ambulated via wheelchair upon discharge. Vitaly RODRIGES
== END 2020-03-06 12:25 | disposition home or self-care (01) | DRG 871 ==
LOC: ED 14:49 → 4E 17:13 → EDHOLD 17:13 → 4E 18:13
PROVIDERS: Internal Medicine; Physician Assistant; ADMIT Internal Medicine
DX: A41.9 Sepsis, unspecified organism (principal); J18.9 Pneumonia, unspecified organism; J44.1 Chronic obstructive pulmonary disease with (acute) exacerbation; E87.2 Acidosis; J44.0 Chronic obstructive pulmonary disease with (acute) lower respiratory infection; J96.11 Chronic respiratory failure with hypoxia; J20.9 Acute bronchitis, unspecified; R73.9 Hyperglycemia, unspecified; I25.10 Atherosclerotic heart disease of native coronary artery without angina pectoris; K21.9 Gastro-esophageal reflux disease without esophagitis; I12.9 Hypertensive chronic kidney disease with stage 1 through stage 4 chronic kidney disease, or unspecified chronic kidney disease; N18.3 Chronic kidney disease, stage 3 (moderate); E66.9 Obesity, unspecified; K57.90 Diverticulosis of intestine, part unspecified, without perforation or abscess without bleeding; T38.0X5A Adverse effect of glucocorticoids and synthetic analogues, initial encounter; Y92.89 Other specified places as the place of occurrence of the external cause; Z90.49 Acquired absence of other specified parts of digestive tract; Z90.710 Acquired absence of both cervix and uterus; Z80.0 Family history of malignant neoplasm of digestive organs; Z88.0 Allergy status to penicillin; Z88.5 Allergy status to narcotic agent; I25.2 Old myocardial infarction; Z85.41 Personal history of malignant neoplasm of cervix uteri; Z90.722 Acquired absence of ovaries, bilateral; Z87.891 Personal history of nicotine dependence; Z79.82 Long term (current) use of aspirin; Z79.899 Other long term (current) drug therapy; Z68.35 Body mass index [BMI] 35.0-35.9, adult

== ENCOUNTER 2020-03-20 12:34 | Inpatient (IN) | payer MEDICARE, MEDICAID ==
[~2020-03-20] VITALS: Ht 170.1 cm; Wt 104.0 kg
[~2020-03-20 12:34] MED LIST changes: +ALLEGRA ALLERG180 M2 PO; +MELATONIN10 M4 PO; +MUCUS RELIEF600 MG PO; +SYMB160 INH
[2020-03-20 12:44] VITALS: BP 130/54
[2020-03-20 13:29] LABS: BASO # 0.1 10*3/uL (0.0-0.1); BASO % 0.4 % (0.0-1.0); EOS # 0.1 10*3/uL (0.0-0.4); EOS % 0.5 % (1.0-4.0); HEMATOCRIT 34.9 % (37.0-47.0); LYMPH # 2.4 10*3/uL (1.3-4.4); LYMPH % 17.9 % (27.0-41.0); MEAN CELL VOLUME 89.3 fl (81.0-99.0); MEAN CORPUSCULAR HGB 27.6 pg (27.0-31.0); MEAN CORPUSCULAR HGB CONC 30.9 g/dl (33.0-37.0); MEAN PLATELET VOLUME 10.1 fl (9.6-12.3); MONO # 0.7 10*3/uL (0.1-1.0); MONO % 5.3 % (3.0-9.0); PLATELET COUNT AUTOMATED 197 10*3/uL (130-400); RED BLOOD COUNT 3.91 10*6/uL (4.10-5.10); RED CELL DISTRI WIDTH 15.8 % (0-14.5); WHITE BLOOD COUNT 13.5 10*3/uL (4.8-10.8)
--- NOTE | 2020-03-20 13:29 | NUR ---
PT AMBULATING TO/FROM RESTROOM W/O DIFFICULTY,INCREASED SOB WITH EXERTION NOTED.
[2020-03-20 13:47] LABS: ALBUMIN 3.1 gm/dl (3.1-4.5); ALKALINE PHOSPHATASE 144 U/L (45-117); BUN 26 mg/dl (7-24); CHLORIDE 101 mmol/L (98-107); CREATININE 0.99 mg/dL (0.55-1.02); POTASSIUM 4.5 mmol/L (3.5-5.1); SGOT/AST 22 IU/L (3-35); SGPT/ALT 94 U/L (12-78); SODIUM 138 mmol/L (136-145); TOTAL PROTEIN 6.6 gm/dL (6.4-8.2)
[2020-03-20 13:50] VITALS: BP 134/58
[2020-03-20 14:39] VITALS: BP 142/65
--- NOTE | 2020-03-20 15:35 | NUR ---
CCA 59, admitted to , under the services of LEIGH ANN Bee DO with a diagnosis of COPD EXACERBATION. Chief complaint is SOB. Patient arrived via ambulatory from ER. Monitor applied. Initial assessment completed. Vital signs taken and recorded. LEIGH ANN BEE DO notified of admission to the unit. Orders received. See assessment for past medical history, medications and allergies. Patient and/or family oriented to unit. [facility]. Clothing/patient valuable form completed. CROW NORTON
[2020-03-20 16:00] VITALS: BP 147/73
--- NOTE | 2020-03-20 16:00 | NUR ---
PATIENT HAS SMALL LACERATION TO SIDE OF LEFT THUMB. PT REFUSING ANY TREATMENT FOR THIS AREA. WILL MONITOR.
--- NOTE | 2020-03-20 16:28 | NUR ---
'S ANSWERING SERVICE AWARE OF CONSULT.
[2020-03-20 17:59] LABS: BILIRUBIN 1+ (NEGATIVE); BLOOD 1+ (NEGATIVE); CLARITY CLEAR (CLEAR); COLOR YELLOW (YELLOW); GLUCOSE NEGATIVE (NEGATIVE); KETONE NEGATIVE (NEGATIVE); LEUKO ESTERASE NEGATIVE (NEGATIVE); NITRITE NEGATIVE (NEGATIVE); UROBILINOGEN 0.2 E.U./dl (0.2-1.0)
[2020-03-20 18:00] LABS: BACTERIA TRACE; EPITHELIAL CELLS 51-100; RBC 0-2 rbc/hpf (0-2)
--- NOTE | 2020-03-20 19:00 | NUR ---
ASSUMED CARE FOR THIS PT AT THIS TIME. NO C/O VOICED. CALL LIGHT IN REACH.
[2020-03-20 20:00] VITALS: BP 149/49
--- NOTE | 2020-03-20 21:50 | NUR ---
DR. CASSIDY NOTIFIED OF PT'S REQUEST FOR HER VISTARIL AND MELATONIN. ADVISED THIS NURSE THAT HOSPITAL DOES NOT HAVE MELATONIN BUT SHE WILL CONTINUE ALL HER HOME MEDS. PT ADVISED.
--- NOTE | 2020-03-20 22:08 | NUR ---
PT MEDICATED W/VISTARIL PER REQUEST TO HELP HER RELAX. CALL LIGHT IN REACH.
--- NOTE | 2020-03-20 22:10 | NUR ---
DR. CASSIDY NOTIFIED OF PT'S REQUEST FOR RESTORIL SINCE WE DON'T CARRY MELATONIN. TO ORDER RESTORIL.
--- NOTE | 2020-03-20 22:45 | NUR ---
PT MEDICATED W/RESTORIL TO HELP PROMOTE SLEEP. PT SITTING UP IN BED WATCHING TV.
--- NOTE | 2020-03-20 23:08 | NUR ---
PT STATES PRN VISTARIL EFFECTIVE AND SHE IS MORE RELAXED. CALL LIGHT IN REACH.
--- NOTE | 2020-03-20 23:45 | NUR ---
PRN RESTORIL EFFECTIVE. PT SLEEPING QUIETLY IN BED. CALL LIGHT IN REACH.
[2020-03-21] VITALS: BP 134/55
--- NOTE | 2020-03-21 04:20 | NUR ---
24 HR chart check completed.
[2020-03-21 06:14] LABS: BASO % 0.3 % (0.0-1.0); EOS % 0.2 % (1.0-4.0); HEMATOCRIT 36.6 % (37.0-47.0); LYMPH # 1.1 10*3/uL (1.3-4.4); LYMPH % 8.2 % (27.0-41.0); MEAN CELL VOLUME 90.1 fl (81.0-99.0); MEAN CORPUSCULAR HGB 27.6 pg (27.0-31.0); MEAN CORPUSCULAR HGB CONC 30.6 g/dl (33.0-37.0); MEAN PLATELET VOLUME 10.6 fl (9.6-12.3); MONO # 0.2 10*3/uL (0.1-1.0); MONO % 1.7 % (3.0-9.0); NEUT # 11.3 10*3/uL (2.3-7.9); NEUT % 87.6 % (47.0-73.0); PLATELET COUNT AUTOMATED 203 10*3/uL (130-400); RED BLOOD COUNT 4.06 10*6/uL (4.10-5.10); RED CELL DISTRI WIDTH 15.9 % (0-14.5); WHITE BLOOD COUNT 12.9 10*3/uL (4.8-10.8)
[2020-03-21 06:39] LABS: ALBUMIN 3.2 gm/dl (3.1-4.5); ALKALINE PHOSPHATASE 149 U/L (45-117); BUN 24 mg/dl (7-24); CHLORIDE 97 mmol/L (98-107); CREATININE 1.11 mg/dL (0.55-1.02); SGOT/AST 23 IU/L (3-35); SGPT/ALT 91 U/L (12-78); SODIUM 134 mmol/L (136-145); TOTAL PROTEIN 7.1 gm/dL (6.4-8.2)
[2020-03-21 08:00] VITALS: BP 131/62
--- NOTE | 2020-03-21 08:34 | NUR ---
PATIENT SITTING UP IN BED. NO DISTRESS NOTED. PT STILL C/O SOB WITH EXERTION. POX 97% VIA 2.5LNC. PATIENT IS 02 DEP. DENIES ANY COUGH. LUNGS DIMINISHED T/O. POOR AIR EXCHANGE. WILL CONTINUE TO MONITOR. CALL LIGHT WITHIN REACH. SEE SHIFT ASSESSMENT.
--- NOTE | 2020-03-21 11:10 | NUR ---
NOTFIED REGARDING PATIENT'S REQUEST FOR DIET TO BE REGULAR. NEW ORDERS RECEIVED.
[2020-03-21 12:00] VITALS: BP 133/82
[2020-03-21 16:00] VITALS: BP 154/85
--- NOTE | 2020-03-21 17:03 | NUR ---
PATIENT RESTING QUIETLY IN BED. NO DISTRESS NOTED. POX 97% VIA 2.5LNC. WILL CONTINUE TO MONITOR. CALL LIGHT WITHIN REACH.
--- NOTE | 2020-03-21 19:35 | NUR ---
PATIENT ASSESSMENT COMPLETED AT THIS TIME WITHOUT INCIDENT. PATIENT DENIES ANY CHEST PAIN/PRESSURE OR SHORTNESS OF BREATH ABOVE NORMAL. PATIENT REQUESTING A SLEEPING PILL AND ANXIETY PILL AT BEDTIME. RESPIRATORY AT BEDSIDE FOR BREATHING TREATMENT AT THIS TIME. CALL LIGHT WITHIN REACH WILL CONTINUE TO MONITOR.
--- NOTE | 2020-03-21 19:50 | NUR ---
24 HOUR CHART CHECK COMPLETE
[2020-03-21 20:00] VITALS: BP 153/73
[2020-03-22] VITALS: BP 98/55
--- NOTE | 2020-03-22 01:57 | NUR ---
PATIENT RESTING IN BED WITH NO S/S OF DISTRESS. BED IN LOWEST POSITION, CALL LIGHT IN REACH
--- NOTE | 2020-03-22 02:50 | NUR ---
24 HR chart check completed.
--- NOTE | 2020-03-22 08:23 | NUR ---
JULIANNE HERNANDEZ [id number] Please refer to the physician's history and physical for past medical history, comorbid conditions, and allergies. Diagnosis: COPD EXACERBATION CHEST PAIN Speedy Score: 20,LOW OR NO RISK WOUND DESCRIPTIONS: Wound Number: 1 Location of the wound: left thumb Thickness: Partial Size: 0.5cm x 0.1cm x 0.1cm Tunneling: none Undermining: none Sinus Tract: none Presence of Exudate: none Amount: None Color: Red Odor: None Periwound Skin Appearance: Normal Wound edges: approximated Pain (associated with wound): denied at time of assessment How does patient state this happened? patient states that she cut it with a knife a few days ago. Surface the patient is resting on: Isoflex SKIN PREVENTION RECOMMENDATION: 1. Pressure redistribution support surface as appropriate 2. Elevate heels 3. Remove boots/TEDS every shift and reapply 4. Head of bed 30 degrees as tolerated 5. Assess nutrition and hydration 6. Manage moisture 7. Avoid the use of containment devices while in bed 8. Use absorptive products on surfaces limit layers of linens on bed 9. Turn and reposition every 1-2 hours in bed and every 1 hour in chair as tolerated 10. Weight shifts every 15 minutes while up in chair 11. Offloading with pillows or device to keep heels elevated off bed 12. Monitor skin at least every shift 13. Inspect under medical devices twice a day WOUND TREATMENT RECOMMENDATIONS: Patient states that she does not want treatment and only wants it covered. Bandaid applied per patient request.
--- NOTE | 2020-03-22 09:20 | NUR ---
Dr. Cole notified of wound care recommendations.
--- NOTE | 2020-03-22 11:36 | NUR ---
Nutrition Support Note: Pt is 5'7" and 229lbs; 170% IBW. Dx of COPD exacerbation and wound to left thumb noted. Albumin at 3.2. Pt is receiving a regular diet. Encourage healthy meal choices and good PO intakes at meals. No further interventions at this time. Will monitor. Katy Sheppard [facility] Dietetic Student
[2020-03-22 12:00] VITALS: BP 151/73
--- NOTE | 2020-03-22 13:22 | NUR ---
[employer]ure [employer] Analyst in to talk to patient. Patient states lives at HOME with ROOM MATE. There are NO steps in the home. Physician: BRAD Pharmacy: [facility] [place] health services: NONE Patient's level of ADLs: INDEPENDENT Patient has working utilities: YES DME: NONE Follow-up physician's appointment after d/c: WILL BE MADE BY HOSPITALIST NURSE DIRECTOR ON DISCHARGE Does patient want to access PORTAL?: NO Discharge plan PT LIVES AT HOME WITH A ROOM MATE AND IS INDEPENDENT IN HER CARE. DENIES SHE WILL HAVE NEEDS ON DISCHARGE. PLAN IS TO RETURN HOME WHEN MEDICALLY STABLE. WILL CONTINUE TO FOLLOW. STATES SHE HAS A RIDE HOME ON DISCHARGE.. DANIEL POOL
[2020-03-22] MEDS ORDERED: PREDNISONE10 MG PO (15:20)
--- NOTE | 2020-03-22 15:55 | NUR ---
Discharge instructions reviewed with patient/family. Patient receptive and verbalizes understanding. Follow-up care arranged. Written instructions given to patient/family. WILMAR VARELA
== END 2020-03-22 15:55 | disposition home or self-care (01) | DRG 191 ==
LOC: ED 12:34 → 5E 14:33 → EDHOLD 14:33 → 5E 14:42
PROVIDERS: Emergency Medicine; Family Medicine; Internal Medicine Endocrinology, Diabetes & Metabolism; ADMIT Student in an Organized Health Care Education/Training Program
DX: J44.1 Chronic obstructive pulmonary disease with (acute) exacerbation (principal); E87.1 Hypo-osmolality and hyponatremia; I12.9 Hypertensive chronic kidney disease with stage 1 through stage 4 chronic kidney disease, or unspecified chronic kidney disease; E11.22 Type 2 diabetes mellitus with diabetic chronic kidney disease; E11.65 Type 2 diabetes mellitus with hyperglycemia; N18.3 Chronic kidney disease, stage 3 (moderate); Z79.4 Long term (current) use of insulin; D64.9 Anemia, unspecified; R74.0 Nonspecific elevation of levels of transaminase and lactic acid dehydrogenase [LDH]; R74.8 Abnormal levels of other serum enzymes; D72.829 Elevated white blood cell count, unspecified; I25.10 Atherosclerotic heart disease of native coronary artery without angina pectoris; R07.81 Pleurodynia; K21.9 Gastro-esophageal reflux disease without esophagitis; E55.9 Vitamin D deficiency, unspecified; H40.9 Unspecified glaucoma; Z88.5 Allergy status to narcotic agent; Z88.0 Allergy status to penicillin; Z82.49 Family history of ischemic heart disease and other diseases of the circulatory system; Z90.710 Acquired absence of both cervix and uterus; Z90.49 Acquired absence of other specified parts of digestive tract; Z80.0 Family history of malignant neoplasm of digestive organs

== ENCOUNTER 2020-04-15 13:37 | Emergency (ER) | payer MEDICARE, MEDICAID ==
[~2020-04-15] VITALS: Ht 167.6 cm; Wt 102.1 kg
[2020-04-15 13:37] VITALS: BP 114/66
[2020-04-15 14:19] LABS: BASO # 0.1 10*3/uL (0.0-0.1); BASO % 0.9 % (0.0-1.0); EOS # 0.2 10*3/uL (0.0-0.4); EOS % 1.5 % (1.0-4.0); HEMATOCRIT 36.1 % (37.0-47.0); LYMPH # 2.7 10*3/uL (1.3-4.4); LYMPH % 26.6 % (27.0-41.0); MEAN CELL VOLUME 91.4 fl (81.0-99.0); MEAN CORPUSCULAR HGB 27.6 pg (27.0-31.0); MEAN CORPUSCULAR HGB CONC 30.2 g/dl (33.0-37.0); MEAN PLATELET VOLUME 10.3 fl (9.6-12.3); MONO % 9.8 % (3.0-9.0); NEUT # 6.1 10*3/uL (2.3-7.9); NEUT % 60.2 % (47.0-73.0); PLATELET COUNT AUTOMATED 243 10*3/uL (130-400); RED BLOOD COUNT 3.95 10*6/uL (4.10-5.10); RED CELL DISTRI WIDTH 13.4 % (0-14.5); WHITE BLOOD COUNT 10.2 10*3/uL (4.8-10.8)
[2020-04-15 14:35] LABS: ACT PARTIAL THROMBO TIME 24.2 SECONDS (20.0-32.1)
[2020-04-15 14:36] LABS: ALBUMIN 3.3 gm/dl (3.1-4.5); ALKALINE PHOSPHATASE 143 U/L (45-117); BUN 11 mg/dl (7-24); CHLORIDE 103 mmol/L (98-107); POTASSIUM 3.8 mmol/L (3.5-5.1); SGOT/AST 42 IU/L (3-35); SGPT/ALT 62 U/L (12-78); SODIUM 140 mmol/L (136-145); TOTAL PROTEIN 7.5 gm/dL (6.4-8.2)
[2020-04-15 14:37] LABS: TROPONIN I < 0.015 ng/ml (<0.045)
[2020-04-15] MEDS ORDERED: PREDNISONE50 MG PO (15:26)
[2020-04-15] MEDS ORDERED: VIBRAMYCIN100 MG PO (15:26)
== END 2020-04-15 15:28 | disposition home or self-care (01) ==
LOC: ED 13:37
PROVIDERS: Emergency Medicine
DX: J44.1 Chronic obstructive pulmonary disease with (acute) exacerbation (principal); K21.9 Gastro-esophageal reflux disease without esophagitis; I12.9 Hypertensive chronic kidney disease with stage 1 through stage 4 chronic kidney disease, or unspecified chronic kidney disease; E11.22 Type 2 diabetes mellitus with diabetic chronic kidney disease; N18.3 Chronic kidney disease, stage 3 (moderate); Z88.0 Allergy status to penicillin; Z88.6 Allergy status to analgesic agent; Z79.899 Other long term (current) drug therapy; Z79.82 Long term (current) use of aspirin; Z87.891 Personal history of nicotine dependence

== ENCOUNTER 2020-05-01 14:40 | Observation (INO) | payer MEDICARE, MEDICAID ==
[~2020-05-01] VITALS: Ht 167.6 cm; Wt 105.9 kg
[2020-05-01 14:55] VITALS: BP 143/69
[2020-05-01 15:11] LABS: BASO # 0.1 10*3/uL (0.0-0.1); BASO % 0.7 % (0.0-1.0); EOS # 0.1 10*3/uL (0.0-0.4); EOS % 1.3 % (1.0-4.0); HEMATOCRIT 34.4 % (37.0-47.0); LYMPH # 2.8 10*3/uL (1.3-4.4); MEAN CELL VOLUME 89.8 fl (81.0-99.0); MEAN CORPUSCULAR HGB 27.7 pg (27.0-31.0); MEAN CORPUSCULAR HGB CONC 30.8 g/dl (33.0-37.0); MEAN PLATELET VOLUME 10.9 fl (9.6-12.3); MONO # 0.7 10*3/uL (0.1-1.0); MONO % 6.6 % (3.0-9.0); NEUT # 6.9 10*3/uL (2.3-7.9); NEUT % 64.4 % (47.0-73.0); PLATELET COUNT AUTOMATED 209 10*3/uL (130-400); RED BLOOD COUNT 3.83 10*6/uL (4.10-5.10); RED CELL DISTRI WIDTH 13.3 % (0-14.5); WHITE BLOOD COUNT 10.7 10*3/uL (4.8-10.8)
[2020-05-01 15:22] LABS: ACT PARTIAL THROMBO TIME 23.8 SECONDS (20.0-32.1)
[2020-05-01 15:27] LABS: ALBUMIN 3.1 gm/dl (3.1-4.5); ALKALINE PHOSPHATASE 110 U/L (45-117); BUN 12 mg/dl (7-24); CHLORIDE 104 mmol/L (98-107); CREATININE 0.91 mg/dL (0.55-1.02); POTASSIUM 3.9 mmol/L (3.5-5.1); SGOT/AST 34 IU/L (3-35); SGPT/ALT 45 U/L (12-78); SODIUM 141 mmol/L (136-145); TOTAL PROTEIN 6.8 gm/dL (6.4-8.2)
[2020-05-01 15:29] LABS: TROPONIN I < 0.015 ng/ml (<0.045)
[2020-05-01 18:17] VITALS: BP 142/70
--- NOTE | 2020-05-01 18:30 | NUR ---
A 60, admitted to 5E, under the services of LEIGH ANN Bee DO with a diagnosis of COPD EXAC, CP. Chief complaint is SHORTNESS OF BREATH, CP. Patient arrived via stretcher from ER. Monitor applied. Initial assessment completed. Vital signs taken and recorded. LEIGH ANN BEE DO notified of admission to the unit. Orders received. See assessment for past medical history, medications and allergies. Patient and/or family oriented to unit. [address] visitation policy reviewed. Clothing/patient valuable form completed. LISA PINTO
[2020-05-01 20:00] VITALS: BP 132/82
--- NOTE | 2020-05-01 20:00 | NUR ---
PT RESTING IN BED. DENIES ANY PAIN AT THIS TIME. RESP-EASY AND REGULAR. NO SOB NOTED. OXYGEN IN USE. CALL LIGHT IN REACH.
--- NOTE | 2020-05-01 21:46 | NUR ---
PT RESTING IN BED. MEDICATED WITH RESTORIL FOR INSOMNIA PER PT REQUEST, AND ALSO VISTARIL FOR ANXIETY, SEE EMAR. CALL LIGHT IN REACH.
[2020-05-02] VITALS: BP 129/61
--- NOTE | 2020-05-02 | NUR ---
RESTING IN BED WITH EYES CLOSED. RESP-EASY AND REGULAR. OXYGEN IN USE. CALL LIGHT IN REACH. SEE SHIFT ASSESSMENT.
--- NOTE | 2020-05-02 04:00 | NUR ---
PT RESTING IN BED. RESP-EASY AND REGULAR. CALL LIGHT IN REACH.
--- NOTE | 2020-05-02 05:23 | NUR ---
SITTING UP IN BED. TOLERATED ROUTINE MED WITH NO PROBLEM. NO C/O AT THIS TIME. CALL LIGHTIN REACH.
--- NOTE | 2020-05-02 05:30 | NUR ---
TOLERATED ROUTINE MED WITH NO PROBLEM. CALL LIGHT IN REACH.
[2020-05-02 06:12] LABS: BASO # 0.1 10*3/uL (0.0-0.1); BASO % 0.7 % (0.0-1.0); EOS # 0.2 10*3/uL (0.0-0.4); EOS % 1.9 % (1.0-4.0); HEMATOCRIT 35.2 % (37.0-47.0); LYMPH # 3.5 10*3/uL (1.3-4.4); LYMPH % 32.5 % (27.0-41.0); MEAN CELL VOLUME 90.5 fl (81.0-99.0); MEAN CORPUSCULAR HGB 27.5 pg (27.0-31.0); MEAN CORPUSCULAR HGB CONC 30.4 g/dl (33.0-37.0); MEAN PLATELET VOLUME 11.5 fl (9.6-12.3); MONO # 0.8 10*3/uL (0.1-1.0); MONO % 7.4 % (3.0-9.0); NEUT % 56.1 % (47.0-73.0); PLATELET COUNT AUTOMATED 197 10*3/uL (130-400); RED BLOOD COUNT 3.89 10*6/uL (4.10-5.10); RED CELL DISTRI WIDTH 13.6 % (0-14.5); WHITE BLOOD COUNT 10.7 10*3/uL (4.8-10.8)
[2020-05-02 06:26] LABS: BUN 11 mg/dl (7-24); CHLORIDE 102 mmol/L (98-107); CREATININE 0.89 mg/dL (0.55-1.02); POTASSIUM 3.4 mmol/L (3.5-5.1); SODIUM 138 mmol/L (136-145)
[2020-05-02 08:00] VITALS: BP 122/68
--- NOTE | 2020-05-02 08:30 | NUR ---
Patient resting in bed. Respirations easy and regular on O2. Vital signs stable. No overt distress. LISA PINTO
--- NOTE | 2020-05-02 10:30 | NUR ---
MOTRIN EFFECTIVE PER PT. CALL LIGHT IN REACH. WILL MONITOR
[2020-05-02] MEDS ORDERED: PREDNISONE50 MG PO (11:28)
[2020-05-02] MEDS ORDERED: AVPAK AZITHROM250 M1 PO (11:28)
--- NOTE | 2020-05-02 11:59 | NUR ---
Discharge instructions reviewed with patient/family. Patient receptive and verbalizes understanding. Follow-up care arranged. Written instructions given to patient/family. LISA PINTO
== END 2020-05-02 11:59 | disposition home or self-care (01) ==
LOC: ED 14:40 → EDHOLD 17:08 → 5E 18:07
PROVIDERS: Emergency Medicine; Student in an Organized Health Care Education/Training Program; ADMIT Student in an Organized Health Care Education/Training Program
DX: R07.89 Other chest pain (principal); J44.1 Chronic obstructive pulmonary disease with (acute) exacerbation; R06.82 Tachypnea, not elsewhere classified; R73.9 Hyperglycemia, unspecified; J30.2 Other seasonal allergic rhinitis; E55.9 Vitamin D deficiency, unspecified; H40.9 Unspecified glaucoma; K21.9 Gastro-esophageal reflux disease without esophagitis; I10 Essential (primary) hypertension; D64.9 Anemia, unspecified; E11.9 Type 2 diabetes mellitus without complications; E66.9 Obesity, unspecified; Z68.35 Body mass index [BMI] 35.0-35.9, adult

== ENCOUNTER → 2020-05-07 | Outpatient (CLI) | payer MEDICARE, MEDICAID ==
[~2020-05-07] MED LIST changes: +AVPAK AZITHROM250 M1 PO
== END | disposition home or self-care (01) ==
LOC: RESCLI 01:12
PROVIDERS: ATTEND Emergency Medicine
DX: J44.9 Chronic obstructive pulmonary disease, unspecified (principal); E55.9 Vitamin D deficiency, unspecified; G47.00 Insomnia, unspecified; E78.2 Mixed hyperlipidemia; I10 Essential (primary) hypertension; J30.9 Allergic rhinitis, unspecified; K21.0 Gastro-esophageal reflux disease with esophagitis; F41.9 Anxiety disorder, unspecified; R91.1 Solitary pulmonary nodule; E11.9 Type 2 diabetes mellitus without complications; F17.200 Nicotine dependence, unspecified, uncomplicated; Z79.899 Other long term (current) drug therapy; Z90.722 Acquired absence of ovaries, bilateral; Z95.828 Presence of other vascular implants and grafts; Z90.49 Acquired absence of other specified parts of digestive tract; Z90.710 Acquired absence of both cervix and uterus

== ENCOUNTER → 2020-05-18 | Outpatient (CLI) | payer MEDICARE, MEDICAID ==
[2020-05-18 11:42] LABS: BUN 15 mg/dl (7-24); CHLORIDE 102 mmol/L (98-107); CREATININE 1.12 mg/dL (0.55-1.02); POTASSIUM 4.5 mmol/L (3.5-5.1); SODIUM 137 mmol/L (136-145)
== END | disposition home or self-care (01) ==
LOC: LAB 10:33 → CT 11:00
PROVIDERS: Internal Medicine; ATTEND Internal Medicine Critical Care Medicine
DX: K76.0 Fatty (change of) liver, not elsewhere classified (principal); R91.8 Other nonspecific abnormal finding of lung field; I25.10 Atherosclerotic heart disease of native coronary artery without angina pectoris; E11.9 Type 2 diabetes mellitus without complications

== ENCOUNTER → 2020-06-02 | Outpatient (CLI) | payer MEDICARE, MEDICAID ==
[2020-06-02] VITALS (11 sets, daily range): BP systolic 85–158; BP diastolic 56–78
[~2020-06-02] MED LIST changes: +ADVAIR HFA 115-12 GM INH; +FEXOFENADINE H180 M1 PO; +GLUCOPHAGE500 M1 PO; +LISINOPRIL10 M1 PO; +OMEPRAZOLE40 MG PO
[2020-06-02 10:13] LABS: ACT PARTIAL THROMBO TIME 25.4 SECONDS (20.0-32.1)
== END | disposition home or self-care (01) ==
LOC: SDC 03:33 → EDSTATUS 10:00 → SDC 10:00 → CT 10:00 → SDC 11:00
PROVIDERS: ATTEND Internal Medicine Critical Care Medicine
DX: R91.1 Solitary pulmonary nodule (principal); J96.11 Chronic respiratory failure with hypoxia; J44.9 Chronic obstructive pulmonary disease, unspecified; Z99.81 Dependence on supplemental oxygen; I25.2 Old myocardial infarction; K21.9 Gastro-esophageal reflux disease without esophagitis; F41.9 Anxiety disorder, unspecified; Z87.891 Personal history of nicotine dependence; Z88.0 Allergy status to penicillin; Z88.5 Allergy status to narcotic agent; Z88.8 Allergy status to other drugs, medicaments and biological substances; Z79.899 Other long term (current) drug therapy; Z79.01 Long term (current) use of anticoagulants

== ENCOUNTER → 2020-06-17 | Outpatient (CLI) | payer OTHER | END | disposition home or self-care (01) | LOC: RAD 13:08 | PROVIDERS: ATTEND Internal Medicine Nephrology | DX: M85.80 Other specified disorders of bone density and structure, unspecified site (principal); Z78.0 Asymptomatic menopausal state ==

== ENCOUNTER → 2020-06-28 | Outpatient (CLI) | payer OTHER ==
[2020-06-28 14:47] LABS: BASO # 0.1 10*3/uL (0.0-0.1); BASO % 0.9 % (0.0-1.0); EOS # 0.3 10*3/uL (0.0-0.4); EOS % 3.2 % (1.0-4.0); HEMATOCRIT 35.1 % (37.0-47.0); LYMPH # 3.1 10*3/uL (1.3-4.4); LYMPH % 32.2 % (27.0-41.0); MEAN CELL VOLUME 88.6 fl (81.0-99.0); MEAN CORPUSCULAR HGB 27.5 pg (27.0-31.0); MEAN CORPUSCULAR HGB CONC 31.1 g/dl (33.0-37.0); MEAN PLATELET VOLUME 11.4 fl (9.6-12.3); MONO # 0.6 10*3/uL (0.1-1.0); MONO % 5.9 % (3.0-9.0); NEUT # 5.5 10*3/uL (2.3-7.9); NEUT % 57.2 % (47.0-73.0); PLATELET COUNT AUTOMATED 253 10*3/uL (130-400); RED BLOOD COUNT 3.96 10*6/uL (4.10-5.10); WHITE BLOOD COUNT 9.6 10*3/uL (4.8-10.8)
[2020-06-28 14:57] LABS: ACT PARTIAL THROMBO TIME 23.7 SECONDS (20.0-32.1)
[2020-06-28 15:18] LABS: ALBUMIN 3.5 gm/dl (3.1-4.5); ALKALINE PHOSPHATASE 119 U/L (45-117); BUN 11 mg/dl (7-24); CHLORIDE 102 mmol/L (98-107); CREATININE 0.99 mg/dL (0.55-1.02); POTASSIUM 4.1 mmol/L (3.5-5.1); SGOT/AST 29 IU/L (3-35); SGPT/ALT 52 U/L (12-78); SODIUM 138 mmol/L (136-145); TOTAL PROTEIN 7.5 gm/dL (6.4-8.2)
== END | disposition home or self-care (01) ==
LOC: LAB 13:42
PROVIDERS: ATTEND Internal Medicine Hematology & Oncology
DX: C34.90 Malignant neoplasm of unspecified part of unspecified bronchus or lung (principal); Z79.01 Long term (current) use of anticoagulants

== ENCOUNTER → 2020-12-22 | Outpatient (CLI) | payer OTHER | END | disposition home or self-care (01) | LOC: RESCLI 00:37 | PROVIDERS: ATTEND Internal Medicine | DX: Z12.31 Encounter for screening mammogram for malignant neoplasm of breast (principal); C34.91 Malignant neoplasm of unspecified part of right bronchus or lung; J44.9 Chronic obstructive pulmonary disease, unspecified; F41.9 Anxiety disorder, unspecified; I25.10 Atherosclerotic heart disease of native coronary artery without angina pectoris; K21.9 Gastro-esophageal reflux disease without esophagitis; E11.9 Type 2 diabetes mellitus without complications; I10 Essential (primary) hypertension; E55.9 Vitamin D deficiency, unspecified; F32.9 Major depressive disorder, single episode, unspecified; M79.2 Neuralgia and neuritis, unspecified; Z79.82 Long term (current) use of aspirin; Z79.899 Other long term (current) drug therapy; Z90.49 Acquired absence of other specified parts of digestive tract; Z98.890 Other specified postprocedural states; Z95.828 Presence of other vascular implants and grafts; Z88.0 Allergy status to penicillin ==

== ENCOUNTER 2021-01-09 07:14 | Inpatient (IN) | payer OTHER ==
[~2021-01-09] VITALS: Ht 167.6 cm; Wt 89.0 kg
[2021-01-09] VITALS (11 sets, daily range): BP systolic 93–154; BP diastolic 68–107
[2021-01-09 07:49] LABS: HEMATOCRIT 38.8 % (37.0-47.0); MEAN CELL VOLUME 84.2 fl (81.0-99.0); MEAN CORPUSCULAR HGB 27.3 pg (27.0-31.0); MEAN CORPUSCULAR HGB CONC 32.5 g/dl (33.0-37.0); MEAN PLATELET VOLUME 11.3 fl (9.6-12.3); PLATELET COUNT AUTOMATED 338 10*3/uL (130-400); RED BLOOD COUNT 4.61 10*6/uL (4.10-5.10); RED CELL DISTRI WIDTH 13.3 % (0-14.5); WHITE BLOOD COUNT 25.1 10*3/uL (4.8-10.8)
[2021-01-09 07:59] LABS: ACT PARTIAL THROMBO TIME 25.1 SECONDS (20.0-32.1)
[2021-01-09 08:05] LABS: CREATININE 1.52 mg/dL (0.55-1.02); POTASSIUM 4.4 mmol/L (3.5-5.1); TOTAL PROTEIN 8.5 gm/dL (6.4-8.2)
[2021-01-09 08:11] LABS: PLATELET SUFFICIENCY NORMAL (NORMAL); TOTAL CELLS COUNTED 100 #CELLS
[2021-01-09 08:20] LABS: TROPONIN I 7.31 ng/ml (<0.045)
[2021-01-09 08:51] LABS: CPK 373 U/L (26-192); LDH 250 U/L (84-246)
[2021-01-09 10:00] LABS: BILIRUBIN Negative (Negative); BLOOD 2+ (Negative); CLARITY Turbid (Clear); COLOR Dark Yellow (Yellow); GLUCOSE Negative (Negative); KETONE Trace (Negative); LEUKO ESTERASE Trace (Negative); NITRITE Negative (Negative); SPECIFIC GRAVITY >= 1.030 (1.001-1.030)
[2021-01-09 10:09] LABS: BACTERIA 2+; MUCOUS TRACE; URIC ACID CRYSTALS 3+
[2021-01-09 13:41] LABS: ABG BASE EXCESS -3.6 mmol/L (-2.0-2.0); ARTERIAL BLOOD GAS PH 7.373 (7.35-7.45); ARTERIAL BLOOD GAS PO2 88.4 (80-90)
[2021-01-10] VITALS (61 sets, daily range): BP systolic 84–129; BP diastolic 51–90
[2021-01-10 05:34] LABS: ALBUMIN 3.4 gm/dl (3.1-4.5); CREATININE 1.35 mg/dL (0.55-1.02); POTASSIUM 5.1 mmol/L (3.5-5.1); TOTAL PROTEIN 7.4 gm/dL (6.4-8.2)
[2021-01-10 05:35] LABS: FREE T4 0.89 ng/dl (0.76-1.46)
[2021-01-10 05:40] LABS: THYROID STIM HORMONE (HS) 1.66 uIU/ml (0.358-4.75)
[2021-01-10 06:43] LABS: HEMATOCRIT 38.4 % (37.0-47.0); MEAN CORPUSCULAR HGB 27.6 pg (27.0-31.0); MEAN CORPUSCULAR HGB CONC 30.2 g/dl (33.0-37.0); MEAN PLATELET VOLUME 11.7 fl (9.6-12.3); PLATELET COUNT AUTOMATED 269 10*3/uL (130-400); RED CELL DISTRI WIDTH 13.7 % (0-14.5); WHITE BLOOD COUNT 27.6 10*3/uL (4.8-10.8)
[2021-01-10 06:45] LABS: MEAN CELL VOLUME 91.4 fl (81.0-99.0)
[2021-01-10 07:29] LABS: TOTAL CELLS COUNTED 100 #CELLS
[2021-01-10 07:30] LABS: PLATELET SUFFICIENCY NORMAL (NORMAL); POLYCHROMASIA SLIGHT; ROULEAUX SLIGHT; TOXIC GRANULATION SLIGHT
[2021-01-10 08:20] LABS: ARTERIAL BLOOD GAS PH 7.268 (7.35-7.45); ARTERIAL BLOOD GAS PO2 130.5 (80-90)
[2021-01-10 08:22] LABS: ABG BASE EXCESS -5.9 mmol/L (-2.0-2.0)
[2021-01-10 12:00] LABS: ABG BASE EXCESS -2.3 mmol/L (-2.0-2.0); ARTERIAL BLOOD GAS PH 7.329 (7.35-7.45); ARTERIAL BLOOD GAS PO2 152.5 (80-90)
[2021-01-10 15:02] LABS: ARTERIAL BLOOD GAS PH 7.355 (7.35-7.45); ARTERIAL BLOOD GAS PO2 116.2 (80-90)
[2021-01-11] VITALS (10 sets, daily range): BP systolic 91–120; BP diastolic 49–72
[2021-01-11 06:08] LABS: CREATININE 1.26 mg/dL (0.55-1.02); POTASSIUM 4.3 mmol/L (3.5-5.1)
[2021-01-11 06:36] LABS: BASO % 0.2 % (0.0-1.0); HEMATOCRIT 31.7 % (37.0-47.0); LYMPH # 1.5 10*3/uL (1.3-4.4); LYMPH % 9.5 % (27.0-41.0); MEAN CORPUSCULAR HGB 27.5 pg (27.0-31.0); MEAN CORPUSCULAR HGB CONC 31.2 g/dl (33.0-37.0); MEAN PLATELET VOLUME 12.3 fl (9.6-12.3); MONO # 0.4 10*3/uL (0.1-1.0); MONO % 2.8 % (3.0-9.0); NEUT # 13.5 10*3/uL (2.3-7.9); NEUT % 85.8 % (47.0-73.0); PLATELET COUNT AUTOMATED 244 10*3/uL (130-400); RED CELL DISTRI WIDTH 13.4 % (0-14.5); WHITE BLOOD COUNT 15.8 10*3/uL (4.8-10.8)
[2021-01-11 06:41] LABS: MEAN CELL VOLUME 88.1 fl (81.0-99.0)
[2021-01-11 09:34] LABS: ABG BASE EXCESS -0.6 mmol/L (-2.0-2.0); ARTERIAL BLOOD GAS PH 7.409 (7.35-7.45); ARTERIAL BLOOD GAS PO2 77.8 (80-90)
[2021-01-12] VITALS (12 sets, daily range): BP systolic 101–144; BP diastolic 52–74
[2021-01-12 07:04] LABS: HEMATOCRIT 28.6 % (37.0-47.0); MEAN CELL VOLUME 86.9 fl (81.0-99.0); MEAN CORPUSCULAR HGB 27.7 pg (27.0-31.0); MEAN CORPUSCULAR HGB CONC 31.8 g/dl (33.0-37.0); MEAN PLATELET VOLUME 12.1 fl (9.6-12.3); NUCLEATED RED BLOOD CELL 0.1 % (0.0-0.0); PLATELET COUNT AUTOMATED 236 10*3/uL (130-400); RED BLOOD COUNT 3.29 10*6/uL (4.10-5.10); RED CELL DISTRI WIDTH 13.7 % (0-14.5); WHITE BLOOD COUNT 14.3 10*3/uL (4.8-10.8)
[2021-01-12 07:17] LABS: CREATININE 1.35 mg/dL (0.55-1.02); POTASSIUM 4.2 mmol/L (3.5-5.1)
[2021-01-12 07:25] LABS: TOTAL CELLS COUNTED 100 #CELLS
[2021-01-12 07:26] LABS: PLATELET SUFFICIENCY NORMAL (NORMAL); POLYCHROMASIA SLIGHT; TARGET CELLS FEW
[2021-01-12 08:59] LABS: ABG BASE EXCESS -1.1 mmol/L (-2.0-2.0); ARTERIAL BLOOD GAS PH 7.402 (7.35-7.45); ARTERIAL BLOOD GAS PO2 61.8 (80-90)
[2021-01-13] VITALS (9 sets, daily range): BP systolic 98–131; BP diastolic 47–74
[2021-01-13 06:24] LABS: HEMATOCRIT 28.7 % (37.0-47.0); MEAN CELL VOLUME 86.7 fl (81.0-99.0); MEAN CORPUSCULAR HGB 27.2 pg (27.0-31.0); MEAN CORPUSCULAR HGB CONC 31.4 g/dl (33.0-37.0); NUCLEATED RED BLOOD CELL 0.2 % (0.0-0.0); PLATELET COUNT AUTOMATED 270 10*3/uL (130-400); RED BLOOD COUNT 3.31 10*6/uL (4.10-5.10); RED CELL DISTRI WIDTH 13.5 % (0-14.5); WHITE BLOOD COUNT 13.1 10*3/uL (4.8-10.8)
[2021-01-13 06:41] LABS: CREATININE 1.28 mg/dL (0.55-1.02); POTASSIUM 4.2 mmol/L (3.5-5.1)
[2021-01-13 06:53] LABS: PLATELET SUFFICIENCY NORMAL (NORMAL); TOTAL CELLS COUNTED 100 #CELLS
[2021-01-13 09:17] LABS: ABG BASE EXCESS 0.5 mmol/L (-2.0-2.0); ARTERIAL BLOOD GAS PH 7.415 (7.35-7.45); ARTERIAL BLOOD GAS PO2 87.7 (80-90)
[2021-01-13 12:33] LABS: ABG BASE EXCESS 0.5 mmol/L (-2.0-2.0); ARTERIAL BLOOD GAS PH 7.443 (7.35-7.45)
[2021-01-13 15:52] LABS: ABG BASE EXCESS 2.3 mmol/L (-2.0-2.0); ARTERIAL BLOOD GAS PH 7.439 (7.35-7.45); ARTERIAL BLOOD GAS PO2 111.2 (80-90)
[2021-01-14] VITALS: BP 104/42
[2021-01-14 04:00] VITALS: BP 133/51
[2021-01-14 06:13] LABS: BUN 34 mg/dl (7-24); CHLORIDE 106 mmol/L (98-107); CREATININE 0.94 mg/dL (0.55-1.02); POTASSIUM 3.9 mmol/L (3.5-5.1); SODIUM 138 mmol/L (136-145)
[2021-01-14 06:14] LABS: HEMATOCRIT 27.4 % (37.0-47.0); MEAN CELL VOLUME 85.9 fl (81.0-99.0); MEAN CORPUSCULAR HGB 27.3 pg (27.0-31.0); MEAN CORPUSCULAR HGB CONC 31.8 g/dl (33.0-37.0); MEAN PLATELET VOLUME 11.8 fl (9.6-12.3); NUCLEATED RED BLOOD CELL 0.2 % (0.0-0.0); PLATELET COUNT AUTOMATED 252 10*3/uL (130-400); RED BLOOD COUNT 3.19 10*6/uL (4.10-5.10); RED CELL DISTRI WIDTH 13.4 % (0-14.5); WHITE BLOOD COUNT 13.6 10*3/uL (4.8-10.8)
[2021-01-14 07:28] LABS: PLATELET SUFFICIENCY NORMAL (NORMAL); TOTAL CELLS COUNTED 100 #CELLS
[2021-01-14 07:33] LABS: ABG BASE EXCESS 4.6 mmol/L (-2.0-2.0); ARTERIAL BLOOD GAS PH 7.453 (7.35-7.45); ARTERIAL BLOOD GAS PO2 91.7 (80-90)
[2021-01-14 08:00] VITALS: BP 105/41
[2021-01-14 12:00] VITALS: BP 136/67
[2021-01-14 16:00] VITALS: BP 125/67
[2021-01-14 20:47] VITALS: BP 126/62
[2021-01-15] VITALS: BP 119/61
[2021-01-15 06:14] LABS: HEMATOCRIT 31.9 % (37.0-47.0); MEAN CELL VOLUME 86.2 fl (81.0-99.0); MEAN CORPUSCULAR HGB 27.6 pg (27.0-31.0); MEAN PLATELET VOLUME 11.5 fl (9.6-12.3); NUCLEATED RED BLOOD CELL 0.1 % (0.0-0.0); PLATELET COUNT AUTOMATED 252 10*3/uL (130-400); RED CELL DISTRI WIDTH 13.4 % (0-14.5); WHITE BLOOD COUNT 13.8 10*3/uL (4.8-10.8)
[2021-01-15 06:39] LABS: CHLORIDE 103 mmol/L (98-107); POTASSIUM 3.2 mmol/L (3.5-5.1); SODIUM 140 mmol/L (136-145)
[2021-01-15 06:42] LABS: BUN 27 mg/dl (7-24)
[2021-01-15 07:07] LABS: PLATELET SUFFICIENCY NORMAL (NORMAL); POLYCHROMASIA SLIGHT; STOMATOCYTE FEW; TOTAL CELLS COUNTED 100 #CELLS
[2021-01-15 08:00] VITALS: BP 130/70
[2021-01-15 12:00] VITALS: BP 135/75
[2021-01-15 16:00] VITALS: BP 131/76
[2021-01-15 19:57] VITALS: BP 118/62
[2021-01-16 00:15] VITALS: BP 115/49
[2021-01-16] MEDS ORDERED: PERCOCET 5-3251 EACH PO (07:07)
[2021-01-16] MEDS ORDERED: OXYGEN NAS (07:12)
[2021-01-16 08:20] VITALS: BP 122/66
[2021-01-16 11:30] VITALS: BP 122/68
[2021-01-16 15:36] VITALS: BP 99/64
[2021-01-16 20:00] VITALS: BP 96/50
[2021-01-17] VITALS: BP 104/55
[2021-01-17 03:14] VITALS: BP 165/70
[2021-01-17 03:26] LABS: HEMATOCRIT 35.2 % (37.0-47.0); MEAN CELL VOLUME 86.1 fl (81.0-99.0); MEAN CORPUSCULAR HGB 26.9 pg (27.0-31.0); MEAN CORPUSCULAR HGB CONC 31.3 g/dl (33.0-37.0); MEAN PLATELET VOLUME 10.8 fl (9.6-12.3); PLATELET COUNT AUTOMATED 277 10*3/uL (130-400); RED BLOOD COUNT 4.09 10*6/uL (4.10-5.10); RED CELL DISTRI WIDTH 13.7 % (0-14.5); WHITE BLOOD COUNT 21.2 10*3/uL (4.8-10.8)
[2021-01-17 03:41] LABS: BUN 29 mg/dl (7-24); CHLORIDE 102 mmol/L (98-107); CREATININE 0.97 mg/dL (0.55-1.02); POTASSIUM 3.3 mmol/L (3.5-5.1); SODIUM 138 mmol/L (136-145)
[2021-01-17 03:48] LABS: PLATELET SUFFICIENCY NORMAL (NORMAL); TOTAL CELLS COUNTED 100 #CELLS
[2021-01-17 08:00] VITALS: BP 114/60
[2021-01-17 12:00] VITALS: BP 102/74
[2021-01-17 16:20] VITALS: BP 147/84
[2021-01-17 20:00] VITALS: BP 95/45
[2021-01-18] VITALS: BP 111/56
[2021-01-18 08:00] VITALS: BP 112/50
[2021-01-18] MEDS ORDERED: PREDNISONE10 MG PO (08:30)
== END 2021-01-18 09:22 | disposition other institution (70) | DRG 871 ==
LOC: ED 07:14 → ICCU 09:24 → EDHOLD 09:24 → ICCU 22:10 → 5E 01-14 18:31
PROVIDERS: Emergency Medicine; Internal Medicine; Internal Medicine Critical Care Medicine; Student in an Organized Health Care Education/Training Program; ADMIT Internal Medicine; ATTEND Internal Medicine
PROC: 5A09357 Assistance with Respiratory Ventilation, Less than 24 Consecutive Hours, Continuous Positive Airway Pressure (ICD-10-PCS; 2021-01-09)
PROC: 02HV33Z Insertion of Infusion Device into Superior Vena Cava, Percutaneous Approach (ICD-10-PCS; 2021-01-10)
PROC: B548ZZA Ultrasonography of Superior Vena Cava, Guidance (ICD-10-PCS; 2021-01-10)
PROC: 5A1945Z Respiratory Ventilation, 24-96 Consecutive Hours (ICD-10-PCS; principal; 2021-01-11)
PROC: 0BH18EZ Insertion of Endotracheal Airway into Trachea, Via Natural or Artificial Opening Endoscopic (ICD-10-PCS; 2021-01-11)
PROC: 5A09357 Assistance with Respiratory Ventilation, Less than 24 Consecutive Hours, Continuous Positive Airway Pressure (ICD-10-PCS; 2021-01-13)
DX: A41.9 Sepsis, unspecified organism (principal); J18.9 Pneumonia, unspecified organism; N17.0 Acute kidney failure with tubular necrosis; I21.4 Non-ST elevation (NSTEMI) myocardial infarction; J96.21 Acute and chronic respiratory failure with hypoxia; J96.22 Acute and chronic respiratory failure with hypercapnia; C34.90 Malignant neoplasm of unspecified part of unspecified bronchus or lung; N30.01 Acute cystitis with hematuria; J44.1 Chronic obstructive pulmonary disease with (acute) exacerbation; J44.0 Chronic obstructive pulmonary disease with (acute) lower respiratory infection; Z20.822 Contact with and (suspected) exposure to COVID-19; R65.20 Severe sepsis without septic shock; D64.9 Anemia, unspecified; K21.9 Gastro-esophageal reflux disease without esophagitis; I25.10 Atherosclerotic heart disease of native coronary artery without angina pectoris; H40.9 Unspecified glaucoma; E86.0 Dehydration; E11.65 Type 2 diabetes mellitus with hyperglycemia; E55.9 Vitamin D deficiency, unspecified; I10 Essential (primary) hypertension; E66.9 Obesity, unspecified; F41.1 Generalized anxiety disorder; E87.6 Hypokalemia; Z87.891 Personal history of nicotine dependence; Z88.0 Allergy status to penicillin; Z88.5 Allergy status to narcotic agent; Z90.49 Acquired absence of other specified parts of digestive tract; Z90.710 Acquired absence of both cervix and uterus; Z79.51 Long term (current) use of inhaled steroids; Z79.82 Long term (current) use of aspirin; Z79.899 Other long term (current) drug therapy; Z68.31 Body mass index [BMI] 31.0-31.9, adult

== ENCOUNTER → 2021-02-15 | Outpatient (CLI) | payer OTHER ==
[~2021-02-15] MED LIST changes: +OXYGEN NAS; +PERCOCET 5-3251 EACH PO
== END | disposition home or self-care (01) ==
LOC: RESCLI 00:57
PROVIDERS: ATTEND Internal Medicine
DX: J44.9 Chronic obstructive pulmonary disease, unspecified (principal); R11.2 Nausea with vomiting, unspecified; C34.92 Malignant neoplasm of unspecified part of left bronchus or lung; K21.00 Gastro-esophageal reflux disease with esophagitis, without bleeding; E11.9 Type 2 diabetes mellitus without complications; I10 Essential (primary) hypertension; F32.9 Major depressive disorder, single episode, unspecified; E55.9 Vitamin D deficiency, unspecified; F41.9 Anxiety disorder, unspecified; Z79.899 Other long term (current) drug therapy; Z79.82 Long term (current) use of aspirin; Z79.84 Long term (current) use of oral hypoglycemic drugs; Z95.828 Presence of other vascular implants and grafts; Z90.49 Acquired absence of other specified parts of digestive tract; Z90.710 Acquired absence of both cervix and uterus; Z90.722 Acquired absence of ovaries, bilateral; Z88.0 Allergy status to penicillin; Z98.890 Other specified postprocedural states; Z88.8 Allergy status to other drugs, medicaments and biological substances

== ENCOUNTER → 2021-03-25 | Outpatient (CLI) | payer OTHER | END | disposition home or self-care (01) | LOC: RESCLI 02:25 | PROVIDERS: ATTEND Student in an Organized Health Care Education/Training Program | DX: J44.9 Chronic obstructive pulmonary disease, unspecified (principal); S30.1XXD Contusion of abdominal wall, subsequent encounter; I25.10 Atherosclerotic heart disease of native coronary artery without angina pectoris; H40.10X0 Unspecified open-angle glaucoma, stage unspecified; R91.1 Solitary pulmonary nodule; I25.2 Old myocardial infarction; I10 Essential (primary) hypertension; G89.29 Other chronic pain; E78.2 Mixed hyperlipidemia; F41.9 Anxiety disorder, unspecified; E55.9 Vitamin D deficiency, unspecified; G47.00 Insomnia, unspecified; K21.00 Gastro-esophageal reflux disease with esophagitis, without bleeding; H26.9 Unspecified cataract; E66.9 Obesity, unspecified; E04.1 Nontoxic single thyroid nodule; R13.12 Dysphagia, oropharyngeal phase; J44.1 Chronic obstructive pulmonary disease with (acute) exacerbation; E11.9 Type 2 diabetes mellitus without complications; F32.9 Major depressive disorder, single episode, unspecified; E66.01 Morbid (severe) obesity due to excess calories; C34.92 Malignant neoplasm of unspecified part of left bronchus or lung; C34.91 Malignant neoplasm of unspecified part of right bronchus or lung; K21.9 Gastro-esophageal reflux disease without esophagitis; C34.90 Malignant neoplasm of unspecified part of unspecified bronchus or lung; H93.13 Tinnitus, bilateral; R11.2 Nausea with vomiting, unspecified; M79.2 Neuralgia and neuritis, unspecified; Z72.0 Tobacco use; Z79.899 Other long term (current) drug therapy; Z98.890 Other specified postprocedural states; X58.XXXD Exposure to other specified factors, subsequent encounter ==

== ENCOUNTER → 2021-05-06 | Outpatient (CLI) | payer OTHER | END | disposition home or self-care (01) | LOC: RESCLI 09:42 | PROVIDERS: ATTEND Internal Medicine | DX: J44.1 Chronic obstructive pulmonary disease with (acute) exacerbation (principal); G47.00 Insomnia, unspecified; F32.9 Major depressive disorder, single episode, unspecified; Z79.82 Long term (current) use of aspirin; Z79.84 Long term (current) use of oral hypoglycemic drugs; Z79.899 Other long term (current) drug therapy ==

== ENCOUNTER → 2021-05-11 | Outpatient (CLI) | payer OTHER | END | disposition home or self-care (01) | LOC: RESCLI 06:37 | PROVIDERS: ATTEND Family Medicine | DX: R25.1 Tremor, unspecified (principal); J44.9 Chronic obstructive pulmonary disease, unspecified; S30.1XXD Contusion of abdominal wall, subsequent encounter; H40.10X0 Unspecified open-angle glaucoma, stage unspecified; R91.1 Solitary pulmonary nodule; I25.2 Old myocardial infarction; I10 Essential (primary) hypertension; G89.29 Other chronic pain; E78.2 Mixed hyperlipidemia; F41.9 Anxiety disorder, unspecified; E55.9 Vitamin D deficiency, unspecified; I25.10 Atherosclerotic heart disease of native coronary artery without angina pectoris; G47.00 Insomnia, unspecified; K21.00 Gastro-esophageal reflux disease with esophagitis, without bleeding; H26.9 Unspecified cataract; E66.9 Obesity, unspecified; E04.1 Nontoxic single thyroid nodule; R13.12 Dysphagia, oropharyngeal phase; J44.1 Chronic obstructive pulmonary disease with (acute) exacerbation; E11.9 Type 2 diabetes mellitus without complications; F32.9 Major depressive disorder, single episode, unspecified; E66.01 Morbid (severe) obesity due to excess calories; C34.92 Malignant neoplasm of unspecified part of left bronchus or lung; C34.91 Malignant neoplasm of unspecified part of right bronchus or lung; J30.2 Other seasonal allergic rhinitis; K21.9 Gastro-esophageal reflux disease without esophagitis; C34.90 Malignant neoplasm of unspecified part of unspecified bronchus or lung; H93.13 Tinnitus, bilateral; R11.2 Nausea with vomiting, unspecified; M79.2 Neuralgia and neuritis, unspecified; Z88.0 Allergy status to penicillin; Z88.8 Allergy status to other drugs, medicaments and biological substances; Z90.49 Acquired absence of other specified parts of digestive tract; Z90.710 Acquired absence of both cervix and uterus; Z90.722 Acquired absence of ovaries, bilateral; Z79.82 Long term (current) use of aspirin; Z79.84 Long term (current) use of oral hypoglycemic drugs; Z79.899 Other long term (current) drug therapy ==

== ENCOUNTER 2021-05-18 09:45 | Emergency (ER) | payer OTHER ==
[~2021-05-18] VITALS: Ht 167.6 cm; Wt 93.0 kg
[2021-05-18 09:51] VITALS: BP 107/62
[2021-05-18 10:24] LABS: BASO # 0.1 10*3/uL (0.0-0.1); BASO % 0.6 % (0.0-1.0); EOS # 0.5 10*3/uL (0.0-0.4); EOS % 3.9 % (1.0-4.0); HEMATOCRIT 30.6 % (37.0-47.0); LYMPH % 23.2 % (27.0-41.0); MEAN CELL VOLUME 91.1 fl (81.0-99.0); MEAN CORPUSCULAR HGB CONC 30.7 g/dl (33.0-37.0); MEAN PLATELET VOLUME 10.6 fl (9.6-12.3); MONO # 0.8 10*3/uL (0.1-1.0); NEUT # 8.3 10*3/uL (2.3-7.9); NEUT % 65.4 % (47.0-73.0); PLATELET COUNT AUTOMATED 264 10*3/uL (130-400); RED BLOOD COUNT 3.36 10*6/uL (4.10-5.10); RED CELL DISTRI WIDTH 13.2 % (0-14.5); WHITE BLOOD COUNT 12.7 10*3/uL (4.8-10.8)
[2021-05-18 10:36] LABS: ALBUMIN 2.8 gm/dl (3.1-4.5); ALKALINE PHOSPHATASE 131 U/L (45-117); BUN 14 mg/dl (7-24); CHLORIDE 107 mmol/L (98-107); CREATININE 0.93 mg/dL (0.55-1.02); LIPASE 271 U/L (73-393); POTASSIUM 4.2 mmol/L (3.5-5.1); SGOT/AST 8 IU/L (3-35); SGPT/ALT 17 U/L (12-78); SODIUM 140 mmol/L (136-145); TOTAL PROTEIN 6.6 gm/dL (6.4-8.2); TROPONIN I < 0.015 ng/ml (<0.045)
[2021-05-18] MEDS ORDERED: PREDNISONE50 MG PO (12:25)
[2021-05-18] MEDS ORDERED: ZITHROMAX250 MG PO (12:25)
[2021-06-01] MEDS ORDERED: ZITHROMAX250 MG PO (15:40)
[2021-06-01] MEDS ORDERED: PREDNISONE20 M1 PO (15:40)
== END 2021-05-18 12:40 | disposition home or self-care (01) ==
LOC: ED 09:45
PROVIDERS: Emergency Medicine
DX: J44.1 Chronic obstructive pulmonary disease with (acute) exacerbation (principal); F12.90 Cannabis use, unspecified, uncomplicated; Z87.891 Personal history of nicotine dependence; Z90.710 Acquired absence of both cervix and uterus; Z90.49 Acquired absence of other specified parts of digestive tract; Z79.899 Other long term (current) drug therapy; Z79.82 Long term (current) use of aspirin; Z88.0 Allergy status to penicillin; Z88.5 Allergy status to narcotic agent

== ENCOUNTER 2021-06-01 11:58 | Emergency (ER) | payer OTHER ==
[~2021-06-01] VITALS: Ht 167.6 cm; Wt 95.7 kg
[2021-06-01 12:08] VITALS: BP 108/55
[2021-06-01 14:10] LABS: BASO # 0.1 10*3/uL (0.0-0.1); BASO % 0.7 % (0.0-1.0); EOS # 0.4 10*3/uL (0.0-0.4); HEMATOCRIT 32.6 % (37.0-47.0); LYMPH # 2.6 10*3/uL (1.3-4.4); LYMPH % 25.4 % (27.0-41.0); MEAN CELL VOLUME 91.1 fl (81.0-99.0); MEAN CORPUSCULAR HGB 28.2 pg (27.0-31.0); MEAN PLATELET VOLUME 10.4 fl (9.6-12.3); MONO # 0.7 10*3/uL (0.1-1.0); MONO % 6.4 % (3.0-9.0); NEUT # 6.5 10*3/uL (2.3-7.9); PLATELET COUNT AUTOMATED 294 10*3/uL (130-400); RED BLOOD COUNT 3.58 10*6/uL (4.10-5.10); RED CELL DISTRI WIDTH 13.5 % (0-14.5); WHITE BLOOD COUNT 10.4 10*3/uL (4.8-10.8)
[2021-06-01 14:26] LABS: ALBUMIN 3.2 gm/dl (3.1-4.5); ALKALINE PHOSPHATASE 138 U/L (45-117); BUN 16 mg/dl (7-24); CHLORIDE 104 mmol/L (98-107); CREATININE 0.95 mg/dL (0.55-1.02); POTASSIUM 4.4 mmol/L (3.5-5.1); SGOT/AST 11 IU/L (3-35); SGPT/ALT 21 U/L (12-78); SODIUM 138 mmol/L (136-145); TOTAL PROTEIN 7.3 gm/dL (6.4-8.2)
[2021-06-01 14:37] LABS: TROPONIN I < 0.015 ng/ml (<0.045)
[2021-06-01] MEDS ORDERED: PREDNISONE20 M1 PO ×2 (15:40)
[2021-06-01] MEDS ORDERED: ZITHROMAX250 MG PO ×2 (15:40)
[2021-06-16] MEDS ORDERED: CELECOXIB100 M1 PO (13:00)
[2021-06-16] MEDS ORDERED: METFORMIN HYDR500 MG PO (13:00)
[2021-06-16] MEDS ORDERED: SPIRIVA18 MCG PO (13:01)
[2021-06-16] MEDS ORDERED: VENT7GM INH (13:02)
[2021-06-16] MEDS ORDERED: ADVAIR HFA 230-12 GM IH (13:03)
[2021-06-16] MEDS ORDERED: CELEXA20 MG PO (13:03)
[2021-06-16] MEDS ORDERED: ALLERGY RELIEF180 MG PO (13:04)
[2021-06-16] MEDS ORDERED: ONDANSETRON4 MG SL (13:05)
[2021-06-16] MEDS ORDERED: TRAZODONE50 MG PO (13:05)
[2021-06-16] MEDS ORDERED: LIPITOR20 MG PO (13:08)
[2021-06-16] MEDS ORDERED: ISOSORBIDE DINI30 MG PO (13:09)
[2021-06-16] MEDS ORDERED: NEURONTIN300 MG PO (13:09)
[2021-06-16] MEDS ORDERED: DALI500T PO (13:09)
[2021-06-17] MEDS ORDERED: PROTONIX40 MG PO (14:21)
== END 2021-06-01 15:57 | disposition home or self-care (01) ==
LOC: ED 11:58
PROVIDERS: Physician Assistant
DX: J44.1 Chronic obstructive pulmonary disease with (acute) exacerbation (principal); Z88.0 Allergy status to penicillin; Z88.6 Allergy status to analgesic agent; Z79.899 Other long term (current) drug therapy; Z79.82 Long term (current) use of aspirin; Z87.891 Personal history of nicotine dependence

== ENCOUNTER → 2021-10-12 | Outpatient (CLI) | payer OTHER ==
[~2021-10-12] MED LIST changes: +ADVAIR HFA 230-12 GM IH; +ALLERGY RELIEF180 MG PO; +CELECOXIB100 M1 PO; +CELEXA20 MG PO; +DALI500T PO; +ISOSORBIDE DINI30 MG PO; +METFORMIN HYDR500 MG PO; +NEURONTIN300 MG PO; +ONDANSETRON4 MG SL; +TRAZODONE50 MG PO; +VENT7GM INH
== END | disposition home or self-care (01) ==
LOC: RAD 12:38
PROVIDERS: ATTEND Family Medicine
DX: J98.4 Other disorders of lung (principal); R06.02 Shortness of breath

== ENCOUNTER → 2021-10-26 | Outpatient (CLI) | payer OTHER | END | disposition home or self-care (01) | LOC: CARD 09:58 | PROVIDERS: ATTEND Family Medicine | DX: I51.7 Cardiomegaly (principal); R06.02 Shortness of breath ==

== ENCOUNTER → 2021-12-30 | Outpatient (CLI) | payer OTHER ==
[~2021-12-30] MED LIST changes: +Carafate1 GM PO; +K-TAB20 MEQ PO
== END | disposition home or self-care (01) ==
LOC: LAB 10:59
PROVIDERS: ATTEND Family Medicine
DX: J98.4 Other disorders of lung (principal); E78.5 Hyperlipidemia, unspecified

== ENCOUNTER 2022-03-29 11:08 | Inpatient (IN) | payer OTHER ==
[~2022-03-29] VITALS: Ht 167.6 cm; Wt 95.3 kg
[~2022-03-29 11:08] MED LIST changes: -ISOSORBIDE DINI30 MG PO
[2022-03-29 11:12] VITALS: BP 141/110
[2022-03-29 12:55] LABS: BASO # 0.1 10*3/uL (0.0-0.1); BASO % 0.6 % (0.0-1.0); EOS % 0.1 % (1.0-4.0); HEMATOCRIT 38.2 % (37.0-47.0); LYMPH # 1.7 10*3/uL (1.3-4.4); LYMPH % 10.7 % (27.0-41.0); MEAN CELL VOLUME 86.2 fl (81.0-99.0); MEAN CORPUSCULAR HGB 27.5 pg (27.0-31.0); MEAN CORPUSCULAR HGB CONC 31.9 g/dl (33.0-37.0); MEAN PLATELET VOLUME 11.4 fl (9.6-12.3); MONO # 0.9 10*3/uL (0.1-1.0); NEUT # 12.9 10*3/uL (2.3-7.9); NEUT % 82.1 % (47.0-73.0); PLATELET COUNT AUTOMATED 302 10*3/uL (130-400); RED BLOOD COUNT 4.43 10*6/uL (4.10-5.10); WHITE BLOOD COUNT 15.7 10*3/uL (4.8-10.8)
[2022-03-29 13:06] LABS: ACT PARTIAL THROMBO TIME 24.8 SECONDS (20.0-32.1); INTERNATIONAL NORM RATIO 1.1 (2.0-3.5)
[2022-03-29 13:11] LABS: ALKALINE PHOSPHATASE 152 U/L (45-117); BUN 15 mg/dl (7-24); CHLORIDE 100 mmol/L (98-107); CREATININE 0.97 mg/dL (0.55-1.02); LIPASE 106 U/L (73-393); POTASSIUM 3.2 mmol/L (3.5-5.1); SGOT/AST 29 IU/L (3-35); SGPT/ALT 38 U/L (12-78); SODIUM 136 mmol/L (136-145); TOTAL PROTEIN 7.9 gm/dL (6.4-8.2)
[2022-03-29 16:05] VITALS: BP 165/71
[2022-03-29 20:09] VITALS: BP 140/78
[2022-03-29 20:30] VITALS: BP 105/72
[2022-03-29 21:28] LABS: BILIRUBIN Negative (Negative); BLOOD Trace-Lysed (Negative); CLARITY Cloudy (Clear); COLOR Dark Yellow (Yellow); GLUCOSE Negative (Negative); KETONE 3+ (Negative); LEUKO ESTERASE Trace (Negative); NITRITE Negative (Negative); PH 5.5 (4.5-8.0); SPECIFIC GRAVITY >= 1.030 (1.001-1.030)
[2022-03-29 21:51] LABS: BACTERIA 2+; EPITHELIAL CELLS TNTC; MUCOUS 1+
[2022-03-29] MEDS ORDERED: Percocet 325 MG1 TAB PO (23:38)
[2022-03-29] MEDS ORDERED: TOPCARE OMEPRAZ20 MG PO (23:42)
[2022-03-30] VITALS (8 sets, daily range): BP systolic 101–138; BP diastolic 42–78
[2022-03-30 05:59] LABS: BUN 13 mg/dl (7-24); CHLORIDE 102 mmol/L (98-107); CREATININE 0.95 mg/dL (0.55-1.02); SODIUM 141 mmol/L (136-145)
[2022-03-30 06:21] LABS: BASO # 0.1 10*3/uL (0.0-0.1); BASO % 0.7 % (0.0-1.0); EOS # 0.1 10*3/uL (0.0-0.4); EOS % 1.1 % (1.0-4.0); HEMATOCRIT 33.6 % (37.0-47.0); LYMPH # 3.9 10*3/uL (1.3-4.4); LYMPH % 31.3 % (27.0-41.0); MEAN CELL VOLUME 87.3 fl (81.0-99.0); MEAN CORPUSCULAR HGB 26.8 pg (27.0-31.0); MEAN CORPUSCULAR HGB CONC 30.7 g/dl (33.0-37.0); MEAN PLATELET VOLUME 11.8 fl (9.6-12.3); MONO # 1.2 10*3/uL (0.1-1.0); MONO % 9.7 % (3.0-9.0); NEUT # 7.1 10*3/uL (2.3-7.9); NEUT % 56.8 % (47.0-73.0); PLATELET COUNT AUTOMATED 259 10*3/uL (130-400); RED BLOOD COUNT 3.85 10*6/uL (4.10-5.10); RED CELL DISTRI WIDTH 14.1 % (0-14.5); WHITE BLOOD COUNT 12.6 10*3/uL (4.8-10.8)
[2022-03-31 06:02] LABS: BUN 10 mg/dl (7-24); CHLORIDE 106 mmol/L (98-107); POTASSIUM 3.2 mmol/L (3.5-5.1); SODIUM 144 mmol/L (136-145)
[2022-03-31 06:03] LABS: CREATININE 0.91 mg/dL (0.55-1.02)
[2022-03-31 06:11] LABS: BASO # 0.1 10*3/uL (0.0-0.1); BASO % 0.9 % (0.0-1.0); EOS # 0.3 10*3/uL (0.0-0.4); EOS % 3.2 % (1.0-4.0); HEMATOCRIT 31.3 % (37.0-47.0); LYMPH # 3.3 10*3/uL (1.3-4.4); LYMPH % 30.9 % (27.0-41.0); MEAN CELL VOLUME 89.9 fl (81.0-99.0); MEAN CORPUSCULAR HGB 27.6 pg (27.0-31.0); MEAN CORPUSCULAR HGB CONC 30.7 g/dl (33.0-37.0); MONO % 9.7 % (3.0-9.0); NEUT # 5.8 10*3/uL (2.3-7.9); PLATELET COUNT AUTOMATED 216 10*3/uL (130-400); RED BLOOD COUNT 3.48 10*6/uL (4.10-5.10); RED CELL DISTRI WIDTH 14.1 % (0-14.5); WHITE BLOOD COUNT 10.5 10*3/uL (4.8-10.8)
[2022-03-31] MEDS ORDERED: METRONIDAZOLE500 M1 PO (13:14)
[2022-03-31] MEDS ORDERED: CIPRO500 MG PO (13:14)
== END 2022-03-31 15:16 | disposition home or self-care (01) | DRG 372 ==
LOC: ED 11:08 → EDHOLD 15:57 → 5E 15:57
PROVIDERS: Emergency Medicine; ADMIT Internal Medicine; ATTEND Internal Medicine
PROC: 0DB78ZX Excision of Stomach, Pylorus, Via Natural or Artificial Opening Endoscopic, Diagnostic (ICD-10-PCS; principal; 2022-03-30)
DX: A04.9 Bacterial intestinal infection, unspecified (principal); C34.90 Malignant neoplasm of unspecified part of unspecified bronchus or lung; K29.70 Gastritis, unspecified, without bleeding; R91.1 Solitary pulmonary nodule; E55.9 Vitamin D deficiency, unspecified; E04.2 Nontoxic multinodular goiter; M54.16 Radiculopathy, lumbar region; E11.9 Type 2 diabetes mellitus without complications; I10 Essential (primary) hypertension; E78.5 Hyperlipidemia, unspecified; F12.90 Cannabis use, unspecified, uncomplicated; I25.10 Atherosclerotic heart disease of native coronary artery without angina pectoris; R11.10 Vomiting, unspecified; T40.715A Adverse effect of cannabis, initial encounter; Y92.89 Other specified places as the place of occurrence of the external cause; Z88.6 Allergy status to analgesic agent; Z88.0 Allergy status to penicillin; Z79.82 Long term (current) use of aspirin; Z79.899 Other long term (current) drug therapy; Z90.722 Acquired absence of ovaries, bilateral; Z90.49 Acquired absence of other specified parts of digestive tract; Z90.710 Acquired absence of both cervix and uterus; Z87.891 Personal history of nicotine dependence; Z80.0 Family history of malignant neoplasm of digestive organs; Z83.6 Family history of other diseases of the respiratory system; Z85.41 Personal history of malignant neoplasm of cervix uteri; I25.2 Old myocardial infarction

== ENCOUNTER → 2022-04-22 | Outpatient (CLI) | payer OTHER ==
[~2022-04-22] MED LIST changes: +METRONIDAZOLE500 M1 PO; +Percocet 325 MG1 TAB PO; +TOPCARE OMEPRAZ20 MG PO
== END | disposition home or self-care (01) ==
LOC: US 10:03
PROVIDERS: ATTEND Family Medicine
DX: I73.9 Peripheral vascular disease, unspecified (principal)

== ENCOUNTER 2022-05-23 03:28 | Emergency (ER) | payer OTHER ==
[~2022-05-23 03:28] MED LIST changes: +BETIMOL5 M1 OP; +IRON325 M1 PO; +LATANOPROST2.5 ML OP
[2022-05-23 04:12] LABS: BASO # 0.1 10*3/uL (0.0-0.1); BASO % 0.7 % (0.0-1.0); EOS % 0.2 % (1.0-4.0); HEMATOCRIT 36.3 % (37.0-47.0); LYMPH % 14.7 % (27.0-41.0); MEAN CELL VOLUME 87.5 fl (81.0-99.0); MEAN PLATELET VOLUME 12.2 fl (9.6-12.3); MONO # 0.4 10*3/uL (0.1-1.0); MONO % 2.7 % (3.0-9.0); NEUT # 11.3 10*3/uL (2.3-7.9); NEUT % 81.3 % (47.0-73.0); PLATELET COUNT AUTOMATED 310 10*3/uL (130-400); RED BLOOD COUNT 4.15 10*6/uL (4.10-5.10); RED CELL DISTRI WIDTH 13.9 % (0-14.5); WHITE BLOOD COUNT 13.9 10*3/uL (4.8-10.8)
[2022-05-23 04:22] LABS: ACT PARTIAL THROMBO TIME 25.3 SECONDS (20.0-32.1); INTERNATIONAL NORM RATIO 1.1 (2.0-3.5)
[2022-05-23 04:30] LABS: ALKALINE PHOSPHATASE 140 U/L (45-117); BUN 18 mg/dl (7-24); CHLORIDE 101 mmol/L (98-107); CREATININE 1.02 mg/dL (0.55-1.02); POTASSIUM 3.9 mmol/L (3.5-5.1); SGOT/AST 10 IU/L (3-35); SGPT/ALT 20 U/L (12-78); SODIUM 135 mmol/L (136-145); TOTAL PROTEIN 8.2 gm/dL (6.4-8.2)
[2022-05-23 06:48] VITALS: BP 131/77
[2022-05-23] MEDS ORDERED: ONDANSETRON HYDR4 M1 PO (11:10)
== END 2022-05-23 11:14 | disposition home or self-care (01) ==
LOC: ED 03:28
PROVIDERS: Emergency Medicine
DX: R11.2 Nausea with vomiting, unspecified (principal); R10.13 Epigastric pain; J44.9 Chronic obstructive pulmonary disease, unspecified; K21.9 Gastro-esophageal reflux disease without esophagitis; E11.9 Type 2 diabetes mellitus without complications; I10 Essential (primary) hypertension; I25.10 Atherosclerotic heart disease of native coronary artery without angina pectoris; I25.2 Old myocardial infarction; Z85.41 Personal history of malignant neoplasm of cervix uteri; Z88.0 Allergy status to penicillin; Z88.5 Allergy status to narcotic agent; Z79.899 Other long term (current) drug therapy; Z79.82 Long term (current) use of aspirin; Z90.49 Acquired absence of other specified parts of digestive tract; Z90.710 Acquired absence of both cervix and uterus; Z87.891 Personal history of nicotine dependence

== ENCOUNTER → 2022-06-07 | Outpatient (CLI) | payer OTHER ==
[~2022-06-07] MED LIST changes: +ONDANSETRON HYDR4 M1 PO
== END | disposition home or self-care (01) ==
LOC: MAMMO 00:43
PROVIDERS: ATTEND Emergency Medicine
DX: Z12.31 Encounter for screening mammogram for malignant neoplasm of breast (principal)

== ENCOUNTER → 2023-01-17 | Outpatient (CLI) | payer OTHER | END | disposition home or self-care (01) | LOC: RAD 08:33 | PROVIDERS: ATTEND Internal Medicine | DX: J98.4 Other disorders of lung (principal) ==

== ENCOUNTER → 2023-03-20 | Outpatient (CLI) | payer OTHER | END | disposition home or self-care (01) | LOC: US 10:55 | PROVIDERS: ATTEND Internal Medicine Nephrology | DX: M79.89 Other specified soft tissue disorders (principal) ==

== ENCOUNTER → 2023-04-06 | Outpatient (CLI) | payer OTHER | END | disposition home or self-care (01) | LOC: US 00:53 | PROVIDERS: ATTEND Orthopaedic Surgery | DX: M25.561 Pain in right knee (principal) ==

== ENCOUNTER → 2023-06-08 | Outpatient (CLI) | payer OTHER | END | disposition home or self-care (01) | LOC: US 12:52 | PROVIDERS: ATTEND Internal Medicine | DX: M79.604 Pain in right leg (principal); I10 Essential (primary) hypertension; Z72.0 Tobacco use; E11.65 Type 2 diabetes mellitus with hyperglycemia ==

== ENCOUNTER → 2023-12-05 | Outpatient (CLI) | payer OTHER ==
[~2023-12-05] MED LIST changes: +AMBIEN10 M1 PO; +FEROSUL325 M1 PO; +LEVOFLOXACIN750 M2 PO; +MUCINEX1200 M1 PO; +PROVENTIL HFA6.7 GM INH; +ROPINIROLE HYDRO1 MG PO; +TRELEGY ELLIPT1 EAC1 INH; +TRELEGY ELLIPT1 EACH INH; +VITAMIN D350 MC2 PO; +VRAYLAR3 MG PO
== END | disposition home or self-care (01) ==
LOC: MAMMO 04:32
PROVIDERS: ATTEND Internal Medicine
DX: Z12.31 Encounter for screening mammogram for malignant neoplasm of breast (principal)

== ENCOUNTER 2024-02-23 10:49 | Inpatient (IN) | payer OTHER ==
[~2024-02-23] VITALS: Ht 167.6 cm; Wt 59.0 kg
[2024-02-23 11:01] VITALS: BP 150/90
[2024-02-23 11:18] LABS: HEMATOCRIT 42.5 % (37.0-47.0); MEAN CELL VOLUME 92.4 fl (81.0-99.0); MEAN CORPUSCULAR HGB 28.9 pg (27.0-31.0); MEAN CORPUSCULAR HGB CONC 31.3 g/dl (33.0-37.0); MEAN PLATELET VOLUME 11.2 fl (9.6-12.3); PLATELET COUNT AUTOMATED 209 10*3/uL (130-400); RED CELL DISTRI WIDTH 12.9 % (0-14.5)
[2024-02-23 11:21] LABS: MANUAL DIFF REFLEX YES
[2024-02-23 11:29] LABS: ATYPICAL LYMPHS 3 % (0-0); BASOPHILS 1 % (0-1); BURR CELLS MODERATE; POLYCHROMASIA SLIGHT; TOTAL CELLS COUNTED 100 #CELLS
[2024-02-23 11:30] LABS: PLATELET SUFFICIENCY NORMAL (NORMAL); ROULEAUX SLIGHT
[2024-02-23 11:36] LABS: ALKALINE PHOSPHATASE 136 U/L (46-116); BUN 12 mg/dl (9-23); CHLORIDE 102 mmol/L (98-107); POTASSIUM 4.1 mmol/L (3.4-5.1); SGPT/ALT 25 U/L (5-49); TOTAL PROTEIN 7.5 gm/dL (6.0-8.0)
[2024-02-23] MEDS ORDERED: AZITHROMYCIN 250 MG TAB PO ONE (12:35)
[2024-02-23] MEDS ORDERED: methylPREDNISolone sod succ 125 MG VIAL IV ONE (12:35)
[2024-02-23] MEDS ORDERED: Ceftriaxone Sodium 1 GM/10 ML SYR IV ONE (12:35)
[2024-02-23 16:09] VITALS: BP 105/65
[2024-02-23] MEDS ORDERED: SODIUM CHLORIDE 0.9% 1,000 ML IV SCH (16:15)
[2024-02-23] MEDS ORDERED: Albuterol Sulf/Ipratropium 3 ML VIAL NEB SCH (16:15)
[2024-02-23] MEDS ORDERED: SODIUM CHLORIDE 0.9% 1,000 ML IV ONE (16:32)
[2024-02-23 17:15] VITALS: BP 128/49
[2024-02-23 20:30] VITALS: BP 110/53
[2024-02-23] MEDS ORDERED: Doxycycline Hyclate 100 MG in SODIUM CHLORIDE 0.9% 250 ML IV SCH (22:00)
[2024-02-23] MEDS ORDERED: methylPREDNISolone sod succ 40 MG VIAL IV SCH (22:00)
[2024-02-23] MEDS ORDERED: ZOLPIDEM TARTRATE 5 MG TAB PO SCH (22:00)
[2024-02-23] MEDS ORDERED: METOPROLOL SUCCINATE XR 50 MG TAB PO SCH (22:00)
[2024-02-23] MEDS ORDERED: Ropinirole Hydrochloride 1 MG TAB PO SCH (22:00)
[2024-02-24] VITALS (8 sets, daily range): BP systolic 98–122; BP diastolic 30–85
[2024-02-24 03:49] LABS: HEMATOCRIT 39.4 % (37.0-47.0); MEAN CELL VOLUME 92.1 fl (81.0-99.0); MEAN CORPUSCULAR HGB 28.7 pg (27.0-31.0); MEAN CORPUSCULAR HGB CONC 31.2 g/dl (33.0-37.0); MEAN PLATELET VOLUME 11.2 fl (9.6-12.3); PLATELET COUNT AUTOMATED 211 10*3/uL (130-400); RED BLOOD COUNT 4.28 10*6/uL (4.10-5.10); RED CELL DISTRI WIDTH 12.8 % (0-14.5); WHITE BLOOD COUNT 4.8 10*3/uL (4.8-10.8)
[2024-02-24 03:53] LABS: MANUAL DIFF REFLEX YES
[2024-02-24 04:25] LABS: TOTAL CELLS COUNTED 100 #CELLS
[2024-02-24 04:28] LABS: PLATELET SUFFICIENCY NORMAL (NORMAL)
[2024-02-24 04:29] LABS: ALKALINE PHOSPHATASE 119 U/L (46-116); BUN 17 mg/dl (9-23); CHLORIDE 104 mmol/L (98-107); POTASSIUM 4.2 mmol/L (3.4-5.1); SGPT/ALT 26 U/L (5-49)
[2024-02-24] MEDS ORDERED: ATORVASTATIN CALCIUM 20 MG TAB PO SCH (10:00)
[2024-02-24] MEDS ORDERED: ASPIRIN ENTERIC COATED 81 MG TAB PO SCH (10:00)
[2024-02-24] MEDS ORDERED: CITALOPRAM 20 MG TAB PO SCH (10:00)
[2024-02-24] MEDS ORDERED: Enoxaparin Sodium 40 MG/0.4 ML SYR SC SCH (10:00)
[2024-02-24] MEDS ORDERED: AZITHROMYCIN 250 ML IV SCH (10:00)
[2024-02-24] MEDS ORDERED: CARIPRAZINE HCL 3 MG CAPSULE PO SCH (10:00)
[2024-02-24] MEDS ORDERED: Ceftriaxone Sodium 1 GM in SYRINGE INFUSION 10 ML IV SCH (11:00)
[2024-02-24] MEDS ORDERED: DEXTROSE 10 % IN WATER 250 ML IV PRN (12:10)
[2024-02-24] MEDS ORDERED: INSULIN LISPRO 1 UNIT/0.01 ML SQ SCH (16:30)
[2024-02-25 02:37] VITALS: BP 102/68
[2024-02-25 05:47] VITALS: BP 115/62
[2024-02-25 08:15] VITALS: BP 132/74
[2024-02-25 09:00] VITALS: BP 126/56
[2024-02-25 16:00] VITALS: BP 148/84
[2024-02-25 20:00] VITALS: BP 144/68
[2024-02-26] VITALS: BP 138/64
[2024-02-26 08:00] VITALS: BP 147/81
[2024-02-26 12:00] VITALS: BP 132/70
[2024-02-26 14:00] VITALS: BP 132/70
[2024-02-26 16:00] VITALS: BP 154/95
[2024-02-26 20:00] VITALS: BP 143/75
[2024-02-26] MEDS ORDERED: methylPREDNISolone sod succ 125 MG VIAL IV SCH (22:00)
[2024-02-27] VITALS: BP 150/84
[2024-02-27 07:19] LABS: BASO % 0.3 % (0.0-1.0); HEMATOCRIT 35.6 % (37.0-47.0); LYMPH # 1.2 10*3/uL (1.3-4.4); MEAN CELL VOLUME 93.2 fl (81.0-99.0); MEAN CORPUSCULAR HGB 28.8 pg (27.0-31.0); MEAN CORPUSCULAR HGB CONC 30.9 g/dl (33.0-37.0); MEAN PLATELET VOLUME 11.5 fl (9.6-12.3); MONO # 0.3 10*3/uL (0.1-1.0); MONO % 4.4 % (3.0-9.0); NEUT # 5.3 10*3/uL (2.3-7.9); NEUT % 75.6 % (47.0-73.0); PLATELET COUNT AUTOMATED 227 10*3/uL (130-400); RED BLOOD COUNT 3.82 10*6/uL (4.10-5.10); RED CELL DISTRI WIDTH 12.4 % (0-14.5)
[2024-02-27 08:00] VITALS: BP 152/76
[2024-02-27] MEDS ORDERED: FAMOTIDINE 20 MG TAB PO SCH (10:00)
[2024-02-27 12:00] VITALS: BP 154/80
[2024-02-27] MEDS ORDERED: Piperacillin Sodium/Tazobact 50 ML IV SCH (14:00)
[2024-02-27 16:00] VITALS: BP 172/92
[2024-02-27 20:00] VITALS: BP 144/70
[2024-02-27] MEDS ORDERED: Cefepime Hydrochloride 2 GM in SODIUM CHLORIDE 0.9% 50 ML IV SCH (22:00)
[2024-02-27] MEDS ORDERED: methylPREDNISolone sod succ 125 MG VIAL IV SCH (22:00)
[2024-02-28] VITALS: BP 153/93
[2024-02-28] MEDS ORDERED: Benzocaine/Menthol 1 LOZ LOZENGE PO PRN (00:55)
[2024-02-28 06:28] LABS: HEMATOCRIT 34.7 % (37.0-47.0); MEAN CELL VOLUME 92.8 fl (81.0-99.0); MEAN CORPUSCULAR HGB 28.9 pg (27.0-31.0); MEAN CORPUSCULAR HGB CONC 31.1 g/dl (33.0-37.0); PLATELET COUNT AUTOMATED 227 10*3/uL (130-400); RED BLOOD COUNT 3.74 10*6/uL (4.10-5.10); RED CELL DISTRI WIDTH 12.5 % (0-14.5); WHITE BLOOD COUNT 6.5 10*3/uL (4.8-10.8)
[2024-02-28 06:29] LABS: MANUAL DIFF REFLEX YES
[2024-02-28 07:18] LABS: ATYPICAL LYMPHS 1 % (0-0); OVALOCYTES FEW; PLATELET SUFFICIENCY NORMAL (NORMAL); POLYCHROMASIA SLIGHT; TOTAL CELLS COUNTED 100 #CELLS
[2024-02-28 07:25] LABS: ALKALINE PHOSPHATASE 77 U/L (46-116); BUN 16 mg/dl (9-23); CHLORIDE 104 mmol/L (98-107); POTASSIUM 3.7 mmol/L (3.4-5.1); SGPT/ALT 35 U/L (5-49)
[2024-02-28 08:00] VITALS: BP 144/82
[2024-02-28] MEDS ORDERED: GUAIFENESIN 600 MG TAB ER PO SCH (10:00)
[2024-02-28 12:00] VITALS: BP 121/59
[2024-02-28] MEDS ORDERED: GOOD NEIGHBOR L10 MG PO (13:31)
[2024-02-28] MEDS ORDERED: FAMOTIDINE40 MG PO (13:32)
[2024-02-28] MEDS ORDERED: ATARAX,VISTARIL50 MG PO (13:33)
[2024-02-28] MEDS ORDERED: BENZONATATE 100 MG CAP PO PRN (13:45)
[2024-02-28 16:00] VITALS: BP 148/74
[2024-02-28 18:00] VITALS: BP 148/74
[2024-02-28 20:00] VITALS: BP 160/79
[2024-02-29] VITALS: BP 127/93
[2024-02-29 08:00] VITALS: BP 125/66
[2024-02-29 12:00] VITALS: BP 132/54
[2024-02-29 16:00] VITALS: BP 149/72
[2024-02-29 20:10] VITALS: BP 124/70
[2024-02-29] MEDS ORDERED: Acetaminophen/Hydrocodone 5 MG/325 MG TABLET PO PRN (20:55)
[2024-03-01] VITALS: BP 143/89
[2024-03-01 07:41] VITALS: BP 142/67
[2024-03-01 11:04] VITALS: BP 133/50
[2024-03-01 16:00] VITALS: BP 143/75
[2024-03-01 20:00] VITALS: BP 166/93
[2024-03-02 00:12] VITALS: BP 149/71
[2024-03-02 07:35] LABS: HEMATOCRIT 37.9 % (37.0-47.0); MEAN CELL VOLUME 90.7 fl (81.0-99.0); MEAN CORPUSCULAR HGB 28.7 pg (27.0-31.0); MEAN CORPUSCULAR HGB CONC 31.7 g/dl (33.0-37.0); MEAN PLATELET VOLUME 10.8 fl (9.6-12.3); PLATELET COUNT AUTOMATED 245 10*3/uL (130-400); RED BLOOD COUNT 4.18 10*6/uL (4.10-5.10); RED CELL DISTRI WIDTH 12.7 % (0-14.5); WHITE BLOOD COUNT 10.1 10*3/uL (4.8-10.8)
[2024-03-02 07:37] LABS: MANUAL DIFF REFLEX YES
[2024-03-02 08:00] VITALS: BP 141/81
[2024-03-02 08:09] LABS: PLATELET SUFFICIENCY NORMAL (NORMAL); TOTAL CELLS COUNTED 100 #CELLS
[2024-03-02 08:13] LABS: ALKALINE PHOSPHATASE 76 U/L (46-116); BUN 20 mg/dl (9-23); CHLORIDE 101 mmol/L (98-107); POTASSIUM 3.7 mmol/L (3.4-5.1); SGPT/ALT 29 U/L (5-49); TOTAL PROTEIN 6.1 gm/dL (6.0-8.0)
[2024-03-02 12:00] VITALS: BP 164/94
[2024-03-02 16:00] VITALS: BP 161/92
[2024-03-02 20:00] VITALS: BP 142/85
[2024-03-02] MEDS ORDERED: methylPREDNISolone sod succ 40 MG VIAL IV SCH (22:00)
[2024-03-02] MEDS ORDERED: ZOLPIDEM TARTRATE 10 MG TAB PO SCH (22:00)
[2024-03-03] VITALS: BP 154/88
[2024-03-03 08:00] VITALS: BP 156/82
[2024-03-03 12:00] VITALS: BP 153/85
[2024-03-03] MEDS ORDERED: VIBRA-TAB100 MG PO (12:50)
== END 2024-03-03 16:10 | disposition home or self-care (01) | DRG 189 ==
LOC: ED 10:49 → EDHOLD 12:37 → 4E 12:37
PROVIDERS: Nurse Practitioner Family; ADMIT Internal Medicine; ATTEND Internal Medicine
DX: J96.20 Acute and chronic respiratory failure, unspecified whether with hypoxia or hypercapnia (principal); J44.1 Chronic obstructive pulmonary disease with (acute) exacerbation; E44.0 Moderate protein-calorie malnutrition; I10 Essential (primary) hypertension; G25.81 Restless legs syndrome; E55.9 Vitamin D deficiency, unspecified; K21.00 Gastro-esophageal reflux disease with esophagitis, without bleeding; I25.10 Atherosclerotic heart disease of native coronary artery without angina pectoris; F32.A Depression, unspecified; E78.2 Mixed hyperlipidemia; G47.00 Insomnia, unspecified; E66.9 Obesity, unspecified; E11.65 Type 2 diabetes mellitus with hyperglycemia; Z79.899 Other long term (current) drug therapy; Z79.01 Long term (current) use of anticoagulants; Z79.2 Long term (current) use of antibiotics; Z79.84 Long term (current) use of oral hypoglycemic drugs; Z88.0 Allergy status to penicillin; Z88.8 Allergy status to other drugs, medicaments and biological substances; Z91.09 Other allergy status, other than to drugs and biological substances; Z90.49 Acquired absence of other specified parts of digestive tract; Z90.710 Acquired absence of both cervix and uterus; Z90.722 Acquired absence of ovaries, bilateral; Z87.891 Personal history of nicotine dependence; Z82.5 Family history of asthma and other chronic lower respiratory diseases; Z80.0 Family history of malignant neoplasm of digestive organs; Z82.49 Family history of ischemic heart disease and other diseases of the circulatory system; Z68.20 Body mass index [BMI] 20.0-20.9, adult

== ENCOUNTER 2025-02-24 13:57 | Inpatient (IN) | payer OTHER ==
[~2025-02-24] VITALS: Ht 167.6 cm; Wt 107.3 kg
[~2025-02-24 13:57] MED LIST changes: +ATARAX,VISTARIL50 MG PO; +FAMOTIDINE40 MG PO; +GOOD NEIGHBOR L10 MG PO; +VIBRA-TAB100 MG PO
[2025-02-24 14:10] VITALS: BP 148/44
[2025-02-24] MEDS ORDERED: methylPREDNISolone sod succ 125 MG VIAL IV ONE (14:55)
[2025-02-24] MEDS ORDERED: Albuterol Sulf/Ipratropium 3 ML VIAL NEB ONE (14:55)
[2025-02-24 15:12] LABS: BASO # 0.1 10*3/uL (0.0-0.1); BASO % 0.5 % (0.0-1.0); EOS # 0.4 10*3/uL (0.0-0.4); EOS % 3.9 % (1.0-4.0); HEMATOCRIT 37.3 % (37.0-47.0); MEAN CORPUSCULAR HGB 28.8 pg (27.0-31.0); MEAN CORPUSCULAR HGB CONC 31.6 g/dl (33.0-37.0); MEAN PLATELET VOLUME 10.1 fl (9.6-12.3); MONO # 0.5 10*3/uL (0.1-1.0); MONO % 5.2 % (3.0-9.0); NEUT # 5.8 10*3/uL (2.3-7.9); PLATELET COUNT AUTOMATED 222 10*3/uL (130-400); RED CELL DISTRI WIDTH 12.6 % (0-14.5); WHITE BLOOD COUNT 9.2 10*3/uL (4.8-10.8)
[2025-02-24] MEDS ORDERED: ATARAX,VISTARIL50 MG PO (15:18)
[2025-02-24 15:39] LABS: BUN 20 mg/dl (9-23); CHLORIDE 104 mmol/L (98-107); POTASSIUM 4.2 mmol/L (3.4-5.1)
[2025-02-24] MEDS ORDERED: AZITHROMYCIN 250 ML IV ONE (17:45)
[2025-02-24] MEDS ORDERED: cefTRIAXone Sodium 1 GM/10 ML SYR IV ONE (17:45)
[2025-02-24 20:29] VITALS: BP 122/57
[2025-02-24] MEDS ORDERED: hydrOXYzine 50 MG CAP PO PRN (21:00)
[2025-02-24] MEDS ORDERED: Albuterol Sulf/Ipratropium 3 ML VIAL NEB SCH (21:05)
[2025-02-24] MEDS ORDERED: METOPROLOL SUCCINATE XR 50 MG TAB PO SCH (22:00)
[2025-02-24] MEDS ORDERED: rOPINIRole Hydrochloride 1 MG TAB PO SCH (22:00)
[2025-02-24] MEDS ORDERED: ZOLPIDEM TARTRATE 10 MG TAB PO SCH (22:00)
[2025-02-24] MEDS ORDERED: methylPREDNISolone sod succ 40 MG VIAL IV SCH (22:00)
[2025-02-24] MEDS ORDERED: Doxycycline Hyclate 100 MG in SODIUM CHLORIDE 0.9% 250 ML IV SCH (22:00)
[2025-02-25] VITALS: BP 132/69
[2025-02-25] MEDS ORDERED: metFORMIN Hydrochloride 500 MG TAB PO SCH (07:30)
[2025-02-25 08:00] VITALS: BP 123/96
[2025-02-25] MEDS ORDERED: Water, Sterile 10 ML VIAL ONE ×2 (08:45→15:40)
[2025-02-25] MEDS ORDERED: ASPIRIN ENTERIC COATED 81 MG TAB PO SCH (10:00)
[2025-02-25] MEDS ORDERED: CARIPRAZINE HCL 3 MG CAPSULE PO SCH (10:00)
[2025-02-25] MEDS ORDERED: ISOSORBIDE MONONITRATE 30 MG TAB PO SCH (10:00)
[2025-02-25] MEDS ORDERED: ATORVASTATIN CALCIUM 20 MG TAB PO SCH (10:00)
[2025-02-25] MEDS ORDERED: CITALOPRAM 20 MG TAB PO SCH (10:00)
[2025-02-25] MEDS ORDERED: Enoxaparin Sodium 40 MG/0.4 ML SYR SC SCH (10:00)
[2025-02-25] MEDS ORDERED: LORATADINE 10 MG TAB PO SCH (10:00)
[2025-02-25] MEDS ORDERED: FAMOTIDINE 20 MG TAB PO SCH (10:00)
[2025-02-25] MEDS ORDERED: POTASSIUM CHLORIDE 20 MEQ TAB PO SCH (10:00)
[2025-02-25] MEDS ORDERED: FERROUS SULFATE 325 MG TAB PO SCH (10:00)
[2025-02-25] MEDS ORDERED: cefTRIAXone Sodium 1 GM VIAL IV SCH (10:00)
[2025-02-25 12:00] VITALS: BP 90/42
[2025-02-25] MEDS ORDERED: methylPREDNISolone sod succ 40 MG VIAL IV SCH (14:00)
[2025-02-25 16:00] VITALS: BP 102/40
[2025-02-25] MEDS ORDERED: HYDROmorphONE Hydrochloride 0.5 MG/0.5 ML SYRINGE IV ONE (17:10)
[2025-02-25] MEDS ORDERED: cefTRIAXone Sodium 1 GM in SYRINGE INFUSION 10 ML IV SCH (18:00)
[2025-02-25 20:00] VITALS: BP 101/45
[2025-02-26] VITALS: BP 120/51
[2025-02-26 05:55] LABS: BASO % 0.1 % (0.0-1.0); EOS % 0.1 % (1.0-4.0); HEMATOCRIT 35.2 % (37.0-47.0); MEAN CELL VOLUME 91.7 fl (81.0-99.0); MEAN CORPUSCULAR HGB 28.6 pg (27.0-31.0); MEAN CORPUSCULAR HGB CONC 31.3 g/dl (33.0-37.0); MEAN PLATELET VOLUME 10.8 fl (9.6-12.3); MONO # 0.5 10*3/uL (0.1-1.0); MONO % 3.4 % (3.0-9.0); NEUT # 11.9 10*3/uL (2.3-7.9); NEUT % 85.7 % (47.0-73.0); PLATELET COUNT AUTOMATED 263 10*3/uL (130-400); RED BLOOD COUNT 3.84 10*6/uL (4.10-5.10); RED CELL DISTRI WIDTH 13.4 % (0-14.5); WHITE BLOOD COUNT 13.9 10*3/uL (4.8-10.8)
[2025-02-26 06:29] LABS: ALKALINE PHOSPHATASE 117 U/L (46-116); BUN 22 mg/dl (9-23); CHLORIDE 102 mmol/L (98-107); SGPT/ALT 14 U/L (5-49); TOTAL PROTEIN 6.6 gm/dL (6.0-8.0)
[2025-02-26 06:52] LABS: POTASSIUM 5.2 mmol/L (3.4-5.1)
[2025-02-26 08:00] VITALS: BP 121/57
[2025-02-26] MEDS ORDERED: SODIUM POLYSTYRENE SULFONATE 15 GM/60 ML BOT PO ONE (11:35)
[2025-02-26 12:00] VITALS: BP 126/53
[2025-02-26] MEDS ORDERED: GUAIFENESIN 600 MG TAB ER PO SCH (14:55)
[2025-02-26 16:00] VITALS: BP 141/61
[2025-02-26] MEDS ORDERED: Ketorolac Tromethamine 30 MG/ML VIAL IV PRN (17:45)
[2025-02-26 20:00] VITALS: BP 131/64
[2025-02-26] MEDS ORDERED: PRIMIDONE 50 MG TAB PO SCH (22:00)
[2025-02-27] VITALS: BP 144/64
[2025-02-27 05:35] LABS: ALKALINE PHOSPHATASE 102 U/L (46-116); BUN 31 mg/dl (9-23); CHLORIDE 99 mmol/L (98-107); SGPT/ALT 24 U/L (5-49); TOTAL PROTEIN 6.1 gm/dL (6.0-8.0)
[2025-02-27 06:05] LABS: POTASSIUM 3.9 mmol/L (3.4-5.1)
[2025-02-27 06:06] LABS: MEAN CELL VOLUME 91.2 fl (81.0-99.0); MEAN CORPUSCULAR HGB 29.1 pg (27.0-31.0); MEAN CORPUSCULAR HGB CONC 31.9 g/dl (33.0-37.0); MEAN PLATELET VOLUME 10.9 fl (9.6-12.3); PLATELET COUNT AUTOMATED 255 10*3/uL (130-400); RED BLOOD COUNT 3.51 10*6/uL (4.10-5.10); RED CELL DISTRI WIDTH 13.5 % (0-14.5); WHITE BLOOD COUNT 15.2 10*3/uL (4.8-10.8)
[2025-02-27 06:14] LABS: MANUAL DIFF REFLEX YES
[2025-02-27 07:10] LABS: TOTAL CELLS COUNTED 100 #CELLS
[2025-02-27 07:12] LABS: PLATELET SUFFICIENCY NORMAL (NORMAL)
[2025-02-27 08:00] VITALS: BP 125/38
[2025-02-27 12:00] VITALS: BP 130/64
[2025-02-27 16:00] VITALS: BP 107/61
[2025-02-27 20:00] VITALS: BP 111/54
[2025-02-27 22:54] LABS: ABG O2 SATURATION 96.2 % (94.0-98.0); ARTERIAL BLOOD GAS PH 7.392 (7.350-7.450); ARTERIAL BLOOD GAS PO2 95.5 mmHg (83.0-108.0)
[2025-02-27 22:55] LABS: ABG BASE EXCESS -4.3 mmol/L (-2.0-3.0)
[2025-02-28] VITALS (7 sets, daily range): BP systolic 95–153; BP diastolic 50–75
[2025-02-28] MEDS ORDERED: methylPREDNISolone sod succ 40 MG VIAL IV SCH (22:00)
[2025-03-01 06:40] LABS: HEMATOCRIT 33.1 % (37.0-47.0); MEAN CELL VOLUME 90.7 fl (81.0-99.0); MEAN CORPUSCULAR HGB 28.5 pg (27.0-31.0); MEAN CORPUSCULAR HGB CONC 31.4 g/dl (33.0-37.0); PLATELET COUNT AUTOMATED 249 10*3/uL (130-400); RED BLOOD COUNT 3.65 10*6/uL (4.10-5.10); RED CELL DISTRI WIDTH 13.3 % (0-14.5); WHITE BLOOD COUNT 10.9 10*3/uL (4.8-10.8)
[2025-03-01 06:43] LABS: MANUAL DIFF REFLEX YES
[2025-03-01 07:06] LABS: BUN 30 mg/dl (9-23); CHLORIDE 100 mmol/L (98-107); POTASSIUM 3.7 mmol/L (3.4-5.1)
[2025-03-01 07:19] LABS: TOTAL CELLS COUNTED 100 #CELLS
[2025-03-01 07:20] LABS: PLATELET SUFFICIENCY NORMAL (NORMAL); POLYCHROMASIA SLIGHT
[2025-03-01 08:00] VITALS: BP 136/83
[2025-03-01 12:00] VITALS: BP 108/59
[2025-03-01] MEDS ORDERED: hydrOXYzine 50 MG CAP PO PRN (14:20)
[2025-03-01 16:00] VITALS: BP 117/52
[2025-03-01 20:00] VITALS: BP 121/58
[2025-03-02] VITALS: BP 118/64
[2025-03-02 08:00] VITALS: BP 126/71
[2025-03-02 12:00] VITALS: BP 112/53
[2025-03-02] MEDS ORDERED: DOXYCYCLINE HY100 M3 PO (12:36)
[2025-03-02] MEDS ORDERED: MUCINEX1200 M1 PO (12:42)
== END 2025-03-02 14:33 | disposition home or self-care (01) | DRG 189 ==
LOC: ED 13:57 → 4E 17:47 → EDHOLD 17:47 → 4E 19:53
PROVIDERS: Nurse Practitioner Family; ADMIT Internal Medicine; ATTEND Internal Medicine
DX: J96.01 Acute respiratory failure with hypoxia (principal); J44.1 Chronic obstructive pulmonary disease with (acute) exacerbation; C34.90 Malignant neoplasm of unspecified part of unspecified bronchus or lung; J45.901 Unspecified asthma with (acute) exacerbation; J44.0 Chronic obstructive pulmonary disease with (acute) lower respiratory infection; E44.0 Moderate protein-calorie malnutrition; K21.9 Gastro-esophageal reflux disease without esophagitis; F12.90 Cannabis use, unspecified, uncomplicated; E55.9 Vitamin D deficiency, unspecified; M54.16 Radiculopathy, lumbar region; E78.5 Hyperlipidemia, unspecified; E11.42 Type 2 diabetes mellitus with diabetic polyneuropathy; F32.A Depression, unspecified; F41.9 Anxiety disorder, unspecified; E66.9 Obesity, unspecified; I10 Essential (primary) hypertension; G25.81 Restless legs syndrome; I25.10 Atherosclerotic heart disease of native coronary artery without angina pectoris; K57.30 Diverticulosis of large intestine without perforation or abscess without bleeding; J20.9 Acute bronchitis, unspecified; D50.9 Iron deficiency anemia, unspecified; F51.01 Primary insomnia; G47.33 Obstructive sleep apnea (adult) (pediatric); E04.2 Nontoxic multinodular goiter; R91.1 Solitary pulmonary nodule; Z88.0 Allergy status to penicillin; Z88.8 Allergy status to other drugs, medicaments and biological substances; I25.2 Old myocardial infarction; Z79.899 Other long term (current) drug therapy; Z79.2 Long term (current) use of antibiotics; Z79.01 Long term (current) use of anticoagulants; Z90.49 Acquired absence of other specified parts of digestive tract; Z90.710 Acquired absence of both cervix and uterus; Z87.891 Personal history of nicotine dependence; Z82.49 Family history of ischemic heart disease and other diseases of the circulatory system; Z83.6 Family history of other diseases of the respiratory system; Z99.81 Dependence on supplemental oxygen; Z80.8 Family history of malignant neoplasm of other organs or systems; Z78.9 Other specified health status; Z90.722 Acquired absence of ovaries, bilateral; Z68.38 Body mass index [BMI] 38.0-38.9, adult

== ENCOUNTER 2025-03-21 23:26 | Emergency (ER) | payer OTHER ==
[~2025-03-21] VITALS: Ht 167.6 cm; Wt 107.5 kg
[~2025-03-21 23:26] MED LIST changes: +DOXYCYCLINE HY100 M3 PO
[2025-03-21 23:30] VITALS: BP 106/65
[2025-03-22] MEDS ORDERED: Albuterol Sulf/Ipratropium 3 ML VIAL NEB ONE (00:25)
[2025-03-22] MEDS ORDERED: PREDNISONE20 M1 PO (04:37)
== END 2025-03-22 04:50 | disposition home or self-care (01) ==
LOC: ED 23:26
DX: J44.9 Chronic obstructive pulmonary disease, unspecified (principal); Z88.0 Allergy status to penicillin; Z88.5 Allergy status to narcotic agent; Z79.899 Other long term (current) drug therapy; Z79.82 Long term (current) use of aspirin; Z90.49 Acquired absence of other specified parts of digestive tract; Z90.710 Acquired absence of both cervix and uterus; Z87.891 Personal history of nicotine dependence

== ENCOUNTER 2025-06-16 14:17 | Inpatient (IN) | payer OTHER ==
[~2025-06-16] VITALS: Ht 167.6 cm; Wt 103.5 kg
[2025-06-16 14:24] VITALS: BP 145/80
[2025-06-16] MEDS ORDERED: ALBUTEROL2.5 MG/0.5 INH (14:46)
[2025-06-16] MEDS ORDERED: OXYCODONE-ACET1 EAC3 PO (14:46)
[2025-06-16] MEDS ORDERED: ZITHROMAX250 MG PO (14:47)
[2025-06-16] MEDS ORDERED: NITROSTAT0.4 MG SL (14:47)
[2025-06-16] MEDS ORDERED: MEDROL DOSEPAK4 MG PO (14:47)
[2025-06-16] MEDS ORDERED: NEURONTIN100 MG PO (14:48)
[2025-06-16] MEDS ORDERED: ROPINIROLE HY0.25 MG PO (14:48)
[2025-06-16] MEDS ORDERED: Albuterol Sulf/Ipratropium 3 ML VIAL NEB ONE (14:50)
[2025-06-16 15:13] LABS: BASO # 0.1 10*3/uL (0.0-0.1); BASO % 0.8 % (0.0-1.0); EOS # 0.3 10*3/uL (0.0-0.4); EOS % 2.4 % (1.0-4.0); MEAN CELL VOLUME 91.9 fl (81.0-99.0); MEAN CORPUSCULAR HGB 28.5 pg (27.0-31.0); MEAN PLATELET VOLUME 11.4 fl (9.6-12.3); MONO # 0.8 10*3/uL (0.1-1.0); MONO % 7.3 % (3.0-9.0); NEUT # 6.9 10*3/uL (2.3-7.9); NEUT % 66.1 % (47.0-73.0); NUCLEATED RED BLOOD CELL 0.0 % (0.0-0.0); NUCLEATED RED BLOOD CELL 0.0 10*3/uL (0.0-0.0); PLATELET COUNT AUTOMATED 221 10*3/uL (130-400); RED CELL DISTRI WIDTH 12.8 % (0-14.5)
[2025-06-16 15:36] LABS: BUN 14.0 mg/dl (9-23)
[2025-06-16 17:05] VITALS: BP 147/71
[2025-06-16] MEDS ORDERED: REQUIP2 MG PO (17:37)
[2025-06-16] MEDS ORDERED: MUCUS RELIEF E600 MG PO (17:42)
[2025-06-16] MEDS ORDERED: Albuterol Sulf/Ipratropium 3 ML VIAL NEB SCH (17:55)
[2025-06-16] MEDS ORDERED: Acetaminophen/Oxycodone 5 MG/325 MG TABLET PO PRN (18:00)
[2025-06-16] MEDS ORDERED: hydrOXYzine 50 MG CAP PO PRN (18:00)
[2025-06-16] MEDS ORDERED: BUDESONIDE 0.5 MG AMP NEB SCH (18:06)
[2025-06-16 20:00] VITALS: BP 150/63
[2025-06-16] MEDS ORDERED: ZOLPIDEM TARTRATE 10 MG TAB PO SCH (22:00)
[2025-06-16] MEDS ORDERED: NYSTATIN 15 GM BOT T SCH (22:00)
[2025-06-16] MEDS ORDERED: METOPROLOL SUCCINATE XR 50 MG TAB PO SCH (22:00)
[2025-06-17] VITALS: BP 153/80
[2025-06-17 05:59] LABS: BUN 16 mg/dl (9-23)
[2025-06-17 06:18] LABS: BASO # 0.0 10*3/uL (0.0-0.1); BASO % 0.2 % (0.0-1.0); EOS # 0.0 10*3/uL (0.0-0.4); EOS % 0.0 % (1.0-4.0); MEAN CELL VOLUME 91.5 fl (81.0-99.0); MEAN CORPUSCULAR HGB 28.5 pg (27.0-31.0); MEAN PLATELET VOLUME 12.3 fl (9.6-12.3); MONO # 0.1 10*3/uL (0.1-1.0); MONO % 0.8 % (3.0-9.0); NEUT # 10.8 10*3/uL (2.3-7.9); NEUT % 89.2 % (47.0-73.0); NUCLEATED RED BLOOD CELL 0.0 % (0.0-0.0); NUCLEATED RED BLOOD CELL 0.0 10*3/uL (0.0-0.0); PLATELET COUNT AUTOMATED 227 10*3/uL (130-400); RED CELL DISTRI WIDTH 12.8 % (0-14.5)
[2025-06-17 08:00] VITALS: BP 171/87
[2025-06-17] MEDS ORDERED: CITALOPRAM 20 MG TAB PO SCH (10:00)
[2025-06-17] MEDS ORDERED: ISOSORBIDE MONONITRATE 30 MG TAB PO SCH (10:00)
[2025-06-17] MEDS ORDERED: FERROUS SULFATE 325 MG TAB PO SCH (10:00)
[2025-06-17] MEDS ORDERED: ATORVASTATIN CALCIUM 20 MG TAB PO SCH (10:00)
[2025-06-17] MEDS ORDERED: ASPIRIN ENTERIC COATED 81 MG TAB PO SCH (10:00)
[2025-06-17] MEDS ORDERED: LORATADINE 10 MG TAB PO SCH (10:00)
[2025-06-17] MEDS ORDERED: FAMOTIDINE 20 MG TAB PO SCH (10:00)
[2025-06-17] MEDS ORDERED: Cholecalciferol 2,000 UNIT TABLET (50 MCG) PO SCH (10:00)
[2025-06-17] MEDS ORDERED: CARIPRAZINE HCL 3 MG CAPSULE PO SCH (10:00)
[2025-06-17 11:13] VITALS: BP 148/73
[2025-06-17 16:00] VITALS: BP 135/71
[2025-06-17 20:00] VITALS: BP 130/67
[2025-06-18] VITALS: BP 129/48
[2025-06-18 08:00] VITALS: BP 129/71
[2025-06-18 11:50] VITALS: BP 124/53
[2025-06-18 16:00] VITALS: BP 119/61
[2025-06-18 20:00] VITALS: BP 95/57
[2025-06-18 22:45] VITALS: BP 133/54
[2025-06-19] VITALS: BP 133/54
[2025-06-19 08:00] VITALS: BP 150/50
[2025-06-19 11:58] VITALS: BP 157/74
[2025-06-19 16:00] VITALS: BP 150/85
[2025-06-19 20:00] VITALS: BP 152/81
[2025-06-20] VITALS: BP 160/70
[2025-06-20 04:55] LABS: BUN 22 mg/dl (9-23); SGPT/ALT 16 U/L (5-49)
[2025-06-20 06:19] LABS: MEAN CELL VOLUME 91.1 fl (81.0-99.0); MEAN CORPUSCULAR HGB 28.3 pg (27.0-31.0); MEAN PLATELET VOLUME 12.3 fl (9.6-12.3); NUCLEATED RED BLOOD CELL 0.0 % (0.0-0.0); NUCLEATED RED BLOOD CELL 0.0 10*3/uL (0.0-0.0); PLATELET COUNT AUTOMATED 226 10*3/uL (130-400); RED CELL DISTRI WIDTH 12.7 % (0-14.5)
[2025-06-20 06:22] LABS: MANUAL DIFF REFLEX YES
[2025-06-20 07:12] LABS: PLATELET SUFFICIENCY NORMAL (NORMAL)
[2025-06-20 08:00] VITALS: BP 152/65
== END 2025-06-20 10:15 | disposition home or self-care (01) | DRG 192 ==
LOC: ED 14:17 → EDHOLD 16:26 → 4E 16:26
PROVIDERS: Emergency Medicine; ADMIT Internal Medicine; ATTEND Internal Medicine
DX: J44.1 Chronic obstructive pulmonary disease with (acute) exacerbation (principal); N28.9 Disorder of kidney and ureter, unspecified; E55.9 Vitamin D deficiency, unspecified; I25.10 Atherosclerotic heart disease of native coronary artery without angina pectoris; E11.9 Type 2 diabetes mellitus without complications; K21.9 Gastro-esophageal reflux disease without esophagitis; K57.30 Diverticulosis of large intestine without perforation or abscess without bleeding; F12.90 Cannabis use, unspecified, uncomplicated; I10 Essential (primary) hypertension; F32.A Depression, unspecified; F41.9 Anxiety disorder, unspecified; E78.5 Hyperlipidemia, unspecified; Z88.0 Allergy status to penicillin; Z88.8 Allergy status to other drugs, medicaments and biological substances; Z91.09 Other allergy status, other than to drugs and biological substances; Z79.899 Other long term (current) drug therapy; Z79.01 Long term (current) use of anticoagulants; Z79.82 Long term (current) use of aspirin; Z90.49 Acquired absence of other specified parts of digestive tract; Z90.710 Acquired absence of both cervix and uterus; Z87.891 Personal history of nicotine dependence; I25.2 Old myocardial infarction; Z82.49 Family history of ischemic heart disease and other diseases of the circulatory system; Z82.5 Family history of asthma and other chronic lower respiratory diseases; Z80.0 Family history of malignant neoplasm of digestive organs; Z85.118 Personal history of other malignant neoplasm of bronchus and lung

== ENCOUNTER → 2025-08-05 | Outpatient (CLI) | payer OTHER ==
[~2025-08-05] MED LIST changes: +ALBUTEROL2.5 MG/0.5 INH; +MUCUS RELIEF E600 MG PO; +NEURONTIN100 MG PO; +NITROSTAT0.4 MG SL; +OXYCODONE-ACET1 EAC3 PO; +REQUIP2 MG PO; +ROPINIROLE HY0.25 MG PO
== END | disposition home or self-care (01) ==
LOC: MAMMO 00:41
PROVIDERS: ATTEND Internal Medicine
DX: Z12.31 Encounter for screening mammogram for malignant neoplasm of breast (principal)